=== PATIENT | female | born 1990 | race Caucasian/White ===

== ENCOUNTER 2022-10-30 19:17 | Outpatient (REF) | payer OTHER, SELFPAY ==
[2022-11-03 14:10] LABS: Age Gdln ACOG Testing Note (.); HPV Aptima Negative (Negative); IGP, Aptima HPV, rfx 16/18,45 Note (.)
== END 2022-10-30 19:18 | disposition home or self-care (01) ==
LOC: LAB 19:17
PROVIDERS: Visit Provider Physician Assistant
DX: Z01.419 Encounter for gynecological examination (general) (routine) without abnormal findings (principal)
CPT/HCPCS: 87624; G0145

== ENCOUNTER 2022-12-20 13:55 | Emergency (ER) | payer OTHER, SELFPAY ==
[2022-12-20 14:02] VITALS: BP 168/96; PULSE 82; RESP 18; TEMP 36.6; O2SAT 99; BMI 47.3
--- NOTE | 2022-12-20 14:21 | ED_ITS ---
external pelvic examination with nurse present indicated no apparent swelling or abscess. There is no Bartholin's abscess present. On the left side is a recessed area from her old surgery. There is no open areas or drainage or fluctuance. There is no indication for incision and drainage at this point. She'll be treated with antibiotics and pain medication and prompt follow-up with [employer]. Findings were discussed with the patient. HPI - General Adult General Chief complaint: Vaginal Bleeding Stated complaint: POSSIBLE CYST/VAGINAL PROBLEMS Time Seen by Provider: 12/20/22 14:07 Source: patient Mode of arrival: walk-in Limitations: no limitations History of Present Illness HPI narrative: patient is a 32-year-old female who presents to the emergency department for the evaluation of drainage from her left labia for the last three days. She was seen by her LDR RN today in the office but did not mention this complaint because she and her had intercourse prior to going to the office and she was not prepared to have an exam. She reports pain to the area and her has been squeezing drainage from it. She has had no fevers or vomiting. There are actively trying to get so she is not sure if she may be at this time. [facility] when she was she had a cyst to the area that was removed surgically by her LDR RN which left an indent/pocket in the labia an d she is now having drainage. Related Data Previous Rx's Medication Instructions Recorded clindamycin HCl 150 mg capsule 300 mg PO Q6H 10 days #80 caps 12/20/22 ketorolac 10 mg tablet 10 mg PO TID PRN pain #10 tabs 12/20/22 oxycodone-acetaminophen 5 mg-325 1 tab PO Q6H PRN pain #15 tabs 12/20/22 mg tablet (Percocet) Allergies Allergy/AdvReac Type Severity Reaction Status Date / Time No Known Drug Allergies Allergy Verified 12/20/22 14:01 Review of Systems ROS Constitutional Denies: fever or chills Ears, nose, mouth, and throat Denies: throat pain Cardiovascular Denies: chest pain Respiratory Denies: shortness of breath Gastrointestinal Denies: nausea or vomiting Musculoskeletal Denies: back pain or neck pain Integumentary/Breast Denies: rash Neurological Denies: headache Exam Narrative Exam Narrative: Gen.: Awake, alert, in no distress Head: Normocephalic, atraumatic ENT: Moist mucous membranes Respiratory: No respiratory distress Gastrointestinal: Abdomen is soft, nondistended and nontender to palpation : labia minora with no swelling or drainage. Left labia majora with medial tissue deformity consistent with a previous surgical procedure, no active drainage noted with a small swollen area that is mildly fluctuant. No large abscess noted. Extremities: Moves extremities equally Psych: Normal mood and affect Neuro: No focal neuro deficit Skin: Warm, dry, intact Constitutional Vital Signs, click to edit/add: Last Vital Signs Temp 97.8 F 12/20/22 14:02 Pulse 82 12/20/22 14:02 Resp 18 12/20/22 14:02 BP 168/96 H 12/20/22 14:02 Pulse Ox 99 12/20/22 14:02 O2 Del Method Room Air 12/20/22 14:02 Course Vital Signs Vital signs: Vital Signs Temperature 97.8 F 12/20/22 14:02 Pulse Rate 82 12/20/22 14:02 Respiratory Rate 18 12/20/22 14:02 Blood Pressure 168/96 H 12/20/22 14:02 Pulse Oximetry 99 12/20/22 14:02 Oxygen Delivery Method Room Air 12/20/22 14:02 Temperature 97.8 F 12/20/22 14:02 Pulse Rate 82 12/20/22 14:02 Respiratory Rate 18 12/20/22 14:02 Blood Pressure 168/96 H 12/20/22 14:02 Pulse Oximetry 99 12/20/22 14:02 Oxygen Delivery Method Room Air 12/20/22 14:02 Medical Decision Making [facility] Narrative Medical decision making narrative: test is negative, patient treated with pain medication in the Emergency Room. The area of abscess to the left labia has had drainage, at this time we will defer additional procedures to LDR RN, there is no large drainable abscess at this time. Clindamycin, Percocet, Toradol given for home. I discussed the case with Dr. Castano's PAAnnalise ([id number]) follow the patient up with her or Dr. Castano early next week. Warm compresses encouraged. Return to the Emergency Room if symptoms change or worsen Medical Records Medical records reviewed: Yes I reviewed the patient's medical records Lab Data Lab results reviewed: Yes I reviewed the patient's lab results Labs: Lab Results 12/20/22 Range/Units 14:40 Urine HCG, Qual Negative (NEGATIVE) Discharge Plan Discharge Chief Complaint: Vaginal Bleeding Clinical Impression: Abscess of labia Patient Disposition: Home, Self-Care Time of Disposition Decision: 15:02 Condition: Good Prescriptions / Home Meds: New clindamycin HCl 150 mg capsule 300 mg PO Q6H 10 Days Qty: 80 0RF ketorolac 10 mg tablet 10 mg PO TID PRN (Reason: pain) Qty: 10 0RF oxycodone-acetaminophen [Percocet] 5-325 mg tablet 1 tab PO Q6H PRN (Reason: pain) Qty: 15 0RF Rx Instructions: DX: R10.9 Instructions: Abscess (ED), Warm Compress or Soak (ED) Additional Instructions: Call Dr. Castano's office for a follow up appointment Saturday or Saturday; apply warm compresses to area Stand Alone Forms: Portal Instructions Referrals: Physician,Non-Staff, MD [Primary Care Provider] - 1 week
[2022-12-20 14:58] LABS: HCG Qualitative Urine* NEGATIVE (NEGATIVE)
[2022-12-20] MEDS: KETOROLAC TROMETHAMINE 60 MG/2 ML VIAL IM (15:28)
== END 2022-12-20 15:32 | disposition home or self-care (01) ==
PROVIDERS: Emergency Provider Emergency Medicine
DX: N76.4 Abscess of vulva (principal)
CPT/HCPCS: 84703; 96372; 99284

== ENCOUNTER 2022-12-31 15:11 | Outpatient (OUT) | payer OTHER, SELFPAY ==
--- NOTE | 2022-12-31 15:23 | XR_ITS ---
The [place] [id number] Patient Name: SYEDA DOLAN MRN: [id number] date: 1990 Sex: F Assigned Patient Location: LAB Current Patient Location: LAB Accession/Order Number: [id number] Exam Date: 12/31/2022 15:32 Report Date: 12/31/2022 17:02 At the request of: CRAIG HARRIS Procedure: XR abdomen 1V XR abdomen 1V, 12/31/2022 3:32 PM EDT, [place]001 INDICATION: Unspecified abdominal pain R10.9 evaluate nephrolithiasis. COMPARISON: None TECHNIQUE: 2 frontal views of the abdomen obtained. FINDINGS: The bowel gas pattern appears within normal limits. No suspicious calcifications are projected over the kidneys, ureters or bladder. No free peritoneal air is seen. The osseous and surrounding soft tissue structures appear within normal limits. XR/XR abdomen 1V IMPRESSION: Unremarkable bowel gas pattern. No definite radiographic evidence of genitourinary calculi. Electronically authenticated by: ZOEY MARQUIS Date: 12/31/2022 17:02
[2022-12-31 15:32] LABS: Bilirubin Urine NEGATIVE (NEGATIVE); Blood Urine TRACE-I (NEGATIVE); Clarity Urine CLEAR (CLEAR); Color Urine LT. YELLOW (YELLOW); Glucose Urine UA NEGATIVE (NEGATIVE); Ketones Urine NEGATIVE (NEGATIVE); Leukocyte Esterase Urine MODERATE (NEGATIVE); Nitrite Urine NEGATIVE (NEGATIVE); Protein Urine NEGATIVE (NEG/TRACE); Specific Gravity Urine >=1.030 (1.005-1.025); Urobilinogen Urine 0.2 EU/dL (0.2-1.0)
== END 2022-12-31 15:12 | disposition home or self-care (01) ==
LOC: LAB 15:13
PROVIDERS: PCP Family Medicine; Visit Provider Family Medicine
DX: R39.9 Unspecified symptoms and signs involving the genitourinary system (principal); R10.9 Unspecified abdominal pain
CPT/HCPCS: 74018; 81003; 87086; 87150; 87186

== ENCOUNTER 2023-01-17 20:50 | Outpatient (REF) | payer OTHER, SELFPAY | END 2023-01-17 20:51 | disposition home or self-care (01) | LOC: LAB 20:50 | PROVIDERS: PCP Family Medicine; Visit Provider Obstetrics & Gynecology | DX: N75.0 Cyst of Bartholin's gland (principal); N76.4 Abscess of vulva | CPT/HCPCS: 87070; 87150; 87186 ==

== ENCOUNTER 2023-01-25 10:03 | Outpatient (OUT) | payer OTHER, SELFPAY | END 2023-01-25 10:04 | disposition home or self-care (01) | LOC: LAB 10:05 | PROVIDERS: PCP Family Medicine; Visit Provider Obstetrics & Gynecology | DX: N97.9 Female infertility, unspecified (principal) | CPT/HCPCS: 36415; 84144 ==

== ENCOUNTER 2023-05-20 18:01 | Emergency (ER) | payer MEDICAID, SELFPAY ==
[2023-05-20 18:19] VITALS: BP 160/92; PULSE 85; RESP 20; TEMP 37.1; O2SAT 97; BMI 44.6
--- NOTE | 2023-05-20 18:35 | ED.BACK1 ---
HPI - Back Pain/Injury General Chief Complaint: Back Pain/Injury Stated Complaint: POSS KIDNEY STONE Time Seen by Provider: 05/20/23 18:25 Source: patient Mode of arrival: Wheelchair Limitations: no limitations History of Present Illness HPI Narrative: Is a 33-year-old female who presents to the emergency department with concern that she may have a kidney stone. She states she developed pain in the right low back with radiation to the right hip and groin earlier today. She reports an episode of emesis and states she is very nauseous. No medications taken prior to arrival. She denies any injuries or traumas, pain is significantly worse with movement and walking. She states she has a history of kidney stone. She is unsure if she may be . No objective fevers. Related Data Previous Rx's Medication Instructions Recorded clindamycin HCl 150 mg capsule 300 mg (2 x 150 mg) PO Q6H 10 days 12/20/22 #80 caps ketorolac 10 mg tablet 10 mg PO TID PRN pain #10 tabs 12/20/22 oxycodone-acetaminophen 5 mg-325 1 tab PO Q6H PRN pain #15 tabs 12/20/22 mg tablet (Percocet) methocarbamol 750 mg tablet 750 mg PO TID PRN pain #20 tabs 05/20/23 naproxen sodium 550 mg tablet 550 mg PO BID PRN pain #10 tabs 05/20/23 Allergies Allergy/AdvReac Type Severity Reaction Status Date / Time No Known Drug Allergies Allergy Verified 12/20/22 14:01 Review of Systems ROS Constitutional Denies: fever or chills Ears, nose, mouth, and throat Denies: throat pain or nasal congestion Respiratory Denies: shortness of breath Gastrointestinal Reports: nausea and vomiting; Denies: abdominal pain or diarrhea Musculoskeletal Reports: back pain; Denies: neck pain, extremity pain or extremity swelling Integumentary/Breast Denies: rash Neurological Denies: headache Endocrine Denies: excessive urination or excessive thirst Hematologic/Lymphatic Denies: easy bruising Exam Narrative Exam Narrative: Gen.: Awake, alert, in no distress Head: Normocephalic, atraumatic ENT: Moist mucous membranes Respiratory: No respiratory distress, lungs clear bilaterally Cardio: Regular rate and rhythm Gastrointestinal: Abdomen is soft, nondistended and nontender to palpation Back: Diffuse tenderness of the paraspinal muscles of the right low back with no CVA tenderness, no bony point tenderness or obvious deformity. Extremities: Moves extremities equally, no injuries noted; Patient is ambulatory Psych: Normal mood and affect Neuro: No focal neuro deficit Skin: Warm, dry, intact Constitutional Vital Signs, click to edit/add: Last Vital Signs Temp 98.7 F 05/20/23 18:19 Pulse 85 05/20/23 18:19 Resp 20 05/20/23 18:19 BP 160/92 H 05/20/23 18:19 Pulse Ox 97 05/20/23 18:19 O2 Del Method Room Air 05/20/23 18:19 Course Vital Signs Vital signs: Vital Signs Temperature 98.7 F 05/20/23 18:19 Pulse Rate 85 05/20/23 18:19 Respiratory Rate 20 05/20/23 18:19 Blood Pressure 160/92 H 05/20/23 18:19 Pulse Oximetry 97 05/20/23 18:19 Oxygen Delivery Method Room Air 05/20/23 18:19 Temperature 98.7 F 05/20/23 18:19 Pulse Rate 85 05/20/23 18:19 Respiratory Rate 20 05/20/23 18:19 Blood Pressure 160/92 H 05/20/23 18:19 Pulse Oximetry 97 05/20/23 18:19 Oxygen Delivery Method Room Air 05/20/23 18:19 MDM - Back Pain/Injury MDM Narrative Medical decision making narrative: Patient treated with IV fluids, morphine, Toradol, Zofran. She is resting comfortably on reevaluation. Vital signs are stable, lab studies are within normal limits. Patient's urine specimen is contaminated and she does not have any dysuria so we will wait for urine culture to determine if she needs to be treated for UTI. CT with no evidence of acute process. Patient treated for musculoskeletal pain, Norflex added in the ER and she is discharged home to follow-up with PCP. Return to the ER if symptoms change or worsen Medical Records Attestation: I reviewed the patient's medical records. Lab Data Attestation: I reviewed the patient's lab results. Labs: Lab Results 05/20/23 Range/Units 18:42 WBC 8.9 (4.0-11.0) 10^3/uL RBC 4.06 L (4.20-5.40) 10^6/uL Hgb 12.7 (12.0-16.0) g/dL Hct 38.9 (36.0-48.0) % MCV 95.8 (81.0-99.0) fL MCH 31.3 (26.7-34.0) pg MCHC 32.6 (29.9-35.2) g/dL RDW 11.9 (11.0-15.0) % Plt Count 303 (150-450) 10^3/uL MPV 10.6 (9.5-13.5) fL Neut % (Auto) 60.6 (43.0-75.0) % Lymph % (Auto) 31.1 (20.5-60.0) % [place] % (Auto) 6.0 (1.7-12.0) % Eos % (Auto) 1.6 (0.9-7.0) % Baso % (Auto) 0.6 (0.2-2.0) % Neut # (Auto) 5.4 (1.4-6.5) 10^3/uL Lymph # (Auto) 2.8 (1.2-3.8) 10^3/uL [place] # (Auto) 0.5 (0.3-0.8) 10^3/uL Eos # (Auto) 0.1 (0.0-0.7) 10^3/uL Baso # (Auto) 0.1 (0.0-0.1) 10^3/uL Abs Immat Gran (auto) 0.00 (0.00-0.03) 10^3/uL Imm/Tot Granulo (auto) 0.1 (0.0-0.5) % Sodium 138 (136-145) mmol/L Potassium 3.7 (3.5-5.1) mmol/L Chloride 106 (98-107) mmol/L Carbon Dioxide 25.4 (21.0-32.0) mmol/L Anion Gap 10.3 BUN 12.0 (7.0-18.0) mg/dL Creatinine 0.89 (0.55-1.02) mg/dL Est GFR ( Amer) >60 (>=60) Est GFR (Non-Af Amer) >60 (>=60) BUN/Creatinine Ratio 13.5 Glucose 95 (74-106) mg/dL Calcium 8.7 (8.5-10.1) mg/dL Total Bilirubin 0.3 (0.2-1.0) mg/dL AST 12 L (15-37) U/L ALT 23 (14-59) U/L Alkaline Phosphatase 95 (46-116) U/L Total Protein 7.0 (6.4-8.2) g/dL Albumin 3.2 L (3.4-5.0) g/dL Globulin 3.8 g/dL Albumin/Globulin Ratio 0.8 Lipase 30.0 (16.0-77.0) U/L Serum HCG, Qual Negative (NEGATIVE) Urine Color Lt. yellow (YELLOW) Urine Clarity Clear (CLEAR) Urine pH 6.5 (5.0-9.0) Ur Specific [place] 1.025 (1.005-1.025) Urine Protein Negative (NEG/TRACE) mg/dL Urine Glucose (UA) Negative (NEGATIVE) mg/dL Urine Ketones Negative (NEGATIVE) mg/dL Urine Occult Blood Negative (NEGATIVE) Urine Nitrite Negative (NEGATIVE) Urine Bilirubin Negative (NEGATIVE) Urine Urobilinogen 0.2 (0.2-1.0) EU/dL Ur Leukocyte Esterase Trace A (NEGATIVE) Urine RBC 5-10 A (0-2) #/HPF Urine WBC 5-10 A (NONE SEEN) #/HPF Ur Squamous Epith Cells Moderate A (NONE/RARE) #/LPF Urine Crystals None seen (None Seen) #/HPF Urine Bacteria Large A (NONE SEEN) #/HPF Urine Casts None seen (NONE SEEN) #/LPF Urine Mucus Small A (NONE SEEN) Ur Culture Indicated? Yes Imaging Data CT scan - abdomen: Attestation: I have reviewed the pertinent imaging results. Radiologist's impression: Procedure: CT abdomen pelvis wo con EXAM: CT scan of the abdomen and pelvis without contrast. Dose reduction technique used: Automated exposure control and/or adjustment of the mA and/or kV according to patient size and/or use of iterative reconstruction technique. REASON FOR EXAM: kidney stone COMPARISON: None FINDINGS: No renal, ureteral or bladder calculi. No hydronephrosis. Normal appendix. No free fluid in the abdomen or pelvis. No free intraperitoneal air. No dilated or thickened loops of small bowel or colon. Liver, pancreas, spleen, bilateral kidneys, and bilateral adrenal glands are otherwise unremarkable within the limitations of noncontrast CT. No lymphadenopathy in the abdomen or pelvis. Remainder unremarkable. Discharge Plan Discharge Chief Complaint: Back Pain/Injury Clinical Impression: Low back pain Patient Disposition: Home, Self-Care Time of Disposition Decision: 20:26 Condition: Good Prescriptions / Home Meds: New methocarbamol 750 mg tablet 750 mg PO TID PRN (Reason: pain) Qty: 20 0RF naproxen sodium 550 mg tablet 550 mg PO BID PRN (Reason: pain) Qty: 10 0RF No Action clindamycin HCl 150 mg capsule 300 mg PO Q6H 10 Days Qty: 80 0RF ketorolac 10 mg tablet 10 mg PO TID PRN (Reason: pain) Qty: 10 0RF oxycodone-acetaminophen [Percocet] 5-325 mg tablet 1 tab PO Q6H PRN (Reason: pain) Qty: 15 0RF Rx Instructions: DX: R10.9 Instructions: Acute Low Back Pain (ED) Stand Alone Forms: Portal Instructions Referrals: Asiya Gonzales MD [Primary Care Provider] - 1 week
[2023-05-20] MEDS: 0.9 % SODIUM CHLORIDE 1,000 ML 999 ML IV (18:55)
[2023-05-20] MEDS: ONDANSETRON PF 4 MG/2 ML VIAL IV (18:55)
[2023-05-20 19:15] LABS: Hematocrit 38.9 % (36.0-48.0); Hemoglobin 12.7 g/dL (12.0-16.0); Mean Corpuscular HGB Conc 32.6 g/dL (29.9-35.2); Mean Corpuscular Hemoglobin 31.3 pg (26.7-34.0); Mean Corpuscular Volume 95.8 fL (81.0-99.0); Platelet Count 303 10^3/uL (150-450); Red Blood Count 4.06 10^6/uL (4.20-5.40); Red Cell Distribution Width 11.9 % (11.0-15.0); White Blood Count 8.9 10^3/uL (4.0-11.0)
[2023-05-20 19:16] LABS: Basophils Absolute Auto 0.1 10^3/uL (0.0-0.1); Basophils Percent Auto 0.6 % (0.2-2.0); Eosinophils Absolute Auto 0.1 10^3/uL (0.0-0.7); Eosinophils Percent Auto 1.6 % (0.9-7.0); Immature Granulocytes Pct Auto 0.1 % (0.0-0.5); Lymphocytes Absolute Auto 2.8 10^3/uL (1.2-3.8); Lymphocytes Percent Auto 31.1 % (20.5-60.0); Mean Platelet Volume 10.6 fL (9.5-13.5); Monocytes Absolute Auto 0.5 10^3/uL (0.3-0.8); Neutrophils Absolute Auto 5.4 10^3/uL (1.4-6.5); Neutrophils Percent Auto 60.6 % (43.0-75.0)
[2023-05-20 19:26] LABS: Bilirubin Urine NEGATIVE (NEGATIVE); Blood Urine NEGATIVE (NEGATIVE); Clarity Urine CLEAR (CLEAR); Color Urine LT. YELLOW (YELLOW); Glucose Urine UA NEGATIVE (NEGATIVE); Ketones Urine NEGATIVE (NEGATIVE); Leukocyte Esterase Urine TRACE (NEGATIVE); Nitrite Urine NEGATIVE (NEGATIVE); Protein Urine NEGATIVE (NEG/TRACE); Specific Gravity Urine 1.025 (1.005-1.025); Urobilinogen Urine 0.2 EU/dL (0.2-1.0); pH Urine 6.5 (5.0-9.0)
[2023-05-20 19:30] LABS: Alanine Aminotransferase 23 U/L (14-59); Albumin Globulin Ratio 0.8; Albumin Level 3.2 g/dL (3.4-5.0); Alkaline Phosphatase 95 U/L (46-116); Anion Gap 10.3; Aspartate Amino Transferase 12 U/L (15-37); BUN Creatinine Ratio 13.5; Bilirubin Total 0.3 mg/dL (0.2-1.0); Calcium 8.7 mg/dL (8.5-10.1); Carbon Dioxide 25.4 mmol/L (21.0-32.0); Chloride 106 mmol/L (98-107); Estimated GFR (African America >60 (>=60); Estimated GFR (Non-African Ame >60 (>=60); Globulin 3.8 g/dL; Glucose 95 mg/dL (74-106); Potassium 3.7 mmol/L (3.5-5.1); Sodium 138 mmol/L (136-145)
[2023-05-20 19:33] LABS: HCG Qualitative NEGATIVE (NEGATIVE)
[2023-05-20 19:34] LABS: Urine Microscopic Indicated YES
--- NOTE | 2023-05-20 19:35 | CT_ITS ---
The [address] [address] Patient Name: SYEDA DOLAN MRN: [id number] date: 1990 Sex: F Assigned Patient Location: ER Current Patient Location: Accession/Order Number: [id number] Exam Date: 05/20/2023 19:48 Report Date: 05/20/2023 20:12 At the request of: KAMILA MENA Procedure: CT abdomen pelvis wo con EXAM: CT scan of the abdomen and pelvis without contrast. Dose reduction technique used: Automated exposure control and/or adjustment of the mA and/or kV according to patient size and/or use of iterative reconstruction technique. REASON FOR EXAM: kidney stone COMPARISON: None FINDINGS: No renal, ureteral or bladder calculi. No hydronephrosis. Normal appendix. No free fluid in the abdomen or pelvis. No free intraperitoneal air. No dilated or thickened loops of small bowel or colon. Liver, pancreas, spleen, bilateral kidneys, and bilateral adrenal glands are otherwise unremarkable within the limitations of noncontrast CT. No lymphadenopathy in the abdomen or pelvis. Remainder unremarkable. CT/CT abdomen pelvis wo con IMPRESSION: No acute abnormalities in the abdomen or pelvis. Electronically authenticated by: AMANDA MACIEL Date: 05/20/2023 20:12
[2023-05-20 19:38] LABS: Bacteria Urine LARGE #/HPF (NONE SEEN); Cast Seen? NONE SEEN #/LPF (NONE SEEN); Crystals Seen? None Seen #/HPF (None Seen); Mucus Urine SMALL (NONE SEEN); Squamous Epithelial Cell Urine MODERATE #/LPF (NONE/RARE); Urine Culture Indicated YES
[2023-05-20] MEDS: KETOROLAC TROMETHAMINE 30 MG/ML VIAL 15 MG IVP (19:44)
[2023-05-20] MEDS: MORPHINE SULFATE 4 MG/ML VIAL IV (19:44)
[2023-05-20 20:15] VITALS: BP 128/71; PULSE 52; RESP 16; O2SAT 100
[2023-05-20] MEDS: ORPHENADRINE 60 MG/ 2 ML VIAL IV (20:24)
== END 2023-05-20 20:41 | disposition home or self-care (01) ==
PROVIDERS: Physician Assistant; Emergency Provider Emergency Medicine Emergency Medical Services; PCP Family Medicine
DX: M54.50 Low back pain, unspecified (principal); Z87.442 Personal history of urinary calculi
CPT/HCPCS: 36415; 74176; 80053; 81001; 83690; 84703; 85025; 87086; 96361; 96374; 96375; 99285; J1885; J2270; J2360; J2405

== ENCOUNTER 2024-02-13 07:28 | Emergency (ER) | payer OTHER, SELFPAY ==
[2024-02-13 07:33] VITALS: BP 171/99; PULSE 78; TEMP 36.7; O2SAT 96; BMI 44.9
--- OUTSIDE RECORDS SUMMARY | 2024-02-13 07:35 | XMS_ITS | CCD ---
Author Organization [facility] CliniSynh Care Team Providers Care Rigger Up Name Role Phone Ravi Summersruth Joseph Primary Care Provider [phone] WARREN APODACA Admitting Unavailable WARREN APODACA Attending Unavailable ALISON NICOLE Joseph Primary Care Unavailable Nicole Summers Primary Care Provider Anabel Melgar Attending Unavailable Asiya Harris Unavailable Jimmy Roque Unavailable SEVEN ., DR BROWN Attending Unavailable SEVEN ., DR BROWN Admitting Unavailable SEVEN ., DR BROWN Consulting Unavailable SEVEN ., DR BROWN Admitting Unavailable SEVEN ., DR BROWN Consulting Unavailable SEVEN ., DR BROWN Attending Unavailable OLGA WALKER Consulting Unavailable WARREN APODACA Referring Unavailable ASIYA HARRIS Primary Care Unavailable ASIYA HARRIS Primary Care Unavailable WARREN HERNANDEZ Referring Unavailable Allergies Allergy Classification Reported Allergen(s) Allergy Type Date of Onset Reaction(s) Facility (1 source) No Known Medication Allergies; Translations: [No Known Medication Allergies] Propensity to adverse reactions (disorder) [facility] Repository Medications Current Medications Medication Drug Class(es) Dates Sig (Normalized) Sig (Original) 200 actuat albuterol 0.09 mg/actuat metered dose inhaler (1 source) beta2-Adrenergic Agonist Start: 04-14-2020 take 2 puff(s) by inhalation four times daily as needed for wheezing albuterol sulfate HFA (VENTOLIN HFA) 108 (90 Base) MCG/ACT inhaler Inhale 2 puffs into the lungs 4 times daily as needed for Wheezing 1 Inhaler 0 04/14/2020 Active Start: 04-14-2020 take 2 puff(s) by in halation four times daily as needed for wheezing albuterol sulfate HFA (VENTOLIN HFA) 108 (90 Base) MCG/ACT inhaler Inhale 2 puffs into the lungs 4 times daily as needed for Wheezing 1 Inhaler 0 04/14/2020 Active albuterol sulfate HFA 108 (90 Base) MCG/ACT inhaler 2 puff (1 source) Start: 04-14-2020 albuterol sulfate HFA 108 (90 Base) MCG/ACT inhaler 2 puff ascorbic acid 60 mg / beta carotene 5000 unt / copper sulfate 40 mg / dl-alpha tocopheryl acetate 30 unt / sodium selenite 0.04 mg / zinc oxide 40 mg oral tablet (1 source) Vitamin C take 1 tablet by mouth once daily Multiple Vitamins-Minerals (THERAPEUTIC MULTIVITAMIN-AIRLINE STEWARDESS ALS) tablet Take 1 tablet by mouth daily 0 Active azithromycin 250 mg oral tablet (2 sources) Macrolide Antimicrobial Start: 04-14-2020 End: 04-18-2020 take 1 tablet by mouth once daily azithromycin (ZITHROMAX) 250 MG tablet Indications: Pneumonia due to COVID-19 virus Take 1 tablet by mouth daily for 4 days 4 tablet 0 04/14/2020 04/18/2020 Active Start: 04-14-2020 End: 04-14-2020 azithromycin (ZITHROMAX) tab let 500 mg benzonatate 200 mg oral capsule (2 sources) Non-narcotic Antitussive Start: 04-14-2020 End: 04-21-2020 take 1 capsule by mouth three times daily as needed for cough benzonatate (TESSALON) 200 MG capsule Take 1 capsule by mouth 3 times daily as needed for Cough 20 capsule 0 04/14/2020 04/21/2020 Active Start: 04-14-2020 End: 04-14-2020 benzonatate (TESSALON) capsu le 200 mg [id number] 0.3 ml EPINEPHrine 1 mg/ml auto-injector (3 sources) alpha-Adrenergic Agonist, beta-Adrenergic Agonist, Catecholamine Start: 02-06-2019 EPINEPHrine (EPIP EN 2-LUPE) 0.3 MG/0.3ML SOAJ injection Inject 0.3 mLs into the skin once as needed (ALLERGIC reaction) 1 each 1 02/06/2019 Active 2 ml fentaNYL 0.05 mg/ml injection (2 sources) Opioid Agonist Start: 10-23-2019 fentaNYL (SUBLIMAZE) injection 50 mcg Start: 10-23-2019 fentaNYL (SUBL IMAZE) injection 25 mcg FLUoxetine 40 mg oral capsule (9 sources) Serotonin Reuptake Inhibitor Start: 10-14-2023 take 1 mg by mouth once daily Fluoxetine Active MG PO Daily October 14, 2023 12:00am Start: 08-05-2023 End: 08-06-2023 take 1 capsule by mouth once daily Fluoxetine (Prozac) 40 mg capsule Discontinued 40 MG PO Daily August 05, 2023 12:00am August 06, 2023 10:53am take [address] [facility] every twenty-four hours PROzac 40 MG 1 capsule Orally Once a day Active 1 ml hydrALAZINE hydrochloride 20 mg/ml injection (1 source) Arteriolar Vasodilator Start: 10-23-2019 hydrALAZINE (APRESOLINE) injection 5 mg lamoTRIgine 200 mg oral tablet (9 sources) Mood Stabilizer, Anti-epileptic Agent Start: 10-14-2023 take 200 mg by mouth once daily Lamotrigine Active 200 MG PO Daily October 14, 2023 12:00am Start: 08-06-2023 End: 10-14-2023 take 1 tablet by mouth twice daily Lamotrigine (Lamictal) 25 mg tablet Discontinued 25 MG PO Twice daily August 06, 2023 12:00am October 14, 2023 10:51am Start: 04-17-2019 take 1 tablet by [facility] once daily lamoTRIgine (LAMICTAL) 100 MG tablet Take 100 mg by mouth daily 0 04/17/2019 Active 2 ml metoclopramide 5 mg/ml prefilled syringe (1 source) Dopamine-2 Receptor Antagonist Start: 10-23-2019 End: 10-23-2019 metoclopramide (REGLAN) injection 10 mg Multiple Vitamins-Minerals (THERAPEUTIC MULTIVITAMIN-MINERAL S) tablet (4 sources) take 1 tablet by mouth once daily Multiple Vitamins-Minerals (THERAPEUTIC MULTIVITAMIN-MINERA LS) tablet Take 1 tablet by mouth daily 0 Active 2 ml ondansetron 2 mg/ml injection (1 source) Serotonin-3 Receptor Antagonist Start: 10-23-2019 End: 10-23-2019 ondansetron (ZOFRAN) injection 4 mg phentermine hydrochloride 37.5 mg oral tablet (3 sources) Sympathomimetic Amine Anorectic Start: 08-07-2022 take 1 tablet by mouth every twenty-four hours Adipex-P 37.5 MG 1 tablet Orally Once a day for 30 days Jul, Active Start: 07-10-2022 take 1 tablet by lc th every twenty-four hours Adipex-P 37.5 MG 1 tablet Orally Once a day for 30 days Jun, Active QUEtiapine 100 mg oral tablet (2 sources) Atypical Antipsychotic take 1 tablet by mouth every twenty-four hours QUEtiapine Fumarate 100 MG 1 tablet at bedtime Orally Once a day Active risperiDONE 2 mg oral tablet (1 source) Atypical Antipsychotic take 1 tablet by mouth twice daily risperiDONE (RISPERDAL) 2 MG tablet Take 2 mg by mouth 2 times daily 0 Active venlafaxine 100 mg oral tablet (5 sources) Serotonin and Norepinephrine Reuptake Inhibitor venlafaxine (EFFEXOR) 100 MG tablet Take 75 mg by mouth daily 0 Active take 2 tablets by mouth once aurora ly venlafaxine (EFFEXOR) 100 MG tablet Take 200 mg by mouth daily 0 Active Completed/Discontinued Medications Medication Drug Class(es) Dates Sig (Normalized) Sig (Original) amoxicillin 500 mg oral capsule (1 source) Penicillin-class Antibacterial Start: 08-22-2023 End: 10-14-2023 take 500 mg by mouth three times daily Amoxicillin Discontinued 500 MG PO Three times daily 30 11August 22, 2023 12:00am October 14, 2023 10:51am busPIRone hydrochloride 15 mg oral tablet (7 sources) Start: 08-05-2023 End: 08-06-2023 take 15 mg by mouth twice daily Buspirone Discontinued 15 MG PO Twice daily August 05, 2023 12:00am August 06, 2023 10:53am take 1 tablet by lc th every twelve hours busPIRone HCl 15 MG 1 tablet Orally Twic e a day for 30 days Active cariprazine 1.5 mg oral capsule (3 sources) Atypical Antipsychotic Start: 08-06-2023 End: 10-14-2023 take 1 capsule by mouth once daily Cariprazine (Vraylar) 1.5 mg capsule Discontinued 1.5 MG PO Daily August 06, 2023 12:00am October 14, 2023 10:51am cephalexin 500 mg oral capsule (5 sources) Cephalosporin Antibacterial Start: 08-05-2023 End: 08-06-2023 take 500 mg by mouth three times daily Cephalexin Discontinued 500 MG PO Three times daily August 05, 2023 12:00am August 06, 2023 10:53am take 1 capsule by [facility] every eight hours Cephalexin 500 MG 1 tablet three times a day Active 1 ml dexamethasone phosphate 10 mg/ml injection (1 source) Corticosteroid Start: 04-14-2020 End: 04-14-2020 dexamethasone (PF) (DECADRON) injection 6 mg lurasidone hydrochloride 20 mg oral tablet (2 sources) Atypical Antipsychotic End: 10-23-2019 take 1 tablet by mouth once daily lurasidone (LATUDA) 20 MG TABS tablet Take 20 mg by mouth daily 0 10/23/2019 Discontinued (DISCONTINUED BY ANOTHER CLINICIAN) methylPREDNISolone 4 mg oral tablet (1 source) Corticosteroid Start: 08-22-2023 End: 10-14-2023 take 1 tablet by mouth once Methylprednisolone (Medrol (Lupe)) 4 mg tablets,dose pack Discontinued 0 PO per package directions August 22, 2023 12:00am October 14, 2023 11:15am PO PER PKG DIR for 6 days Problems Problem Classification Problem Date Documented Date Episodic/Chronic Abdominal pain (1 source) Unspecified abdominal pain Episodic Administrative/social admission (4 sources) Patient encounter status; Translations: [Exercise counseling] 10-14-2023 Episodic Anxiety disorders (3 sources) Mixed anxiety and depressive disorder; Translations: [Other specified anxiety disorders] 08-05-2023 Chronic Essential hypertension (4 sources) Essential hypertension; Translations: [Essential hypertension] Onset: 07-24-2019 07-24-2019 Chronic Genitourinary symptoms and ill-defined conditions (1 source) Unspecified symptoms and signs involving the genitourinary system Episodic Mood disorders (8 sources) Depressive disorder; Translations: [Bipolar II disorder] Onset: 07-24-2019 07-24-2019 Chronic Other disorders of stomach and duodenum (1 source) Indigestion; Translations: [Indigestion] 11-01-2019 Episodic Other endocrine disorders (5 sources) Polycystic ovarian syndrome; Translations: [Polycystic ovaries] Onset: 09-20-2022 Chronic Other endocrine disorders (3 sources) Polycystic ovary syndrome; Translations: [Polycystic ovarian syndrome] 08-05-2023 Chronic Other lower respiratory disease (1 source) Snoring; Translations: [Snoring] Episodic Other lower respiratory disease (3 sources) Other forms of dyspnea; Translations: [Other forms of dyspnea] Onset: 07-29-2023 Episodic Other nutritional; endocrine; and metabolic disorders (8 sources) Morbid obesity; Translations: [Morbid (severe) obesity due to excess calories] 08-05-2023 Chronic Other nutritional; endocrine; and metabolic disorders (8 sources) Body mass index 40+ - severely obese; Translations: [Body mass index (BMI) 50.0-59.9, adult] Onset: 07-24-2019 07-24-2019 Chronic Other nutritional; endocrine; and metabolic disorders (3 sources) Morbid (severe) obesity due to excess calories; Translations: [Morbid obesity] Chronic Other nutritional; endocrine; and metabolic disorders (3 sources) Body mass index (BMI) 50.0-59.9, adult; Translations: [Body Mass Index 50.0-59.9, adult] 08-06-2023 Chronic Other upper respiratory infections (5 sources) Sore throat symptom; Translations: [Acute pharyngitis, unspecified] 08-22-2023 Episodic Pneumonia (except that caused by tuberculosis or sexually transmitted disease) (1 source) Pneumonia due to other virus not elsewhere classified; Translations: [Pneumonia due to COVID-19 virus] Episodic Unclassified (1 source) No additional problems on file Unclassified (1 source) Patient encounter status; Translations: [Encounter for screening for other viral diseases] Results Test Name Value Interpretation Reference Range Facility No Panel InformationOrdered By: Denisa To on 08-22-2023 Quick Strep (POC) [facility] DHEA SERUMon 09-24-2022 Dehydroepiandrosterone (DHEA) 229 ng/dL Normal 31-701 [facility] Comment on above: Performed By: #### Marian CHAN. #### [facility] [address] [address] [address] Estella Elaine DHEA-SULFATEon 09-20-2022 DHEA-Sulfate 229.0 ug/dL Normal 84.8-378.0 [facility] Comment on above: Performed By: #### Marian BANEGAS #### [facility] [address] [address] [address] Estella Elaine FSHon 09-20-2022 FSH 5.9 mIU/mL Normal [facility] Comment on above: Result Comment: Adul t Female: Follicular phase 3.5 - 12.5 Ovulation phase 4.7 - 21.5 Luteal phase 1.7 - 7.7 Postmenopausal 25.8 - 134.8 Performed By: #### [facility] #### [facility] [address] [place], [place] [address] Dr. Estella Elaine LUTEINIZING HORMONE (LH)on 0 09-20-2022 LH 9.1 mIU/mL Normal [facility] Comment on above: Result Comment: Adul t Female: Follicular phase 2.4 - 12.6 Ovulation phase 14.0 - 95.6 Luteal phase 1.0 - 11.4 Postmenopausal 7.7 - 58.5 Performed By: #### L [facility] #### [facility] [address] [place], [place] [address] Dr. Estella Elaine US PELVIS AND TRANSVAGon US PELVIS AND TRANSVAG EXAM: US PELVIS A ND TRANSVAG HISTORY: Polycystic ovary syndrome COMPARISON: None. TECHNIQUE: Transvaginal and transabdominal imaging was performed utilizing grayscale, color Doppler, and spectral imaging. LMP: 09/14/2022. : 1 Para: 1 FINDINGS: Anteverted uterus. Uterine volume: 7.5 x 3.5 x 4.3 cm = 57.9 mL. Uterus description: Homogeneous echotexture without evidence of fibroid. Endometrial thickness: 4 mm. (Normal premenopausal thickness is less than 15 mm. Normal postmenopausal thickness is less than 5 mm) Endometrial description: No abnormality demonstrated. Right ovary: Measurements: 2.8 x 2.7 x 2.3 cm = 9 mL, containing multiple follicles measuring up to 1 cm. Description: Unremarkable appearance of the ovary without suspicious lesion. Vasculature: Normal color waveform. Left ovary: Measurements: 2.1 x 1.4 x 1.4 cm = 3.6 mL. Description: Unremarkable appearance of the ovary without suspicious lesion. Vasculature: Normal color waveform. Adnexa: Unremarkable. Cul-de-sac: No free fluid. Additional findings: None. IMPRESSION: Unremarkable pelvic ultrasound. No significant abnormality demonstrated. . Electronically authenticated by: OLGA WALKER Date: 2022-09-20 16:56 Normal [facility] CBC AUTO DIFFon 05-10-2023 BASO # 0.0 103/ul Normal 0.0-0.1 [facility] Comment on above: Performed By: #### C BC #### [facility] [address] [place] [address] Dr. Estella Elaine Basophils/100 WBC (Bld) 0.3 % Normal 0.2-2.0 [facility] Comment on above: Performed By: #### C BC #### [facility] [address] [place] [address] Dr. Estella lEaine EO # 0.1 103/ul Normal 0.0-0.7 [facility] Comment on above: Performed By: #### C BC #### [facility] [address] [place] [address] Dr. Estella Elaine Eosinophils/100 WBC (Bld) 0.9 % Normal 0.9-7.0 [facility] Comment on above: Performed By: #### C BC #### [facility] [address] [place] [address] Dr. Estella Elaine Erythrocyte distribution width (RBC) [Ratio] 11.9 % Normal 11.0-15.0 [facility] Comment on above: Performed By: #### C BC #### [facility] [address] [place] [address] Dr. Estella Elaine Hematocrit (Bld) [Volume fraction] 42.6 % Normal 36.0-48.0 [facility] Comment on above: Performed By: #### C BC #### [facility] [address] [place] [address] Dr. Estella Elaine Hemoglobin (Bld) [Mass/Vol] 14.2 g/dL Normal 12.0-16.0 [facility] Comment on above: Performed By: #### C BC #### [facility] [address] [place] [address] Dr. Estella Elaine IG # 0.03 10e3/ul Normal 0.00-0.03 [facility] Comment on above: Performed By: #### C BC #### [facility] [address] [place] [address] Dr. Estella Elaine IG % 0.3 % Normal 0.0-0.5 [facility] Comment on above: Performed By: #### C BC #### [facility] [address] [place] [address] Dr. Estella Elaine LYMPH # 1.7 103/ul Normal 1.2-3.8 [facility] Comment on above: Performed By: #### C BC #### [facility] [address] [place] [address] Dr. Estella Elaine Lymphocytes/100 WBC (Bld) 19.0 % Critically low 20.5-6 0.0 [facility] Comment on above: Performed By: #### C BC #### [facility] [address] [place] [address] Dr. Estella Elaine MANUAL DIFF REQ NO Normal [facility] Comment on above: Performed By: #### C BC #### [facility] [address] [place] [address] Dr. Estella Elaine MCH (RBC) [Entitic mass] 31.3 pg Normal 26.7-34.0 [facility] Comment on above: Performed By: #### C BC #### [facility] [address] [place] [address] Dr. Estella Elaine MCHC (RBC) [Mass/Vol] 33.3 g/dL Normal 29.9-35.2 [facility] Comment on above: Performed By: #### C BC #### [facility] [address] [place] [address] Dr. Estella Elaine MCV (RBC) [Entitic vol] 94.0 fL Normal 81.0-99.0 [facility] Comment on above: Performed By: #### C BC #### [facility] [address] [place] [address] Dr. sEtella Elaine MONO # 0.4 103/ul Normal 0.3-0.8 [facility] Comment on above: Performed By: #### C BC #### [facility] [address] [place] [address] Dr. Estella Elaine Monocytes/100 WBC (Bld) 4.0 % Normal 1.7-12.0 [facility] Comment on above: Performed By: #### C BC #### [facility] [address] [place] [address] Dr. Estella Elaine NEUT # 6.7 103/ul Critically high 1.4-6.5 [facility] Comment on above: Performed By: #### C BC #### [facility] [address] [place] [address] Dr. Estella Elaine Neutrophils/100 WBC (Bld) 75.5 % Critically high 43.0- 75.0 [facility] Comment on above: Performed By: #### C BC #### [facility] [address] [place] [address] Dr. Estella Elaine Platelet mean volume (Bld) [Entitic vol] 9.5 fL Normal 9.5-13.5 [facility] Comment on above: Performed By: #### C BC #### [facility] [address] [place] [address] Dr. Estella Elaine PLT 384 103/ul Normal 150-450 [facility] Comment on above: Performed By: #### C BC #### [facility] [address] [place] [address] Dr. Estella Elaine RBC 4.53 106/ul Normal 4.20-5.40 [facility] Comment on above: Performed By: #### C BC #### [facility] [address] [place] [address] Dr. Estella Elaine WBC 8.9 103/ul Normal 4.0-11.0 [facility] Comment on above: Performed By: #### C BC #### [facility] [address] [place] [address] Dr. Estella Elaine FREE T4on 09-19-2022 Free T4 [Mass/Vol] 0.90 ng/dL Normal 0.76-1.46 [facility] Comment on above: Performed By: #### F T4 #### [facility] [address] [place] [address] Dr. Estella Elaine GLYCOHEMOGLOBIN A1Con 2022 ADA RECOMMENDATION SEE BELOW Normal [facility] Comment on above: Result Comment: ADA RECOMMENDED LIMIT 4.0 - 6.0 ADA THERAPEUTIC TARGET < 7.0 ACTION SUGGESTED > 7.0 Performed By: #### A 1C #### [facility] [address] [place] [address] Dr. Estella Elaine Glucose [Mass/Vol] 97 mg/dL Normal [facility] Comment on above: Performed By: #### A 1C #### [facility] [address] [address] [address] Estella Elaine HbA1c (Bld) [Mass fraction] 5.0 % Normal 4.5-6.2 [facility] Comment on above: Performed By: #### A 1C #### [facility] [address] [place] [address] Dr. Estella Elaine TSHon 09-19-2022 TSH 2.601 uIU/mL Normal 0.358-3.740 [facility] Comment on above: Performed By: #### T SH #### [facility] [address] [place] [address] Dr. Estella Elaine Ambulatory Visit Summaryon 0 06-11-2022 Ambulatory Visit Summary BRITT DOLAN :1990 Visit Date:06/11/2022 Ambulatory Visit Instructions Your Diagnosis Viral illness Acute effusion of both middle ears Nausea BMI 45.0-49.9, adult Current every day vaping Your Care Team Attending Physician - Anabel Gonzalez Primary Care Physician - NICOLE SUMMERS CNP This Is Your Medications List methylPREDNISolone (Medrol 4 mg Tab) ondansetron (ondansetron 4 mg Dis Tab) Contact prescribing physician if questions or concerns fluoxetine (FLUoxetine 40 mg Cap) lamotrigine (Lamictal 25 mg Tab) Procedures Performed Removal of labial cyst (12/07/2015), section (12/2014), Kidney stone..... Discharge Vitals Temperature (Oral) 36.8 ?C Heart Rate (Peripheral) 83 Blood Pressure 130/82 Height 165 cm Height 65 in Weight 124 kg Weight 272.8 lb BMI 45.55 What to do next You Need to Schedule the Following Appointments Follow Up with NICOLE SUMMERS CNP When: Where: [address] [place] [address]- Medications What How Much When Why Instructions New methylPREDNISolone (Medrol 4 mg Tab) 1 Packets By Mouth As Directed Acute effusion of both middle ears Duration: 6 Days as directed on package labeling Pickup at [facility]/pharmacy #[id number] New ondansetron (ondansetron 4 mg Dis Tab) 1 Tablets By Mouth Every 6 hours as needed for Nausea/Vomiting Nausea Duration: 3 [id number] Unchanged fluoxetine (FLUoxetine 40 mg Cap) Contact prescribing physician if questions or concerns Unchanged lamotrigine (Lamictal 25 mg Tab) See instructions Bipolar disorder, current episode mixed, moderate 1 tab PO qd x1 wk, then 2 tabs PO qd x1 wk, then 3 tabs PO qd x1 wk, then 4 tabs PO qd x1 wk, then start new dose per psychiatry Contact prescribing physician if questions or concerns [id number] [address], [place] [id number] [phone] Allergies No Known Medication Allergies Problems Ongoing - Any problem that you are currently receiving treatment for. Adult BMI 50.0-59.9 kg/sq m Anxiety Bipolar disorder, current episode mixed, moderate Dietary counseling Morbid obesity due to excess calories Historical - Any problem that you are no longer receiving treatment for. Bipolar disorder, current episode mixed, mild Kidney stones Obesity Smoker Education Materials Viral Respiratory Infection A viral respiratory infection is an illness that affects parts of the body that are used for breathing. These include the lungs, nose, and throat. It is caused by a germ called a virus. Some examples of this kind of infection are: ? A cold. ? The flu (influenza). ? A respiratory syncytial virus (RSV) infection. A person who gets this illness may have the following symptoms: ? A stuffy or runny nose. ? Yellow or green fluid in the nose. ? A cough. ? Sneezing. ? Tiredness (fatigue). ? Achy muscles. ? A sore throat. ? Sweating or chills. ? A fever. ? A headache. Follow these instructions at home: Managing pain and congestion ? Take [id number] and prescription medicines only as told by your doctor. ? If you have a sore throat, gargle with salt water. Do this 3?4 times per day or as needed. To make a salt-water mixture, dissolve ??1 tsp of salt in 1 cup of warm water. Make sure that all the salt dissolves. ? Use nose drops made from salt water. This helps with stuffiness (congestion). It also helps soften the skin around your nose. ? Drink enough fluid to keep your pee (urine) pale yellow. General instructions ? Rest as much as possible. ? Do not drink alcohol. ? Do not use any products that have nicotine or tobacco, such as cigarettes and e-cigarettes. If you need help quitting, ask your doctor. ? Keep all follow-up visits as told by your doctor. This is important. How is this prevented? ? Get a flu shot every year. Ask your doctor when you should get your flu shot. ? Do not let other people get your germs. If you are sick: ? Stay home from work or school. ? Wash your hands with soap and water often. Wash your hands after you cough or sneeze. If soap and water are not available, use hand skating rink manager. ? Avoid contact with people who are sick during cold and flu season. This is in fall and winter. Get help if: ? Your symptoms last for 10 days or longer. ? Your symptoms get worse over time. ? You have a fever. ? You have very bad pain in your face or forehead. ? Parts of your jaw or neck become very swollen. Get help right away if: ? You feel pain or pressure in your chest. ? You have shortness of breath. ? You faint or feel like you will faint. ? You keep throwing up (vomiting). ? You feel confused. Summary ? A viral respiratory infection is an illness that affects parts of the body that are used (more content not included)... Normal [facility] Family Medicine Office/Clini c Noteon 06-11-2022 Family Medicine Office/Clinic Note Chief Complaint EST congestion fever HPI Staff 32 year old female presents with being sick for over a week symptoms have been present for? a little over a week fever?yes subjective fever? chills?yes Rigors? body aches?yes runny nose?yes sore throat?yes new olfactory and taste disorder? headache?yes fatigue?yes cough?yes wheezing?yes SOB?yes chest pain/tightness?no nausea or vomiting?yes abdominal pain?no diarrhea?no ear pain/pressure?no sick contacts? states that kids have the croup context (getting better, worse?) hx of allergies? treatments attempted? tylenol cough meds smoking status?vape History of Present Illness Pt presents today in office with complaints of fever, chills, body aches, sore throat, headache, fatigue, cough, wheezing, shortness of breath, nausea x 1 week. Pt reports many of her symptoms have resolved, but she still has cough, drainage, and nausea. Pt denies known COVID exposure, recent travel. Pt has taken at home COVID tests with a negative result. She has been using OTC Tylenol cold medication with little relief. Denies shortness of breath, signs of dehydration. Review of Systems PHQ Score Initial Depression Screen Score: 0 Physical Exam Vitals & Measurements T: 36.8 ?C(Oral) HR: 83(Peripheral) BP: 130/82 SpO2: 99% HT: 65 in HT: 165 cm WT: 124 kg WT: 272.8 lb BMI: 45.55 General: alert and oriented, well nourished, no acute distress Eyes: normal sclera and conjunctivae Face: normal, symmetrical movements HEENT: Head: normocephalic, atraumatic, Ears: TMs intact and non-erythematous, effusion noted Nose: congestion, turbinates swollen and erythematous, no sinus tenderness, Throat: pharynx pink, no exudate on tonsils, tonsils normal (1+), uvula midline Heart: regular rate and rhythm Chest: normal shape and expansion Lungs: clear to auscultation, no wheezing/rhonchi/rale s, good air movement Respiratory: respirations even and unlabored, able to speak in full sentences and take deep breaths without difficulty, no gasping or shortness of breath noted, no use of accessory muscles noted Abdomen: soft, nontender, no guarding or grimacing Neuro: speech clear and coherent Skin: visible skin warm, dry, good skin turgor Extremities: no cyanosis, cap refill brisk Assessment/Plan 1. Viral illness (B34.9: Viral infection, unspecified) Discussed diagnosis with patient. Advised patient that she has viral illness, symptoms will last 7-10 days. No acute lung process on exam. Encouraged supportive care, Tylenol as needed, increase fluids, rest, throat lozenges, cool mist humidification. Patient may return to work/activities once fever free for 24 hours. If symptoms do not improve, follow up with PCP. Patient verbalizes understanding and is agreeable with treatment plan. 2. Acute effusion of both middle ears (H65.193: Other acute nonsuppurative otitis media, bilateral) Discussed diagnosis with patient, explained to patient that there is middle ear fluid without signs of bacterial infection, antibiotics are not indicated. Commonly due to ET dysfunction, viral illness, allergies, barotrauma, or recent AOM. Advised patient that fluid in middle ear may take several weeks to resolve. Take rx medication of Medrol dose pack as directed. Supportive treatment as directed, push fluids/test, Tylenol for discomfort. Follow up with PCP in 2 weeks or sooner for new or worsening symptoms. Patient verbalizes understanding and is agreeable to treatment plan. Ordered: methylPREDNISolone, = 1 packet(s), Oral, As Directed, as directed on package labeling, X 6 day(s), # 21 tab(s), Refills(s) 0, Pharmacy: [id number], 165, cm, 06/11/22 9:34:00 EST, Height/Length Dosing, 124, kg, 06/11/22 9:34:00 EST, Weight Dosing 3. Nausea (R11.0: Nausea) Will send in rx of Zofran to use as directed as needed. Follow above treatment plan recommendations. Ordered: ondansetron, 4 mg = 1 tab(s), Oral, q6hr, PRN Nausea/Vomiting, X 3 day(s), # 12 tab(s), Refills(s) 0, Pharmacy: [id number], 165, cm, 06/11/22 9:34:00 EST, Height/Length Dosing, 124, kg, 06/11/22 9:34:00 EST, Weight Dosing 4. BMI 45.0-49.9, adult (Z68.42: Body mass index [BMI] 45.0-49.9, adult) The standard range for ages 18 and older is >=18.5 and < 25 kg/m2. Your BMI today was above this range, this falls in the overweight to obese category and there are medical benefits to weight loss. We can offer counselling, referral, and/or medical support in addressing this problem. Your BMI and weight management will be followed at subsequent visits. Ordered: Body Mass Index (BMI) documented 3008F Follow-up With When Contact Information ALISON BELL, NICOLE [address] [place] [address]- Additional Instructions: Patient Education Viral Respiratory Infection, Hwjm-Qx-Xlfp BMI for Adults Nausea and Vomiting, Adult, Tira-yi-Pjvc Problem List/Past Medical History Ongoing Adult BMI 50.0-59.9 kg/sq m Anxiety Bipolar disorder, c (more content not included)... Normal [facility] Comment on above: Result Comment: Elec tronically Signed By: Anabel Gonzalez\.br\Date and Time Signed: 06/11/22 09:58 EST Patient Educationon 06-11-19 Patient Education Gastroenterology Nausea and Vomiting, Adult Nausea is feeling sick to your stomach or feeling that you are about to throw up (vomit). Vomiting is when food in your stomach is thrown up and out of the mouth. Throwing up can make you feel weak. It can also make you lose too much water in your body (get dehydrated). If you lose too much water in your body, you may: ? Feel tired. ? Feel thirsty. ? Have a dry mouth. ? Have cracked lips. ? Go pee (urinate) less often. Older adults and people with other diseases or a weak body defense system (immune system) are at higher risk for losing too much water in the body. If you feel sick to your stomach and you throw up, it is important to follow instructions from your doctor about how to take care of yourself. Follow these instructions at home: Watch your symptoms for any changes. Tell your doctor about them. Follow these instructions to care for yourself at home. Eating and drinking ? Take an ORS (oral rehydration solution). This is a drink that is sold at pharmacies and stores. ? Drink clear fluids in small amounts as you are able, such as: ? Water. ? Ice chips. ? Fruit juice that has water added (diluted fruit juice). ? Low-calorie sports drinks. ? Eat bland, gjcu-kj-bysfxd foods in small amounts as you are able, such as: ? Bananas. ? Applesauce. ? Rice. ? Low-fat (lean) meats. ? [place]. ? Crackers. ? Avoid drinking fluids that have a lot of sugar or caffeine in them. This includes energy drinks, sports drinks, and soda. ? Avoid alcohol. ? Avoid spicy or fatty foods. General instructions ? Take qsqy-udi-gzqfvby and prescription medicines only as told by your doctor. ? Drink enough fluid to keep your pee (urine) pale yellow. ? Wash your hands often with soap and water. If you cannot use soap and water, use hand skating rink manager. ? Make sure that all people in your home wash their hands well and often. ? Rest at home while you get better. ? Watch your condition for any changes. ? Take slow and deep breaths when you feel sick to your stomach. ? Keep all follow-up visits as told by your doctor. This is important. Contact a doctor if: ? Your symptoms get worse. ? You have new symptoms. ? You have a fever. ? You cannot drink fluids without throwing up. ? You feel sick to your stomach for more than 2 days. ? You feel light-headed or dizzy. ? You have a headache. ? You have muscle cramps. ? You have a rash. ? You have pain while peeing. Get help right away if: ? You have pain in your chest, neck, arm, or jaw. ? You feel very weak or you pass out (faint). ? You throw up again and again. ? You have throw up that is bright red or looks like black coffee grounds. ? You have bloody or black poop (stools) or poop that looks like tar. ? You have a very bad headache, a stiff neck, or both. ? You have very bad pain, cramping, or bloating in your belly (abdomen). ? You have trouble breathing. ? You are breathing very quickly. ? Your heart is beating very quickly. ? Your skin feels cold and clammy. ? You feel confused. ? You have signs of losing too much water in your body, such as: ? Dark pee, very little pee, or no pee. ? Cracked lips. ? Dry mouth. ? Sunken eyes. ? Sleepiness. ? Weakness. These symptoms may be an emergency. Do not wait to see if the symptoms will go away. Get medical help right away. Call your local emergency services (911 in the [place] Do not drive yourself to the hospital. Summary ? Nausea is feeling sick to your stomach or feeling that you are about to throw up (vomit). Vomiting is when food in your stomach is thrown up and out of the mouth. ? Follow instructions from your doctor about eating and drinking to keep from losing too much water in your body. ? Take sifj-qbr-qxefsld and prescription medicines only as told by your doctor. ? Contact your doctor if your symptoms get worse or you have new symptoms. ? Keep all follow-up visits as told by your doctor. This is important. This information is not intended to replace advice given to you by your health care provider. Make sure you discuss any questions you have with your health care provider. Document Released: 10/15/2008 Document Revised: 08/21/2019 Document Reviewed: 10/07/2018 [employer] Patient Education ? 2019 [employer]. Infectious Disease Viral Respiratory Infection A viral respiratory infection is an illness that affects parts of the body that are used for breathing. These include the lungs, nose, and throat. It is caused by a germ called a virus. Some examples of this kind of infection are: ? A cold. ? The flu (influenza). ? A respiratory syncytial virus (RSV) infection. A person who gets this illness may have the following symptoms: ? A stuffy or runny nose. ? Yellow or green fluid in the nose. ? A cough. ? Sneezing. ? Tiredness (fatigue). ? Achy muscles. ? A (more content not included)... Normal [facility] Provider Letteron 06-11-2022 Provider Letter June 11, 2022 BRITT [address]S [address] [place] [address] BRITT WALTERS 1990 To Whom It May Concern, Please excuse above patient from work. Date of Illness: From: 06/11/22 May Return to Work On: Next scheduled day. Sincerely, [facility] [address] [place] [address] [place] [address] Normal [facility] Basic Metabolic Panel w/ Ref tony to MGon 04-14-2020 Anion gap [Moles/Vol] 12 mmol/L 9 - 17 mmol/L [place] Bun/Cre Ratio 13 [place] Calcium [Mass/Vol] 9.6 mg/dL 8.6 - 10. 4 mg/dL [place] Chloride [Moles/Vol] 107 mmol/L 98 - 10 7 mmol/L [place] CO2 [Moles/Vol] 20 mmol/L 20 - 31 mmol/L [place] Creatinine [Mass/Vol] 0.7 mg/dL 0.5 - 0.9 mg/dL [place] GFR >60 >60 mL/min [place] GFR Non- >60 >60 mL/min [place] GFR/1.73 sq M predicted among non-blacks MDRD (S/P/Bld) [Vol rate/Area] [place] Comment on above: Average GFR for 30-3 9 years old: 107 mL/min/1.73sq m Chronic Kidney Disease: <60 mL/min/1.73sq m Kidney failure: <15 mL/min/1.73sq m eGFR calculated using average adult body mass. Additional eGFR calculator available at: http://www.Medlert/multiple_crcl_2012.htm GFR/1.73 sq M predicted among non-blacks MDRD (S/P/Bld) [Vol rate/Area] NOT REPORTED [place] Glucose [Mass/Vol] 114 mg/dL High 70 - 99 mg/dL [place] Interpretation and review of laboratory results Abnormal [place] Potassium [Moles/Vol] 3.8 mmol/L 3.7 - 5.3 mmol/L [place] Sodium [Moles/Vol] 139 mmol/L 135 - 144 mmol/L [place] Urea nitrogen [Mass/Vol] 9 mg/dL 6 - 20 mg/d L [place] CBC Auto Differentialon 12-0 3-2020 Basophils (Bld) [#/Vol] 0.00 10*3/uL [place] Basophils/100 WBC (Bld) 0 % 0 - 2 % [place] Differential Type YES [place] Eosinophils (Bld) [#/Vol] 0.00 10*3/uL [place] Eosinophils/100 WBC (Bld) 0 % 0 - 5 % [place] Erythrocyte distribution width (RBC) [Ratio] 14.0 % 12.1 - 15.2 % [place] Hematocrit (Bld) [Volume fraction] 40.5 % 36 - 46 % [place] Hemoglobin (Bld) [Mass/Vol] 13.9 g/dL 12 - 16 g/dL [place] Lymphocytes (Bld) [#/Vol] 1.50 10*3/uL [place] Lymphocytes/100 WBC (Bld) 27 % 15 - 40 % [place] MCH (RBC) [Entitic mass] 29.8 pg 26 - 34 pg [place] MCHC (RBC) [Mass/Vol] 34.2 g/dL 31 - 37 g/dL [place] MCV (RBC) [Entitic vol] 87.1 fL 80 - 100 fL [place] Monocytes (Bld) [#/Vol] 0.30 10*3/uL [place] Monocytes/100 WBC (Bld) 6 % 4 - 8 % [place] Platelet mean volume (Bld) [Entitic vol] NOT REPORTED 6 - 12 fL [place] Platelets (Bld) [#/Vol] NOT REPORTED [place] Platelets (Bld) [#/Vol] 230 10*3/uL [place] RBC (Bld) [#/Vol] 4.66 10*6/uL 4 - 5.2 m/uL [place] RBC morphology finding Nom (Bld) NOT REPORTED [place] Segmented neutrophils/100 WBC (Bld) 67 % 47 - 75 % [place] Segs Absolute 3.70 [place] WBC (Bld) [#/Vol] 5.4 10*3/uL [place] WBC (Bld) [#/Vol] NOT REPORTED per 100 WBC [place] WBC Morphology NOT REPORTED [place] HCG Qualitative, Serumon hCG Qual Negative NEGATIVE [place] Comment on above: Specimens with hCG l evels near the threshold of the test (25 mIU/mL) may give a negative or indeterminate result. In such cases, another test should be performed with a new specimen in 48-72 hours. If early is suspected clinically in this setting, correlation with quantitative serum b-hCG level is suggested. [facility] confirmed the use of plasma for this test. This has not been cleared or approved by the U.S. Food and Drug Administration. The FDA has determined that such clearance is not necessary. Otheron 04-14-2020 Immature granulocytes (Bld) [#/Vol] NOT REPORTED [place] XR CHEST PORTABLEon 04-14-20 EXAM: XR CHEST PORTABLE HISTORY: Reason for exam:->Covid positive, shortness of breath 30-year-old female COMPARISON: Chest x-ray 02/06/2019 TECHNIQUE: AP portable chest 0950 hours. FINDINGS: Shallow breath, but patchy opacity is present over the anterior right first rib suspicious for a early area of bronchopneumonia. Left lung clear. No effusion. Heart size normal. [place] Miguel, [facility] Incoming Radiant Results From [employer] - 04/14/2020 10:22 AM EST EXAM: XR CHEST PORTABLE HISTORY: Reason for exam:->Covid positive, shortness of breath 30-year-old female COMPARISON: Chest x-ray 02/06/2019 TECHNIQUE: AP portable chest 0950 hours. FINDINGS: Shallow breath, but patchy opacity is present over the anterior right first rib suspicious for a early area of bronchopneumonia. Left lung clear. No effusion. Heart size normal. IMPRESSION: Patchy area of airspace opacity likely present overlying the anterior right first rib 4 cm diameter. Likely early pneumonia. [place] Patchy area of airspace opacity likely present overlying the anterior right first rib 4 cm diameter. Likely early pneumonia. [place] CORONAVIRUS 2019 BY PCRon CORONAVIRUS 2019,PCR NOT DETECTED Normal Not Detected [facility] Comment on above: Result Comment: . This assay is designed to detect SARS-CoV-2 based on replication of specific regions of the RNA from the SARS-CoV-2 virus. A Not Detected result does not preclude 2019-nCoV infection since the adequacy of sample collection and/or low viral burden may result in presence of viral nucleic acids below the clinical sensitivity of this test method. Fact sheet for providers: https://www.fda.gov/media/436552/download Fact sheet for patients: https://www.fda.gov/media/258056/download This test has received FDA Emergency Use Authorization [EUA] and has been verified by [facility] ([facility]). This test is only authorized for the duration of time that circumstances exist to justify the authorization of the emergency use of in vitro diagnostic tests for the detection of SARS-CoV-2 virus and/or diagnosis of COVID-19 infection under section 564(b)(1) of the Act, 21 U.S.C. 360bbb-3(b)(1), unless the authorization is terminated or revoked sooner. [facility] is certified under CLIA-88 as qualified to perform high complexity testing. Testing is performed in the [facility] laboratories located at [address] [place] [address]. Performed By: #### C OV19 #### [place] [address] CORONAVIRUS 2019 BY PCRon DATE OF SYMPTOM ONSET [YYYYMMDD]? [id number] [facility] Comment on above: Performed By: #### C OV19 #### [place] [address] EMPLOYED IN HEALTHCARE? No [facility] Comment on above: Performed By: #### C OV19 #### [place] [address] FIRST COVID NASAL SWAB TEST? No [facility] Comment on above: Performed By: #### C OV19 #### [place] [address] HOSPITALIZED (OR PLANNED TO BE ADMITTED)? Yes Normal [facility] Comment on above: Performed By: #### C OV19 #### [facility] [address] [place] [address] ICU? No [facility] Comment on above: Performed By: #### C OV19 #### [facility] [address] [place] [id number] Lab Specimen Source Nasal, Nasopharyngeal [facility] Comment on above: Performed By: #### C OV19 #### [facility] [address] [place] [address] ? Unknown [facility] Comment on above: Performed By: #### C OV19 #### [facility] [address] [place] [address] RESIDENT IN CONGREGATE CARE SETTING? No [facility] Comment on above: Performed By: #### C OV19 #### [facility] [address] [place] [id number] SYMPTOMATIC DEFINED BY CDC? Yes [facility] Comment on above: Performed By: #### C OV19 #### [facility] [address] [place] [id number] Provider Note - ED v2on 11-0 Provider Note - ED v2 Provider Note - ED v2: Chart Review HISTORY OF PRESENTING ILLNESS BRITT is a 30 year old Female and was seen by me at 21-Mar-2020 15:58 for a chief complaint of cold symptoms. The historian is the patient. Additional Details: Patient presents with 3 week history of sinus congestion, drainage, sore throat, cough. She endorses intermittent nausea and vomiting, though she states she hasn't had any for approximately a week. She also endorses diarrhea today. Patient endorses recent exposure to covid positive people. She denies chest pain, shortness of breath, fever, chills, body aches, fatigue, loss of sense of taste or smell. She is uncertain about , states it's too early for test. Triage Information: Most recent Vital Sign Value Date PAST MEDICAL HISTORY ATTESTATION: I have reviewed and confirmed nurse's/medic's notes for patient's medications, allergies, medical history, and surgical history ALLERGIES/INTOLERANCE S: No Known Allergies HEALTH HISTORY: No documented data. OUTPATIENT MEDICATIONS: Home Medications Review Status for Reconciliation: Complete Med Status: Patient Currently Takes Medications Drug Name: amoxicillin 500 mg oral tablet Instructions: 2 tab(s) orally every 8 hours SIGNIFICANT EVENTS: No documented data. NET UI DEVELOPER: Is : no Is : no REVIEW OF SYSTEMS CONSTITUTIONAL: Negative for: chills, diaphoresis, fever and malaise ENMT Nose: POSITIVE for: congestion and discharge Negative for: sneezing Throat/Neck: POSITIVE for: throat pain CARDIOVASCULAR: Negative for: chest pain RESPIRATORY: POSITIVE for: cough Negative for: dyspnea and wheezing GASTROINTESTINAL: POSITIVE for: diarrhea, nausea and vomiting (last episode 1 week ago); MUSCULOSKELETAL: Negative for: pain NEUROLOGICAL: POSITIVE for: headache; All other systems reviewed and are negative RESULTS/VITAL SIGNS VITAL SIGNS: T PRBP SpO2O2(LPM) %FiO2 Method 21-Mar-2020 15:12:[id number]/ 110 94 PHYSICAL EXAM CONSTITUTIONAL: Appearance: well appearing Development: well developed Distress: no apparent Manner: appropriate for situation Mentation: awake and alert Mood: appropriate Nourishment: OBESE HENMT: Head Examination: atraumatic Face: no signs of abnormality EYES: Bilteral Eyes: clear and PERRL Left Conjunctiva: clear Right Conjunctiva: clear CARDIOVASCULAR: Cardiac Rate: normal RESPIRATORY: Respiratory Distress: no respiratory distress NEUROLOGICAL: Level of Consciousness: alert and follows commands Memory: memory/cognition intact Speech: clear Gait and Weight Bearing: normal SKIN: Skin normal color for race, warm, dry and intact. No evidence of trauma. PSYCHIATRIC: Alert and oriented to person, place, time/situation. normal mood and affect. No apparent risk to self or others. MEDICAL DECISION MAKING/ED COURSE MDM/ED COURSE: Differential Diagnosis: (URI, sinusitis, COVID, post-viral cough) Discussed Findings with: patient Data Reviewed: vital signs Awaiting: lab results Treatment Plan: Discussed supportive measures, and symptom management. Discussed etiology of more routine viral infection versus COVID infection. Discussed medications considered safe for , provided rx for amoxicillin. Advised pt to take tylenol for s/s and avoid NSAIDS. Swabbed for COVID, advised pt turnaround time is about 24 hours, advised her to self-isolate until she gets a negative result or symptoms improve. Discussed the possibility of false negative testing, advised pt to continue monitoring symptoms. Discussed s/s of blood clots, s/s of respiratory distress, and advised f/u if she develops these s/s or if her current s/s increase/worsen. Patient verbalized understanding. The pt's clinical presentation is otherwise unremarkable at this time. Based on exam and clinical findings the pt is stable for discharge with instructions to follow up with primary care or seek emergency medical attention for worsening symptoms or any new concerns. CLINICAL IMPRESSION Diagnosis/Annotation: ED Dx Name:Sinusitis, acute frontal Code:J01.10 Name:Exposure to COVID-19 virus Code:Z20.828 Dispostion: discharged Type: home ATTESTATION CRITICAL CARE TIME Is this a critically ill patient: no Electronic Signatures for Addendum Section: Kandy Leach (PROPERTY MAINTENANCE TECHNICIAN-[facility]) (Signed Addendum 22-Mar-2020 13:50) Pt called and advised of negative results. Electronic Signatures: Kandy Leach (PROPERTY MAINTENANCE TECHNICIAN-[facility]) (Signed 22-Mar-2020 13:50) Authored: HPI, PMH, ROS, PE, Results/Vital Signs, MDM/ED Course, Clinical Impression, Attestation, Chart Review, Scores Last Updated: 22-Mar-2020 13:50 by Kandy Leach (PROPERTY MAINTENANCE TECHNICIAN-[facility]) [facility] 01-14-2020 [facility] Telephone ([id number]) BRITT WALTERS ([id number]) 1990 F Date Time Provider Department 01/14/20 MARILY MELTON During your visit today, we recorded the following information about you: Reymanuel Alanis 01/14/2020 3:20 PM Signed Insurance Verification Insurance Company: [facility] Provider Phone #: [phone] Agent:Ray Reference #: [id number] [facility] Center of Excellence:yes [phone] Months of Wt Loss: 0 COVERAGE: RNY/BAND/SLEEVE Single 80 % 1400 Deductible 3000 Out of Pocket NOTES: [facility]anner pathway, due to bipolar. Assigned to Amee. Patient needs to send 6 month of records from the provider treating her bipolar. Left message for patient. Rey Zimmer Zeke Rey Zimmer Zeke 01/15/2020 3:54 PM Signed Records scanned Allergies As of Date: 01/14/2020 (Not on File) Date Reviewed: Never Reviewed Reason for Visit: Benefits Investigation [4098] Problem List As Of Date: 01/14/2020 (None) Encounter Status:Closed by REY CORTES on 01/14/20 [facility] CNPRica 01-12-2020 CNPN Telephone (AGGENS4) BRITT WALTERS ([id number]) 1990 F Date Time Provider Department 01/12/20 PEPE ARMENTA (PROPERTY MAINTENANCE TECHNICIAN, PLANT PROTECTION SUPERINTENDENT) AGGENS4 During your visit today, we recorded the following information about you: Rey Zimmer Zeke 01/12/2020 1:26 PM Signed Incomplete IPW sent. Allergies As of Date: 01/12/2020 (Not on File) Date Reviewed: Never Reviewed Reason for Visit: Patient Update [1234] Problem List As Of Date: 01/12/2020 (None) Encounter Status:Closed by REY CORTES on 01/12/20 [facility] POCT urine pregnancyon 10-22 Beta HCG ( test) Ql (U) Negative NEGATIVE [facility]- [place], [place] Comment on above: Specimens with hCG l evels near the threshold of the test (25 mIU/mL) may give a negative or indeterminate result. In such cases, another test should be performed with a new specimen in 48-72 hours. If early is suspected clinically in this setting, correlation with quantitative serum b-hCG level is suggested. TESTING PERFORMED AT [address] [place] [address] Surgical Pathologyon 020 Surgical Pathology (NOTE) -- Diagnosis -- STOMACH, BIOPSIES: - MILD CHRONIC GASTRITIS. - NEGATIVE FOR HELICOBACTER PYLORI INFECTION. Farhan Oconnor, Electronically Signed Out 10/26/2019 Clinical Information Pre-op Diagnosis: OBESITY Operative Findings: STOMACH/ENDO/TM Operation Performed: EGD BIOPSY Source of Specimen 1: STOMACH/ENDO/TM (A) Gross Description BRITT WALTERS STOMACH/ENDO/TM Two pizarro-white tissue fragments from 0.2 to 0.5 cm and are 0.5 x 0.4 x 0.2 cm in aggregate. Entirely 1cs. mpb tm Microscopic Description Microscopic examination performed. SURGICAL PATHOLOGY CONSULTATION Patient Name: BRITT WALTERS [facility] Rec: [id number] Path Number: [id number] [facility] ANATOMIC PATHOLOGY [address] [place] [id number] [facility] Comment on above: Performed By: #### P PPVS #### [address] [address] Deli Associate: Yariel Dunn MD CBC Auto Differentialon 07-11 Basophils (Bld) [#/Vol] 0.00 10*3/uL [place] Basophils/100 WBC (Bld) 0 % 0 - 2 % [place] Differential Type YES [place] Eosinophils (Bld) [#/Vol] 0.00 10*3/uL [place] Eosinophils/100 WBC (Bld) 0 % 0 - 5 % [place] Erythrocyte distribution width (RBC) [Ratio] 13.9 % 12.1 - 15.2 % [place] Hematocrit (Bld) [Volume fraction] 36.2 % 36 - 46 % [place] Hemoglobin (Bld) [Mass/Vol] 12.4 g/dL 12 - 16 g/dL [place] Lymphocytes (Bld) [#/Vol] 1.80 10*3/uL [place] Lymphocytes/100 WBC (Bld) 23 % 15 - 40 % [place] MCH (RBC) [Entitic mass] 30.2 pg 26 - 34 pg [place] MCHC (RBC) [Mass/Vol] 34.3 g/dL 31 - 37 g/dL [place] MCV (RBC) [Entitic vol] 88.1 fL 80 - 100 fL [place] Monocytes (Bld) [#/Vol] 0.40 10*3/uL [place] Monocytes/100 WBC (Bld) 6 % 4 - 8 % [place] Platelet mean volume (Bld) [Entitic vol] NOT REPORTED 6 - 12 fL [place] Platelets (Bld) [#/Vol] 384 10*3/uL [place] Platelets (Bld) [#/Vol] NOT REPORTED [place] RBC (Bld) [#/Vol] 4.11 10*6/uL 4 - 5.2 m/uL [place] RBC morphology finding Nom (Bld) NOT REPORTED [place] Segmented neutrophils/100 WBC (Bld) 71 % 47 - 75 % [place] Segs Absolute 5.50 [place] WBC (Bld) [#/Vol] 7.7 10*3/uL [place] WBC (Bld) [#/Vol] NOT REPORTED per 100 WBC [place] WBC Morphology NOT REPORTED [place] Comprehensive Metabolic Pane grecia 07-22-2019 Albumin [Mass/Vol] 4.3 g/dL 3.5 - 5.2 g/dL [place] Albumin/Globulin [Mass ratio] NOT REPORTED [place] ALP [Catalytic activity/Vol] 114 U/L High 35 - 104 U/L [place] ALT [Catalytic activity/Vol] 12 U/L 5 - 33 U/L [place] Anion gap [Moles/Vol] 11 mmol/L 9 - 17 mmol/L [place] AST [Catalytic activity/Vol] 16 U/L <32 [place] Bilirubin Ql (U) 0.42 mg/dL 0.3 - 1.2 mg/dL [place] Bun/Cre Ratio 15 [place] Calcium [Mass/Vol] 9.8 mg/dL 8.6 - 10. 4 mg/dL [place] Chloride [Moles/Vol] 103 mmol/L 98 - 10 7 mmol/L [place] CO2 [Moles/Vol] 24 mmol/L 20 - 31 mmol/L [place] Creatinine [Mass/Vol] 0.71 mg/dL 0.5 - 0.9 mg/dL [place] GFR >60 >60 mL/min [place] GFR Non- >60 >60 mL/min [place] GFR/1.73 sq M predicted among non-blacks MDRD (S/P/Bld) [Vol rate/Area] [place] Comment on above: Average GFR for 20-2 9 years old: 116 mL/min/1.73sq m Chronic Kidney Disease: <60 mL/min/1.73sq m Kidney failure: <15 mL/min/1.73sq m eGFR calculated using average adult body mass. Additional eGFR calculator available at: http://www.Medlert/multiple_crcl_2012.htm GFR/1.73 sq M predicted among non-blacks MDRD (S/P/Bld) [Vol rate/Area] NOT REPORTED [place] Glucose [Mass/Vol] 102 mg/dL High 70 - 99 mg/dL [place] Potassium [Moles/Vol] 4.3 mmol/L 3.7 - 5.3 mmol/L [place] Protein [Mass/Vol] 7.5 g/dL 6.4 - 8.3 g/dL [place] Sodium [Moles/Vol] 138 mmol/L 135 - 144 mmol/L [place] Urea nitrogen [Mass/Vol] 11 mg/dL 6 - 20 mg/d L [place] Ferritinon 07-22-2019 Ferritin [Mass/Vol] 75 ug/L 13 - 150 ug/L [place] Hemoglobin A1Con 07-22-2019 Glucose [Mass/Vol] 97 mg/dL [place] Comment on above: The ADA and AACC rec ommend providing the estimated average glucose result to permit better patient understanding of their HBA1c result. HbA1c (Bld) [Mass fraction] 5.0 % 4.8 - 5.9 % [place] Iron and TIBCon 07-22-2019 Interpretation and review of laboratory results Abnormal [place] Iron [Mass/Vol] 59 ug/dL 37 - 145 ug/dL [place] Iron Saturation 27 % 20 - 55 % [place] TIBC 222 ug/dL Low 250 - 450 ug/dL [place] UIBC 163 ug/dL 112 - 347 ug/dL [place] Lipid Panelon 07-22-2019 Cholesterol [Mass/Vol] 205 mg/dL High <200 [place], [place] Comment on above: Cholesterol Guidelines: <200 Desirable 200-240 Borderline >240 Undesirable Cholesterol in HDL [Mass/Vol] 52 mg/dL >40 [place] Comment on above: HDL Guidelines: <40 Undesirable 40-59 Borderline >59 Desirable Cholesterol in LDL [Mass/Vol] 133 mg/dL High 0 - 130 mg/dL [place] Comment on above: LDL Guidelines: <100 Desirable 100-129 Near to/above Desirable 130-159 Borderline >159 Undesirable Direct (measured) LDL and calculated LDL are not interchangeable tests. Cholesterol in VLDL [Mass/Vol] NOT REPORTED 1 - 30 mg/dL [place] Cholesterol.total/Cholest osiris in HDL [Mass ratio] 3.9 {ratio} <5 [place] Triglyceride [Mass/Vol] 99 mg/dL <150 [place] Comment on above: Triglyceride Guidelines: <150 Desirable 150-199 Borderline 200-499 High >499 Very high Based on AHA Guidelines for fasting triglyceride, February 2012. Magnesiumon 07-22-2019 Magnesium [Mass/Vol] 2.3 mg/dL 1.6 - 2 .6 mg/dL [place] Otheron 07-22-2019 Interpretation and review of laboratory results Abnormal [place] Immature granulocytes (Bld) [#/Vol] NOT REPORTED 0 % [place] PTH, Intacton 07-22-2019 Pth Intact 59.81 pg/mL 15 - 65 pg/mL [place] Comment on above: SAMPLES FROM PATIENT S ROUTINELY RECEIVING HIGH DOSE BIOTIN THERAPY MAY SHOW FALSELY DEPRESSED RESULTS. ADDITIONAL INFORMATION MAY BE REQUIRED FOR DIAGNOSIS. Patient Fasting?on 0 Patient Fasting? yes [place] T4, Freeon 07-22-2019 Thyroxine, Free 1.17 ng/dL 0.93 - 1.7 ng/dL [place] TSH without Reflexon 020 TSH Qn 4.66 m[IU]/L [place] Vitamin B12 & Folateon 07-21 Cobalamin (Vitamin B12) [Mass/Vol] 857 pg/mL 232 - 1245 pg/mL [place] Folate >20.0 >4.8 ng/mL [place] Vitamin D 25 Hydroxyon 07-21 Vit D, 25-Hydroxy 32.5 ng/mL 30 - 100 ng/mL [place] Comment on above: Reference Range: Vitamin D status Range Deficiency <20 ng/mL Mild Deficiency 20-30 ng/mL Sufficiency 30-100 ng/mL Toxicity >100 ng/mL Vital Signs Date Time Vital Sign Value Performing Clinician Facility 10-14-2023 11:00-0400 Body height 165.74 cm [facility] 10-14-2023 11:00-0400 Body mass index (BMI) [Ratio] 49.1 kg/m2 [facility] 10-14-2023 11:00-0400 Body weight 134.97 kg [facility] 10-14-2023 11:00-0400 Diastolic blood pressure 82 mm[Hg] [facility] 10-14-2023 11:00-0400 Heart rate 71 /min [facility] 10-14-2023 11:00-0400 Respiratory rate 16 /min [facility] 10-14-2023 11:00-0400 SaO2% (BldA) [Mass fraction] 99 % [facility] 10-14-2023 11:00-0400 Systolic blood pressure 128 mm[Hg] [facility] 08-22-2023 10:21-0400 Body height 165.1 cm [facility] 08-22-2023 10:21-0400 Body mass index (BMI) [Ratio] 48.6 kg/m2 [facility] 08-22-2023 10:21-0400 Body temperature 97.3 [degF] [facility] 08-22-2023 10:21-0400 Body weight 132.61 kg [facility] 08-22-2023 10:21-0400 Diastolic blood pressure 89 mm[Hg] [facility] 08-22-2023 10:21-0400 Heart rate 92 /min [facility] 08-22-2023 10:21-0400 Respiratory rate 18 /min [facility] 08-22-2023 10:21-0400 SaO2% (BldA) [Mass fraction] 95 % [facility] 08-22-2023 10:21-0400 Systolic blood pressure 124 mm[Hg] [facility] 08-06-2023 10:47-0400 Body height 162.56 cm [facility] 08-06-2023 10:47-0400 Body mass index (BMI) [Ratio] 50.3 kg/m2 [facility] 08-06-2023 10:47-0400 Body weight 133.01 kg [facility] 08-06-2023 10:47-0400 Diastolic blood pressure 64 mm[Hg] [facility] 08-06-2023 10:47-0400 Heart rate 93 /min [facility] 08-06-2023 10:47-0400 Systolic blood pressure 125 mm[Hg] [facility] 12-31-2022 14:30-0400 Body height 162.56 cm Asiya Harris Other [facility] Other 12-31-2022 14:30-0400 Body mass index (BMI) [Ratio] 46.86 kg/m2 Asiya Harris Other [facility] Other 12-31-2022 14:30-0400 Body weight 123.83 kg Asiya Harris Other [facility] Other 12-31-2022 14:30-0400 Diastolic blood pressure 77 mm[Hg] Asiya Harris Other [facility] Other 12-31-2022 14:30-0400 Systolic blood pressure 123 mm[Hg] Asiyaalcides Harris Other [facility] Other 08-07-2022 11:30-0400 Body height 162.56 cm Jimmy Ball Other [facility] Other 08-07-2022 11:30-0400 Body mass index (BMI) [Ratio] 45.24 kg/m2 Jimmy Ball Other [facility] Other 08-07-2022 11:30-0400 Body weight 119.57 kg Jimmy Ball Other [facility] Other 08-07-2022 11:30-0400 Diastolic blood pressure 84 mm[Hg] Jimmy Ball Other [facility] Other 08-07-2022 11:30-0400 Respiratory rate 12 /min Jimmy Ball Other [facility] Other 08-07-2022 11:30-0400 Systolic blood pressure 132 mm[Hg] Jimmy Ball Other [facility] Other 07-10-2022 09:00-0500 Body height 162.56 cm Asiya Harris Other [facility] Other 07-10-2022 09:00-0500 Body mass index (BMI) [Ratio] 47.2 kg/m2 Asiya Harris Other [facility] Other 07-10-2022 09:00-0500 Body weight 124.74 kg Asiya Harris Other [facility] Other 07-10-2022 09:00-0500 Diastolic blood pressure 68 mm[Hg] Asiya Harris Other [facility] Other 07-10-2022 09:00-0500 SaO2% (BldA) [Mass fraction] 97 % Asiya Harris Other [facility] Other 07-10-2022 09:00-0500 Systolic blood pressure 118 mm[Hg] Asiya Harris Other [facility] Other 04-14-2020 10:03-0500 BP Diastolic 88 mm[Hg] [facility] [place] , [place] 04-14-2020 10:03-0500 BP Systolic 146 mm[Hg] [facility] [place] , [place] 04-14-2020 10:03-0500 Pulse (Heart Rate) 79 /min [facility] [place] 04-14-2020 10:03-0500 Pulse Oximetry 100 % [facility] [place] 04-14-2020 10:03-0500 Respiratory Rate 20 /min [facility] 04-14-2020 08:50-0500 BMI (Body Mass Index) 52.25 kg/m2 [facility] [place] 04-14-2020 08:50-0500 Body Temperature 99.1 [degF] [facility] [place] 04-14-2020 08:50-0500 Body weight 142.43 kg [facility] [place] , [place] 10-23-2019 10:42-0400 Pulse (Heart Rate) 61 /min Warren Gomezton [facility] - [place], [place] 10-23-2019 10:42-0400 Pulse Oximetry 100 % Warren Victor [facility] 10-23-2019 10:30-0400 BP Diastolic 84 mm[Hg] Warren Victor [facility] 10-23-2019 10:30-0400 BP Systolic 130 mm[Hg] [facility] 10-23-2019 10:30-0400 Respiratory Rate 20 /min Warren [facility]od[facility], [place] 10-23-2019 10:24-0400 Body Temperature 97 [degF] Warren [facility], [place] 10-23-2019 09:32-0400 BMI (Body Mass Index) 52.68 kg/m2 Warren [facility]od[facility], [place] 10-23-2019 09:32-0400 Body weight 143.61 kg Warren [facility]od[facility] [place] 10-23-2019 09:32-0400 Height 165.1 cm [facility], [place] Encounters Encounter Date Encounter Type Care Provider Facility Start: 10-14-2023 End: 10-14-2023 ambulatory [facility] Work Phone: Start: 10-14-2023 End: 10-14-2023 Patient encounter procedure [facility] Work Phone: Start: 08-22-2023 End: 08-22-2023 ambulatory [facility] Work Phone: Start: 08-22-2023 End: 08-22-2023 Patient encounter procedure [facility] Work Phone: Start: 08-06-2023 End: 08-06-2023 ambulatory [facility] Work Phone: Start: 08-06-2023 End: 08-06-2023 Patient encounter procedure [facility] Work Phone: Start: 07-29-2023 End: 08-01-2023 ambulatory ASIYA HARRIS [facility] Start: 01-01-2023 End: 01-01-2023 ambulatory Asiya Harris Other [facility] Other Start: 01-01-2023 Telephone encounter Asiya Harris [facility] Start: 12-31-2022 End: 12-31-2022 ambulatory Asiya Harris Other [facility] Other Start: 12-31-2022 Office outpatient visit 15 minutes Asiya Christian [facility] Start: 09-20-2022 End: 09-21-[address] STEPHANIE AMEZCUA . Facility:[facility] Start: 09-19-2022 End: 09-20-[address] STEPHANIE AMEZCUA . Facility: Start: 08-07-2022 End: 08-07-2022 ambulatory Jimmy Roque Other [facility] Other Start: 08-07-2022 Office outpatient visit 15 minutes Jimmy Roque [facility] Start: 08-07-2022 Telephone encounter Asiya Harris [facility] Start: 07-10-2022 End: 07-10-2022 ambulatory Asiya Harris Other [facility] Other Start: 07-10-2022 Office outpatient ne w 20 minutes Asiya Harris [facility] Start: 06-11-2022 End: 06-12-2022 ambulatory Anabel Melgar Facility:[facility] Start: 04-14-2020 End: 04-14-2020 Emergency department patient visit Jayden Wilson Work Phone: [facility] ED Comment on above: Pneumonia due to COV ID-19 virus (Primary Dx) Start: 10-26-2019 End: 10-26-2019 Subsequent hospital visit by physician [facility] Schedule [facility] Comment on above: Arrived Start: 10-23-2019 End: 10-23-2019 Patient encounter procedure WARREN APODACA [facility] Start: 10-23-2019 End: 10-23-2019 Subsequent hospital visit by physician Warren Apodaca Work Phone: [facility] [place] Start: 10-20-2019 End: 10-20-2019 Subsequent hospital visit by physician Venkatesh Covid19 Pat Screening Schedule [facility] PRE ADMIT Comment on above: Encounter for screen ing for other viral diseases Start: 07-22-2019 End: 07-22-2019 Subsequent hospital visit by physician Nicole Summers [facility] Comment on above: Snoring; Morbid obesity (HCC) Procedures Date Procedure Procedure Detail Performing Clinician Start: 08-22-2023 Quick Strep (POC) Start: 04-14-2020 Radiologic exam ches t single view Jayden Wilson Work Phone: Start: 04-14-2020 BASIC METABOLIC PANE L W/ REFLEX TO MG FOR LOW K Jayden Wilson Work Phone: Start: 04-14-2020 Blood count complete auto&auto difrntl wbc Jayden Wilson Work Phone: Start: 04-14-2020 Gonadotropin chorion ic qualitative Jayden Wilson Work Phone: Start: 10-23-2019 DISCHARGE PATIENT ZAYRA APODACA Start: 10-23-2019 Level iv surg pathol ogy gross&microscopic exam WARREN APODACA Start: 10-23-2019 BEDREST WARREN MULLIGAN Start: 10-23-2019 Continuous pulse oximetry WARREN APODACA Start: 10-23-2019 ENCOURAGE DEEP BREAT MARILYN AND COUGHING WARREN APODACA Start: 10-23-2019 INITIATE OXYGEN THER APY PROTOCOL WARREN APODACA Start: 10-23-2019 NOTIFY PHYSICIAN (SPECIFY) WARREN APODACA Start: 10-23-2019 NURSING COMMUNICATION G WESTLEY APODACA Start: 10-23-2019 VITAL SIGNS WARREN MULLIGAN Start: 10-23-2019 Urine test visual color cmprsn meths WARREN APODACA Start: 10-23-2019 Urine test visual color cmprsn meths Warren Apodaca Work Phone: Start: 07-22-2019 25 hydroxy includes fractions if performed Warren Apodaca Work Phone: Start: 07-22-2019 Assay of ferritin Zayra Apodaca Work Phone: Start: 07-22-2019 Assay of free thyroxine Warren Apodaca Work Phone: Start: 07-22-2019 Assay of magnesium Werner Apodaca Work Phone: Start: 07-22-2019 Assay of parathormone G westley Apodaca Work Phone: Start: 07-22-2019 Assay of thyroid stimulating hormone tsh Warren Apodaca Work Phone: Start: 07-22-2019 Blood count complete auto&auto difrntl wbc Warren Apodaca Work Phone: Start: 07-22-2019 Comprehensive metabo lic panel Warren Aopdaca Work Phone: Start: 07-22-2019 Hemoglobin glycosylated a1c Warren Apodaca Work Phone: Start: 07-22-2019 Iron binding capacity Felton Apodaca Work Phone: Start: 07-22-2019 Lipid panel Warren Apodaca Work Phone: Start: 07-22-2019 PATIENT FASTING? Kevin Apodaca Work Phone: Start: 07-22-2019 VITAMIN B12 & FOLATE Gr michelle Apodaca Work Phone: Plan of Treatment Date Care Activity Detail Author Start: 02-29-2040 Shingles Vaccine (1 of 2) Shingles Vaccine (1 of 2) [place] Start: 08-06-2023 Patient referral [facility] Work Phone: Start: 07-21-2020 Creatinine measurement Creatinine mo [place]itoring [place] Start: 07-21-2020 Potassium monitoring Potassium monit oring [place] Start: 01-12-2020 Influenza vaccination [place] Start: 11-23-2019 End: 11-23-2019 Office Visit 11/23/2019 Office Visit Bariatrics Rocio Vale, PROPERTY MAINTENANCE TECHNICIAN - PLANT PROTECTION SUPERINTENDENT [address] [place] [address] [facility] Start: 10-26-2019 Hospital Encounter 10/26/2019 Hospital Encounter [facility] Start: 10-26-2019 End: 10-26-2019 Office Visit 10/26/2019 Office Visit BariatricRocio Liriano, PROPERTY MAINTENANCE TECHNICIAN - PLANT PROTECTION SUPERINTENDENT [address] [place] [phone] [facility] Start: 08-19-2019 End: 08-19-2019 Office Visit 08/19/2019 Office Visit Bariatrics Warren Apodaca DO [address] [place] [phone] [facility] Start: 07-24-2019 End: 07-24-2019 Office Visit 07/24/2019 Office Visit BariatricRocio Liriano, PROPERTY MAINTENANCE TECHNICIAN - PLANT PROTECTION SUPERINTENDENT [address] [place] [phone] [facility] [place] Start: 01-11-2019 Influenza vaccination Flu vaccine (# 1) [place] Start: 2011 Cervical cancer screen Cervical canc er screen [place] Start: 2011 Screening for malign ant neoplasm of cervix Cervical cancer [place] Start: 2009 DTaP/Tdap/Td vaccine (1 - Tdap) DTaP/Tdap/Td vaccine (1 - Tdap) [place] Start: 2005 HIV screen HIV screen [place], [place] Start: 2005 HIV screening HIV screen [facility] [place] Start: 1991 Varicella vaccine (1 of 2 - 2-dose childhood series) Varicella vaccine (1 of 2 - 2-dose childhood series) [place] End: 07-22-2019 Baseline Diagnostic Sleep Study Baseline Diagnostic Sleep Study Sleep Center Routine Snoring Morbid obesity (HCC) 1 Occurrences starting 07/22/2019 until 07/22/2019 [place] Comment on above: 1 Occurrences starti ng 07/22/2019 until 07/22/2019 End: 10-26-2019 Baseline Diagnostic Sleep Study Baseline Diagnostic Sleep Study Sleep Center Routine One Time for 1 Occurrences starting 10/26/2019 until 10/26/[facility] Comment on above: One Time for 1 Occur rences starting 10/26/2019 until 10/26/2019 End: 10-20-2019 COVID-19 Ambulatory COVID-19 Ambulatory Lab Routine Encounter for screening for other viral diseases 1 Occurrences starting 10/20/2019 until 10/20/2019 [facility] Comment on above: 1 Occurrences starti ng 10/20/2019 until 10/20/2019 COVID-19 Ambulatory COVID-19 Amb ulatory Lab Routine Encounter for screening for other viral diseases 10/20/2019 9:00 AM EDT [facility] Initiate Oxygen Ther apy Protocol Initiate Oxygen Therapy Protocol Respiratory Care Routine Daily until discontinued starting 10/23/2019 [facility] Comment on above: Daily until disconti nued starting 10/23/2019 End: 04-14-2020 MDI Treatment MDI Treatment Respiratory Care Routine Once for 1 Occurrences starting 04/14/2020 until 04/14/2020 [facility] Comment on above: Once for 1 Occurrenc es starting 04/14/2020 until 04/14/2020 Patient referral [facility] Work Phone: Phase I & II - meter ed glucose Phase I & II - metered glucose Point of Care Testing Routine As Needed until discontinued starting 10/23/2019 [facility] Comment on above: As Needed until disc ontinued starting 10/23/2019 Surgical Pathology Surgical Path ology Lab Routine Release Upon Ordering for 1 Occurrences starting 10/23/2019 [facility] Comment on above: Release Upon Orderin g for 1 Occurrences starting 10/23/2019 End: 07-22-2019 Vitamin A Vitamin A Lab Routine Snoring Morbid obesity (HCC) 1 Occurrences starting 07/22/2019 until 07/22/2019 [facility] [place] Comment on above: 1 Occurrences starti ng 07/22/2019 until 07/22/2019 Vitamin A Vitamin A Lab Ro utine Snoring Morbid obesity (HCC) 07/22/2019 10:46 AM EDT [place] End: 07-22-2019 Vitamin B1 Vitamin B1 Lab Routine Snoring Morbid obesity (HCC) 1 Occurrences starting 07/22/2019 until 07/22/2019 [place] Comment on above: 1 Occurrences starti ng 07/22/2019 until 07/22/2019 Vitamin B1 Vitamin B1 Lab R outine Snoring Morbid obesity (HCC) 07/22/2019 10:46 AM EDT [facility] [place] End: 07-22-2019 Zinc Zinc Lab Routine Snoring Morbid obesity (HCC) 1 Occurrences starting 07/22/2019 until 07/22/2019 [place] Comment on above: 1 Occurrences starti ng 07/22/2019 until 07/22/2019 Zinc Zinc Lab Routine Snoring Morbid obesity (HCC) 07/22/2019 10:46 AM T [place] Payers Date Payer Category Payer Unknown [id number] 2020 Unknown [id number] 2019 Private Health Insurance [facility] 2019-Present [phone] [address] [place] [address] xxxxxxxxx [id number] 2019 Private Health Insurance [id number] 1990 Unknown [id number] 1990 Unknown [id number] 1990 Unknown [id number] 1990 Unknown [id number] 1990 Unknown [id number] 1990 Unknown [id number] 1959 Unknown [id number] Social History Date Type Detail Facility Start: 06-24-2019 End: 10-14-2023 Tobacco smoking status NHIS Former smoker [facility] End: 05-13-2019 History of tobacco use Current smoker [facility] Start: 06-24-2019 End: 04-14-2020 Alcohol intake Current drinker of alcohol (finding) [facility] Start: 02-06-2019 Alcohol Comment occasionally [facility] Assigned At Not on file [facility] Start: 1990 Sex Assigned At Female [facility] Exposure to SARS-CoV-2 (event) Unable to assess [email or web address] Start: 04-14-2020 Tobacco use and exposure Never used [facility] Exposure to SARS-CoV-2 (event) Yes [email or web address] Sex Assigned At Sex Assigned At [facility] Other Clinical Notes 07-10-2022 to 12-31-2022 Note Date & Type Note Facility 12-31-2022 Evaluation note Encounter Date Diagnosis Assessment Notes Dec, Left flank pain (ICD-10 - R10.9) assess for kidney stone. Pt will go directly over for testing. Push fluids. Dec, UTI symptoms (ICD-10 - R39.9) Pt already on keflex. Continue med. Check culture to r/o UTI. [facility] Other 03-28-2023 Evaluation note* Encounter Date Diagnosis Assessment Notes Treatment Notes Treatment Clinical Notes Jul, Morbid obesity (ICD-10 - E66.01) This patient has been instructed on a low-fat, high-fiber diet. They are instructed to reduce calories, portion sizes and snacks. It is recommended that they exercise for 30 minutes, 3-5 times weekly. Refill Adipex Rx, schedule f/u appt in one month. d/c Adipex if develop CP or palpitations [facility] Other 2023 Evaluation note* Encounter Date Diagnosis Assessment Notes Treatment Notes Treatment Clinical Notes Jun, Class 3 obesity (ICD-10 - E66.01) Patient has clearly made a good uriah effort for several months on her own to lose weight with little success. Pt to start Adipex daily. Medication is a stimulant. May cause you to be jittery or constipated. Take in the morning, may also take stool softener daily as needed. Continue to eat a healthy well balanced diet and continue work-out regimine. Pt aware that this is not a cure for obesity but a tool used to help them during their weight loss plateau. Pt aware that they need to continue to work hard at weight loss or the weight will be regained. Side effects discussed and understood. Pt education printed and discussed. Pt notified of prescribing schedule with 30 day dispensing, no refills, for up to 12 weeks, with a 6 month break in-between treatments. Id SOB, CP, mood changes, tachycardia, HTN, headaches, blurred vision occur, go to ER and Follow-up with me immediately. [facility] [email or web address] Other Chief complaint+Reason for visit Narrative* Chief Complaint Check Up Swollen gland, sore throat Referral Dr. Harris-No Current Bldwrk Reason for Visit BMI 50.0-59.9, adult Sore throat Strep pharyngitis Dietary surveillance and counseling Exercise counseling PCOS (polycystic ovarian syndrome) Severe obesity (BMI >= 40) [facility] [email or web address] Other Evaluation note* Diagnosis Onset Date Resolution Status BMI 50.0-59.9, adult acute [facility] Work Phone: Evaluation note* Diagnosis Onset Date Resolution Status BMI 50.0-59.9, adult acute Sore throat acute [facility] Work Phone: Evaluation note* Diagnosis Onset Date Resolution Status BMI 50.0-59.9, adult acute Sore throat acute Strep pharyngitis noneactive Dietary surveillance and counseling acute Exercise counseling acute PCOS (polycystic ovarian syndrome) acute Severe obesity (BMI >= 40) a cute [facility] Work Phone: History general Narrative - Reported* Type Description Date Medical History Depression/anxiety Surgical History C-sect 2014 [facility] Other History general Narrative - Reported* Type Description Date Medical History Depression/anxiety Surgical History C-sect 2015 Hospitalization History SEE SURGICAL HX [facility] Other History general Narrative - Reported* Type Description Date Medical History Depression/anxiety Medical History PCOS Surgical History C-sect 2014 Hospitalization History SEE SURGICAL HX [facility] Other Hospital Discharge instructionsAmbulatory Orders* Referral to Weight Management Time Frame: 08/06/23, Location: None [facility] Work Phone: Reason for Referral Status Reason Specialty Diagnoses / Procedures Referred By Contact Referred To Contact [facility] Diagnoses Snoring Morbid obesity (HCC) Procedures Baseline Diagnostic Sleep Study Warren Apodaca DO [address] [facility] [address] [place] [address] Assessments Diagnosis Snoring Other dyspnea and respiratory abnormality Morbid obesity (HCC) Morbid obesity Diagnosis Encounter for screening for other viral diseases Diagnosis Pneumonia due to COVID-19 virus Advance Directives Documents on File Type Date Recorded 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 ACTIVITY No driving, operating machinery, or making important decisions for 24 hours. Resume normal activity after 24 hours. You may return to work after 24 hours. 2. DIET EGD: Resume your usual diet unless specified below. Diet Modification: Regularr 3. MEDICATIONS (Do not consume alcohol, tranquilizers, or sleeping medications for 24 hours unless advised by your physician) Resume your usual medications 4. PHYSICIAN FOLLOW-UP Please continue with your previously scheduled appointments See your primary care physician as planned. 6. NORMAL CHANGES YOU MAY EXPERIENCE AFTER ENDOSCOPY: EGD: Sore throat, some abdominal pain and cramping. 7. CALL YOUR PHYSICIAN IF YOU EXPERIENCE ANY OF THE FOLLOWING A. Passing blood rectally or vomiting blood (color may be red or black) B. Severe abdominal pain or tenderness (that is not relieved by passing air) C. Fever, chills, or excessive sweating D. Persistent nausea or vomiting E. Redness or swelling at the IV site If you have additional questions, PLEASE call your doctor or the [facility] center at documented in this encounter* Attachments The following attachments cannot be sent through Care Everywhere. * Coronavirus Disease (COVID-19): Isolation ([place]ankan) documented in this encounter Summary Purpose Family History Relationship Condition Age at Onset Recorded Date/T kamala father Malignant neoplasm Unknown Hypertension Unknown Not Specified Malignant neoplasm Unknown Relationship Condition Age at Onset Recorded Date/T kamala father Hypertension Unknown Overweight Unknown Not Specified Epilepsy Unknown Renal failure Unknown Chief Complaint and Reason for Visit Chief Complaint Check Up Reason for Visit BMI 50.0-59.9, adult Chief Complaint Check Up Swollen gland, sore throat Reason for Visit BMI 50.0-59.9, adult Sore throat Additional Source Comments Reason for Visit (unrecogniz ed section and content) Status Reason Specialty Diagnoses / Procedures Re ferred By Contact Referred To Contact Diagnoses Morbid obesity (HCC) Snoring OBESITY Procedures ID ESOPHAGOGASTRODUODENOSCOPY TRANSORAL DIAGNOSTIC EGD ESOPHAGOGASTRODUODENOSCOPY Warren Apodaca R, [address] [address] [facility] Reason Comments Shortness of Breath last Saturday tested p ositive for COVID- woke up feeling more SOB this AM INFORMATION SOURCE (unrecogn ized section and content) DATE CREATED AUTHOR 12/24/2019 [facility] DATE CREATED AUTHOR AUTHOR'S ORGANIZ ATION 03/22/2020 [facility] DATE CREATED AUTHOR AUTHOR'S ORGANIZ ATION 03/26/2020 [facility] DATE CREATED AUTHOR AUTHOR'S ORGANIZ ATION 06/28/2022 [facility] DATE CREATED AUTHOR AUTHOR'S ORGANIZ ATION 09/25/2022 [facility] DATE CREATED AUTHOR AUTHOR'S ORGANIZ ATION 08/02/2023 Kayleigh Kumari [facility] Teams (unrecognized sec tion and content) Team Status: Active Member Role Status Dates Asiya Harris MD Primary Care Provider Active Team Status: Inactive Member Role Status Dates Asiya Harris MD Primary Care Provide r, Attending Provider Active Start: August 06, 2023 End: August 06, 2023 Team Status: Inactive Member Role Status Dates Asiya Harris MD Primary Care Provider Active Start: August 22, 2023 End: August 22, 2023 FOZIA Bonilla Attending Provider Active S tart: August 22, 2023 End: August 22, 2023 Team Status: Inactive Member Role Status Dates Asiya Harris MD Primary Care Provider Active Start: October 14, 2023 End: October 14, 2023 Myron Streeter DO Attending Provider Active St art: October 14, 2023 End: October 14, 2023 Goals (unrecognized section and content) Goals may be documented in a n alternate section FOR RECORDS PERTAINING TO PATIENTS WHO ARE OR HAVE BEEN ENROLLED IN A CHEMICAL DEPENDENCY/SUBSTANCEABUSE PROGRAM, SOME INFORMATION MAY BE OMITTED. This clinical summary was aggregated from multiple sources. Caution should be exercised in using it in the provision of clinical care. This summary normalizes information from multiple sources, and as a consequence, information in this document may materially change the coding, format and clinical context of patient data. In addition, data may be omitted in some cases. CLINICAL DECISIONS SHOULD BE BASED ON THE PRIMARY CLINICAL RECORDS. [employer] [facility]. provides no warranty or guarantee of the accuracy or completeness of information in this document.
--- NOTE | 2024-02-13 07:45 | ECG_ITS ---
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
--- NOTE | 2024-02-13 07:45 | CT_ITS ---
The [address] [address] Patient Name: SYEDA DOLAN MRN: [id number] date: 1990 Sex: F Assigned Patient Location: ER Current Patient Location: ER Accession/Order Number: [id number] Exam Date: 02/13/2024 08:10 Report Date: 02/13/2024 09:15 At the request of: DIETER GARLAND Procedure: CT head/brain wo con CT HEAD WITHOUT CONTRAST, 02/13/2024. HISTORY: Confusion. Altered mental status. COMPARISON: None. TECHNIQUE: Noncontrast axial CT images obtained through the head. Reconstructions obtained in the sagittal and coronal planes. Dose reduction techniques were achieved by using automated exposure control and/or adjustment of mA and/or kV according to patient size and/or use of iterative reconstruction technique. FINDINGS: Paranasal sinuses clear. Mastoid air cells are clear. Skull base intact. No skull lesion. Orbital contents normal. Extracranial soft tissue structures unremarkable. The ventricles are normal in size. No hydrocephalus. No mass effect. No shift of midline. No extra-axial fluid collection. No hemorrhage. No edema. Morales matter and white matter differentiation is intact. CT/CT head/brain wo con IMPRESSION: Normal CT of the head. Electronically authenticated by: BRIGETTE ALLISON Date: 02/13/2024 09:15
--- NOTE | 2024-02-13 07:46 | ED_ITS ---
HPI HPI - General Adult General Chief complaint: Altered Mental Status Stated complaint: POST SURGERY COGNITIVE ISSUES Time Seen by Provider: 02/13/24 07:31 Source: patient and family Mode of arrival: walk-in History of Present Illness HPI narrative: 33-year-old female presents to the emergency department for confusion. Yesterday she had outpatient surgery for Bartholin cyst. She went home last night and was fine and woke up today about 630. At that point she was fine and did not have any confusion. At around 7:00 this morning she was talking nonsense to her talking about clones being everywhere and dog whistles. She does not have a headache. She did not take her Prozac yesterday morning as directed and the last Percocet she had was last night. No fever or vomiting. This has not happened to her previously. Related Data Home Medications ?Medication ?Instructions ?Recorded ?Confirmed acetaminophen 300 mg-codeine 30 mg 1 tab PO Q6H 02/13/24 02/13/24 tablet fluoxetine 20 mg capsule 20 mg PO DAILY 02/13/24 02/13/24 lamotrigine 100 mg tablet 100 mg PO DAILY 02/13/24 02/13/24 metformin 500 mg tablet,extended 500 mg PO .QHS 02/13/24 02/13/24 release 24 hr mirtazapine 15 mg tablet 15 mg PO .QHS 02/13/24 02/13/24 ondansetron HCl 4 mg tablet 4 mg PO Q6H PRN nausea and vomiting 02/13/24 02/13/24 sulfamethoxazole 800 1 tab PO Q12H 02/13/24 02/13/24 mg-trimethoprim 160 mg tablet Previous Rx's ?Medication ?Instructions ?Recorded oxycodone-acetaminophen 5 mg-325 1 tab PO Q6H PRN pain #15 tabs 12/20/22 mg tablet (Percocet) Allergies Allergy/AdvReac Type Severity Reaction Status Date / Time No Known Drug Allergies Allergy Verified 12/20/22 14:01 Opioid HPI Opioid Management Most Recent Opioid Data: Last Pain Scale 8 02/13/24 09:28 Last MAR Pain Assessment 02/13/24 09:28 Ur Phencyclidine Scrn Negative (NEGATIVE) 02/13/24 09:10 Review of Systems ROS Narrative A ten point review of systems is negative except as noted above. PFSH PFSH Social History Little interest or pleasure in doing things: not at all Feeling down, depressed, or hopeless: not at all Exam Narrative Exam Narrative: Nurses note and vital signs reviewed and patient is not hypoxic. General: The patient appears well and in no apparent distress. Patient is resting comfortably on cart. Skin: Warm, dry, no pallor noted. There is no rash noted. Head: Normocephalic, atraumatic Eye: Normal conjunctiva, no drainage, EOMI. PERRL Ears, Nose, Mouth, and Throat: oral mucosa is moist. Nares patent. Cardiovascular: Regular Rate and Rhythm Respiratory: Patient is in no distress, no accessory muscle use, lungs are clear to auscultation, no wheezing, rales or rhonchi Back: non-tender GI: Soft and nontender Musculoskeletal: The patient has no evidence of calf tenderness, no pitting edema, symmetrical pulses noted bilaterally Neurological: A&O x4, normal speech. Upper and lower extremity strength intact. Neck supple. Psychiatric: Cooperative Constitutional Vital Signs, click to edit/add: Last Vital Signs Temp 98.0 F 02/13/24 07:33 Pulse 65 02/13/24 10:45 Resp 16 02/13/24 10:45 BP 150/81 H 02/13/24 09:23 Pulse Ox 98 02/13/24 10:45 O2 Del Method Room Air 02/13/24 07:33 Course Vital Signs Vital signs: Vital Signs Temperature 98.0 F 02/13/24 07:33 Pulse Rate 78 02/13/24 07:33 Respiratory Rate 16 02/13/24 07:33 Blood Pressure 171/99 H 02/13/24 07:33 Pulse Oximetry 96 02/13/24 07:33 Oxygen Delivery Method Room Air 02/13/24 07:33 Temperature 98.0 F 02/13/24 07:33 Pulse Rate 65 02/13/24 10:45 Respiratory Rate 16 02/13/24 10:45 Blood Pressure 150/81 H 02/13/24 09:23 Pulse Oximetry 98 02/13/24 10:45 Oxygen Delivery Method Room Air 02/13/24 07:33 Medical Decision Making MDM Narrative Medical decision making narrative: Extensive workup here is negative including CT brain and CTA head and neck. Her symptoms seem to have resolved. She is no longer confused. Etiology of her symptoms is unclear. I have no suspicion of meningitis. Blood work is essentially normal. She had only missed 1 day of Prozac and had taken her last Percocet last night and I do not feel at this point that it is medication induced. She is able to be discharged home and follow-up with neurology and her family doctor as an outpatient. At the time of discharge she has a normal neurologic exam. My intention was to talk to neurology and call was put out but they were unable to call back. Treatment diagnosis and follow-up were discussed with the patient and her . Differential Diagnosis Differential Diagnosis: Stroke, altered mental status, medication side effect Lab Data Lab results reviewed: Yes I reviewed the patient's lab results Labs: Lab Results 02/13/24 02/13/24 Range/Units 07:55 09:10 WBC 18.0 H (4.0-11.0) 10^3/uL RBC 3.91 L (4.20-5.40) 10^6/uL Hgb 12.3 (12.0-16.0) g/dL Hct 37.0 (36.0-48.0) % MCV 94.6 (81.0-99.0) fL MCH 31.5 (26.7-34.0) pg MCHC 33.2 (29.9-35.2) g/dL RDW 12.5 (11.0-15.0) % Plt Count 347 (150-450) 10^3/uL MPV 10.1 (9.5-13.5) fL Neut % (Auto) 87.7 H (43.0-75.0) % Lymph % (Auto) 6.6 L (20.5-60.0) % Faulkner % (Auto) 4.6 (1.7-12.0) % Eos % (Auto) 0.1 L (0.9-7.0) % Baso % (Auto) 0.1 L (0.2-2.0) % Neut # (Auto) 15.8 H (1.4-6.5) 10^3/uL Lymph # (Auto) 1.2 (1.2-3.8) 10^3/uL Fa[place]ner # (Auto) 0.8 (0.3-0.8) 10^3/uL Eos # (Auto) 0.0 (0.0-0.7) 10^3/uL Baso # (Auto) 0.0 (0.0-0.1) 10^3/uL Abs Immat Gran (auto) 0.16 H (0.00-0.03) 10^3/uL Imm/Tot Granulo (auto) 0.9 H (0.0-0.5) % Sodium 136 (136-145) mmol/L Potassium 4.8 (3.5-5.1) mmol/L Chloride 103 (98-107) mmol/L Carbon Dioxide 25.5 (21.0-32.0) mmol/L Anion Gap 12.3 BUN 13.0 (7.0-18.0) mg/dL Creatinine 0.93 (0.55-1.02) mg/dL Est GFR ( Amer) >60 (>=60 mL/min/1.73m^2) Est GFR (Non-Af Amer) >60 (>=60 mL/min/1.73m^2) BUN/Creatinine Ratio 14.0 Glucose 119 H (74-106) mg/dL Calcium 9.0 (8.5-10.1) mg/dL Urine Color Yellow (YELLOW) Urine Clarity Clear (CLEAR) Urine pH 7.0 (5.0-9.0) Ur Specific [place] 1.020 (1.005-1.025) Urine Protein Negative (NEG/TRACE) mg/dL Urine Glucose (UA) 250 A (NEGATIVE) mg/dL Urine Ketones Negative (NEGATIVE) mg/dL Urine Occult Blood Large A (NEGATIVE) Urine Nitrite Negative (NEGATIVE) Urine Bilirubin Negative (NEGATIVE) Urine Urobilinogen 0.2 (0.2-1.0) EU/dL Ur Leukocyte Esterase Negative (NEGATIVE) Urine RBC 20-50 A (0-2) #/HPF Urine WBC 0-2 A (NONE SEEN) #/HPF Ur Squamous Epith Cells Moderate A (NONE/RARE) #/LPF Urine Crystals None seen (None Seen) #/HPF Urine Bacteria Small A (NONE SEEN) #/HPF Urine Casts None seen (NONE SEEN) #/LPF Urine Mucus Trace A (NONE SEEN) Ur Culture Indicated? Yes Urine Opiates Screen Negative (NEGATIVE) Ur Buprenorphine Scrn Negative (NEGATIVE) Ur Oxycodone Screen Positive A (NEGATIVE) Urine Methadone Screen Negative (NEGATIVE) Ur Barbiturates Screen Negative (NEGATIVE) U Tricyclic Antidepress Negative (NEGATIVE) Ur Phencyclidine Scrn Negative (NEGATIVE) Ur Amphetamines Screen Negative (NEGATIVE) U Methamphetamines Scrn Negative (NEGATIVE) U Benzodiazepines Scrn Negative (NEGATIVE) Urine Cocaine Screen Negative (NEGATIVE) U Cannabinoids Screen Positive A (NEGATIVE) Ethanol Quant <3 mg/dL Imaging Data CT scan - head: Radiologist's impression: ITS Impressions Head CT 02/13/24 07:45 IMPRESSION: Normal CT of the head. Electronically authenticated by: BRIGETTE ALLISON Date: 02/13/2024 09:15 Head CTA 02/13/24 09:16 IMPRESSION: No CT evidence of embolus or severe stenosis or dissection in the major arteries in the current study. Degree of stenosis in the cervical segment of the internal carotid arteries by NASCET criteria : Mild = <50% stenosis. Moderate = 50-69% stenosis. Severe = >70% stenosis to 99%. Total occlusion= No detectable patent lumen. Electronically authenticated by: LINDY FRAIRE Date: 02/13/2024 10:14 Neck CTA 02/13/24 09:16 IMPRESSION: No CT evidence of embolus or severe stenosis or dissection in the major arteries in the current study. Degree of stenosis in the cervical segment of the internal carotid arteries by NASCET criteria : Mild = <50% stenosis. Moderate = 50-69% stenosis. Severe = >70% stenosis to 99%. Total occlusion= No detectable patent lumen. Electronically authenticated by: LINDY FRAIRE Date: 02/13/2024 10:14 Discharge Plan Discharge Chief Complaint: Altered Mental Status Clinical Impression: Mental status change resolved Patient Disposition: Home, Self-Care Time of Disposition Decision: 12:19 Condition: Good Mode of Transportation: Private Vehicle Prescriptions / Home Meds: No Action oxycodone-acetaminophen [Percocet] 5-325 mg tablet 1 tab PO Q6H PRN (Reason: pain) Qty: 15 0RF Rx Instructions: DX: R10.9 acetaminophen-codeine 300-30 mg tablet 1 tab PO Q6H fluoxetine 20 mg capsule 20 mg PO DAILY lamotrigine 100 mg tablet 100 mg PO DAILY metformin 500 mg tablet extended release 24 hr 500 mg PO .QHS mirtazapine 15 mg tablet 15 mg PO .QHS ondansetron HCl 4 mg tablet 4 mg PO Q6H PRN (Reason: nausea and vomiting) sulfamethoxazole-trimethoprim 800-160 mg tablet 1 tab PO Q12H Print Language: Danish Instructions: Altered Mental Status (ED) Additional Instructions: Follow-up with your PCP and neurology. Return to emergency department if new symptoms develop. Referrals: Asiya Gonzales MD [Primary Care Provider] - 1 week Lesly Cota DO [Physician] - 1 week
[2024-02-13 08:03] LABS: Basophils Percent Auto 0.1 % (0.2-2.0); Eosinophils Percent Auto 0.1 % (0.9-7.0); Hemoglobin 12.3 g/dL (12.0-16.0); Immature Granulocytes Abs Auto 0.16 10^3/uL (0.00-0.03); Immature Granulocytes Pct Auto 0.9 % (0.0-0.5); Lymphocytes Absolute Auto 1.2 10^3/uL (1.2-3.8); Lymphocytes Percent Auto 6.6 % (20.5-60.0); Mean Corpuscular HGB Conc 33.2 g/dL (29.9-35.2); Mean Corpuscular Hemoglobin 31.5 pg (26.7-34.0); Mean Corpuscular Volume 94.6 fL (81.0-99.0); Mean Platelet Volume 10.1 fL (9.5-13.5); Monocytes Absolute Auto 0.8 10^3/uL (0.3-0.8); Monocytes Percent Auto 4.6 % (1.7-12.0); Neutrophils Absolute Auto 15.8 10^3/uL (1.4-6.5); Neutrophils Percent Auto 87.7 % (43.0-75.0); Platelet Count 347 10^3/uL (150-450); Red Blood Count 3.91 10^6/uL (4.20-5.40); Red Cell Distribution Width 12.5 % (11.0-15.0)
[2024-02-13 08:15] LABS: Chloride 103 mmol/L (98-107); Estimated GFR (African America >60 (>=60 mL/min/1.73m^2); Estimated GFR (Non-African Ame >60 (>=60 mL/min/1.73m^2); Glucose 119 mg/dL (74-106); Potassium 4.8 mmol/L (3.5-5.1); Sodium 136 mmol/L (136-145)
[2024-02-13 08:16] LABS: Ethanol <3 mg/dL
[2024-02-13 08:30] LABS: Anion Gap 12.3; Carbon Dioxide 25.5 mmol/L (21.0-32.0)
--- NOTE | 2024-02-13 08:33 | PC.NURSE ---
Pts reports pt was altered this morning talking gibberish , pt reports waking up and not remembering the first 30 min of her morning. Pts reports she got up and made a coffee and does not remember any of it. Pt had surgery yesterday on Bartholin cyst in [place] at surgical center. Pt has had surgeries before with anesthesia and hadd no similar episodes to this morning. Pt is currently A&Ox3 and remembers bringing her here this morning.
--- NOTE | 2024-02-13 09:16 | CT_ITS ---
The [address] [address] Patient Name: SYEDA DOLAN MRN: [id number] date: 1990 Sex: F Assigned Patient Location: ER Current Patient Location: Accession/Order Number: [id number] Exam Date: 02/13/2024 09:38 Report Date: 02/13/2024 10:14 At the request of: DIETER GARLAND Procedure: CT angio neck CT angio head, CT angio neck, 02/13/2024 9:38 AM EDT INDICATION: Altered mental status COMPARISON: Prior CT of the head of the same date TECHNIQUE: Pre and postcontrast enhanced CT angiography of the head and neck were acquired with contrast .3 D MIP images were reconstructed in sagittal and coronal format at the scanner and were evaluated at the time of dictation. Dose reduction techniques were achieved by using automated exposure control and/or adjustment of mA and/or kV according to patient size and/or use of iterative reconstruction technique. FINDINGS: The great vessels enhance normally. No filling defects are identified within the carotid arteries. There is no stenosis at the origin of the internal carotid arteries. No abnormality of cher-ae heights of [place] is noted. The TIFFANIE MCA and AUDIO/VIDEO TECHNICIAN are unremarkable. The anterior and posterior communicating arteries are patent. There is no aneurysm or significant stenosis. No abnormality of the vertebral and basilar arteries is noted. No mass, mass effect or midline shift or hemorrhage in the brain parenchyma is noted. No significant soft tissue abnormality within the neck is noted. The visualized portion of the lungs is unremarkable. No suspicious bone lesion is noted. There is loss of cervical lordosis. CT/CT angio neck IMPRESSION: No CT evidence of embolus or severe stenosis or dissection in the major arteries in the current study. Degree of stenosis in the cervical segment of the internal carotid arteries by NASCET criteria : Mild = <50% stenosis. Moderate = 50-69% stenosis. Severe = >70% stenosis to 99%. Total occlusion= No detectable patent lumen. Electronically authenticated by: LINDY FRAIRE Date: 02/13/2024 10:14
--- NOTE | 2024-02-13 09:16 | CT_ITS ---
The [address] [address] Patient Name: SYEDA DOLAN MRN: [id number] date: 1990 Sex: F Assigned Patient Location: ER Current Patient Location: Accession/Order Number: [id number] Exam Date: 02/13/2024 09:38 Report Date: 02/13/2024 10:14 At the request of: DIETER GARLAND Procedure: CT angio head CT angio head, CT angio neck, 02/13/2024 9:38 AM EDT INDICATION: Altered mental status COMPARISON: Prior CT of the head of the same date TECHNIQUE: Pre and postcontrast enhanced CT angiography of the head and neck were acquired with contrast .3 D MIP images were reconstructed in sagittal and coronal format at the scanner and were evaluated at the time of dictation. Dose reduction techniques were achieved by using automated exposure control and/or adjustment of mA and/or kV according to patient size and/or use of iterative reconstruction technique. FINDINGS: The great vessels enhance normally. No filling defects are identified within the carotid arteries. There is no stenosis at the origin of the internal carotid arteries. No abnormality of stebbins of [place] is noted. The TIFFANIE MCA and DIRECTOR OF CODING are unremarkable. The anterior and posterior communicating arteries are patent. There is no aneurysm or significant stenosis. No abnormality of the vertebral and basilar arteries is noted. No mass, mass effect or midline shift or hemorrhage in the brain parenchyma is noted. No significant soft tissue abnormality within the neck is noted. The visualized portion of the lungs is unremarkable. No suspicious bone lesion is noted. There is loss of cervical lordosis. CT/CT angio head IMPRESSION: No CT evidence of embolus or severe stenosis or dissection in the major arteries in the current study. Degree of stenosis in the cervical segment of the internal carotid arteries by NASCET criteria : Mild = <50% stenosis. Moderate = 50-69% stenosis. Severe = >70% stenosis to 99%. Total occlusion= No detectable patent lumen. Electronically authenticated by: LINDY FRAIRE Date: 02/13/2024 10:14
[2024-02-13 09:23] VITALS: BP 150/81; PULSE 54; O2SAT 100
[2024-02-13] MEDS: OXYCODONE HCL/ACETAMINOPHEN 5MG/325MG 1 TAB PO (09:28)
[2024-02-13 09:30] LABS: Bilirubin Urine NEGATIVE (NEGATIVE); Blood Urine LARGE (NEGATIVE); Clarity Urine CLEAR (CLEAR); Color Urine YELLOW (YELLOW); Glucose Urine UA 250 mg/dL (NEGATIVE); Ketones Urine NEGATIVE (NEGATIVE); Leukocyte Esterase Urine NEGATIVE (NEGATIVE); Nitrite Urine NEGATIVE (NEGATIVE); Protein Urine NEGATIVE (NEG/TRACE); Urobilinogen Urine 0.2 EU/dL (0.2-1.0)
[2024-02-13 10:03] LABS: Amphetamine Screen Urine NEGATIVE (NEGATIVE); Barbiturates Screen Urine NEGATIVE (NEGATIVE); Benzodiazepines Screen Urine NEGATIVE (NEGATIVE); Buprenorphine Screen Urine NEGATIVE (NEGATIVE); Cannabinoid Screen Urine POSITIVE (NEGATIVE); Cocaine Screen Urine NEGATIVE (NEGATIVE); Methadone Screen Urine NEGATIVE (NEGATIVE); Methamphetamines Screen Urine NEGATIVE (NEGATIVE); Opiate Screen Urine NEGATIVE (NEGATIVE); Oxycodone Screen Urine POSITIVE (NEGATIVE); Phencyclidine Screen Urine NEGATIVE (NEGATIVE); Tricyclic Antidepressant Urine NEGATIVE (NEGATIVE)
[2024-02-13 10:05] LABS: Bacteria Urine SMALL #/HPF (NONE SEEN); Mucus Urine TRACE (NONE SEEN); RBC Urine 20-50 #/HPF (0-2); WBC Urine 0-2 #/HPF (NONE SEEN)
[2024-02-13 10:06] LABS: Cast Seen? NONE SEEN #/LPF (NONE SEEN); Crystals Seen? None Seen #/HPF (None Seen); Squamous Epithelial Cell Urine MODERATE #/LPF (NONE/RARE); Urine Culture Indicated YES
[2024-02-13 10:45] VITALS: PULSE 65; O2SAT 98
[2024-02-13 12:35] VITALS: BP 145/86; PULSE 66; O2SAT 98
== END 2024-02-13 12:35 | disposition home or self-care (01) ==
PROVIDERS: Emergency Provider Emergency Medicine; PCP Family Medicine
DX: R41.82 Altered mental status, unspecified (principal)
CPT/HCPCS: 36415; 70450; 70496; 70498; 80048; 80307; 80320; 81001; 85025; 87086; 93005; 99285; Q9967

== ENCOUNTER 2024-04-28 15:29 | Outpatient (OUT) | payer OTHER, SELFPAY ==
--- OUTSIDE RECORDS SUMMARY | 2024-04-28 15:42 | XMS_ITS | CCD ---
Author Organization [facility] Care Team Providers Care Rolling Attendant Name Role Phone Priyanka Summers Primary Care Provider [phone] Anabel Melgar Attending Unavailable Craig Harris Unavailable Jimmy Roque Unavailable SEVEN ., DR BROWN Attending Unavailable SEVEN ., DR BROWN Admitting Unavailable SEVEN ., DR BROWN Consulting Unavailable SEVEN ., DR BROWN Admitting Unavailable SEVEN ., DR BROWN Consulting Unavailable SEVEN ., DR BROWN Attending Unavailable OLGA WALKER Consulting Unavailable ROC APODACA Referring Unavailable CRAIG HARRIS Primary Care Unavailable CRAIG HARRIS Primary Care Unavailable ROC HERNANDEZ Referring Unavailable Craig Harris MD Primary Care Provider GAGANDEEP MORRELL Admitting Unavailable GAGANDEEP MORRELL Attending Unavailable CRAIG HARRIS Primary Care Unavailable Allergies Allergy Classification Reported Allergen(s) Allergy Type Date of Onset Reaction(s) Facility (1 source) No Known Medication Allergies; Translations: [No Known Medication Allergies] Propensity to adverse reactions (disorder) [facility] Repository Medications Current Medications Medication Drug Class(es) Dates Sig (Normalized) Sig (Original) acetaminophen 325 mg / oxyCODONE hydrochloride 5 mg oral tablet (3 sources) Opioid Agonist Start: 02-12-2024 End: 02-13-2024 take 1 tablet by mouth every twenty-four hours as needed 2 tablet, Oral, ONCE PRN, 1 dose, Starting on 02/12/24 at 1603, Until Nimisha 02/13/24 at 1603, Pain Severe (7-10), Maximum dose of acetaminophen is 4000 mg from all sources in 24 hours., PACU only Start: 02-12-2024 End: 02-15-2024 oxyCODONE-acetaminophen (PER COCET) 5-325 MG per tablet Indications: Post-operative state Take 1 tablet by mouth every 6 hours as needed for Pain for up to 3 days. Intended supply: 3 days. Take lowest dose possible to manage pain Max Daily Amount: 4 tablets 12 tablet 02/12/2024 02/15/2024 Active 200 actuat albuterol 0.09 mg/actuat metered dose [...] Wheezing 1 Inhaler 0 04/14/2020 Active albuterol 0.833 mg/ml / ipratropium bromide 0.167 mg/ml inhalation solution (1 source) Anticholinergic, beta2-Adrenergic Agonist Start: 02-12-2024 End: 02-13-2024 take 1 dose by inhalation once as needed 1 Dose, Inhalation, ONCE PRN, 1 dose, Starting on Sat02/12/24 at 1603, Until Nimisha 02/13/24 at 1603, Shortness of Breath, Initiate RT Bronchodilator Protocol: No, PACU only albuterol sulfate HFA 108 (90 Base) MCG/ACT [...] by mouth once daily Multiple Vitamins-Minerals (THERAPEUTIC MULTIVITAMIN-RN PSYCH ALS) tablet Take 1 tablet by mouth [...] 04-14-2020 benzonatate (TESSALON) capsu le 200 mg calcium chloride 0.0014 meq/ml / potassium chloride 0.004 meq/ml / sodium chloride 0.103 meq/ml / sodium lactate 0.028 meq/ml injectable solution (1 source) Start: 02-12-2024 IntraVENous, a t 125 mL/hr, CONTINUOUS, Starting on Sat02/12/24 at 1300, Pre-op (day of surgery) 1 ml diphenhydrAMINE hydrochloride 50 mg/ml cartridge (1 source) Histamine-1 Receptor Antagonist Start: 02-12-2024 End: 02-13-2024 12.5 mg, IntraVENous, ONCE PRN, 1 dose, Starting on Sat02/12/24 at 1603, Until Nimisha 02/13/24 at 1603, Itching, PACU only [id number] 0.3 ml EPINEPHrine 1 mg/ml auto-injector (3 sources) alpha-Adrenergic Agonist, beta-Adrenergic Agonist, Catecholamine Start: 02-06-2019 EPINEPHrine (EPIPEN 2-LUPE) 0.3 MG/0.3ML SOAJ injection Inject 0.3 mLs into the skin once as needed (ALLERGIC reaction) 1 each 1 02/06/2019 Active 2 ml fentaNYL 0.05 mg/ml injection (2 sources) Opioid Agonist Start: 10-23-2019 fentaNYL (SUBL IMAZE) injection 50 mcg Start: 10-23-2019 fentaNYL (SUBL IMAZE) injection 25 mcg FLUoxetine 40 mg oral capsule (10 sources) Serotonin Reuptake Inhibitor Start: 12-09-2023 take 1 capsule by mouth once daily FLUoxetine (PROZAC) 40 MG capsule Take 1 capsule by mouth daily 12/09/2023 Active Start: 10-14-2023 take 1 mg by mouth once daily Fluoxetine Active MG PO Daily October 14, 2023 12:00am Start: 08-05-2023 End: 08-06-2023 take 1 capsule by mouth once daily Fluoxetine (Prozac) 40 mg capsule Discontinued 40 MG PO Daily August 05, 2023 12:00am August 06, 2023 10:53am take 1 capsule by [facility] every twenty-four hours PROzac 40 MG 1 capsule Orally Once a day Active 1 ml hydrALAZINE hydrochloride 20 mg/ml injection (1 source) Arteriolar Vasodilator Start: 10-23-2019 hydrALAZINE (APRESOLINE) injection 5 mg ibuprofen 600 mg oral tablet (1 source) Nonsteroidal Anti-inflammatory Drug Start: 02-12-2024 take 1 tablet by mouth every six hours as needed for pain ibuprofen (ADVIL;MOTRIN) 600 MG tablet Take 1 tablet by mouth every 6 hours as needed for Pain 30 tablet 1 02/12/2024 Active labetalol (NORMODYNE;TRANDATE) injection 10 mg (1 source) Start: 02-12-2024 labetalol (NORMODYNE;TRANDAT E) injection 10 mg lamoTRIgine 200 mg oral tablet (10 sources) Mood Stabilizer, Anti-epileptic Agent Start: 10-14-2023 take 200 mg by mouth once daily Lamotrigine Active 200 MG PO Daily October 14, 2023 12:00am Start: 08-06-2023 End: 10-14-2023 take 1 tablet by mouth twice daily Lamotrigine (Lamictal) 25 mg tablet Discontinued 25 MG PO Twice daily August 06, 2023 12:00am October 14, 2023 10:51am Start: 07-11-2023 take 1 tablet by lc once daily, then take 2 tablets by mouth once daily lamoTRIgine (LAMICTAL) 25 MG tablet 1 tablet daily for 2 weeks then take 2 tablets daily Orally for 30 days 1 tablet daily for 2 weeks then increase to 2 tablets daily 07/11/2023 Active Start: 04-17-2019 take 1 tablet by lc once daily lamoTRIgine (LAMICTAL) 100 MG tablet Take 100 mg by mouth daily 0 04/17/2019 Active metFORMIN hydrochloride 500 mg oral tablet (1 source) Biguanide take 1 tablet by mouth twice daily at mealtime metFORMIN (GLUCOPHAGE) 500 MG tablet Take 1 tablet by mouth 2 times daily (with meals) Active 2 ml metoclopramide 5 mg/ml prefilled syringe (2 sources) Dopamine-2 Receptor Antagonist Start: 02-12-20 End: 02-13-20 10 mg, IntraVENous, ONCE PRN, 1 dose, Starting on Sat02/12/24 at 1603, Until Sat02/13/24 at 1603, Nausea, Secondary antiemetic therapy., PACU only Start: 10-23-2019 End: 10-23-2019 metoclopramide (REGLAN) inje ction 10 mg 2 ml midazolam 1 mg/ml injection (1 source) Benzodiazepine Start: 02-12-2024 End: 02-13-2024 2 mg, IntraVENous, ONCE PRN, 1 dose, Starting on Sat02/12/24 at 1603, Until Nimisha 02/13/24 at 1603, Anxiety, PACU only Multiple Vitamins-Minerals (THERAPEUTIC MULTIVITAMIN-RN PSYCH ALS) tablet (5 sources) take 1 tablet by mouth once daily Multiple Vitamins-Minerals (THERAPEUTIC MULTIVITAMIN-MINERAL S) tablet Take 1 tablet by mouth daily Active take 1 tablet by mouth once patel y Multiple Vitamins-Minerals (THERAPEUTIC MULTIVITAMIN-MINERALS) tablet Take 1 tablet by mouth daily 0 Active naloxone 0.4 mg in 10 mL sodium chloride syringe (1 source) Start: 02-12-2024 IntraVENous, P RN, Opioid Reversal, Starting on Sat02/12/24 at 1603, PRN if respiratory rate is less than 6/min and patient is difficult to arouse then notify physician STAT. Mix 9 mL of sodium chloride 0.9% with 0.4 mg (1 mL) of naloxone (NARCAN) in 10 mL syringe. (Note: dilution is 0.04 mg/mL) Give 0.08 mg (2 mL of special dilution), slow IV push, repeat up to 0.4 mg (10 mL) or until patient is responsive to physical stimulation and respiratory rate is equal to or greater than 6 breaths/min. Continue to observe, if no response within 3 minutes of administration of 0.4 mg (10 mL) total, repeat dose (0.4 mg as administered previously). Concentration 0.04 mg/mL, PACU only 2 ml ondansetron 2 mg/ml injection (3 sources) Serotonin-3 Receptor Antagonist Start: 02-12-2024 End: 02-13-2024 4 mg, IntraVENous, ONCE PRN, 1 dose, Starting on Sat02/12/24 at 1603, Until Nimisha 02/13/24 at 1603, Nausea, PACU only Start: 02-12-2024 take 1 tablet by lc th three times daily as needed for nausea ondansetron (ZOFRAN) 4 MG tablet Take 1 tablet by mouth 3 times daily as needed for Nausea or Vomiting 15 tablet 02/12/2024 Active Start: 10-23-2019 End: 10-23-2019 ondansetron (ZOFRAN) injecti on 4 mg phentermine hydrochloride 37.5 mg oral [...] by mouth 2 times daily 0 Active 5 ml sodium chloride 9 mg/ml injection (7 sources) Start: 02-12-20 24 5-40 mL, IntraVENous, EVERY 12 HOURS SCHEDULED (2 times per day), First dose on Sat02/12/24 at 2100, Until Discontinued, For Line Patency: Peripheral IV = 5 mL; Midline or Central Line = 10 mL/lumen. If following IV push medication, administer flush at same rate as the IV push. Flush volume is determined by type of infusion therapy being given. For non-viscous solutions use: Peripheral IV = 5 mL Midline or Central Line = 10 mL/lumen For viscous solutions (i.e. blood components, parenteral nutrition, contrast media, or after obtaining blood sample) use: Peripheral IV = 10 mL Midline or Central Line = 20 mL/lumen, PACU only Start: 02-12-2024 5-40 mL, Intra VENous, EVERY 12 HOURS SCHEDULED (2 times per day), First dose on Sat02/12/24 at 2100, Until Discontinued, For Line Patency: Peripheral IV = 5 mL; Midline or Central Line = 10 mL/lumen. If following IV push medication, administer flush at same rate as the IV push. Flush volume is determined by type of infusion therapy being given. For non-viscous solutions use: Peripheral IV = 5 mL Midline or Central Line = 10 mL/lumen For viscous solutions (i.e. blood components, parenteral nutrition, contrast media, or after obtaining blood sample) use: Peripheral IV = 10 mL Midline or Central Line = 20 mL/lumen, Pre-op (day of surgery) Start: 02-12-2024 take 1 mL intravenou sly every hour as needed IntraVENous, at 100 mL/hr, PRN, If patient receiving piggyback infusions without ordered maintenance IV fluids or with frequent/long duration piggyback infusions, Starting on Sat02/12/24 at 1603, Administer at the same rate as the piggyback being infused., PACU only Start: 02-12-2024 take 20 mL intraveno usly every hour IntraVENous, at 5-250 mL/hr, PRN, if patient receiving piggyback infusions and maintenance fluids are not ordered OR KVO fluids to protect IV site / prevent frequent line interruptions/ long duration, Starting on Sat02/12/24 at 1244, For piggyback infusion, administer at same rate as piggyback for a total of 25 mL. Enter 25 mL into dose field and piggyback rate into rate field of order. If piggyback is infusing at a rate less than 100 mL/hr, enter 25 mL into dose field and 100 mL/hr into rate field of order. For KVO fluids, enter rate of 20 mL/hr or less into rate field of order., Pre-op (day of surgery) Start: 02-12-2024 5-40 mL, Intra VENous, PRN, Starting on Sat02/12/24 at 1603, Until Discontinued, Line Care, After every IV line use, For Line Patency: Peripheral IV = 5 mL; Midline or Central Line = 10 mL/lumen. If following IV push medication, administer flush at same rate as the IV push. Flush volume is determined by type of infusion therapy being given. For non-viscous solutions use: Peripheral IV = 5 mL Midline or Central Line = 10 mL/lumen For viscous solutions (i.e. blood components, parenteral nutrition, contrast media, or after obtaining blood sample) use: Peripheral IV = 10 mL Midline or Central Line = 20 mL/lumen, PACU only sulfamethoxazole 800 mg / trimethoprim 160 mg oral tablet (1 source) Dihydrofolate Reductase Inhibitor Antibacterial, Sulfonamide Antimicrobial Start: 02-12-2024 End: 02-19-2024 take 1 tablet by mouth twice daily sulfamethoxazole-trimethoprim (BACTRIM DS;SEPTRA DS) 800-160 MG per tablet Take 1 tablet by mouth 2 times daily for 7 days 14 tablet 02/12/2024 02/19/2024 Active venlafaxine 100 mg oral tablet (5 sources) Serotonin and Norepinephrine Reuptake Inhibitor venlafaxine (EFFEXOR ) 100 MG tablet Take 75 mg by [...] 2023 10:53am take 1 capsule by [facility] every eight hours Cephalexin 500 MG 1 tablet three times a day Active 1 ml dexamethasone phosphate 10 mg/ml injection (1 source) Corticosteroid Start: 04-14-2020 End: 04-14-2020 dexamethasone (PF) (DECADRON) injection 6 mg 1 ml HYDROmorphone hydrochloride 1 mg/ml cartridge (1 source) Opioid Agonist Start: 02-12-2024 0.5 mg, IntraVENous, EVERY 5 MIN PRN, 4 doses, Starting on Sat02/12/24 at 1603, Until Discontinued, Pain Severe (7-10), Phase I - Initial therapy for severe pain., PACU only lurasidone hydrochloride 20 mg oral tablet (2 sources) Atypical Antipsychotic End: 10-23-2019 take 1 tablet by mouth once daily lurasidone (LATUDA) 20 MG TABS tablet Take 20 mg by mouth daily 0 10/23/2019 Discontinued (DISCONTINUED BY ANOTHER CLINICIAN) meperidine hydrochloride 50 mg/ml injectable solution (1 source) Opioid Agonist Start: 02-12-2024 12.5 mg, IntraVENous, EVERY 5 MIN PRN, 2 doses, Starting on Sat02/12/24 at 1603, Until Discontinued, Shivering, , May give every 5 minutes to max of 25mg., PACU only methylPREDNISolone 4 mg oral tablet (1 source) Corticosteroid Start: 08-22-2023 End: 10-14-2023 take 1 tablet by mouth once Methylprednisolone (Medrol (Lupe)) 4 mg tablets,dose pack Discontinued 0 PO per package directions August 22, 2023 12:00am October 14, 2023 11:15am PO PER PKG DIR for 6 days 1 ml morphine sulfate 2 mg/ml cartridge (1 source) Opioid Agonist Start: 02-12-2024 2 mg, IntraVENous, EVERY 5 MIN PRN, 10 doses, Starting on Sat02/12/24 at 1603, Until Discontinued, Pain Moderate (4-6), Phase I - Initial therapy for moderate pain., PACU only Problems Problem Classification Problem Date Documented Date Episodic/Chronic Abdominal pain (1 source) Unspecified abdominal pain Episodic Administrative/social admission (4 sources) Patient encounter status; Translations: [Exercise counseling] 10-14-2023 Episodic Anxiety disorders (3 sources) Mixed anxiety and depressive disorder; Translations: [Other specified anxiety disorders] 08-05-2023 Chronic Essential hypertension (5 sources) Essential hypertension; Translations: [Essential (primary) hypertension] Onset: 07-24-2019 07-24-2019 Chronic Genitourinary symptoms and ill-defined conditions (1 source) Unspecified symptoms and signs involving the genitourinary system Episodic Inflammatory diseases of female pelvic organs (2 sources) Abscess of Bartholin's gland; Translations: [Abscess of Bartholin's gland] Onset: 02-12-2024 02-12-2024 Episodic Mood disorders (10 sources) Depressive disorder; Translations: [Bipolar II disorder] Onset: 07-24-2019 07-24-2019 Chronic Other disorders of stomach and duodenum (2 sources) Indigestion; Translations: [Functional dyspepsia] 11-01-2019 Episodic Other endocrine disorders (5 sources) [...] Chronic Other nutritional; endocrine; and metabolic disorders (9 sources) Body mass index 40+ - severely [...] Translations: [Pneumonia due to COVID-19 virus] Episodic Residual codes; unclassified (1 source) Postoperative state; Translations: [Other specified postprocedural states] 02-12-2024 Episodic Residual codes; unclassified (1 source) Other specified postprocedural states; Translations: [Other specified postprocedural states] Onset: 02-12-2024 Episodic Unclassified (1 source) No additional problems on file Unclassified (1 source) Patient encounter status; Translations: [Encounter for screening for other viral diseases] Results Test Name Value Interpretation Reference Range Facility HCG,,Ur(POC)on HCG,,Ur(POC) Negative Normal NEG [facility] Comment on above: Result Comment: Spec imens with hCG levels near the threshold of the test (25 mIU/mL) may give a negative or indeterminate result. In such cases, another test should be performed with a new specimen in 48-72 hours. If early is suspected clinically in this setting, correlation with quantitative serum b-hCG level is suggested. TESTING PERFORMED AT [place] [id number] POCT urine pregnancyon 02-11 Beta HCG ( test) Ql (U) Negative NEGATIVE [facility] Comment on above: Specimens with hCG l evels near the threshold of the test (25 mIU/mL) may give a negative or indeterminate result. In such cases, another test should be performed with a new specimen in 48-72 hours. If early is suspected clinically in this setting, correlation with quantitative serum b-hCG level is suggested. TESTING PERFORMED AT [address] [address] [facility] Surgical Pathology Reporton 02-12-2024 Surgical Pathology Report (NOTE) Path Number: [id number] -- Diagnosis -- Bartholin gland, left, excisional biopsy: Fragments of keratinizing squamous mucosa, adipose tissue, and fibrous tissue with chronic inflammation and focal granulation tissue reaction, clinically chronic Bartholin abscess. Yunior Manzo. Electronically Signed Out 02/17/2024 Clinical Information Pre-Op Diagnosis: ABSCESS OF BARTHOLIN'S GLAND Operative Findings: CHRONIC BARTHOLIN ABSCESS Operation Performed: LEFT BARTHOLIN CYST MARSUPIALIZATION kb Source of Specimen A: CHRONIC BARTHOLIN ABSCESS Gross Description BRITT DOLAN, CHRONIC BARTHOLIN ABSCESS Received in formalin is a 4.0 x 3.5 x 2.0 cm aggregate of yellow, lobulated fat and pizarro-pink, rubbery tissue. Emergency Planner sections 1c. tm Laura Bansal/hermilo2:02/13/2024 Microscopic Description 1 KRIS reviewed. Microscopic examination performed. Processing Lab: [place] [address] Interpretation Performed at [place] [address] SURGICAL PATHOLOGY CONSULTATION Patient Name: BRITT DOLAN [facility] Rec: [id number] [facility] ANATOM[facility]OLOGY [address] [place], [place] [id number] [facility] No Panel InformationOrdered By: Denisa To on 08-22-2023 Quick Strep (POC) [facility] DHEA SERUMon 09-24-2022 Dehydroepiandrosterone (DHEA) 229 ng/dL Normal 31-701 [facility] Comment on above: Performed By: #### Marian CHAN. #### [facility] [address] [place], [place] [address] Dr. Estella Elaine DHEA-SULFATEon 09-20-2022 DHEA-Sulfate 229.0 ug/dL Normal 84.8-378.0 [facility] Comment on above: Performed By: #### Marian CAROLINAUL #### [facility] [address] [place], [place] [address] Dr. Estella Elaine FSHon 05-11-2023 FSH 5.9 mIU/mL Normal [facility] Comment on above: Result Comment: Adul t Female: Follicular phase 3.5 - 12.5 Ovulation phase 4.7 - 21.5 Luteal phase 1.7 - 7.7 Postmenopausal 25.8 - 134.8 Performed By: #### L [facility] #### [facility] [address] [place], [place] [address] Dr. Estella Elaine LUTEINIZING HORMONE (LH)on 0 09-20-2022 LH 9.1 mIU/mL Normal [facility] Comment on above: Result Comment: Adul t Female: Follicular phase 2.4 - 12.6 Ovulation phase 14.0 - 95.6 Luteal phase 1.0 - 11.4 Postmenopausal 7.7 - 58.5 Performed By: #### L [facility] #### [facility] [address] [place] [id number] Estella Elaine US PELVIS AND TRANSVAGon [...] by: OLGA WALKER Date: 2022-09-20 16:56 Normal [facility] CBC AUTO DIFFon 05-10-2023 BASO # 0.0 103/ul Normal 0.0-0.1 [facility] Comment on above: Performed By: #### C BC #### [facility] [address] [place] [address] [address] Estella Elaine Basophils/100 WBC (Bld) 0.3 % Normal 0.2-2.0 [facility] Comment on above: Performed By: #### C BC #### [facility] [address] [place] [address] Dr. Estella Elaine EO # 0.1 103/ul Normal 0.0-0.7 [facility] Comment on above: Performed By: #### C BC #### [facility] [address] [place] [address] Dr. Estella Elaine Eosinophils/100 WBC (Bld) 0.9 % Normal 0.9-7.0 [facility] Comment on above: Performed By: #### C BC #### [facility] [address] [place] [address] Dr. Estella Elaine Erythrocyte distribution width (RBC) [Ratio] 11.9 % Normal 11.0-15.0 [facility] Comment on above: Performed By: #### C BC #### [facility] [address] [place] [address] Dr. Estella Elaine Hematocrit (Bld) [Volume fraction] 42.6 % Normal 36.0-48.0 [facility] Comment on above: Performed By: #### C BC #### [facility] [address] [place] [address] Dr. Estella Elaine Hemoglobin (Bld) [Mass/Vol] 14.2 g/dL Normal 12.0-16.0 [facility] Comment on above: Performed By: #### C BC #### [facility] [address] [place] [address] Dr. Estella Elaine IG # 0.03 10e3/ul Normal 0.00-0.03 [facility] Comment on above: Performed By: #### C BC #### [facility] [address] [place] [address] Dr. Estella Elaine IG % 0.3 % Normal 0.0-0.5 [facility] Comment on above: Performed By: #### C BC #### [facility] [address] [place] [address] Dr. Estella Elaine LYMPH # 1.7 103/ul Normal 1.2-3.8 [facility] Comment on above: Performed By: #### C BC #### [facility] [address] [place] [address] Dr. Estella Elaine Lymphocytes/100 WBC (Bld) 19.0 % Critically low 20.5-6 0.0 [facility] Comment on above: Performed By: #### C BC #### [facility] [address] [place] [address] Dr. Estella Elaine MANUAL DIFF REQ NO Normal [facility] Comment on above: Performed By: #### C BC #### [facility] [address] [place] [address] Dr. Estella Elaine MCH (RBC) [Entitic mass] 31.3 pg Normal 26.7-34.0 [facility] Comment on above: Performed By: #### C BC #### [facility] [address] [place] [address] Dr. Estella Elaine MCHC (RBC) [Mass/Vol] 33.3 g/dL Normal 29.9-35.2 [facility] Comment on above: Performed By: #### C BC #### [facility] [address] [place] [address] Dr. Estella Elaine MCV (RBC) [Entitic vol] 94.0 fL Normal 81.0-99.0 [facility] Comment on above: Performed By: #### C BC #### [facility] [address] [place] [address] Dr. Estella Elaine MONO # 0.4 103/ul Normal 0.3-0.8 [facility] Comment on above: Performed By: #### C BC #### [facility] [address] [place] [address] Dr. Estella Elaine Monocytes/100 WBC (Bld) 4.0 % Normal 1.7-12.0 [facility] Comment on above: Performed By: #### C BC #### [facility] [address] [place] [address] Dr. Estella Elaine NEUT # 6.7 103/ul Critically high 1.4-6.5 [facility] Comment on above: Performed By: #### C BC #### [facility] [address] [place] [address] Dr. Estella Elaine Neutrophils/100 WBC (Bld) 75.5 % Critically high 43.0- 75.0 [facility] Comment on above: Performed By: #### C BC #### [facility] [address] [place] [address] Dr. Estella Elaine Platelet mean volume (Bld) [Entitic vol] 9.5 fL Normal 9.5-13.5 [facility] Comment on above: Performed By: #### C BC #### [facility] [address] [place] [address] Dr. Estella Elaine PLT 384 103/ul Normal 150-450 [facility] Comment on above: Performed By: #### C BC #### [facility] [address] [place] [address] Dr. Estella Elaine RBC 4.53 106/ul Normal 4.20-5.40 [facility] Comment on above: Performed By: #### C BC #### [facility] [address] [place] [address] Dr. Estella Elaine WBC 8.9 103/ul Normal 4.0-11.0 [facility] Comment on above: Performed By: #### C BC #### [facility] [address] [place] [address] Dr. Estella Elaine FREE T4on 09-19-2022 Free T4 [Mass/Vol] 0.90 ng/dL Normal 0.76-1.46 [facility] Comment on above: Performed By: #### F T4 #### [facility] [address] [place] [address] Dr. Estella Elaine GLYCOHEMOGLOBIN A1Con 2022 ADA RECOMMENDATION SEE BELOW Normal [facility] Comment on above: Result Comment: ADA RECOMMENDED LIMIT 4.0 - 6.0 ADA THERAPEUTIC TARGET < 7.0 ACTION SUGGESTED > 7.0 Performed By: #### A 1C #### [facility] [address] [place] [address] Dr. Estella Elaine Glucose [Mass/Vol] 97 mg/dL Normal [facility] Comment on above: Performed By: #### A 1C #### [facility] [address] [address] [address] Estella Elaine HbA1c (Bld) [Mass fraction] 5.0 % Normal 4.5-6.2 [facility] Comment on above: Performed By: #### A 1C #### [facility] [address] [place] [address] Dr. Estella Elaine TSHon 09-19-2022 TSH 2.601 uIU/mL Normal 0.358-3.740 [facility] Comment on above: Performed By: #### T SH #### [facility] [address] [place] [address] Dr. Estella Elaine Ambulatory Visit Summaryon 0 06-11-2022 Ambulatory Visit Summary NORRIS DOLANHelen Woo :1990 Visit Date:06/11/2022 Ambulatory Visit Instructions Your Diagnosis Viral illness Acute effusion of both middle ears Nausea BMI 45.0-49.9, adult Current every day vaping Your Care Team Attending Physician - Anabel Gonzalez Primary Care Physician - PRIYANKA SUMMERS CNP This Is Your Medications List [...] Schedule the Following Appointments Follow Up with PRIYANKA SUMMERS CNP When: Where: [address] [place] [address]- Medications What How Much When Why Instructions New methylPREDNISolone (Medrol 4 mg Tab) 1 Packets By Mouth As Directed Acute effusion of both middle ears Duration: 6 Days as directed on package labeling Pickup at [facility]/pharmacy #[id number] New ondansetron (ondansetron 4 mg Dis Tab) 1 Tablets By Mouth Every 6 hours as needed for Nausea/Vomiting Nausea Duration: 3 Days Pickup at [facility]/pharmacy #[id number] Unchanged fluoxetine (FLUoxetine 40 mg Cap) [...] physician if questions or concerns [id number] [address], [place] [phone] Allergies No Known Medication Allergies Problems Ongoing [...] home: Managing pain and congestion ? Take vjdt-ibn-syfjzcc and prescription medicines only as told by [...] and water are not available, use hand vendor specialist. ? Avoid contact with people who are [...] are used (more content not included)... Normal [facility] Family Medicine Office/Clini c Noteon 06-11-2022 Family [...] day(s), # 21 tab(s), Refills(s) 0, Pharmacy: [facility]/pharmacy #[id number], 165, cm, 06/11/22 9:34:00 EST, Height/Length Dosing, 124, kg, 06/11/22 9:34:00 EST, Weight Dosing 3. Nausea (R11.0: Nausea) Will send in rx of Zofran to use as directed as needed. Follow above treatment plan recommendations. Ordered: ondansetron, 4 mg = 1 tab(s), Oral, q6hr, PRN Nausea/Vomiting, X 3 day(s), # 12 tab(s), Refills(s) 0, Pharmacy: [facility] #[id number], 165, cm, 06/11/22 9:34:00 EST, Height/Length [...] documented 3008F Follow-up With When Contact Information PRIYANKA SUMMERS CNP [address] [address]- Additional Instructions: Patient Education Viral Respiratory Infection, Wilm-Cb-Cxid BMI for Adults Nausea and Vomiting, Adult, Mnsx-jy-Zgie Problem List/Past Medical History Ongoing Adult BMI 50.0-59.9 kg/sq m Anxiety Bipolar disorder, c (more content not included)... Normal [facility] Comment on above: Result Comment: Elec tronically [...] ? Low-calorie sports drinks. ? Eat bland, heus-yr-hfwwua foods in small amounts as you are able, such as: ? Bananas. ? Applesauce. ? Rice. ? Low-fat (lean) meats. ? [place]bank. ? Crackers. ? Avoid drinking fluids that have a lot of sugar or caffeine in them. This includes energy drinks, sports drinks, and soda. ? Avoid alcohol. ? Avoid spicy or fatty foods. General instructions ? Take gwkm-akz-wnqmrpr and prescription medicines only as told by your doctor. ? Drink enough fluid to keep your pee (urine) pale yellow. ? Wash your hands often with soap and water. If you cannot use soap and water, use hand vendor specialist. ? Make sure that all people in [...] much water in your body. ? Take nujm-zpw-huxwpzb and prescription medicines only as told by [...] 10/15/2008 Document Revised: 08/21/2019 Document Reviewed: 10/07/2018 [employer] Patient Education ? 2019 [employer]ferra. Infectious Disease Viral Respiratory Infection A viral [...] ? A (more content not included)... Normal [facility] Provider Letteron 06-11-2022 Provider Letter June 11, 2022 BRITT WALTERS [address] [place] [id number] BRITT WALTERS 1990 To Whom It May Concern, Please excuse above patient from work. Date of Illness: From: 06/11/22 May Return to Work On: Next scheduled day. Sincerely, [facility] [address] [place] [address], [place] [address] Normal [facility] Basic Metabolic Panel w/ Ref tony to MGon 12-03-2020 Anion gap [Moles/Vol] 12 mmol/L 9 - 17 mmol/L [place] Bun/Cre Ratio 13 [place] Calcium [Mass/Vol] 9.6 mg/dL 8.6 - 10. 4 mg/dL [place] Chloride [Moles/Vol] 107 mmol/L 98 - 10 7 mmol/L [place] CO2 [Moles/Vol] 20 mmol/L 20 - 31 mmol/L [place] Creatinine [Mass/Vol] 0.7 mg/dL 0.5 - 0.9 mg/dL [place] GFR >60 >60 mL/min [place] GFR Non- >60 >60 mL/min [place] GFR/1.73 sq M predicted among non-blacks MDRD (S/P/Bld) [Vol rate/Area] [place] Comment on above: Average GFR for 30-3 9 years old: 107 mL/min/1.73sq m Chronic Kidney Disease: <60 mL/min/1.73sq m Kidney failure: <15 mL/min/1.73sq m eGFR calculated using average adult body mass. Additional eGFR calculator available at: http://www.[employer]/multiple_crcl_2012.htm GFR/1.73 sq M predicted among non-blacks MDRD (S/P/Bld) [Vol rate/Area] NOT REPORTED [place] Glucose [Mass/Vol] 114 mg/dL High 70 - 99 mg/dL [place] Interpretation and review of laboratory results Abnormal [place] Potassium [Moles/Vol] 3.8 mmol/L 3.7 - 5.3 mmol/L [place] Sodium [Moles/Vol] 139 mmol/L 135 - 144 mmol/L [place] Urea nitrogen [Mass/Vol] 9 mg/dL 6 - 20 mg/d L [place] CBC Auto Differentialon 12-0 Basophils (Bld) [#/Vol] 0.00 10*3/uL [place] Basophils/100 WBC (Bld) 0 % 0 - 2 % [place], [place] Differential Type YES [place] Eosinophils (Bld) [#/Vol] 0.00 10*3/uL [place] Eosinophils/100 WBC (Bld) 0 % 0 - 5 % [place] Erythrocyte distribution width (RBC) [Ratio] 14.0 % 12.1 - 15.2 % [place] Hematocrit (Bld) [Volume fraction] 40.5 % 36 - 46 % [place] Hemoglobin (Bld) [Mass/Vol] 13.9 g/dL 12 - 16 g/dL [place] Lymphocytes (Bld) [#/Vol] 1.50 10*3/uL [place] Lymphocytes/100 WBC (Bld) 27 % 15 - 40 % [place] MCH (RBC) [Entitic mass] 29.8 pg 26 - 34 pg [place] MCHC (RBC) [Mass/Vol] 34.2 g/dL 31 - 37 g/dL [place] MCV (RBC) [Entitic vol] 87.1 fL 80 - 100 fL [place] Monocytes (Bld) [#/Vol] 0.30 10*3/uL [place] Monocytes/100 WBC (Bld) 6 % 4 - 8 % [place] Platelet mean volume (Bld) [Entitic vol] NOT REPORTED 6 - 12 fL [place] Platelets (Bld) [#/Vol] NOT REPORTED [place] Platelets (Bld) [#/Vol] 230 10*3/uL [place] RBC (Bld) [#/Vol] 4.66 10*6/uL 4 - 5.2 m/uL [place] RBC morphology finding Nom (Bld) NOT REPORTED [place] Segmented neutrophils/100 WBC (Bld) 67 % 47 - 75 % [place] Segs Absolute 3.70 [place] WBC (Bld) [#/Vol] 5.4 10*3/uL [place] WBC (Bld) [#/Vol] NOT REPORTED per 100 WBC [place] WBC Morphology NOT REPORTED [place] HCG Qualitative, Serumon hCG Qual Negative NEGATIVE [place] Comment on above: Specimens with hCG l evels near the threshold of the test (25 mIU/mL) may give a negative or indeterminate result. In such cases, another test should be performed with a new specimen in 48-72 hours. If early is suspected clinically in this setting, correlation with quantitative serum b-hCG level is suggested. [employer] has confirmed the use of plasma for this test. This has not been cleared or approved by the U.S. Food and Drug Administration. The FDA has determined that such clearance is not necessary. Otheron 04-14-2020 Immature granulocytes (Bld) [#/Vol] NOT REPORTED [place] XR CHEST PORTABLEon 04-14-20 EXAM: XR CHEST PORTABLE HISTORY: Reason for exam:->Covid positive, shortness of breath 30-year-old female COMPARISON: Chest x-ray 02/06/2019 TECHNIQUE: AP portable chest 0950 hours. FINDINGS: Shallow breath, but patchy opacity is present over the anterior right first rib suspicious for a early area of bronchopneumonia. Left lung clear. No effusion. Heart size normal. [place] Miguel, Mhpn Incoming Radiant Results From [employer] - 04/14/2020 10:22 AM EST EXAM: XR [...] rib 4 cm diameter. Likely early pneumonia. [place] Patchy area of airspace opacity likely present overlying the anterior right first rib 4 cm diameter. Likely early pneumonia. [place] CORONAVIRUS 2019 BY PCRon CORONAVIRUS 2019,PCR NOT DETECTED Normal Not Detected [facility] Comment on above: Result Comment: . This [...] this test method. Fact sheet for providers: https://www.fda.gov/media/889123/download Fact sheet for patients: https://www.fda.gov/media/877104/download This test has received FDA Emergency Use Authorization [EUA] and has been verified by [facility] ([facility]). This test is only authorized for the duration of time that circumstances exist to justify the authorization of the emergency use of in vitro diagnostic tests for the detection of SARS-CoV-2 virus and/or diagnosis of COVID-19 infection under section 564(b)(1) of the Act, 21 U.S.C. 360bbb-3(b)(1), unless the authorization is terminated or revoked sooner. [facility] is certified under CLIA-88 as qualified to perform high complexity testing. Testing is performed in the [facility] laboratories located at [address] [place] [address]. Performed By: #### C OV19 #### [place] [address] CORONAVIRUS 2019 BY PCRon DATE OF SYMPTOM ONSET [YYYYMMDD]? 20200314 Normal [facility] Comment on above: Performed By: #### C OV19 #### [place] [address] EMPLOYED IN HEALTHCARE? No Normal [facility] Comment on above: Performed By: #### C OV19 #### [place] [address] FIRST COVID NASAL SWAB TEST? No [facility] Comment on above: Performed By: #### C OV19 #### [place] [address] HOSPITALIZED (OR PLANNED TO BE ADMITTED)? Yes Normal [facility] Comment on above: Performed By: #### C OV19 #### [facility] [address] [place] [address] ICU? No [facility] Comment on above: Performed By: #### C OV19 #### [facility] [address] [place] [id number] Lab Specimen Source Nasal, Nasopharyngeal [facility] Comment on above: Performed By: #### C OV19 #### [facility] [address] [place] [address] ? Unknown [facility] Comment on above: Performed By: #### C OV19 #### [facility] [address] [place] [address] RESIDENT IN CONGREGATE CARE SETTING? No [facility] Comment on above: Performed By: #### C OV19 #### [facility] [address] [place] [id number] SYMPTOMATIC DEFINED BY CDC? Yes [facility] Comment on above: Performed By: #### C OV19 #### [facility] [address] [place] [id number] Provider Note - ED v2on 11-0 Provider [...] 8 hours SIGNIFICANT EVENTS: No documented data. 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 Electronic Signatures: Kandy Leach ([employer]) (Signed 22-Mar-2020 13:50) Authored: HPI, PMH, ROS, PE, Results/Vital Signs, MDM/ED Course, Clinical Impression, Attestation, Chart Review, Scores Last Updated: 22-Mar-2020 13:50 by Kandy Leach ([employer]) [facility] 01-14-2020 [facility] Telephone (AGGENS4) BRITT WALTERS ([id number]) 1990 F Date Time Provider Department 01/14/20 MARILY MELTON During your visit today, we recorded the following information about you: Rey Goran Alanis 01/14/2020 3:20 PM Signed Insurance Verification Insurance Company: [facility] Provider Phone #: [phone] Agent:Ray Reference #: [id number] [facility] Center of Excellence:yes [phone] Months of Wt Loss: 0 COVERAGE: RNY/BAND/SLEEVE Single 80 % 1400 Deductible 3000 Out of Pocket NOTES: [place] pathway, due to bipolar. Assigned to Amee. Patient needs to send 6 month of records from the provider treating her bipolar. Left message for patient. Rey Alanis 01/15/2020 3:54 PM Signed Records scanned Allergies As of Date: 01/14/2020 (Not on File) Date Reviewed: Never Reviewed Reason for Visit: Benefits Investigation [4098] Problem List As Of Date: 01/14/2020 (None) Encounter Status:Closed by MAINE CORTESGHA on 01/14/20 [facility] Maryanne 01-12-2020 CNPN Telephone (AGGENS4) BRITT WALTERS ([id number]) 1990 F Date Time Provider Department 01/12/20 PEPE ARMENTA ([employer], [facility]) AGGENS4 During your visit today, we recorded the following information about you: Rey Zimmer Zeke 01/12/2020 1:26 PM Signed Incomplete IPW sent. Allergies As of Date: 01/12/2020 (Not on File) Date Reviewed: Never Reviewed Reason for Visit: Patient Update [9044] Problem List As Of Date: 01/12/2020 (None) Encounter Status:Closed by REY CORTES on 01/12/20 [facility] POCT urine pregnancyon 10-22 Beta HCG ( test) Ql (U) Negative NEGATIVE [facility] [place] Comment on above: Specimens with hCG l evels near the threshold of the test (25 mIU/mL) may give a negative or indeterminate result. In such cases, another test should be performed with a new specimen in 48-72 hours. If early is suspected clinically in this setting, correlation with quantitative serum b-hCG level is suggested. TESTING PERFORMED AT [facility] [address] [id number] CBC Auto Differentialon 07-11 Basophils (Bld) [#/Vol] 0.00 10*3/uL [place] Basophils/100 WBC (Bld) 0 % 0 - 2 % [place] Differential Type YES [place] Eosinophils (Bld) [#/Vol] 0.00 10*3/uL [place] Eosinophils/100 WBC (Bld) 0 % 0 - 5 % [place] Erythrocyte distribution width (RBC) [Ratio] 13.9 % 12.1 - 15.2 % [place] Hematocrit (Bld) [Volume fraction] 36.2 % 36 - 46 % [place] Hemoglobin (Bld) [Mass/Vol] 12.4 g/dL 12 - 16 g/dL [place] Lymphocytes (Bld) [#/Vol] 1.80 10*3/uL [place] Lymphocytes/100 WBC (Bld) 23 % 15 - 40 % [place] MCH (RBC) [Entitic mass] 30.2 pg 26 - 34 pg [place] MCHC (RBC) [Mass/Vol] 34.3 g/dL 31 - 37 g/dL [place] MCV (RBC) [Entitic vol] 88.1 fL 80 - 100 fL [place] Monocytes (Bld) [#/Vol] 0.40 10*3/uL [place] Monocytes/100 WBC (Bld) 6 % 4 - 8 % [place] Platelet mean volume (Bld) [Entitic vol] NOT REPORTED 6 - 12 fL [place] Platelets (Bld) [#/Vol] 384 10*3/uL [place] Platelets (Bld) [#/Vol] NOT REPORTED [place] RBC (Bld) [#/Vol] 4.11 10*6/uL 4 - 5.2 m/uL [place] RBC morphology finding Nom (Bld) NOT REPORTED [place] Segmented neutrophils/100 WBC (Bld) 71 % 47 - 75 % [place] Segs Absolute 5.50 [place] WBC (Bld) [#/Vol] 7.7 10*3/uL [place] WBC (Bld) [#/Vol] NOT REPORTED per 100 WBC [place] WBC Morphology NOT REPORTED [place] Comprehensive Metabolic Pane grecia 07-22-2019 Albumin [Mass/Vol] 4.3 g/dL 3.5 - 5.2 g/dL [place] Albumin/Globulin [Mass ratio] NOT REPORTED [place] ALP [Catalytic activity/Vol] 114 U/L High 35 - 104 U/L [place] ALT [Catalytic activity/Vol] 12 U/L 5 - 33 U/L [place] Anion gap [Moles/Vol] 11 mmol/L 9 - 17 mmol/L [place] AST [Catalytic activity/Vol] 16 U/L <32 [place] Bilirubin Ql (U) 0.42 mg/dL 0.3 - 1.2 mg/dL [place] Bun/Cre Ratio 15 [place] Calcium [Mass/Vol] 9.8 mg/dL 8.6 - 10. 4 mg/dL [place] Chloride [Moles/Vol] 103 mmol/L 98 - 10 7 mmol/L [place] CO2 [Moles/Vol] 24 mmol/L 20 - 31 mmol/L [place] Creatinine [Mass/Vol] 0.71 mg/dL 0.5 - 0.9 mg/dL [place] GFR >60 >60 mL/min [place] GFR Non- >60 >60 mL/min [place] GFR/1.73 sq M predicted among non-blacks MDRD (S/P/Bld) [Vol rate/Area] [place] Comment on above: Average GFR for 20-2 9 years old: 116 mL/min/1.73sq m Chronic Kidney Disease: <60 mL/min/1.73sq m Kidney failure: <15 mL/min/1.73sq m eGFR calculated using average adult body mass. Additional eGFR calculator available at: http://www.[employer]/multiple_crcl_2012.htm GFR/1.73 sq M predicted among non-blacks MDRD (S/P/Bld) [Vol rate/Area] NOT REPORTED [place] Glucose [Mass/Vol] 102 mg/dL High 70 - 99 mg/dL [place] Potassium [Moles/Vol] 4.3 mmol/L 3.7 - 5.3 mmol/L [place] Protein [Mass/Vol] 7.5 g/dL 6.4 - 8.3 g/dL [place] Sodium [Moles/Vol] 138 mmol/L 135 - 144 mmol/L [place] Urea nitrogen [Mass/Vol] 11 mg/dL 6 - 20 mg/d L [place] Ferritinon 07-22-2019 Ferritin [Mass/Vol] 75 ug/L 13 - 150 ug/L [place] Hemoglobin A1Con 07-22-2019 Glucose [Mass/Vol] 97 mg/dL [place] Comment on above: The ADA and AACC rec ommend providing the estimated average glucose result to permit better patient understanding of their HBA1c result. HbA1c (Bld) [Mass fraction] 5.0 % 4.8 - 5.9 % [place] Iron and TIBCon 07-22-2019 Interpretation and review of laboratory results Abnormal [place] Iron [Mass/Vol] 59 ug/dL 37 - 145 ug/dL [place] Iron Saturation 27 % 20 - 55 % [place] TIBC 222 ug/dL Low 250 - 450 ug/dL [place] UIBC 163 ug/dL 112 - 347 ug/dL [place] Lipid Panelon 07-22-2019 Cholesterol [Mass/Vol] 205 mg/dL High <200 Me [place], [place] Comment on above: Cholesterol Guidelines: <200 Desirable 200-240 Borderline >240 Undesirable Cholesterol in HDL [Mass/Vol] 52 mg/dL >40 [place] Comment on above: HDL Guidelines: <40 Undesirable 40-59 Borderline >59 Desirable Cholesterol in LDL [Mass/Vol] 133 mg/dL High 0 - 130 mg/dL [place] Comment on above: LDL Guidelines: <100 Desirable 100-129 Near to/above Desirable 130-159 Borderline >159 Undesirable Direct (measured) LDL and calculated LDL are not interchangeable tests. Cholesterol in VLDL [Mass/Vol] NOT REPORTED 1 - 30 mg/dL [place] Cholesterol.total/Cholest osiris in HDL [Mass ratio] 3.9 {ratio} <5 [place] Triglyceride [Mass/Vol] 99 mg/dL <150 M [place], [place] Comment on above: Triglyceride Guidelines: <150 Desirable 150-199 Borderline 200-499 High >499 Very high Based on AHA Guidelines for fasting triglyceride, February 2012. Magnesiumon 07-22-2019 Magnesium [Mass/Vol] 2.3 mg/dL 1.6 - 2 .6 mg/dL [place] Otheron 07-22-2019 Interpretation and review of laboratory results Abnormal [place] Immature granulocytes (Bld) [#/Vol] NOT REPORTED 0 % [place] PTH, Intacton 07-22-2019 Pth Intact 59.81 pg/mL 15 - 65 pg/mL [place] Comment on above: SAMPLES FROM PATIENT S ROUTINELY RECEIVING HIGH DOSE BIOTIN THERAPY MAY SHOW FALSELY DEPRESSED RESULTS. ADDITIONAL INFORMATION MAY BE REQUIRED FOR DIAGNOSIS. Patient Fasting?on 0 Patient Fasting? yes [place] T4, Freeon 07-22-2019 Thyroxine, Free 1.17 ng/dL 0.93 - 1.7 ng/dL [place] TSH without Reflexon 020 TSH Qn 4.66 m[IU]/L [place] Vitamin B12 & Folateon 07-21 Cobalamin (Vitamin B12) [Mass/Vol] 857 pg/mL 232 - 1245 pg/mL [place] Folate >20.0 >4.8 ng/mL [place] Vitamin D 25 Hydroxyon 07-21 Vit D, 25-Hydroxy 32.5 ng/mL 30 - 100 ng/mL [facility] [place] Comment on above: Reference Range: Vitamin D status Range Deficiency <20 ng/mL Mild Deficiency 20-30 ng/mL Sufficiency 30-100 ng/mL Toxicity >100 ng/mL Vital Signs Date Time Vital Sign Value Performing Clinician Facility 02-12-2024 17:15-0400 Diastolic blood pressure 88 mm[Hg] Gagandeep Morrell DO Work Phone: [facility] [employer] 02-12-2024 17:15-0400 Heart rate 59 /min Gagandeep Morrell DO Work Phone: [facility] [employer] 02-12-2024 17:15-0400 Respiratory rate 13 /min G[facility]andeep Morrell DO [facility] [employer] 02-12-2024 17:15-0400 SaO2% (BldA) [Mass fraction] 100 % Gagandeep Morrell DO Work Phone: [facility] [employer] 02-12-2024 17:15-0400 Systolic blood pressure 131 mm[Hg] Gagandeep Morrell DO Work Phone: [facility] [employer] 02-12-2024 16:09-0400 Body temperature 96.8 [degF] Gagandeep Mrorell DO Work Phone: [facility] [employer] 02-12-2024 13:02-0400 Body height 165.5 cm Gagandeep Morrell DO Work Phone: [facility] [employer] 02-12-2024 13:02-0400 Body mass index (BMI) [Ratio] 52 kg/m2 Gagandeep Morrell DO Work Phone: [facility] [employer] 02-12-2024 13:02-0400 Body weight 142.43 kg Gagandeep Morrell DO [facility] 10-14-2023 11:00-0400 Body height 165.74 cm [facility] 10-14-2023 11:00-0400 Body mass index (BMI) [Ratio] 49.1 kg/m2 [facility] 10-14-2023 11:00-0400 Body weight 134.97 kg [facility] 10-14-2023 11:00-0400 Diastolic blood pressure 82 mm[Hg] [facility] 10-14-2023 11:00-0400 Heart rate 71 /min [facility] 10-14-2023 11:00-0400 Respiratory rate 16 /min [facility] 10-14-2023 11:00-0400 SaO2% (BldA) [Mass fraction] 99 % [facility] 10-14-2023 11:00-0400 Systolic blood pressure 128 mm[Hg] [facility] 08-22-2023 10:21-0400 Body height 165.1 cm [facility] 08-22-2023 10:21-0400 Body mass index (BMI) [Ratio] 48.6 kg/m2 [facility] 08-22-2023 10:21-0400 Body temperature 97.3 [degF] [facility] 08-22-2023 10:21-0400 Body weight 132.61 kg [facility] 08-22-2023 10:21-0400 Diastolic blood pressure 89 mm[Hg] [facility] 08-22-2023 10:21-0400 Heart rate 92 /min [facility] 08-22-2023 10:21-0400 Respiratory rate 18 /min [facility] 08-22-2023 10:21-0400 SaO2% (BldA) [Mass fraction] 95 % [facility] 08-22-2023 10:21-0400 Systolic blood pressure 124 mm[Hg] [facility] 08-06-2023 10:47-0400 Body height 162.56 cm [facility] 08-06-2023 10:47-0400 Body mass index (BMI) [Ratio] 50.3 kg/m2 [facility] 08-06-2023 10:47-0400 Body weight 133.01 kg [facility] 08-06-2023 10:47-0400 Diastolic blood pressure 64 mm[Hg] [facility] 08-06-2023 10:47-0400 Heart rate 93 /min [facility] 08-06-2023 10:47-0400 Systolic blood pressure 125 mm[Hg] [facility] 12-31-2022 14:30-0400 Body height 162.56 cm Craig Harris Other [employer] Other 12-31-2022 14:30-0400 Body mass index (BMI) [Ratio] 46.86 kg/m2 Craig Harris Other [facility] Other 12-31-2022 14:30-0400 Body weight 123.83 kg Craig Harris Other [facility] Other 12-31-2022 14:30-0400 Diastolic blood pressure 77 mm[Hg] Craig Harris Other [facility] Other 12-31-2022 14:30-0400 Systolic blood pressure 123 mm[Hg] Craig Harris Other [facility] Other 08-07-2022 11:30-0400 Body height 162.56 cm Jimmy Ball Other [facility] Other 08-07-2022 11:30-0400 Body mass index (BMI) [Ratio] 45.24 kg/m2 Jimmy Ball Other [facility] Other 08-07-2022 11:30-0400 Body weight 119.57 kg Jimmy Ball Other [facility] Other 08-07-2022 11:30-0400 Diastolic blood pressure 84 mm[Hg] Jimmy Ball Other [facility] Other 08-07-2022 11:30-0400 Respiratory rate 12 /min Jimmy Ball Other [facility] Other 08-07-2022 11:30-0400 Systolic blood pressure 132 mm[Hg] Jimmy Ball Other [facility] Other 07-10-2022 09:00-0500 Body height 162.56 cm Craig Harris Other [facility] Other 07-10-2022 09:00-0500 Body mass index (BMI) [Ratio] 47.2 kg/m2 Craig Harris Other [facility] Other 07-10-2022 09:00-0500 Body weight 124.74 kg Craig Harris Other [facility] Other 07-10-2022 09:00-0500 Diastolic blood pressure 68 mm[Hg] Craig Harris Other [facility] Other 07-10-2022 09:00-0500 SaO2% (BldA) [Mass fraction] 97 % Craig Harris Other [facility] Other 07-10-2022 09:00-0500 Systolic blood pressure 118 mm[Hg] Craig Harris Other [facility] Other 04-14-2020 10:03-0500 BP Diastolic 88 mm[Hg] [facility] [place] , [place] 04-14-2020 10:03-0500 BP Systolic 146 mm[Hg] [facility] [place] , [place] 04-14-2020 10:03-0500 Pulse (Heart Rate) 79 /min [facility] [place], [place] 04-14-2020 10:03-0500 Pulse Oximetry 100 % [facility]den [facility] [place] 04-14-2020 10:03-0500 Respiratory Rate 20 /min [facility] [place] 04-14-2020 08:50-0500 BMI (Body Mass Index) 52.25 kg/m2 Jayden [facility] 04-14-2020 08:50-0500 Body Temperature 99.1 [degF] Jayden Victor [facility] 04-14-2020 08:50-0500 Body weight 142.43 kg Jayden Victor [place], [place] 10-23-2019 10:42-0400 Pulse (Heart Rate) 61 /min [facility] [place] 10-23-2019 10:42-0400 Pulse Oximetry 100 % [facility] [place] 10-23-2019 10:30-0400 BP Diastolic 84 mm[Hg] [facility] [place] 10-23-2019 10:30-0400 BP Systolic 130 mm[Hg] Roc [facility] [place] 10-23-2019 10:30-0400 Respiratory Rate 20 /min [facility] [place] 10-23-2019 10:24-0400 Body Temperature 97 [degF] [facility] [place] 10-23-2019 09:32-0400 BMI (Body Mass Index) 52.68 kg/m2 Roc [facility] [place] 10-23-2019 09:32-0400 Body weight 143.61 kg Roc [facility] [place] 10-23-2019 09:32-0400 Height 165.1 cm [facility] [place] Encounters Encounter Date Encounter Type Care Provider Facility Start: 02-12-2024 End: 02-12-2024 ambulatory GAGANDEEP MORRELL [facility] Start: 02-12-2024 End: 02-12-2024 Subsequent hospital visit by physician Gagandeep Morrell DO Work Phone: [facility] [place] Comment on above: Post-operative state (Primary Dx); Abscess of Bartholin's gland Start: 10-14-2023 End: 10-14-2023 ambulatory [facility] Work Phone: Start: 10-14-2023 End: 10-14-2023 Patient encounter procedure Critical Access Hospital Physician [facility] Work Phone: Start: 08-22-2023 End: 08-22-2023 ambulatory [facility] Work Phone: Start: 08-22-2023 End: 08-22-2023 Patient encounter procedure Critical Access Hospital Physician [facility] Work Phone: Start: 08-06-2023 End: 08-06-2023 ambulatory [facility] Work Phone: Start: 08-06-2023 End: 08-06-2023 Patient encounter procedure Critical Access Hospital Physician [facility] Work Phone: Start: 07-29-2023 End: 08-01-2023 ambulatory CRAIG HARRIS [facility] Start: 01-01-2023 End: 01-01-2023 ambulatory Craig Harris Other [facility] Other Start: 01-01-2023 Telephone encounter Craig Harris [facility] Start: 12-31-2022 End: 12-31-2022 ambulatory Craig Harris Other [facility] Other Start: 12-31-2022 Office outpatient visit 15 minutes Craig Harris [facility] Start: 09-20-2022 End: 09-21-[address] STEPHANIE AMEZCUA . Facility:[facility] Start: 09-19-2022 End: 09-20-[address] STEPHANIE AMEZCUA . Facility:[facility] Start: 08-07-2022 End: 08-07-2022 ambulatory Jimmy Roque Other [facility] Other Start: 08-07-2022 Office outpatient visit 15 minutes Jimmy Roque [facility] Start: 08-07-2022 Telephone encounter Craig Harris [facility] Start: 07-10-2022 End: 07-10-2022 ambulatory Craig Harris Other [facility] Other Start: 07-10-2022 Office outpatient ne w 20 minutes Craig Harris [facility] Start: 06-11-2022 End: 06-12-2022 ambulatory Anabel Melgar Facility:[facility] Start: 04-14-2020 End: 04-14-2020 Emergency department patient visit Jayden Zaidi Katie Work Phone: [facility] ED Comment on above: Pneumonia due to COV ID-19 virus (Primary Dx) Start: 10-26-2019 End: 10-26-2019 Subsequent hospital visit by physician [facility] Sleep Center Schedule [facility] Comment on above: Arrived Start: 10-23-2019 End: 10-23-2019 Subsequent hospital visit by physician Roc Apodaca Work Phone: [facility] Start: 10-20-2019 End: 10-20-2019 Subsequent hospital visit by physician [facility] Covid19 Pat Screening Schedule [facility] Comment on above: Encounter for screen ing for other viral diseases Start: 07-22-2019 End: 07-22-2019 Subsequent hospital visit by physician Priyanka Summers [facility] Laboratory Comment on above: Snoring; Morbid obesity (HCC) Procedures Date Procedure Procedure Detail Performing Clinician Start: 02-12-2024 Urine test visual color cmprsn meths Gagandeep Morrell DO Work Phone: Start: 08-22-2023 Quick Strep (POC) Start: 04-14-2020 Radiologic exam ches t single view Jayden Zaidi Katie Work Phone: Start: 04-14-2020 BASIC METABOLIC PANE L W/ REFLEX TO MG FOR LOW K Jayden Zaidi Katie Work Phone: Start: 04-14-2020 Blood count complete auto&auto difrntl wbc Jayden Zaidi Katie Work Phone: Start: 04-14-2020 Gonadotropin chorion ic qualitative Jayden M Katie Work Phone: Start: 10-23-2019 Urine test visual color cmprsn meths Roc Apodaca Work Phone: Start: 07-22-2019 25 hydroxy includes fractions if performed Roc Apodaca Work Phone: Start: 07-22-2019 Assay of ferritin Timoteo Apodaca Work Phone: Start: 07-22-2019 Assay of free thyroxine Roc Apodaca Work Phone: Start: 07-22-2019 Assay of magnesium Werner Apodaca Work Phone: Start: 07-22-2019 Assay of parathormone G jamel Apodaca Work Phone: Start: 07-22-2019 Assay of thyroid stimulating hormone tsh Roc Apodaca Work Phone: Start: 07-22-2019 Blood count complete auto&auto difrntl wbc Roc Apodaca Work Phone: Start: 07-22-2019 Comprehensive metabo lic panel Roc Apodaca Work Phone: Start: 07-22-2019 Hemoglobin glycosylated a1c Roc Apodaca Work Phone: Start: 07-22-2019 Iron binding capacity G jamel Apodaca Work Phone: Start: 07-22-2019 Lipid panel Roc Apodaca Work Phone: Start: 07-22-2019 PATIENT FASTING? Kevin roldan Chilo Apodaca Work Phone: Start: 07-22-2019 VITAMIN B12 & FOLATE Gr michelle Apodaca Work Phone: Plan of Treatment Date Care Activity Detail Author Start: 02-29-2040 Shingles Vaccine (1 of 2) Shingles Vaccine (1 of 2) [facility] [place], [place] Start: 07-11-2030 DTaP/Tdap/Td vaccine (7 - Td or Tdap) DTaP/Tdap/Td vaccine (7 - Td or Tdap) NOAH PORTILLO [facility] Start: 02-19-2024 End: 02-19-2024 Patient encounter procedure 02/19/2024 1:45 PM EDT Office Visit [facility] Urogynecology [facility] Pelvic [facility] [address] [place] [address] [address] [place] [address] Tammy Dodge APRN - RAY [address] [facility] [address] [place] [address] 1 WK PO [facility] Comment on above: 1 WK PO Start: 02-12-2024 End: 02-12-2024 Exc bartholins gland/cyst BARTHOLIN CYST MARSUPIALIZATION Abscess of Bartholin's gland 02/12/2024 2:58 PM EDT [facility] Start: 01-12-2024 COVID-19 Vaccine ( season) COVID-19 Vaccine ( season) [facility] Start: 12-12-2023 Influenza vaccination Flu vaccine (#1) [facility] Start: 08-06-2023 Patient referral [facility] Work Phone: Start: 07-21-2020 Creatinine measurement Creatinine monitoring [place], [place] Start: 07-21-2020 Potassium monitoring Potassium monitoring [place] Start: 02-29-2020 Screening for malignant neoplasm of cervix [facility] Start: 01-12-2020 Influenza vaccination [place] Start: 11-23-2019 End: 11-23-2019 Office Visit 11/23/2019 Office Visit Rocio Cristobal, CEMETERY VAULT INSTALLER - EGG WORKER [address] [place] [phone] [facility] Start: 10-26-2019 Hospital Encounter 10/26/2019 Hospital Encounter Sleep Center [facility] Start: 10-26-2019 End: 10-26-2019 Office Visit 10/26/2019 Office Visit Rocio Cristobal, CEMETERY VAULT INSTALLER - EGG WORKER [address] [facility] [place] [address] [facility] Start: 08-19-2019 End: 08-19-2019 Office Visit 08/19/2019 Office Visit Bariatrics Roc Apodaca, DO [address] [facility] [address] [place] [phone] [facility] Start: 07-24-2019 End: 07-24-2019 Office Visit 07/24/2019 Office Visit Bariatrics Rocio Vale, CEMETERY VAULT INSTALLER - EGG WORKER [address] [facility] [place] [phone] [facility] Start: 01-11-2019 Influenza vaccination Flu vaccine (#1) [place] Start: 2011 Cervical cancer screen Cervical cancer screen [place] Start: 2011 Screening for malignant neoplasm of cervix [facility] Start: 2009 DTaP/Tdap/Td vaccine (1 - Tdap) DTaP/Tdap/Td vaccine (1 - Tdap) [place] Start: 02-29-2008 Hepatitis C screening Hepatitis C screen [facility] Start: 2005 HIV screen HIV screen [place] Start: 2005 HIV screening HIV screen [facility] Start: 2003 Varicella vaccine (1 of 2 - 13+ 2-dose series) Varicella vaccine (1 of 2 - 13+ 2-dose series) [facility] Start: 11-24-2002 Hepatitis B vaccine (3 of 3 - 3-dose series) Hepatitis B vaccine (3 of 3 - 3-dose series) [facility] Start: 2002 Depression Monitoring Depression Monitoring [facility] Start: 1991 Varicella vaccine (1 of 2 - 2-dose childhood series) Varicella vaccine (1 of 2 - 2-dose childhood series) [place] End: 07-22-2019 Baseline Diagnostic Sleep Study Baseline Diagnostic Sleep Study Sleep Center Routine Snoring Morbid obesity (HCC) 1 Occurrences starting 07/22/2019 until 07/22/2019 [place] Comment on above: 1 Occurrences starting 07/22/2019 until 07/22/2019 End: 10-26-2019 Baseline Diagnostic Sleep Study Baseline Diagnostic Sleep Study Sleep Center Routine One Time for 1 Occurrences starting 10/26/2019 until 10/26/2019 [facility] Comment on above: One Time for 1 Occurrences starting 10/11 until 10/26/2019 End: 02-12-2024 Blood glucose - POCT Blood glucose - POCT Point of Care Testing Routine One Time for 1 Occurrences starting 02/12/2024 until 02/12/2024 [facility] [employer] Comment on above: One Time for 1 Occurrences starting 06/2023 until 02/12/2024 End: 10-20-2019 COVID-19 Ambulatory COVID-19 Ambulatory Lab Routine Encounter for screening for other viral diseases 1 Occurrences starting 10/20/2019 until 10/20/2019 [facility] [place] Comment on above: 1 Occurrences starting 10/20/2019 until 10/20/2019 COVID-19 Ambulatory COVID-19 Amb ulatory Lab Routine Encounter for screening for other viral diseases 10/20/2019 9:00 AM EDT [facility] Initiate Oxygen Therapy Protocol Initiate Oxygen Therapy Protocol Respiratory Care Routine Daily until discontinued starting 10/23/2019 [facility] [place] Comment on above: Daily until discontinued starting 2019 End: 02-12-2024 INITIATE PACU OXYGEN THERAPY PROTOCOL Initiate PACU Oxygen Therapy Protocol Respiratory Care Routine Continuous until discontinued starting 02/12/2024 [facility] [employer] Work Phone: Comment on above: Continuous until discontinued starting 1 End: 04-14-2020 MDI Treatment MDI Treatment Respiratory Care Routine Once for 1 Occurrences starting 04/14/2020 until 04/14/2020 [facility] Comment on above: Once for 1 Occurrences starting 04/14/20 20 until 04/14/2020 Oxygen therapy [Minimum Data Set] Initiate Oxygen Therapy Protocol Respiratory Care Routine As Needed until discontinued starting 02/12/2024 [facility] [employer] Work Phone: Comment on above: As Needed until discontinued starting Patient referral [facility] Work Phone: Phase I & II - metered glucose Phase I & II - metered glucose Point of Care Testing Routine As Needed until discontinued starting 10/23/2019 [facility] [place] Comment on above: As Needed until discontinued starting End: 02-12-2024 , urine POCT , urine POCT Point of Care Testing Routine One Time for 1 Occurrences starting 02/12/2024 until 02/12/2024 [facility] [employer] Comment on above: One Time for 1 Occurrences starting 06/2023 until 02/12/2024 Surgical Pathology Surgical Path ology Lab Routine Release Upon Ordering for 1 Occurrences starting 10/23/2019 [place] Comment on above: Release Upon Ordering for 1 Occurrences starting 10/23/2019 Surgical pathology study Surgical Pathology Lab Routine Abscess of Bartholin's gland Release Upon Ordering for 1 Occurrences starting 02/12/2024 [facility] [employer] Work Phone: Comment on above: Release Upon Ordering for 1 Occurrences starting 02/12/2024 End: 07-22-2019 Vitamin A Vitamin A Lab Routine Snoring Morbid obesity (HCC) 1 Occurrences starting 07/22/2019 until 07/22/2019 [place] Comment on above: 1 Occurrences starting 07/22/2019 until 07/22/2019 Vitamin A Vitamin A Lab Ro utine Snoring Morbid obesity (HCC) 07/22/2019 10:46 AM [facility] [place] End: 07-22-2019 Vitamin B1 Vitamin B1 Lab Routine Snoring Morbid obesity (HCC) 1 Occurrences starting 07/22/2019 until 07/22/2019 [place] Comment on above: 1 Occurrences starting 07/22/2019 until 07/22/2019 Vitamin B1 Vitamin B1 Lab R outine Snoring Morbid obesity (HCC) 07/22/2019 10:46 AM EDT [facility] [place] End: 07-22-2019 Zinc Zinc Lab Routine Snoring Morbid obesity (HCC) 1 Occurrences starting 07/22/2019 until 07/22/2019 [place] Comment on above: 1 Occurrences starting 07/22/2019 until 07/22/2019 Zinc Zinc Lab Routine Snoring Morbid obesity (HCC) 07/22/2019 10:46 AM [facility] [employer] [place] Payers Date Payer Category Payer Unknown [id number] 2020 Unknown [id number] 2019 Private Health Insurance [facility] xxxxxxxxx 2019-Present [phone] [address] [place] [address] xxxxxxxxx [id number] 2019 Private Health Insurance [facility] [id number] 2019-Present [phone] [address] [place] [address] [id number] 1990 Unknown [id number] 1990 Unknown [id number] 1990 Unknown [id number] 1990 Unknown [id number] 1990 Unknown [id number] 1990 Unknown [id number] 1959 Unknown [id number] Social History Date Type Detail Facility Start: 06-24-2019 End: 07-24-2023 Tobacco smoking status NHIS Former smoker [facility] End: 05-13-2019 History of tobacco use Current sm[place] Start: 06-24-2019 End: 02-12-2024 Alcohol intake Current drinker of alcohol (finding) [place] Start: 02-06-2019 Alcohol Comment occasionally Kayleigh Cervantes [place], [place] Sex Assigned At Not on file [place] Start: 1990 Sex Assigned At [facility] Exposure to SARS-CoV-2 (event) Unable to assess [facility] Start: 04-14-2020 End: 07-24-2023 Tobacco use and exposure Never used [facility] Exposure to SARS-CoV-2 (event) Yes [facility] Start: 02-07-2024 Sex Assigned At B ON [employer] End: 05-13-2019 History of tobacco use [facility]igarette Smoker [facility] Start: 02-07-2024 History of Social function [facility] Physical abuse Denies NOAH [employer] Michael Bieker Start: 08-18-2019 Gender identity Identifies as female gender (finding) [facility] Clinical Notes 07-10-2022 to 02-11-2024 MedicationsAttaMarleny Childs RN - 02/07/2024 1:40 PM EDT Note Date & Type Note Facility 02-11-2024 Hospital Discharge instructions Karen Rice MD - 02/11/2024 12:53 PM EDT Images from the original note were not included. [facility] POSTOPERATIVE PATIENT INSTRUCTIONS MAJOR & MINOR SURGICAL PROCEDURES WITH AT HOME VOIDING TRIAL PROTOCOL Congratulations! You have taken the brave step of undergoing surgery in order to try to improve your health. Now it is time to focus on healing outside of the hospital / surgery center setting. To make your dismissal as successful as possible, it is recommended that you thoroughly review these postoperative instructions. These instructions pertain to, but are not limited to the following procedures. Please confirm your procedure below and pay attention to special considerations for your surgery if MAJOR or MINOR. MAJOR Hysterectomy - Vaginal / Laparoscopic / Robotic With or Without tube-ovarian Removal (Salpingo-oophorectomy) Sacrocolpopexy / Sacroperineopexy / Sacrocervicopexy/ Hysteropexy (lifting apex to sacrum) Major Vaginal Prolapse Repairs Cystocele repair (Anterior Colporrhaphy) Rectocele repair (Posterior Colporrhaphy) Enterocele repair Vaginal vault repair Closing or removal of the vagina (Colpocleisis / Colpectomy) Major urinary incontinence surgery (Loera Urethropexy, MMK) Major fibroid removal (Myomectomy) Major tubal surgery (re-anastomosis, ectopic , pelvic inflammatory disease) Major surgery for adhesions or endometriosis involving bowel Major vaginal mesh removal Fistula repair of the bladder or colorectum to the vagina Creation of a new vagina (Neovaginoplasty) or repair of a Mullerian Anomaly Other MINOR Hysteroscopy with Dilatation / Curettage, Endometrial Ablation / Hysterosalpingogram (HSG) Laparoscopy With or Without minor tubal or ovarian surgery Minor Vaginal Prolapse repairs Cystocele repair (Anterior Colporrhaphy) Rectocele repair (Posterior Colporrhaphy) Urethrocele repair Minor urinary incontinence surgery (Slings, Transurethral Bulking) Minor vaginal surgery (Mesh removal, Laser ablation, Biopsies, Labial revisions, Injections) Minor surgery of the bladder (DMSO, Hydrodistention, Botox, etc.) Neuromodulation Other 1 2 POST OPERATIVE BASIC INSTRUCTIONS The office will call on the Saturday, or within 1 week, after your surgery to make sure you are doing well and to answer questions. Your 1st post-op visit will occur within 1-2 weeks after your surgery. Your final post-op visit will occur @ 4-6 weeks depending on the surgery & your desire to return to work. Your surgery and recovery may require more visits in between the 1st and final visits. DO'S, DONT'S, & WHEN TO CALL As reviewed with you on the morning of your discharge, for the 1st week out of surgery below is a QUICK list of DO's, DONT's, and WHEN TO CALL: 5 THINGS YOU MAY DO 5 THINGS YOU MAY NOT DO FOR 4-8 WEEKS -Shower with Ivory Soap and water -Tub bathe, hot tub, or swim -Gradually increase walking - Heavy lifting > 15lbs (2 gallons worth) -Go up and down stairs slowly - Insert anything into the vagina (sex, douching, tampons) -Light housecleaning (dusting, dishwashing) - Drive a car / motorcycle (*See Special Considerations) -Short local travel (restaurant, yazidism) - Long distance travel > 1.5 hours (*See Special Considerations) 5 SYMPTOMS TO CALL FOR: -Sustained fever >100.4 despite Tylenol or a cold shower, especially associated with redness of incision/s -Pain out of the ordinary (>7) despite pain meds / anti-inflammatories -Heavy vaginal bleeding > 1 pad / hour with large red clots -Inability to eliminate urine (especially if catheterized) or flatus / stool (with sustained distention & nausea) -Calf pain or extreme shortness of breath QUESTIONS, CONCERNS, EMERGENCIES Please call the office with any questions or concerns. [phone]. If during office hours, your issue may require an appointment. If after hours, the answering service will connect you with the physician [employer]. If you are concerned that your issue may be emergent, PLEASE CALL FIRST. Many issues may be resolved over the phone and avoid an unnecessary and expensive ER visit. If you truly have an emergency related to the surgery and call first: *You will be directed to the hospital ER in which you had your surgery. [facility] primarily or [facility] rarely. [facility] patients may be asked to report to [facility] if Dr. Morrell's on-call partner is assuming responsibility. ER visits are ALWAYS covered by insurance (i.e. [facility] can go to a [facility] ER.) Calling 1st expedites your care & avoids an unnecessary and costly ambulance transfer to the Hospital. Dial 911 or go to your closest ER if your emergency is related to a potential heart attack or stroke. 3 DISCHARGE MEDICINES You may be sent home with prescriptions for some or all of the medicines below based on the nature of your procedure. Alternatives may be offered for allergies or sensitivities. Yale 325/5mg tablets or alternative narcotic. Take 1-2 tablets by mouth every 4-6 hours as needed for pain. Per [place] Board of Pharmacy laws, only 1 week of narcotics may be prescribed at a time. Do not take extra Tylenol (Acetaminophen) orally as Yale already contains the medicine. May take 500mg orally every 4-6 hours if off of Yale. * Ibuprofen 400-800mg is safe to take. Take 1 tablet by mouth every 8 hours for inflammation. Senokot - S. Take two tablets by mouth every night to prevent constipation. Stop if loose stools occur. If an antibiotic is required: Keflex 250-500mg take 1 tablet by mouth 3x / day as prescribed OR Cipro 250-500mg take 1 tablet by mouth 2x / day as prescribed Other medicines may be prescribed based on your post-op course or situation. Zofran 4mg for nausea, Flomax 0.4mg for voiding. *You may resume taking any medications you were taking before your surgery, unless told otherwise. DUE TO BLEEDING RISK, DO NOT RESUME HOME ANTICOAGULANTS UNTIL DIRECTED SPECIAL CONSIDERATIONS After surgery, give yourself a chance to adjust and recover. Some patients feel fine within a month. Many need a little extra time. Do not be concerned if you feel fatigued for the first month, your body is recovering. It may take several weeks for you to get your energy back. Even if energy has returned, please do not be tempted to re-engage in strenuous activity. Although mild weight gain is not uncommon, most of it is IV fluid weight that your body will remove with time. You have the rest of your life to exercise, so some patience and rest is poole in the short term in order to heal successfully in the [facility]. Once you have fully recovered, you may focus on enjoying your life. Keep in mind, you will continue to heal for 6-12 months after surgery, so use common sense to protect your surgery (avoid repetitive heavy lifting, constipation, chronic pelvic strain.) In particular, if you had a hysterectomy, you may have both physical and emotional effects that may be brief or long term care pharmacist. After hysterectomy, periods will stop, and a woman can no longer achieve . Despite popular myth, post-hysterectomy weight gain is not due to the hysterectomy but is usually a result of other factors. A depressive emotional reaction to loss of the uterus is not uncommon or abnormal. Please discuss any concerns with your health care provider if persistent. Sexual response may change after hysterectomy. There are no definitive studies showing decreased orgasmic potential post-hysterectomy. Some women have a heightened response due to correcting painful pathology. Ovarian removal may decrease estrogenization, leading to vaginal dryness and menopausal hot flashes. Hormonal therapy may need to be discussed. SOME SURGERIES HAVE SPECIAL CONSIDERATIONS MAJOR For all major surgeries listed above, you may drive after your 1week post-op visit if cleared, have discontinued narcotic pain meds, and are able to depress the brake quickly without pain. Long distance travel may be resumed in 4 weeks if stable. With major robotic hysterectomy, you should refrain from intercourse for 8 weeks, other hysterectomies 6 weeks. MINOR Minor surgeries may drive the next day any distance if off narcotic pain meds and are able to brake safely. For minor vaginal surgeries for prolapse and / or urinary incontinence procedures, maintain pelvic rest for 4 weeks. Exercise and work may be resumed within 2-4 weeks depending on healing. For minor surgeries of the vagina, uterus, and bladder, hysteroscopy, D&C, and laparoscopy, maintain pelvic rest for 1-2 weeks depending on healing. Exercise and work may be resumed within the week. 4 CONSENT ITEMS REVISITED IN THE POST OPERATIVE PERIOD In regard to all gynecologic surgeries Physical and sexual activity will be restricted to varying degrees for an indeterminate period of time, but most often 2-8 weeks depending on the breadth of surgery. It is impossible to list every undesirable effect. The condition for which surgery is done is not always cured or significantly improved, and in rare cases may even worsen. There is no 100% guarantee that the planned surgery, despite everything being done correctly and to the medico-surgical standard, with resolve a condition 100% including but not limited to pain, prolapse, mesh erosion, urinary infections, bladder function, or defecatory dysfunction. Specifically, up to 20% of patients with abdominopelvic pain, 27% of those with UTI's, 16-26% with urinary incontinence or voiding dysfunction, and 40% with defecatory dysfunction may not see substantial long-lasting improvement from a surgical intervention. Dangerous blood clots in the legs or lungs may occur post-operatively. Patients on chronic blood thinners, particularly those without antidote, may be at significant risk of bleeding, hemorrhage, hematoma formation, need for transfusion, and over the regular population. Life-threatening bleeding complications may even occur up to 4 weeks out of surgery even if anticoagulation is managed appropriately. If the patient has been taken off anticoagulation because of bleeding, this could expose her to life-threatening blood clots in the legs or lungs, NV, or stroke. Elderly patients over the age of 70 may experience up to a 2-4% mortality rate in the postsurgical period related to comorbidities and declining health. A living will and code status is recommended to be reviewed. For major outpatient procedures requiring less than a 24 hour stay, you will be dismissed from the hospital or surgery setting when stable and meets criteria for discharge. Less than 5% of patients may rebound to an emergency setting for some of the risks mentioned above even though they have met criteria for dismissal earlier. Outpatient surgical recovery usually occurs between 2 and 4 weeks. For major inpatient procedures requiring an average 0-2-day hospital stay, the patient may not be fully recovered from major surgery for up to 6-8 weeks. Please understand with Medicare and insurance regulations, only 1 night will be approved for most reconstructive or robotic procedures. SPECIFICALLY, in regard to reconstructive pelvic and incontinence surgery: Approximately 85% of patients experience a reasonable improvement >5 years in pelvic support and urinary/fecal incontinence, as well as urinary infections, after the procedure. There is a long-term risk of recurrent prolapse in up to 30% of women who have undergone reconstructive surgery if healthy lifestyle behaviors are not maintained. This includes but is not limited to good nutrition, smoking cessation, weight loss in the obese, reduction in heavy lifting, exercise, fall prevention, and bowel regularity. Reconstructive pelvic and/or urinary/fecal incontinence surgeries may only improve your condition/s mildly and may not completely resolve problems including but not limited to urinary tract infections and/or defecatory dysfunction. 17% of patients may still get a urinary tract infection and 40-60% of patients may still experience constipation postoperatively. It may be hard to urinate for a few days or weeks. Sometimes, up to 40% of women cannot urinate efficiently after surgery due to swelling, anesthesia, or pain. Prolonged urinary retention may rarely occur after an incontinence or pelvic prolapse surgery and is more likely if retention predates surgery or includes factors that are not limited to neuropathy, diabetes mellitus, or prior pelvic surgery. The patient may need a catheter to drain the bladder for 1-2 weeks on average. Patients in Dr. Morrell's practice most often prefer a transurethral Jackson. Other choices are a suprapubic catheter or intermittent self-catheterization. The patient has been given instructions on how to manage the type of catheter chosen, which will be reiterated postoperatively. There is a 5% chance of recurrent retention after jackson removal requiring catheter replacement in the office or by ER. Despite evidence indicating no need for antibiotics with a catheter, real world experience shows a 20-40% rate of UTI with a Jackson catheter which depending on personal risk factors and extent of surgery, may require a prophylactic antibiotic afterwards. Antibiotics have risks of resistance, diarrhea, and C. difficile infection. Suprapubic catheters carry a risk of urinoma, bowel injury, and bleeding and have a UTI risk of 15-20%. Intermittent self-catheterization carries an 11% risk of a UTI. SPECIFICALLY, in regard to labial or perineal reconstructive surgery: You should expect some bruising and mild swelling with related discomfort following these surgeries that lasts 1-2 weeks. Ice packs and sitz baths may be utilized after surgery to help minimize swelling and discomfort. Mild analgesics are also used. Final optimal results can usually be appreciated in several months. Most patients may return to work or school within a week after surgery; however, strenuous activity or tight clothing is discouraged, and patients must refrain from sexual intercourse for 4-6 weeks after surgery. You may receive a topical antibiotic, which reduces risk of infection. Mild bleeding is not uncommon and can occur postoperatively if strenuous activity or intercourse is begun too early. Problems with healing, such as incision separation, suture popping, scarring, and/or pain following the surgery are rare but can happen. 5 SPECIAL INSTRUCTIONS IF MRSA POSITIVE * Continue Bactroban to the nares 2x / day for 1 week post-operatively. Since many people are colonized in the community, it is not something we will routinely culture for post-operatively. TO PREVENT BLOOD CLOTS IN THE LEGS OR LUNGS / PNEUMONIA IN THE LUNGS Regular walking or calf stretches and wearing a supportive hose may help prevent clots in the legs or lungs. Take home your incentive spirometer if given one and utilize it as instructed to prevent pneumonia Smoking cessation before and after surgery is strongly encouraged. VAGINAL BLEEDING & DISCHARGE You will likely experience light bleeding with the potential for small dime size clots, lasting 2-3 weeks after your surgery. This should NOT be construed as heavy bleeding. You may notice an increase in vaginal discharge 4-6 weeks after your surgery, which may be watery, yellowish, or pinkish. It may have more of an acidic odor. This is common as the vagina flushes out edematous body fluid and dissolves the absorbable sutures. As the healing process progresses, you may experience mild itching within the vagina, as well as outside the vaginal opening. If this itching becomes severe, and/or is accompanied by a foul smell and swelling, please call the office. DRAINS & WOUND CARE If a drain or specific wound care appliance is present at the time of dismissal, please follow additional instructions that may be provided regarding maintenance of the device/s. Basic daily maintenance of a drain is as follows: You may wash around the drain site with warm, soapy water and pat dry with a towel. If indicated, use a topical antibiotic around the drain site 2x / day. Strip or milk the drain from the drain site to the bulb suction 3x / day. This clears any blockage from the drain. Simply pinch the drain at its insertion site into your body between your thumb and forefinger. Then squeeze and pull the drainage tubing as you move towards the drain bulb, allowing the tube to slide between your fingers with mild resistance, you should see a suction effect within the drain tube that moves fluid toward the bulb. Please call the office immediately if the drain falls out or cannot maintain suction. Please call if redness of the drain site increases and is associated with fever, pain, or purulent discharge. CONSTIPATION * Patients are often constipated after a prolonged period of bed rest, or with the use of oral narcotic pain medications. If you have not had a bowel movement for 3 days after you are dismissed from the hospital, or are uncomfortable and unable to pass stool, please try one or all of the following measures in a stepwise manner 1-5 as needed for results: Eat fruits, vegetables, prunes & whole-grain foods. Drink 8 glasses of fluid daily. Add PlumSmart juice. Metamucil, FiberCon, or other bulking medication - use as directed Milk of magnesia - 30 mL's by mouth every 12 hours Dulcolax suppository - 1 suppository per rectum every 4-6 hours Fleets enema - use as directed unless told nothing per rectum (colorectal fistula repair) BLADDER DRAINAGE There is a >50% chance you will void on your own post-operatively. In particular, reconstructive and incontinence surgeries (whether you had incontinence before surgery or not), sometimes have surgical effects of normal swelling and new positioning of the bladder may be associated with some mild to moderate postoperative urinary leakage. Often this leakage is urge related. As discussed, pre-operatively, up to 26% of patients with prolapse and negative urodynamic testing may develop de gianna incontinence afterwards. Please do not be frustrated if temporary incontinence occurs for it will most likely improve as you continue to heal. Leakage rarely persists in the long-term, there are many options for treatment, and Dr. Morrell and his office staff are there to help you every step of the way. 6 BLADDER DRAINAGE FOR THOSE PATIENTS REQUIRING A CATHETER For some postoperative patients, it may be hard for you to urinate for a few days or weeks. Up to 30-40% of women cannot urinate efficiently after surgery due to swelling or anesthesia. This may last a few hours to a few weeks. You may be required to use a catheter in your bladder to help it drain and retrain it to work properly. The most commonly used type of catheter, called an Intraurethral Jackson Catheter (IUC), is placed into the bladder through the urethra. This is usually reserved for large pelvic reconstructive surgeries and timely recovery. Other tubes may help drain fluid from your incision/s. Unless instructed to maintain a catheter to drainage or to rest, you will begin plugging or clamping your catheter in the hospital, and you will leave it plugged/ clamped for set intervals of time. Plugs or clamps will be provided by the nursing staff. You will continue this routine upon dismissal. While your catheter is plugged or clamped, the urine will not drain out of it, and your bladder will fill like it always has naturally. You will be sent home with a smaller day bag that straps to your leg for mobility plus a larger night bag to allow you to rest all night without the need to drain the bag, and cleansing supplies. Depending on the surgery, you will be able to remove your catheter at home within 1-7 days. If you have an Intraurethral Jackson Catheter, plugging / clamping of the catheter helps to wake up the bladder and increases capacity. By the time you come in for your 1st postoperative visit, 95% of patients will be ready to pass a voiding trial and have the catheter removed successfully. During daytime, try plugging until you are comfortably full, then drain your bladder through the catheter into the smaller bag. Your goal should be 2-4 hours of plugging between bladder emptying. You may put your catheter to drain at night into the larger bag. 7 Troubleshooting the Catheter It is not uncommon for the transurethral or suprapubic catheter to leak around the urethra or skin incision respectively as the bladder gets too full. If you have problems with this type of leaking, drain your bladder through the catheter. If leakage continues, reconnect your catheter to the Jackson bag until the next morning, then restart the plugging routine. Please call the office regarding any continued leakage problems. Removing the Catheter The catheter is held in place inside your bladder by a water-filled balloon. Cutting the collar (next to the end of the part you've been plugging) will cause the water inside the balloon to empty out, and the balloon will deflate. You may then remove the catheter by pulling on it gently. Things to Remember You do not need to measure how much you urinate. You need only to measure how much is left in your bladder (which gets drained from the catheter) at the end of the 4-12 hr. plugging / clamping interval. This is known as Residual Urine. You may find it easier to use the larger Jackson bag at night to collect your urine. The larger bag prevents you from having to get up at night to drain your bladder. If you use the Jackson bag, simply restart your most recent plugging interval when you wake up (for example, if you were at the 6-hour interval before bed, start at this interval routine in the morning.) The site where a catheter is inserted into the urethra or abdomen may become pinkish, purplish, or develop a pus-like or crusty substance around it. These are your body's reactions to the catheter's presence and is very normal. You may wash around the catheter daily with soap and water. Rinse and dry these areas well. You may shower while wearing the catheter. Maintain good personal hygiene. If this site develops a redness that spreads, or is warm and painful to the touch, please call the office immediately. When changing from one bag to another, using a clean leg bag or Jackson bag and an alcohol prep. Wash your hands thoroughly with soap and water and swab the end of the drainage tubing that will be attached to the Jackson catheter. Disconnect the drainage bag from the Jackson catheter and put the bag aside. Attach a clean bag to the catheter. Wash your hands thoroughly afterwards. To clean the bags simply empty the urine from the bag and leave the spout open for cleaning. Mix a cup of vinegar and cup of cool water and flush the bag using a 50 mL syringe, or by submerging the bag under the mixture. Once the bag is filled, close the spout, and allow the liquid to stay in the bag for 30 minutes. Drain the cleaning solution and rinse the bag again with tap water. Hang dry with the cap off and the spout open. A commercially prepared urinary appliance switch cleaner may also be used as instructed. It is important that when it is time to remove the catheter, do so in the morning, because you will need to urinate every 30-60 minutes on the day that you remove it. This is to keep the bladder empty and compressed, and to allow itself to heal. This is especially important for the suprapubic incision for those with suprapubic catheters. After removing the suprapubic catheter in particular, cover the site with a Band-Aid for the 1st 24-48 hours. Drink at least 2 quarts of liquid a day. Avoid caffeinated drinks as they may irritate the bladder and cause bladder spasms. Please remember to call the office once a week until the catheter is removed with an update on your progress. 8 HOW TO CARE FOR YOUR JACKSON CATHETER - FEMALE About this Topic: Jackson catheter is a thin, flexible tube that drains urine from your bladder. The catheter connects to a special bag. The bag holds the urine until you are able to empty the bag. You may need to have a catheter for a short time. You may need a catheter after you are sick or have had surgery. Sometimes a catheter is used for a long time. What Will the Results Be: Your urine will drain and you will prevent infection. What Care is Needed at Home? Ask your doctor what you need to do when you go home. Make sure you ask questions if you do not understand what the doctor says. This way you will know what you need to do. Your doctor may order a home health nurse to come to your house to help you learn to care for your catheter. Prevent infections: Wash your hands before and after handling your catheter. If you switch between a leg bag and an overnight drainage bag, be sure you clean the connection between the catheter and the bag before you switch bags. Ask your doctor what to use to clean the connection. Place a cap on the drainage bag you are not using and store in a clean towel. Rinse the empty drainage bag not in use with 1 cup vinegar mixed with 1 cup water. Care for the tube: Wash the skin around the catheter with soap and water each day. Pat the skin dry. Do not put anything on the tube. Keep the tube secure. Do not let the tube pull or catch when you are moving around during the day. Do not let the tube kink or loop. Care for the Drainage Bag: Keep your urine bag below your bladder. Drain the bag often to help keep you from getting an infection. Wear cotton underwear. 9 What Follow-Up Care Is Needed? Your doctor may ask you to make visits to the office to check on your progress. Be sure to keep these visits. What Lifestyle Changes are Needed? Drink 6-8 glasses of water every day. Take showers rather than soaking in a bath. Will Physical Activity Be Limited? Talk to your doctor about what you can and cannot do when the catheter is in place. What Problems Could Happen? The catheter has a balloon to hold it inside the bladder. The balloon can break or leak and the catheter can fall out. Urine flow stops or is blocked by kinks or bends in the tube or if the drain bag is kept higher than your bladder. You may see blood in the collecting tube or bag. Bladder infection. When Do I Need To Call the Doctor? Signs of infection like a fever of 100.4F (38C) or higher, chills, pain around the catheter, redness or swelling of the skin around the catheter. Urine has blood and it is dark or coffee colored, or is pus-like. Tube comes out or urine stops flowing. Burning or painful feeling in your bladder. You are not feeling better in 2-3 days or you are feeling worse. Teach Back: Helping You Understand The Teach Back Method helps you understand the information we are giving you. The idea is simple. After talking with the staff, tell them in your own words what you were just told. This helps to make sure the staff has covered each thing clearly. It also helps to explain things that may have been a bit confusing. Before going home, make sure you are able to do these: I can tell you about my condition. I can tell you how to prevent infection and care for the tube and bag of my Jackson catheter. I can tell you what I will do if my urine stops flowing or there is a burning or painful feeling in my bladder. 10 At Home Voiding Trial & Intraurethral Jackson Catheter Discontinuation Instructions After your operation, you may experience swelling around the bladder and urethra. Swelling may limit the ability to pass urine naturally through your urethra for several days, thus requiring a temporary Intraurethral Catheter (IUC). If postoperative recovery proceeds in an uncomplicated manner, an at home Voiding Trial (VT) will allow you to easily remove your IUC at home before your 1st postoperative visit to the office. The IUC may be removed on different days depending on surgical intensity to give swelling enough time to resolve. There is the rare chance an IUC may be removed & have to be reinserted if a patient cannot void. If you wake up with an IUC or fail a postop Voiding Trial (VT), you will be sent home with an IUC WITH CLAMP, DAY & NIGHT BAG, & MEASURING HAT. 1. The postop VT allows you to void once postoperatively. If you void 150-200mls, you pass! Otherwise it is best to go home with an IUC. 2. During the day, clamp the IUC for 3-4 hrs. to comfort, then drain into day bag and repeat. 3. The IUC may be changed to the larger night bag for drainage & sleep. An at home VT may be done in / for: DAY 1 ____ Outpatient internal revenue agent surgeries, transurethral bulking injections, incontinence slings, vaginal mesh excisions, & routine hysterectomies DAY 3: ____ Site specific cystocele, rectocele, enterocele, vaginal vault repairs, & robotic colpopexies / hysteropexy DAY 7: ____ Larger combined reconstructive procedures (ex: hysterectomy with repairs), Loera urethropexy, LeFort colpocleisis DO NOT ____ Fistula repairs, urethral reconstructions, & complex bladder repairs involving opening up REMOVE the bladder REMOVAL 1. Only do VT on WEEKDAYS 2. Grab IUC at the side port 3. Cut the port in half with scissors 4. Allow port to drain completely 5. Pull IUC out of your urethra BLADDER DRAINAGE INSTRUCTIONS Instructions for removing the IUC: If the IUC doesn't come out with gentle pulling, stop & call your healthcare provider right away. Before 8AM on the weekday of the at home VT, disconnect & empty the bag of urine from the IUC. Enter your shower and stand over the drain. Wash your hands with soap and clean, running water. Dry them well. Gather your supplies. This includes scissors and waste-basket. Cut the balloon port on the catheter with the scissors as seen in the picture above. Wait as the water from the balloon empties out of the cut end of the port. Once the balloon is emptied, gently pull out the catheter. Put the used catheter in the waste-basket. Use the towel to wipe up any spilled water or urine if needed. Wash your hands again. You pass your at home VT if you void 150mls within 6 hrs. Call the office to update your voiding status at [phone]. If you cannot void within 6 hrs., call the office for an afternoon visit to learn intermittent self-catheterization (ISC). SPECIAL INSTRUCTIONS Call Dr. Morrell with the following problems: 1. Inability to remove the IUC. 2. You can't urinate within 8 hours after removing the catheter or the bladder is not emptying well. 3. Your belly (abdomen) is painful or bloated. 4. You see a lot of blood in the urine. Light bleeding for 24 hours is normal. 5. Symptoms of a urinary infection (pain, burning, urgency, frequency, or blood). 6. Fever greater than 100.4 F on 2 occasions 4 hours apart. 11 RECORD FOR VOIDED AND POSTVOID AMOUNTS Please record the time you void, the amount voided, and the amount left in your bladder after you empty it with your catheter. Date/Time Voided Amount Post Void Residual Amount Date/Time Voided Amount Post Void Residual Amount 12 HOME SUPPLY LIST Please contact your local pharmacy or medical supply store regarding supplies for the type of catheter you may have. Transurethral Jackson catheter 1 Night bag and 1 Day bag with leg strap Lubricating jelly Alcohol wipes Measuring hat for toilet seat 5 50 mL syringes Self-Intermittent Catheterization Supplies: 100 #11-Turkish female catheters (hydrophilic if possible) Lubricating jelly Alcohol wipes Measuring hat for toilet seat Hand-held mirror Suprapubic catheter kit 1 Roll Transpire tape 1 inch 10 yards. 1. Box of 25 drain dressings, precut, 6 pi 4 x 4 1 package catheter plugs 1. 2000 mL urinary drainage bag 1 day bag with leg strap 1 60 mL syringe catheter tip 1 Quart vinegar 1 box appropriately sized clinical exam gloves. You may obtain the above supplies at your local pharmacy or medical supply shop. Call the pharmacy or medical supply shop first to check availability and pricing. 13 The following attachments cannot be sent through Care Everywhere.Surgical Drain Care (Gabonese)Bartholin Cyst: Surgery: Post-op (Gabonese)documented in this encounter NOAH PORTILLO [facility] 02-07-2024 History of Present illness Narrative DAY OF SURGERY/PROCEDURE GUIDELINES As a patient at the [facility], you can expect quality medical and nursing care that is centered on your individual needs. It is our goal to make your surgical experience as comfortable and excellent as possible. ____ The following instructions are general guidelines, if any information on this sheet is different from what your doctor has instructed you to do, please follow your doctor's instructions. Please arrive on 02/12/2024 @ 1245 Enter through entrance C. Check in at registration Upon arrival you will be taken to the pre-operative area to get ready for surgery, your family will stay in the waiting room and visit with you once you are ready for surgery. Due to special limitations please limit visitation to 1-2 members of your family at a time. When it is time for surgery your family will return to the waiting room. Nothing to eat, drink, smoke, suck or chew after midnight (no water, gum, mints, cigarettes, cigars, pipes, snuff, chewing tobacco, etc.) or your surgery may be canceled. Take a shower or bath on the morning of your surgery/procedure (Hibiclens if directed) Do not apply any lotions. Gates your teeth, but do not swallow any water IN CASE OF ILLNESS - If you have a cold or flu symptoms (high fever, runny nose, sore throat, cough, etc.) rash, nausea, vomiting, loose stools, and/or recent contact with someone who has a contagious disease (chick pox, measles, etc.) please call your doctor before coming to the surgery center Take a small sip of water with heart, blood pressure, and/or seizure medication the morning of surgery. If applicable bring your: Inhaler (s) Hearing aid(s) Eyeglasses and Case (If you wear contacts they have to be removed before surgery, bring case and solution) CPAP DO NOT take anticoagulants (blood thinners, aspirin or aspirin-containing products) as instructed by your physician. DO NOT take any diabetic pills or insulin morning of your surgery. Leave all jewelry at home and wear loose, comfortable clothing that is easy to put on and take off. If you will be returning home the same day as your surgery, you will need to have a responsible adult (18 years of age or older) present to drive you home. You will need someone stay with you at home for the first 24 hours following your surgery. This is due to the anesthesia and the medication given to you during surgery and recovery. documented in this encounter [facility] 12-31-2022 Evaluation note Encounter Date Diagnosis Assessment Notes Dec, Left flank pain (ICD-10 - R10.9) assess for kidney stone. Pt will go directly over for testing. Push fluids. Dec, UTI symptoms (ICD-10 - R39.9) Pt already on keflex. Continue med. Check culture to r/o UTI. [facility] Other 03-28-2023 Evaluation note* Encounter Date Diagnosis [...] d/c Adipex if develop CP or palpitations [facility] Other 2023 Evaluation note* Encounter Date Diagnosis [...] to ER and Follow-up with me immediately. [place] Other Chief complaint+Reason for visit Narrative* Chief Complaint Check Up Swollen gland, sore throat Referral Dr. Harris-No Current Bldwrk Reason for Visit BMI 50.0-59.9, adult Sore throat Strep pharyngitis Dietary surveillance and counseling Exercise counseling PCOS (polycystic ovarian syndrome) Severe obesity (BMI >= 40) [facility] Work Phone: Evaluation noteNo [facility] Other Evaluation note* Diagnosis Onset Date Resolution Status BMI 50.0-59.9, adult acute [facility] Work Phone: Evaluation note* Diagnosis Onset Date Resolution Status BMI 50.0-59.9, adult acute Sore throat acute [facility] Work Phone: Evaluation note* Diagnosis Onset Date Resolution Status BMI 50.0-59.9, adult acute Sore throat acute Strep pharyngitis noneactive Dietary surveillance and counseling acute Exercise counseling acute PCOS (polycystic ovarian syndrome) acute Severe obesity (BMI >= 40) a cute [facility] Work Phone: Evaluation note* Diagnosis Post-operative state- Primary Other postprocedural status Abscess of Bartholin's gland documented in this encounter NO[facility] general Narrative - Reported* Type Description Date Medical History Depression/anxiety Surgical History C-sect 2015 [facility] Other History general Narrative - Reported* Type Description Date Medical History Depression/anxiety Surgical History C-sect 2015 Hospitalization History SEE SURGICAL HX [facility] Other [facility] general Narrative - Reported* Type Description Date Medical History Depression/anxiety Medical History PCOS Surgical History C-sect 2014 Hospitalization History SEE SURGICAL HX [facility] Other Hospital Discharge instructionsAmbulatory Orders* Referral to Weight Management Time Frame: 08/06/23, Location: None [facility] Work Phone: Reason for Referral Status Reason Specialty Diagnoses / Procedures Referred By Contact Referred To Contact [facility] Diagnoses Snoring Morbid obesity (HCC) Procedures Baseline Diagnostic Sleep Study Roc Apodaca DO [address] [facility] [address] [place] [address] Assessments Diagnosis Snoring Other dyspnea and respiratory abnormality Morbid obesity (HCC) Morbid obesity Diagnosis Encounter for screening for other viral diseases Diagnosis Pneumonia due to COVID-19 virus Advance Directives No Advanced Directives Records FoundDocuments on File Type Date Recorded Patient Emergency Planner Expl anation Advance Directives and Living Will Power of Bio Medical Technician Documents on File Type Date Recorded Patient Emergency Planner Expl anation Advance Directives and Living Will Power of Bio Medical Technician Documents on File Type Date Recorded Patient Emergency Planner Expl anation ACP-Advance Directive ACP-Power of Bio Medical Technician Advance Directive Response Recorded Date/ Time Advance Directives No August 04, 024 9:13am Discharge Instructions * Instructions* Renetta [...] questions, PLEASE call your doctor or the [facility] Weight Management center at documented in this encounter* Attachments The following attachments cannot be sent through Care Everywhere. * Coronavirus Disease (COVID-19): Isolation (Gabonese) documented in this encounter Summary Purpose Family History No Family History Records Found Relationship Condition Age at Onset Recorded Date/T [...] Diagnoses Morbid obesity (HCC) Snoring OBESITY Procedures [place] ESOPHAGOGASTRODUODENOSCOPY TRANSORAL DIAGNOSTIC EGD ESOPHAGOGASTRODUODENOSCOPY Roc Apodaca, DO [address] [facility] [address] [place] [address] [facility] Reason Comments Shortness of Breath last Saturday tested p ositive for COVID- woke up feeling more SOB this AM Specialty Diagnoses / Procedures Referred By Contac t Referred To Contact Diagnoses Abscess of Bartholin's gland Abscess of Bartholin's gland [N75.1] Procedures [place] EXC BARTHOLINS GLAND/CYST BARTHOLIN CYST MARSUPIALIZATION Gagandeep Morrell DO [address] [facility] [address] [place] [address] [facility] [address] [place] [address] Referral ID Status Reason Start Date Expiration Date Visits Re quested Visits Authorized [id number] 1 1 INFORMATION SOURCE (unrecogn ized section and content) DATE CREATED AUTHOR 03/22/2020 [facility] DATE CREATED AUTHOR AUTHOR'S ORGANIZ ATION 03/26/2020 [facility] DATE CREATED AUTHOR AUTHOR'S ORGANIZ ATION 06/28/2022 Mehta Lamont [facility] DATE CREATED AUTHOR AUTHOR'S ORGANIZ ATION 09/25/2022 [facility] DATE CREATED AUTHOR AUTHOR'S ORGANIZ ATION 08/02/2023 [facility] DATE CREATED AUTHOR AUTHOR'S ORGANIZ ATION 02/21/2024 [facility] Care Teams (unrecognized sec tion and content) Team Status: Active Member Role Status Dates Craig Harris MD Primary Care Provider Active Team Status: Inactive Member Role Status Dates Craig Harris MD Primary Care Provide r, Attending Provider Active Start: August 06, 2023 End: August 06, 2023 Team Status: Inactive Member Role Status Dates Craig Harris MD Primary Care Provider Active Start: August 22, 2023 End: August 22, 2023 Denisa To NP-C Attending Provider Active S tart: August 22, 2023 End: August 22, 2023 Team Status: Inactive Member Role Status Dates Craig Harris MD Primary Care Provider Active Start: October 14, 2023 End: October 14, 2023 Myron Streeter DO Attending Provider Active St art: October 14, 2023 End: October 14, 2023 Rolling Attendant Relationship Specialty Start Date End Date Craig Harris MD [address] [place] [address] PCP - General Family Medicine 07/24/23 Goals (unrecognized section and content) Goals may be documented in a n alternate section Ordered Prescriptions (unrec ognized section and content) Prescription Sig Dispensed Refills Start Date End Da te ondansetron (ZOFRAN) 4 MG tablet Take 1 tablet by mouth 3 times daily as needed for Nausea or Vomiting 15 tablet 02/12/2024 sulfamethoxazole-trimeth oprim (BACTRIM DS;SEPTRA DS) 800-160 MG per tablet Take 1 tablet by mouth 2 times daily for 7 days 14 tablet 02/12/2024 02/19/2024 ibuprofen (ADVIL;MOTRIN) 600 MG tablet Take 1 tablet by mouth every 6 hours as needed for Pain 30 tablet 1 02/12/2024 oxyCODONE-acetaminophen (PERCOCET) 5-325 MG per tabletIndications:Post-o perative state Take 1 tablet by mouth every 6 hours as needed for Pain for up to 3 days. Intended supply: 3 days. Take lowest dose possible to manage pain Max Daily Amount: 4 tablets 12 tablet 02/12/2024 02/15/2024 Scheduled Active and Recently Administ ered Medications (unrecognized section and content) Medication Order 02/10/2024 02/11/2024 02/12/2024 ceFAZolin (ANCEF) 3000 mg in sodium chloride 0.9% 100 mL IVPB (COMPLETED) 3,000 mg, IntraVENous, ONCE, 1 dose, On Sat02/12/24 at 1300, Antimicrobial Indications: Surgical Prophylaxis 1512 (Given - Provid er: Mayuri Holt, CEMETERY VAULT INSTALLER - FIELD SUPPORT REP) Glycopyrrolate injection 0.4 mg 0.4 mg, IntraVENous, ONCE, 1 dose, On Sat02/12/24 at 1630, Give one time IVP for heart rate below 50, PACU only 1630 (Due) sodium chloride flush 0.9 % injection 5-40 mL 5-40 mL, IntraVENous, EVERY 12 HOURS SCHEDULED (2 times per day), First dose on Sat02/12/24 at 2100, Until Discontinued, For Line Patency: Peripheral IV = 5 mL; Midline or Central Line = 10 mL/lumen. If following IV push medication, administer flush at same rate as the IV push. Flush volume is determined by type of infusion therapy being given. For non-viscous solutions use: Peripheral IV = 5 mL Midline or Central Line = 10 mL/lumen For viscous solutions (i.e. blood components, parenteral nutrition, contrast media, or after obtaining blood sample) use: Peripheral IV = 10 mL Midline or Central Line = 20 mL/lumen, Pre-op (day of surgery) 2100 (Due) sodium chloride flush 0.9 % injection 5-40 mL 5-40 mL, IntraVENous, EVERY 12 HOURS SCHEDULED (2 times per day), First dose on Sat02/12/24 at 2100, Until Discontinued, For Line Patency: Peripheral IV = 5 mL; Midline or Central Line = 10 mL/lumen. If following IV push medication, administer flush at same rate as the IV push. Flush volume is determined by type of infusion therapy being given. For non-viscous solutions use: Peripheral IV = 5 mL Midline or Central Line = 10 mL/lumen For viscous solutions (i.e. blood components, parenteral nutrition, contrast media, or after obtaining blood sample) use: Peripheral IV = 10 mL Midline or Central Line = 20 mL/lumen, PACU only 2100 (Due) Continuous Medication Order 02/10/2024 02/11/2024 02/12/2024 0.9 % sodium chloride infusion IntraVENous, at 125 mL/hr, CONTINUOUS, Starting on Sat02/12/24 at 1300, Pre-op (day of surgery) 1300 (Due) lactated ringers IV soln infusion IntraVENous, at 125 mL/hr, CONTINUOUS, Starting on Sat02/12/24 at 1300, Pre-op (day of surgery) 1458 (New Bag - Prov ider: SUSHMA Francisco CRNA)1612 (New Bag - Provider: SUSHMA Francisco CRNA) PRN Medication Order 02/10/2024 02/11/2024 02/12/2024 0.9 % sodium chloride infusion IntraVENous, at 5-250 mL/hr, PRN, if patient receiving piggyback infusions and maintenance fluids are not ordered OR KVO fluids to protect IV site / prevent frequent line interruptions/ long duration, Starting on Sat02/12/24 at 1244, For piggyback infusion, administer at same rate as piggyback for a total of 25 mL. Enter 25 mL into dose field and piggyback rate into rate field of order. If piggyback is infusing at a rate less than 100 mL/hr, enter 25 mL into dose field and 100 mL/hr into rate field of order. For KVO fluids, enter rate of 20 mL/hr or less into rate field of order., Pre-op (day of surgery) 0.9 % sodium chloride infusion IntraVENous, at 100 mL/hr, PRN, If patient receiving piggyback infusions without ordered maintenance IV fluids or with frequent/long duration piggyback infusions, Starting on Sat02/12/24 at 1603, Administer at the same rate as the piggyback being infused., PACU only diphenhydrAMINE (BENADRYL) injection 12.5 mg 12.5 mg, IntraVENous, ONCE PRN, 1 dose, Starting on Sat02/12/24 at 1603, Until Nimisha 02/13/24 at 1603, Itching, PACU only hydrALAZINE (APRESOLINE) injection 10 mg(Linked Group 1) 10 mg, IntraVENous, EVERY 15 MIN PRN, 2 doses, Starting on Sat02/12/24 at 1603, Until Discontinued, High Blood Pressure, for SBP greater than 180 mmHg for 2 consecutive measurements taken from different sites, If heart rate is greater than 60 bpm, hold hydralazine and use labetalol if ordered, otherwise contact provider. Inform provider if SBP is still greater than 180 mmHg 10 minutes after second antihypertensive dose is administered., PACU only HYDROmorphone (DILAUDID) injection 0.5 mg 0.5 mg, IntraVENous, EVERY 5 MIN PRN, 4 doses, Starting on Sat02/12/24 at 1603, Until Discontinued, Pain Severe (7-10), Phase I - Initial therapy for severe pain., PACU only ipratropium 0.5 mg-albuterol 2.5 mg (DUONEB) nebulizer solution 1 Dose 1 Dose, Inhalation, ONCE PRN, 1 dose, Starting on Sat02/12/24 at 1603, Until Nimisha 02/13/24 at 1603, Shortness of Breath, Initiate RT Bronchodilator Protocol: No, PACU only labetalol (NORMODYNE;TRANDATE) injection 10 mg(Linked Group 1) 10 mg, IntraVENous, EVERY 15 MIN PRN, 2 doses, Starting on Sat02/12/24 at 1603, Until Discontinued, High Blood Pressure, for SBP greater than 180 mmHg for 2 consecutive measurements taken from different sites., If heart rate is 60 bpm or less hold labetalol and use hydralazine if ordered, otherwise contact provider. Inform provider if SBP is still greater than 180 mmHg, 10 minutes after second antihypertensive dose is administered., PACU only lidocaine-EPINEPHrine 1 %-1:464513 injection (CANCELED) PRN, Starting on Sat02/12/24 at 1518, Until Sat02/12/24 at 1608, Intra-op 1518 (Given - Provid er: Gagandeep Morrell, DO - Comment: GIVEN TO BACK TABLE AND INJECTED INTO OP SITE PER SURGEON) meperidine (DEMEROL) injection 12.5 mg 12.5 mg, IntraVENous, EVERY 5 MIN PRN, 2 doses, Starting on Sat02/12/24 at 1603, Until Discontinued, Shivering, , May give every 5 minutes to max of 25mg., PACU only metoclopramide (REGLAN) injection 10 mg 10 mg, IntraVENous, ONCE PRN, 1 dose, Starting on Sat02/12/24 at 1603, Until Nimisha 02/13/24 at 1603, Nausea, Secondary antiemetic therapy., PACU only midazolam PF (VERSED) injection 2 mg 2 mg, IntraVENous, ONCE PRN, 1 dose, Starting on Sat02/12/24 at 1603, Until Nimisha 02/13/24 at 1603, Anxiety, PACU only morphine (PF) injection 2 mg 2 mg, IntraVENous, EVERY 5 MIN PRN, 10 doses, Starting on Sat02/12/24 at 1603, Until Discontinued, Pain Moderate (4-6), Phase I - Initial therapy for moderate pain., PACU only naloxone 0.4 mg in 10 mL sodium chloride syringe IntraVENous, PRN, Opioid Reversal, Starting on Sat02/12/24 at 1603, PRN if respiratory rate is less than 6/min and patient is difficult to arouse then notify physician STAT. Mix 9 mL of sodium chloride 0.9% with 0.4 mg (1 mL) of naloxone (NARCAN) in 10 mL syringe. (Note: dilution is 0.04 mg/mL) Give 0.08 mg (2 mL of special dilution), slow IV push, repeat up to 0.4 mg (10 mL) or until patient is responsive to physical stimulation and respiratory rate is equal to or greater than 6 breaths/min. Continue to observe, if no response within 3 minutes of administration of 0.4 mg (10 mL) total, repeat dose (0.4 mg as administered previously). Concentration 0.04 mg/mL, PACU only ondansetron (ZOFRAN) injection 4 mg 4 mg, IntraVENous, ONCE PRN, 1 dose, Starting on Sat02/12/24 at 1603, Until Nimisha 02/13/24 at 1603, Nausea, PACU only oxyCODONE-acetaminophen (PERCOCET) 5-325 MG per tablet 1 tablet (COMPLETED) 1 tablet, Oral, ONCE PRN, 1 dose, Starting on Sat02/12/24 at 1603, Until Sat02/12/24 at 1707, Pain Moderate (4-6), Maximum dose of acetaminophen is 4000 mg from all sources in 24 hours., PACU only 1707 (Given - Provid er: Josie Tipton RN) oxyCODONE-acetaminophen (PERCOCET) 5-325 MG per tablet 2 tablet 2 tablet, Oral, ONCE PRN, 1 dose, Starting on Sat02/12/24 at 1603, Until Nimisha 02/13/24 at 1603, Pain Severe (7-10), Maximum dose of acetaminophen is 4000 mg from all sources in 24 hours., PACU only sodium chloride flush 0.9 % injection 5-40 mL 5-40 mL, IntraVENous, PRN, Starting on Sat02/12/24 at 1244, Until Discontinued, Line Care, After every IV line use, For Line Patency: Peripheral IV = 5 mL; Midline or Central Line = 10 mL/lumen. If following IV push medication, administer flush at same rate as the IV push. Flush volume is determined by type of infusion therapy being given. For non-viscous solutions use: Peripheral IV = 5 mL Midline or Central Line = 10 mL/lumen For viscous solutions (i.e. blood components, parenteral nutrition, contrast media, or after obtaining blood sample) use: Peripheral IV = 10 mL Midline or Central Line = 20 mL/lumen, Pre-op (day of surgery) sodium chloride flush 0.9 % injection 5-40 mL 5-40 mL, IntraVENous, PRN, Starting on Sat02/12/24 at 1603, Until Discontinued, Line Care, After every IV line use, For Line Patency: Peripheral IV = 5 mL; Midline or Central Line = 10 mL/lumen. If following IV push medication, administer flush at same rate as the IV push. Flush volume is determined by type of infusion therapy being given. For non-viscous solutions use: Peripheral IV = 5 mL Midline or Central Line = 10 mL/lumen For viscous solutions (i.e. blood components, parenteral nutrition, contrast media, or after obtaining blood sample) use: Peripheral IV = 10 mL Midline or Central Line = 20 mL/lumen, PACU only No Frequency Medication Order 02/10/2024 02/11/2024 02/12/2024 lidocaine-EPINEPHrine 1 %-1:531119 injection 1 dose, Starting on Sat02/12/24 at 1447, Until Nimisha 02/13/24 at 0259, Jun Romeo: cabinet override, Jun Romeo: cabinet override 1500 (Due) Linked Groups Order Group 1: labetalol (NORMODYNE;TRANDATE) injection 10 mgJump to med 10 mg, IntraVENous, EVERY 15 MIN PRN, 2 doses, Starting on Sat02/12/24 at 1603, Until Discontinued, High Blood Pressure, for SBP greater than 180 mmHg for 2 consecutive measurements taken from different sites., If heart rate is 60 bpm or less hold labetalol and use hydralazine if ordered, otherwise contact provider. Inform provider if SBP is still greater than 180 mmHg, 10 minutes after second antihypertensive dose is administered., PACU only Or hydrALAZINE (APRESOLINE) injection 10 mgJump to med 10 mg, IntraVENous, EVERY 15 MIN PRN, 2 doses, Starting on Sat02/12/24 at 1603, Until Discontinued, High Blood Pressure, for SBP greater than 180 mmHg for 2 consecutive measurements taken from different sites, If heart rate is greater than 60 bpm, hold hydralazine and use labetalol if ordered, otherwise contact provider. Inform provider if SBP is still greater than 180 mmHg 10 minutes after second antihypertensive dose is administered., PACU only FOR RECORDS PERTAINING TO PATIENTS WHO ARE [...] BE BASED ON THE PRIMARY CLINICAL RECORDS. [employer] provides no warranty or guarantee of the accuracy or completeness of information in this document.
[2024-04-28 16:13] LABS: HCG Quantitative <1 mIU/mL
== END 2024-04-28 15:30 | disposition home or self-care (01) ==
PROVIDERS: PCP Family Medicine; Visit Provider Obstetrics & Gynecology
DX: N92.6 Irregular menstruation, unspecified (principal)
CPT/HCPCS: 36415; 84702

== ENCOUNTER 2024-11-03 10:48 | Emergency (ER) | payer OTHER, SELFPAY ==
--- OUTSIDE RECORDS SUMMARY | 2024-09-22 05:45 | XMS_ITS ---
Author Organization [facility] Address [address] [facility] [place] [address] Care Team Providers Care Webbing Tacker Name Role Phone Danika Helton Primary Care Provider [phone] REASON FOR VISIT 3 month f/u Encounters Encounter Location Date Provider Diagnosis [facility] [address] [place] [address] 09/22/2024 Danika Helton Plan Of Treatment No Information Progress Notes * SYEDA WILEY RDOB: [birth year] (34 yo F)Acc No.[id number]:09/22/2024 Behavioral Health Patient: Hermilo SYEDA MCCLURE Appointment Provider: Jayleen Helton :1990 A ge:34 Y S ex:Female Date:09/22/2024 Address:[address] [place], [place] [id number] Subjective: * Chief Complaints: * 1 . 3 month f/u. * Medical History: Objective: * Vitals: Assessment: Plan: * Treatment: * Images: * Electronic signature of RUSSELL Hernandez on 11/03/2024 at 10:53 AM EDT Sign off status: Pending * Appointment Provider: Jayleen Helton Date: 09/22/2024 Generated for Lamont ng/Faxing/eTransmitting on: 11/03/2024 10:53 AM EDT
[2024-11-03] VITALS (13 sets, daily range): BP systolic 118–138; BP diastolic 78–90; PULSE 42–56; TEMP 36.6; O2SAT 100; BMI 45.8
--- OUTSIDE RECORDS SUMMARY | 2024-11-03 10:54 | XMS_ITS | Clinical Summary ---
Author Organization [facility] Address [address] [place] [address] Phone Care Team Providers Care Activities Aide Name Role Phone Unavailable Primary Care Provider Unavailabl e Social History Tobacco Use Types Packs/Day Years Used Date Smoking Tobacco: Never Assessed Comments Unknown Sex and Gender Information Value Date Recorded Sex Assigned at Not on file Legal Sex Female 2:13 PM EST Gender Identity Not on file Sexual Orientation Not on file Plan of Treatment Health Maintenance Due Date Last Done Comments HIV Screening 1990 Lipid Panel 1990 Yearly Adult Physical 1990 MMR Vaccines (1 of 1 - Stand neda series) 1991 Varicella Vaccines (1 of 2 - 13+ 2-dose series) 2003 Hepatitis C Screening 02/29/2008 Hepatitis B Vaccines (1 of 3 - 19+ 3-dose series) 2009 Cervical Cancer Screening 2011 HPV/Cotest 2011 Pap Smear 2011 DTaP/Tdap/Td Vaccines (1 - Tdap) 02/29/2012 COVID-19 Vaccine ( - 2023-2 5 season) 2024 Influenza Vaccine (Season Ended) 2025 Zoster Vaccines (1 of 2) 02/29/2040 HIB Vaccines Aged Out No longer eligi ble based on patient's age to complete this topic HPV Vaccines Aged Out No longer eligi ble based on patient's age to complete this topic Hepatitis A Vaccines Aged Out No long er eligible based on patient's age to complete this topic IPV Vaccines Aged Out No longer eligi ble based on patient's age to complete this topic Meningococcal Vaccine Aged Out No grecia naheed eligible based on patient's age to complete this topic Pneumococcal Vaccine: Pediat rics and At-Risk Adult Patients Aged Out No longer chantelle gible based on patient's age to complete this topic Rotavirus Vaccines Aged Out No longer eligible based on patient's age to complete this topic Insurance
--- OUTSIDE RECORDS SUMMARY | 2024-11-03 10:54 | XMS_ITS | Clinical Summary ---
Author Organization [facility] Healthcare Address [address] [place] [address] Care Team Providers Care Glass Technician/Installer Name Role Phone Asiya Gonzales MD Primary Care Provider [phone] Allergies No known active allergies Medications busPIRone (Buspar) 15 MG tablet every 12 (twelve) hours. Active FLUoxetine (PROzac) 20 MG capsule 04/23/2022 Active fluconazole (Diflucan) 100 MG tabletIndication s:Bartholin's gland cyst Take 1 tablet (100 mg) by mouth in the morning. Take daily for 1 week.. 7 tablet 01/17/2023 Active metFORMIN XR (Glucophage-XR) 500 MG 24 hr tabletIndication s:Female infertility,Insu reggie resistance TAKE 1 TABLET (500 MG) BY MOUTH IN THE EVENING. TAKE WITH MEALS. DO NOT CRUSH, CHEW, OR SPLIT. 30 tablet 3 01/17/2024 Active metFORMIN XR (Glucophage-XR) 500 MG 24 hr tabletIndication s:Insulin resistance Take 1 tablet (500 mg) by mouth in the evening. Take with meals 30 tablet 11 05/21/2024 Active Active Problems Problem Noted Date Diagnosed Date PCOS (polycystic ovarian syndrome) 12/26/2022 Family History Medical History Relation Name Comments Cancer Mother Kidney disease Mother epilepsy Mother No Known Problems Son Relation Name Status Comments Brother Alive Father Alive Mother Alive Son Alive Social History Tobacco Use Types Packs/Day Years Used Date Smoking Tobacco: Never Smokeless Tobacco: Never Tobacco Cessation:Counseling Given: Not Answered Alcohol Use Standard Drinks/Week Comments Never 0 (1 standard drink = 0.6 oz pur e alcohol) Comments Unknown Sex and Gender Information Value Date Recorded Sex Assigned at Female 10/10/2022 12:19 PM EDT Legal Sex Female 12:17 PM EDT Gender Identity Female 10/10/2022 12:19 PM EDT Sexual Orientation Straight 10/10/2022 12 :19 PM EDT Last Filed Vital Signs Vital Sign Reading Time Taken Comments Blood Pressure 120/70 03/04/2023 10:59 AM EDT Pulse - - Temperature - - Respiratory Rate - - Oxygen Saturation - - Inhaled Oxygen Concentration - - Weight 124 kg (274 lb 1.9 oz) 03/04/2023 10:59 A M EDT Height 162.6 cm (5' 4 ) 10/30/2022 9:47 AM EDT Body Mass Index 47.05 10/30/2022 9:47 AM EDT Plan of Treatment Not on file Insurance [employer] Care Teams Glass Technician/Installer Relationship Specialty Start Date End Date Asiya Gonzales MD PCP - General Family Medicine 10/30/22
--- OUTSIDE RECORDS SUMMARY | 2024-11-03 10:54 | XMS_ITS | Clinical Summary ---
Author Organization [facility] Address [id number] [place] [address] Care Team Providers Care Results Engineer Name Role Phone Unavailable Primary Care Provider Unavailabl e Social History Tobacco Use Types Packs/Day Years Used Date Smoking Tobacco: Never Assessed Comments Unknown Sex and Gender Information Value Date Recorded Sex Assigned at Not on file Legal Sex Female 10:58 AM EDT Gender Identity Not on file Sexual Orientation Not on file Plan of Treatment Health Maintenance Due Date Last Done Comments Depression Screening 2002 Tobacco Screening 2002 Adult BMI Screening 02/29/2008 DTaP,Tdap and Td Vaccines (1 - Tdap) 2009 Pap Smear 2011 Influenza Vaccine 01/11/2025 Medical Devices Not on file
--- OUTSIDE RECORDS SUMMARY | 2024-11-03 10:54 | XMS_ITS | Encounter Summary ---
Author Organization [facility] Address [address] [id number] Phone Care Team Providers Care Lead Cytogenetic Technologist Name Role Phone Unavailable Primary Care Provider Unavailabl e Reason for Referral * Consultation (Routine) - Pending Review Specialty Diagnoses / Procedures Referred By Chavez chang Referred To Contact Bariatrics / General Surgery Diagnoses Morbid obesity (Multi) [place] [address] [facility] [place] [address] Phone: tel: fax: Referral ID Status Reason Start Date Expiration Date Visits Requested Visits Authorized [id number] Pending Review Specialty Services Required 07/16/2024 07/16/2025 1 1 Encounter Details Date Type Department Care Team (Latest Contact Info) Description 07/16/2024 Transcribe Orders [facility] [address] [facility] 1[address] [place] [address] [place] [address] [facility] [place], [place] [id number] Morbid obesity (Multi) Social History Tobacco Use Types Packs/Day Years Used Date Smoking Tobacco: Never Assessed Comments Unknown Sex and Gender Information Value Date Recorded Sex Assigned at Not on file Legal Sex Female 2:13 PM EST Gender Identity Not on file Sexual Orientation Not on file documented as of this encounter Plan of Treatment Scheduled Referrals Name Type Priority Associated Diagnoses Order Schedule Referral to Bariatric Surgery Outpatient Referral Non-Urgent Morbid obesity (Multi) Expected: 07/16/2024 (Approximate), Expires: 07/16/2025 documented as of this encounter Visit Diagnoses Diagnosis Morbid obesity (Multi) Morbid obesity documented in this encounter
--- OUTSIDE RECORDS SUMMARY | 2024-11-03 10:54 | XMS_ITS | Encounter Summary ---
Author Organization [facility] Address [address] [place] [address] Care Team Providers Care Environmental Studies Professor Name Role Phone Asiya Gonzales MD Primary Care Provider [phone] Encounter Details Date Type Department Care Team (Late st Contact Info) Description 12/26/2022 Abstract [facility] [address] [place] [id number] Annalise Amanda PA [address] [facility] [address] [place], [facility] Social History Tobacco Use Types Packs/Day Years Used Date Smoking Tobacco: Never Smokeless Tobacco: Never Alcohol Use Standard Drinks/Week Comments Never 0 (1 standard drink = 0.6 oz pur e alcohol) Comments Unknown Sex and Gender Information Value Date Recorded Sex Assigned at Female 10/10/2022 12:19 PM EDT Legal Sex Female 12:17 PM EDT Gender Identity Female 10/10/2022 12:19 PM EDT Sexual Orientation Straight 10/10/2022 12 :19 PM EDT COVID-19 Exposure Response Date Recorded In the last 10 days, have yo u been in contact with someone who was confirmed or suspected to have Coronavirus/COVID-19? No / Unsure 12/27/2022 1:07 PM EDT documented as of this encounter Plan of Treatment Not on file documented as of this encounter Visit Diagnoses Not on filedocumented in this encounter Care Teams Environmental Studies Professor Relationship Specialty Start Date End Date Asiya Gonzales MD PCP - General Family Medicine 10/30/22 documented as of this encounter
--- OUTSIDE RECORDS SUMMARY | 2024-11-03 10:54 | XMS_ITS | Patient Health Record ---
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 Name Role Phone Danie Danika Primary Care Provider Allergies No Known Allergies Reason For Referral No Information Medications Medication SIG (Take, Route, Frequency, Duration) Notes Start Date End Date Status busPIRone HCl 15 MG TAKE 1 TABLET BY BALAJI TH TWICE A DAY for 90 Not-Taking Propranolol HCl 10 MG TAKE 1 TABLET BY M OUTH TWICE A DAY for 90 Not-Taking lamoTRIgine 100 MG TAKE 2 TABLETS BY MO UTH DAILY for 90 Not-Taking Ziprasidone HCl 60 MG TAKE 1 CAPSULE BY MOUTH TWICE A DAY WITH FOOD for 30 Not-Taking lamoTRIgine 200 MG 1 tablet Orally Once a day 09/11 Active Lybalvi 5-10 MG 1 tablet Orally at b edtime for 30 days 08/11/2024 Active Social History Tobacco Use: Social History Observation Description Date Details (start date - stop date) Never Smoker NA - NA Tobacco Screen: Question Answer Notes Are you a: never smoker Alcohol Screening: Question Answer Notes Did you have a drink contain ing alcohol in the past year? Yes How often did you have a dri nk containing alcohol in the past year? Monthly or less (1 point) Points 1 Interpretation Negative Depression Screening (PHQ-9): Question Answer Notes Little interest or pleasure in doing things Nearly every day Feeling down, depressed, or hopeless Nearly ever y day Trouble falling or staying a sleep, or sleeping too much More than half the days Feeling tired or having little energy Nearly rachel ry day Poor appetite or overeating More than half the d ays Feeling bad about yourself-o r that you are a failure or have let yourself or your family down Nearly every day Trouble concentrating on thi ngs, such as reading the newspaper or watching television Nearly every day Moving or speaking so slowly that other people could have noticed. Or the opposite being so fidgety or restless that you have been moving around a lot more than usual More than half the days Thoughts that you would be b lashanda off , or of hurting yourself in some way Several days(Consider Suicide Assessment Risk) Total Score 22 Intepretation Severe Depression Problems Problem Type SNOMED Code ICD Code Onset Dates Problem Status W/U Status Risk Notes Problem Anxiety (86546043) Anxiety (F41.9) Active confirmed Problem Body mass index 40+ - severely obese (218135553) BMI 45.0-49.9, adult (Z68.42) Active confirmed Problem Akathisia (770052804) Akathisia (G25.71) Active confirmed Problem Mixed bipolar affective disorder, moderate (190638453) Bipolar mixed affective disorder, moderate (F31.62) Active confirmed Vital Signs Heart Rate 81 /min 08/11/2024 Oximetry 98 % 08/11/2024 Blood pressure diastolic 86 mm Hg 08/11/2024 Height 65 in 08/11/2024 Blood pressure systolic 134 mm Hg 08/11/2024 Weight 299.0 lbs 08/11/2024 BMI 49.75 kg/m2 08/11/2024 Encounters Encounter Location Date Provider Diagnosis [facility] [address] [place] [address] 03/27/2024 Danika Helton Anxiety F41.9 and Bipolar mixed affective disorder, moderate F31.62 [facility] [address] [place] [address] 08/11/2024 Danika Helton Bipolar mixed affective disorder, moderate F31.62 and Anxiety F41.9 [facility] [address] [place] [address] 01/01/2024 Danika Helton Bipolar mixed affective disorder, moderate F31.62 and Anxiety F41.9 [facility] [address] [place] [address] 04/24/2024 Danika Helton Bipolar mixed affective disorder, moderate F31.62 and Anxiety F41.9 [facility] [address] [place] [address] 06/25/2024 Danika Helton Bipolar mixed affective disorder, moderate F31.62 and Anxiety F41.9 [facility] [address] 07/16/2024 Danika Helton [place] [address] [place] [address] 08/20/2024 Danika [place] [address] [place] [address] 09/21/2024 [facility] Bipolar mixed affective disorder, moderate F31.62 [place] [address] [place] [address] 09/23/2024 Danika [place] [address] [place] [address] 06/09/2024 Danika Helton Bipolar mixed affective disorder, moderate F31.62 and Anxiety F41.9 [facility] [address] [place] [address] 07/09/2024 Danika [facility] Assessments Encounter Date Diagnosis (ICD Code) Assessment Notes Treatment Notes Treatment Clinical Notes Section Notes 01/01/2024 Bipolar mixed affective disorder, moderate (ICD-10 - F31.62) Recommended treatment for Bipolar disorder includes FDA approved and OFF label medications: second generation antipsychotics and mood stabilizers. Discussed life threatening side effect of Lamotrigine. Pt is to monitor for new skin rashes or sensation of a sunburn or itchiness or redness, mouth sores or sores in mucus membranes, and call provider immediately and or go to ER, and stop the medication. Second generation antipsychotic medications can cause headache, drowsiness, agitation, dizziness, nausea, or extrapyramidal symptoms such as tremors, muscle spasms, slowness of movement or jerking of muscles. The patient verbalizes understanding with all questions answered thoroughly and is in agreement with treatment plan. Change current treatment due to wanting to conceive. . Call for problems . GOALS: . Maintain medication regimen _Improve mood stability _Improve anxiety control _Improve social and interpersonal functioning Patient/Guardian will call sooner if symptoms worsen. Patient understands to go to ER if needed if symptoms become severe. Crisis Intervention plan was discussed and agreed upon. Patient/Guardian will call 911 in case of emergency. Emergency contact information was provided to the patient/guardian. follow up 3 months Pharmacological management: . Alternative medication plans were discussed with the patient/guardian. All relevant side effects and potential adverse effects were discussed with the patient/guardian. Standard cautions and potential benefits were discussed. Patient/Guardian consented to the start/continuation of the treatment. 04/24/2024 Bipolar mixed affective disorder, moderate (ICD-10 - F31.62) Recommended treatment for Bipolar disorder includes FDA approved and OFF label medications: second generation antipsychotics and mood stabilizers. Discussed life threatening side effect of Lamotrigine. Pt is to monitor for new skin rashes or sensation of a sunburn or itchiness or redness, mouth sores or sores in mucus membranes, and call provider immediately and or go to ER, and stop the medication. Second generation antipsychotic medications can cause headache, drowsiness, agitation, dizziness, nausea, or extrapyramidal symptoms such as tremors, muscle spasms, slowness of movement or jerking of muscles. The patient verbalizes understanding with all questions answered thoroughly and is in agreement with treatment plan. Continue current treatment. . Call for problems . GOALS: . Maintain medication regimen _Improve mood stability _Improve anxiety control _Improve social and interpersonal functioning Patient/Guardian will call sooner if symptoms worsen. Patient understands to go to ER if needed if symptoms become severe. Crisis Intervention plan was discussed and agreed upon. Patient/Guardian will call 911 in case of emergency. Emergency contact information was provided to the patient/guardian. follow up 2 months Pharmacological management: . Alternative medication plans were discussed with the patient/guardian. All relevant side effects and potential adverse effects were discussed with the patient/guardian. Standard cautions and potential benefits were discussed. Patient/Guardian consented to the start/continuation of the treatment. 06/25/2024 Bipolar mixed affective disorder, moderate (ICD-10 - F31.62) Recommended treatment for Bipolar disorder includes FDA approved and OFF label medications: second generation antipsychotics and mood stabilizers. Discussed life threatening side effect of Lamotrigine. Pt is to monitor for new skin rashes or sensation of a sunburn or itchiness or redness, mouth sores or sores in mucus membranes, and call provider immediately and or go to ER, and stop the medication. Second generation antipsychotic medications can cause headache, drowsiness, agitation, dizziness, nausea, or extrapyramidal symptoms such as tremors, muscle spasms, slowness of movement or jerking of muscles. The patient verbalizes understanding with all questions answered thoroughly and is in agreement with treatment plan. Continue current treatment.. DC sertraline due to facial ticks. Call for problems . GOALS: . Maintain medication regimen _Improve mood stability _Improve anxiety control _Improve social and interpersonal functioning Patient/Guardian will call sooner if symptoms worsen. Patient understands to go to ER if needed if symptoms become severe. Crisis Intervention plan was discussed and agreed upon. Patient/Guardian will call 911 in case of emergency. Emergency contact information was provided to the patient/guardian. follow up 3 months Pharmacological management: . Alternative medication plans were discussed with the patient/guardian. All relevant side effects and potential adverse effects were discussed with the patient/guardian. Standard cautions and potential benefits were discussed. Patient/Guardian consented to the start/continuation of the treatment. 08/11/2024 Bipolar mixed affective disorder, moderate (ICD-10 - F31.62) Recommended treatment for Bipolar disorder includes FDA approved and OFF label medications: second generation antipsychotics and mood stabilizers. Discussed life threatening side effect of Lamotrigine. Pt is to monitor for new skin rashes or sensation of a sunburn or itchiness or redness, mouth sores or sores in mucus membranes, and call provider immediately and or go to ER, and stop the medication. Second generation antipsychotic medications can cause headache, drowsiness, agitation, dizziness, nausea, or extrapyramidal symptoms such as tremors, muscle spasms, slowness of movement or jerking of muscles. The patient verbalizes understanding with all questions answered thoroughly and is in agreement with treatment plan. Change current treatment. Add lybalvi. . Call for problems . GOALS: . Maintain medication regimen _Improve mood stability _Improve anxiety control _Improve social and interpersonal functioning Patient/Guardian will call sooner if symptoms worsen. Patient understands to go to ER if needed if symptoms become severe. Crisis Intervention plan was discussed and agreed upon. Patient/Guardian will call 911 in case of emergency. Emergency contact information was provided to the patient/guardian. follow up 6 weeks. Pharmacological management: . Alternative medication plans were discussed with the patient/guardian. All relevant side effects and potential adverse effects were discussed with the patient/guardian. Standard cautions and potential benefits were discussed. Patient/Guardian consented to the start/continuation of the treatment. 09/21/2024 Bipolar mixed affective disorder, moderate (ICD-10 - F31.62) 08/11/2024 Anxiety (ICD-10 - F41.9) 06/09/2024 Bipolar mixed affective disorder, moderate (ICD-10 - F31.62) 06/25/2024 Anxiety (ICD-10 - F41.9) 03/27/2024 Anxiety (ICD-10 - F41.9) Recommended treatment is: _ FDA approved medication for this age group include Selective Serotonin Reuptake Inhibitors (SSRI) and Selective Norepinephrine Reuptake Inhibitors (SNRI). . Selective serotonin reuptake inhibitors can cause nausea, headache, upset stomach, diarrhea, constipation, anxiety, irritability, and sexual dysfunction. . Please monitor for worsening of symptoms, especially suicidal ideations or morbid thoughts, and call office and or go to the emergency department immediately. Pt does not endorse exhibiting symptoms aligning with linda. . The patient verbalizes understanding with all questions answered thoroughly and is in agreement with treatment plan. . Change treatment plan to sertraline, stop fluoxetine, stop mirtazepine Patient/Guardian will call sooner if symptoms worsen. Patient understands to go to ER if needed if symptoms become severe. Crisis Intervention plan was discussed and agreed upon. Patient/Guardian will call 911 in case of emergency. Emergency contact information was provided to the patient/guardian. 03/27/2024 Bipolar mixed affective disorder, moderate (ICD-10 - F31.62) 04/24/2024 Anxiety (ICD-10 - F41.9) 01/01/2024 Anxiety (ICD-10 - F41.9) Recommended treatment is: _ FDA approved medication for this age group include Selective Serotonin Reuptake Inhibitors (SSRI) and Selective Norepinephrine Reuptake Inhibitors (SNRI). . Selective serotonin reuptake inhibitors can cause nausea, headache, upset stomach, diarrhea, constipation, anxiety, irritability, and sexual dysfunction. . Please monitor for worsening of symptoms, especially suicidal ideations or morbid thoughts, and call office and or go to the emergency department immediately. Pt does not endorse exhibiting symptoms aligning with linda. . The patient verbalizes understanding with all questions answered thoroughly and is in agreement with treatment plan. . Change current treatment plan Patient/Guardian will call sooner if symptoms worsen. Patient understands to go to ER if needed if symptoms become severe. Crisis Intervention plan was discussed and agreed upon. Patient/Guardian will call 911 in case of emergency. Emergency contact information was provided to the patient/guardian. 06/09/2024 Anxiety (ICD-10 - F41.9) Plan Of Treatment No Information Insurance Providers Payer Name Payer Address Payer Phone Subscriber Number Group Number Insured Name Patient Relationship to Insured Coverage Start Date Coverage End Date [employer] [address] [address] [facility] [place], [place] [phone] [id number] SYEDA WILEY Self - patient is the insured 5 Medical (General) History Medical History History ICD Code bipolar Surgical History Surgery Date(Month/Year) section Hospitalization History Reason Date(Month/Year) see surgical
--- NOTE | 2024-11-03 11:28 | ECG_ITS ---
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 Measurements Intervals [place] Rate: 43 P: 52 WV: 156 QRS: 19 QRSD: 94 T: 27 QT: 464 QTc: 409 Interpretive Statements 1130 Sinus bradycardia 8102 Low QRS voltage in chest leads abnormal ECG Compared to ECG 02/13/2024 08:00:04 No significant changes Electronically Signed On 11-03-2024 21:54:31 EDT by MARC MCKEE M.D.
--- NOTE | 2024-11-03 11:28 | US_ITS ---
The [place] [id number] Patient Name: SYEDA DOLAN MRN: [id number] date: 1990 Sex: F Assigned Patient Location: ER Current Patient Location: ER Accession/Order Number: [id number] Exam Date: 11/03/2024 12:32 Report Date: 11/03/2024 12:35 At the request of: DIETER GARLAND MD Procedure: US right upper quadrant LIMITED RIGHT UPPER QUADRANT ABDOMINAL ULTRASOUND CLINICAL HISTORY: Right upper quadrant pain with nausea and vomiting COMPARISON: CT 05/20/2023 The gallbladder is physiologically distended without shadowing calculi or pericholecystic fluid. The gallbladder wall is borderline in thickness. No intra- or extrahepatic biliary dilatation is evident. The common duct measures 2 - 3 mm. The liver shows slight increased echogenicity that might be fatty infiltration. No focal intrahepatic masses are seen. There is appropriate hepatopetal flow within the main portal vein. The pancreas shows no significant sonographic abnormality. Cursory evaluation of the right kidney reveals no hydronephrosis or fluid within Mckeon's pouch. US/US right upper quadrant IMPRESSION: SUSPECTED FATTY LIVER. BORDERLINE GALLBLADDER WALL THICKENING, WITHOUT CHOLELITHIASIS. Impression dictated by: Kirsten Dillard M.D. 11/03/2024 12:35 PM Dictation Location: [place] [address] Electronically authenticated by: [id number] Y Date: 11/03/2024 12:35
--- NOTE | 2024-11-03 11:30 | ED.GENADUL1 ---
HPI HPI - General Adult General Chief complaint: Nausea/Vomiting/Diarrhea Stated complaint: VOMITING GALLBLADER PAIN Time Seen by Provider: 11/03/24 11:13 Source: patient Mode of arrival: walk-in Limitations: no limitations History of Present Illness HPI narrative: 34-year-old female presents to the emergency department for epigastric abdominal pain. It came on about 3:00 in the morning. It is been severe and she is nauseous. She had some gallbladder issues about 10 years ago and thinks it might be her gallbladder again. No trauma or fever. Related Data Home Medications ?Medication ?Instructions ?Recorded ?Confirmed acetaminophen 300 mg-codeine 30 mg 1 tab PO Q6H 02/13/24 02/13/24 tablet fluoxetine 20 mg capsule 20 mg PO DAILY 02/13/24 02/13/24 lamotrigine 100 mg tablet 100 mg PO DAILY 02/13/24 02/13/24 metformin 500 mg tablet,extended 500 mg PO .QHS 02/13/24 02/13/24 release 24 hr mirtazapine 15 mg tablet 15 mg PO .QHS 02/13/24 02/13/24 ondansetron HCl 4 mg tablet 4 mg PO Q6H PRN nausea and vomiting 02/13/24 02/13/24 sulfamethoxazole 800 1 tab PO Q12H 02/13/24 02/13/24 mg-trimethoprim 160 mg tablet Previous Rx's ?Medication ?Instructions ?Recorded oxycodone-acetaminophen 5 mg-325 1 tab PO Q6H PRN pain #15 tabs 12/20/22 mg tablet (Percocet) hydrocodone 5 mg-acetaminophen 325 1 tab PO Q6H PRN pain 5 days #20 11/03/24 mg tablet tabs ondansetron 4 mg disintegrating 4 mg PO Q6H PRN nausea and 11/03/24 tablet vomiting #20 tabs Allergies Allergy/AdvReac Type Severity Reaction Status Date / Time No Known Drug Allergies Allergy Verified 11/03/24 11:19 Opioid HPI Opioid Management Most Recent Opioid Data: Last Pain Scale 8 Today, 13:10 Last MAR Pain Assessment Today, 11:42 Ur Phencyclidine Scrn, (NEGATIVE) Negative 02/13/24, 09:10 Review of Systems ROS Narrative A ten point review of systems is negative except as noted above. PFSH PFSH Social History Little interest or pleasure in doing things: not at all Feeling down, depressed, or hopeless: not at all Exam Narrative Exam Narrative: Nurses note and vital signs reviewed and patient is not hypoxic. General: The patient appears uncomfortable. Skin: Warm, dry, no pallor noted. There is no rash noted. Head: Normocephalic, atraumatic Eye: Normal conjunctiva, no drainage Ears, Nose, Mouth, and Throat: oral mucosa is moist. Nares patent. Cardiovascular: Regular Rate and Rhythm Respiratory: Patient is in no distress, no accessory muscle use Back: non-tender GI: Tenderness present in the epigastric area Musculoskeletal: The patient has no evidence of calf tenderness, no pitting edema, symmetrical pulses noted bilaterally Neurological: A&O, normal speech Psychiatric: Cooperative Constitutional Vital Signs, click to edit/add: Last Vital Signs Temp 98 F 11/03/24 11:12 Pulse 45 L 11/03/24 13:16 Resp 14 11/03/24 13:16 BP 138/90 11/03/24 13:16 Pulse Ox 100 11/03/24 13:16 O2 Del Method Room Air 11/03/24 11:12 Course Vital Signs Vital signs: Vital Signs Temperature 98 F 11/03/24 11:12 Pulse Rate 54 L 11/03/24 11:12 Respiratory Rate 22 H 11/03/24 11:12 Blood Pressure 118/78 11/03/24 11:12 Pulse Oximetry 100 11/03/24 11:12 Oxygen Delivery Method Room Air 11/03/24 11:12 Temperature 98 F 11/03/24 11:12 Pulse Rate 45 L 11/03/24 13:16 Respiratory Rate 14 11/03/24 13:16 Blood Pressure 138/90 11/03/24 13:16 Pulse Oximetry 100 11/03/24 13:16 Oxygen Delivery Method Room Air 11/03/24 11:12 Medical Decision Making Lab Data Labs: Lab Results 11/03/24 Range/Units 11:30 WBC 12.4 H (4.0-11.0) 10^3/uL RBC 4.13 L (4.20-5.40) 10^6/uL Hgb 11.9 L (12.0-16.0) g/dL Hct 34.8 L (36.0-48.0) % MCV 84.3 (81.0-99.0) fL MCH 28.8 (26.7-34.0) pg MCHC 34.2 (29.9-35.2) g/dL RDW 13.4 (11.0-15.0) % Plt Count 387 (150-450) 10^3/uL MPV 10.7 (9.5-13.5) fL Neut % (Auto) 91.1 H (43.0-75.0) % Lymph % (Auto) 6.2 L (20.5-60.0) % [place] % (Auto) 2.2 (1.7-12.0) % Eos % (Auto) 0.1 L (0.9-7.0) % Baso % (Auto) 0.2 (0.2-2.0) % Neut # (Auto) 11.3 H (1.4-6.5) 10^3/uL Lymph # (Auto) 0.8 L (1.2-3.8) 10^3/uL [place] # (Auto) 0.3 (0.3-0.8) 10^3/uL Eos # (Auto) 0.0 (0.0-0.7) 10^3/uL Baso # (Auto) 0.0 (0.0-0.1) 10^3/uL Abs Immat Gran (auto) 0.03 (0.00-0.03) 10^3/uL Imm/Tot Granulo (auto) 0.2 (0.0-0.5) % Sodium 141 (136-145) mmol/L Potassium 3.7 (3.5-5.1) mmol/L Chloride 104 (98-107) mmol/L Carbon Dioxide 25.1 (21.0-32.0) mmol/L Anion Gap 15.6 BUN 11.0 (7.0-18.0) mg/dL Creatinine 0.78 (0.55-1.02) mg/dL Est GFR ( Amer) >60 (>=60 mL/min/1.73m^2) Est GFR (Non-Af Amer) >60 (>=60 mL/min/1.73m^2) BUN/Creatinine Ratio 14.1 Glucose 135 H (74-106) mg/dL Calcium 9.1 (8.5-10.1) mg/dL Total Bilirubin 0.4 (0.2-1.0) mg/dL Direct Bilirubin <0.1 (0.0-0.2) mg/dL AST 18 (15-37) U/L ALT 15 (14-59) U/L Alkaline Phosphatase 121 H (46-116) U/L Total Protein 7.4 (6.4-8.2) g/dL Albumin 3.5 (3.4-5.0) g/dL Globulin 3.9 g/dL Albumin/Globulin Ratio 0.9 Amylase 51 (25-115) U/L Lipase 23.0 (16.0-77.0) U/L HCG, Quant <1 mIU/mL Imaging Data Gallbladder ultrasound, CT Abd: Radiologist's impression: ITS Impressions Upper Quadrant Ultrasound 11/03/24 11:28 IMPRESSION: SUSPECTED FATTY LIVER. BORDERLINE GALLBLADDER WALL THICKENING, WITHOUT CHOLELITHIASIS. Impression dictated by: Kirsten Dillard M.D. 11/03/2024 12:35 PM Dictation Location: [place] [address] Electronically authenticated by: [id number] Y Date: 11/03/2024 12:35 Abdomen/Pelvis CT 11/03/24 12:40 IMPRESSION: No acute intra-abdominal process. Impression dictated by: Benedicto Cormier Jr., D.O. 11/03/2024 2:11 PM Dictation Location: [place] [address] Electronically authenticated by: [id number] Y Date: 11/03/2024 14:11 Discharge Plan Discharge Chief Complaint: Nausea/Vomiting/Diarrhea Clinical Impression: Abdominal pain Patient Disposition: Home, Self-Care Time of Disposition Decision: 14:43 Condition: Good Mode of Transportation: Private Vehicle Prescriptions / Home Meds: New hydrocodone-acetaminophen 5-325 mg tablet 1 tab PO Q6H PRN (Reason: pain) 5 Days Qty: 20 0RF ondansetron 4 mg tablet,disintegrating 4 mg PO Q6H PRN (Reason: nausea and vomiting) Qty: 20 0RF No Action oxycodone-acetaminophen [Percocet] 5-325 mg tablet 1 tab PO Q6H PRN (Reason: pain) Qty: 15 0RF Rx Instructions: DX: R10.9 acetaminophen-codeine 300-30 mg tablet 1 tab PO Q6H fluoxetine 20 mg capsule 20 mg PO DAILY lamotrigine 100 mg tablet 100 mg PO DAILY metformin 500 mg tablet extended release 24 hr 500 mg PO .QHS mirtazapine 15 mg tablet 15 mg PO .QHS ondansetron HCl 4 mg tablet 4 mg PO Q6H PRN (Reason: nausea and vomiting) sulfamethoxazole-trimethoprim 800-160 mg tablet 1 tab PO Q12H Print Language: Cymro Instructions: Abdominal Pain (ED) Referrals: Asiya Gonzales MD [Primary Care Provider, Family Practice] - 1 week Alfonso Chowdary MD [Physician, General Surgery] Alfonso Cantrell MD [Physician, General Surgery]
[2024-11-03] MEDS: MORPHINE SULFATE 4 MG/ML VIAL IV (11:42)
[2024-11-03] MEDS: ONDANSETRON PF 4 MG/2 ML VIAL IV (11:42)
[2024-11-03 11:50] LABS: Basophils Percent Auto 0.2 % (0.2-2.0); Eosinophils Percent Auto 0.1 % (0.9-7.0); Hematocrit 34.8 % (36.0-48.0); Hemoglobin 11.9 g/dL (12.0-16.0); Immature Granulocytes Abs Auto 0.03 10^3/uL (0.00-0.03); Immature Granulocytes Pct Auto 0.2 % (0.0-0.5); Lymphocytes Absolute Auto 0.8 10^3/uL (1.2-3.8); Lymphocytes Percent Auto 6.2 % (20.5-60.0); Mean Corpuscular HGB Conc 34.2 g/dL (29.9-35.2); Mean Corpuscular Hemoglobin 28.8 pg (26.7-34.0); Mean Corpuscular Volume 84.3 fL (81.0-99.0); Mean Platelet Volume 10.7 fL (9.5-13.5); Monocytes Absolute Auto 0.3 10^3/uL (0.3-0.8); Monocytes Percent Auto 2.2 % (1.7-12.0); Neutrophils Absolute Auto 11.3 10^3/uL (1.4-6.5); Neutrophils Percent Auto 91.1 % (43.0-75.0); Platelet Count 387 10^3/uL (150-450); Red Blood Count 4.13 10^6/uL (4.20-5.40); Red Cell Distribution Width 13.4 % (11.0-15.0); White Blood Count 12.4 10^3/uL (4.0-11.0)
[2024-11-03 12:01] LABS: Alanine Aminotransferase 15 U/L (14-59); Albumin Globulin Ratio 0.9; Albumin Level 3.5 g/dL (3.4-5.0); Alkaline Phosphatase 121 U/L (46-116); Amylase 51 U/L (25-115); Anion Gap 15.6; Aspartate Amino Transferase 18 U/L (15-37); BUN Creatinine Ratio 14.1; Bilirubin Direct <0.1 mg/dL (0.0-0.2); Bilirubin Total 0.4 mg/dL (0.2-1.0); Calcium 9.1 mg/dL (8.5-10.1); Carbon Dioxide 25.1 mmol/L (21.0-32.0); Chloride 104 mmol/L (98-107); Estimated GFR (African America >60 (>=60 mL/min/1.73m^2); Estimated GFR (Non-African Ame >60 (>=60 mL/min/1.73m^2); Globulin 3.9 g/dL; Glucose 135 mg/dL (74-106); Potassium 3.7 mmol/L (3.5-5.1); Sodium 141 mmol/L (136-145); Total Protein 7.4 g/dL (6.4-8.2)
--- NOTE | 2024-11-03 12:40 | CT_ITS ---
The [address] [address] Patient Name: SYEDA DOLAN MRN: [id number] date: 1990 Sex: F Assigned Patient Location: ER Current Patient Location: ER Accession/Order Number: [id number] Exam Date: 11/03/2024 14:08 Report Date: 11/03/2024 14:11 At the request of: DIETER GARLAND MD Procedure: CT abdomen pelvis w con CT ABDOMEN AND PELVIS WITH INTRAVENOUS CONTRAST: CLINICAL HISTORY: Mid upper abdominal pain and vomiting since 3:00 AM today with diarrhea COMPARISON: CT abdomen and pelvis 05/20/2023 TECHNIQUE: Spiral images were obtained through the abdomen and pelvis following the administration of intravenous contrast. This CT exam was performed using one or more following dose reduction techniques: Automated exposure control, adjustment of the mA and/or kV according to patient size, or use of iterative reconstruction technique. FINDINGS: Lung Bases: [No acute findings.] Organs:Liver gallbladder portal vein pancreas spleen adrenal glands kidneys and aorta all appear unremarkable.[ GI: Small hiatal hernia. Distal stomach is grossly unremarkable. Small bowel appears nondilated. Appendix is normal. Colon is nondistended. No obstruction.[ Pelvis:[Uterus and urinary bladder appear unremarkable. No adnexal mass.] Peritoneum/Retroperitoneum:No free air or free fluid or lymphadenopathy.[ Abd wall/Bones:Abdominal wall demonstrate no acute findings. Osseous structures demonstrate degenerative change.[ CT/CT abdomen pelvis w con IMPRESSION: No acute intra-abdominal process. Impression dictated by: Benedicto Cormier Jr. DParagOParag 11/03/2024 2:11 PM Dictation Location: [employer] Electronically authenticated by: [id number] Y Date: 11/03/2024 14:11
[2024-11-03 12:44] LABS: HCG Quantitative <1 mIU/mL
[2024-11-03] MEDS: KETOROLAC TROMETHAMINE 30 MG/ML VIAL IVP (12:47)
[2024-11-03] MEDS: HYDROMORPHONE HCL 1 MG/ML CARTRIDGE IV (13:10)
[2024-11-03] MEDS: PROMETHAZINE HCL 12.5 MG in 0.9 % SODIUM CHLORIDE 50 ML 202 MG IV (14:15)
== END 2024-11-03 15:15 | disposition home or self-care (01) ==
PROVIDERS: Emergency Provider Emergency Medicine; PCP Family Medicine
DX: R10.13 Epigastric pain (principal); R11.2 Nausea with vomiting, unspecified
CPT/HCPCS: 36415; 74177; 76705; 80048; 80076; 82150; 83690; 84702; 84703; 85025; 93005; 96365; 96375; 99285; J1171; J1885; J2270; J2405; J2550; Q9967

== ENCOUNTER 2024-12-31 12:05 | Emergency (ER) | payer OTHER, SELFPAY ==
--- OUTSIDE RECORDS SUMMARY | 2024-09-22 05:45 | XMS_ITS ---
Author Organization [facility] Address [address] [place] [address] Care Team Providers Care Cancer Registry Manager Name Role Phone Sheree Wilson Primary Care Provider Danika Helton [phone] REASON FOR VISIT 3 month f/u Encounters Encounter Location Date Provider Diagnosis [facility] [address] [place] [address] 09/22/2024 Danika Helton Plan Of Treatment Next Appt Details Provider Name:Sheree day, 01/19/2025 10:15:00 AM, [address] [place], [address], Progress Notes * SYEDA DOLAN RDOB: [birth year] (34 yo F)Acc No.[id number]:09/22/2024 Behavioral Health Patient: Hermilo SYEDA RODRIGUEZ Appointment Provider: Jayleen Helton :1990 A ge:34 Y S ex:Female Date:09/22/2024 Address:[address] [place], [place] [id number] Pcp:Sheree Wilson Subjective: * Chief Complaints: * 1 . 3 month f/u. * Medical History: Objective: * Vitals: Assessment: Plan: * Treatment: * Images: * Electronic signature of RUSSELL Hernandez on 12/31/2024 at 12:12 PM EDT Sign off status: Pending * Appointment Provider: Jayleen Helton Date: 0 09/22/2024 Generated for Lamont linares/Mimi/Stepan on: 0 12/31/2024 12:12 PM EDT
[2024-12-31 12:09] VITALS: BP 146/75; PULSE 61; TEMP 36.6; O2SAT 100; BMI 42.8
--- OUTSIDE RECORDS SUMMARY | 2024-12-31 12:12 | XMS_ITS | Clinical Summary ---
Author Organization [facility] Address [id number] [place] [address] Care Team Providers Care Town Manager Name Role Phone Unavailable Primary Care Provider [...]
--- OUTSIDE RECORDS SUMMARY | 2024-12-31 12:12 | XMS_ITS | Clinical Summary ---
Author Organization [facility] Healthcare Address [address] [place] [address] Care Team Providers Care Market Intelligence Consultant Name Role Phone Asiya Gonzales MD Primary Care Provider [phone] Allergies No known active allergies Medications busPIRone [...] Take with meals 30 tablet 11 05/21/2024 6 Active Active Problems Problem Noted Date Diagnosed [...] on file Insurance [employer] Care Teams Market Intelligence Consultant Relationship Specialty Start Date End Date Asiya Gonzales MD PCP - General Family Medicine 10/30/22
--- OUTSIDE RECORDS SUMMARY | 2024-12-31 12:12 | XMS_ITS | Clinical Summary ---
Author Organization [facility] Address [address] [place] [address] Phone Care Team Providers Care Rn Lab Name Role Phone Unavailable Primary Care Provider [...] of 1 - Stand neda series) 1991 Hepatitis C Screening 02/29/2008 Hepatitis B Vaccines (1 of 3 - 19+ 3-dose series) 2009 Cervical Cancer Screening 2011 HPV/Cotest 2011 Pap Smear 2011 DTaP/Tdap/Td Vaccines (1 - Tdap) 02/29/2012 HPV Vaccines (1 - 3-dose sta ndard series) 2017 COVID-19 Vaccine ( - 2023-2 5 season) 2024 Influenza Vaccine (#1) 2025 Zoster Vaccines (1 of 2) 02/29/2040 [...]
--- OUTSIDE RECORDS SUMMARY | 2024-12-31 12:12 | XMS_ITS | Encounter Summary ---
Author Organization [facility] Address [address] [place] [address] Care Team Providers Care Summer Law Clerk Name Role Phone Asiya Gonzales MD Primary Care Provider [phone] Encounter Details Date Type Department Care Team (Late st Contact Info) Description 12/26/2022 [facility] [address] [address] Annalise Amanda PA [address] [place], [facility] Social History Tobacco Use Types Packs/Day Years [...] on filedocumented in this encounter Care Teams Summer Law Clerk Relationship Specialty Start Date End Date Asiya Gonzales MD PCP - General Family Medicine 10/30/22 documented as of this encounter
--- OUTSIDE RECORDS SUMMARY | 2024-12-31 12:12 | XMS_ITS | Patient Health Record ---
Author Organization [facility] Address [address] [place] [address] Care Team Providers Care Theatre Professor Name Role Phone Katie Sheree Primary Care Provider [phone] Danika Helton Unavailable [phone] Allergies No Known Allergies Reason For Referral No Information Medications Medication SIG (Take, Route, Frequency, Duration) Notes Start Date End Date Status Ziprasidone HCl 60 MG TAKE 1 CAPSULE BY MOUTH TWICE A DAY WITH FOOD; Duration: 30 Not-Taking lamoTRIgine 100 MG TAKE 2 TABLETS BY MOUTH DAILY; Duration: 90 Not-Taking Propranolol HCl 10 MG TAKE 1 TABLET BY MOUTH TWICE A DAY; Duration: 90 Not-Taking busPIRone HCl 15 MG TAKE 1 TABLET BY MOUTH TWICE A DAY; Duration: 90 Not-Taking lamoTRIgine 200 MG 1 tablet Orally Once a day; Duration: 30 days 10/01/2023 Active buPROPion HCl ER (XL) 150 MG 1 tablet in the morning Orally Once a day; Duration: 30 days new medication 12/22/2024 Active Social History Tobacco Use: Social History [...] tired or having little energy Nearly rachel Poor appetite or overeating More than half [...] Status W/U Status Risk Notes Problem Anxiety (04325143) Anxiety (F41.9) Active confirmed Problem Body mass index 40+ - severely obese (337338829) BMI 45.0-49.9, adult (Z68.42) Active confirmed Problem Akathisia (603916218) Akathisia (G25.71) Active confirmed Problem Mixed bipolar affective disorder, moderate (490936148) Bipolar mixed affective disorder, moderate (F31.62) Active confirmed Vital Signs Heart Rate 96 /min 12/22/2024 Oximetry 100 % 12/22/2024 Blood pressure diastolic 82 mm Hg 12/22/2024 Height 65 in 12/22/2024 Blood pressure systolic 161 mm Hg 12/22/2024 Weight 285.5 lbs 12/22/2024 BMI 47.5 kg/m2 12/22/2024 Encounters Encounter Location Date Provider Diagnosis [facility] [address] [place] [address] 06/09/2024 [facility] Bipolar mixed affective disorder, moderate F31.62 and Anxiety F41.9 [facility] [address] [place] [address] 07/09/2024 [facility] [address] [place] [address] 07/16/2024 [facility] [address] [place] [address] 08/20/2024 [place] [address] [place] [address] 09/21/2024 Danika Helton Bipolar mixed affective disorder, moderate F31.62 [facility] [address] [place] [address] 09/23/2024 Danika Helton [facility] [place] [address] 11/16/2024 Sheree Wilson Bipolar mixed affective disorder, moderate F31.62 [facility] [address] [place] [address] 12/22/2024 Sheree Wilson Bipolar mixed affective disorder, moderate F31.62 and Anxiety F41.9 [facility] [address] [place] [address] 03/27/2024 Danika Helton Anxiety F41.9 and Bipolar mixed affective disorder, moderate F31.62 [facility] [address] [place] [address] 08/11/2024 Danika Helton Bipolar mixed affective disorder, moderate F31.62 and Anxiety F41.9 [facility] [address] [place] [address] 04/24/2024 Danika Helton Bipolar mixed affective disorder, moderate F31.62 and Anxiety F41.9 [facility] [address] [place] [address] 06/25/2024 Danika Helton Bipolar mixed affective disorder, moderate F31.62 and Anxiety F41.9 [facility] [address] [place] [address] 01/01/2024 Danika Helton Bipolar mixed affective disorder, moderate F31.62 and Anxiety F41.9 Assessments Encounter Date Diagnosis (ICD Code) Assessment [...] to the start/continuation of the treatment. 08/11/2024 Anxiety (ICD-10 - F41.9) 12/22/2024 Bipolar mixed affective disorder, moderate (ICD-10 - F31.62) Patient will continue current treatment plan. Patient verbally acknowledges understanding instructions including medication education and has no further questions comments or concerns at this time. . Follow in 1 Month . Recommended treatment for Bipolar disorder includes FDA [...] slowness of movement or jerking of muscles. . Stable . The patient verbalizes understanding with all questions answered thoroughly and is in agreement with treatment plan. . Continue current treatment. Call for problems . GOALS: . Maintain medication regimen . _Improve mood stability . _Improve anxiety control . _Improve social and interpersonal functioning . Patient/Guardian will call sooner if symptoms worsen. Patient understands to go to ER if needed if symptoms become severe. . Crisis Intervention plan was discussed and agreed upon. Patient/Guardian will call 911 in case of emergency. Emergency contact information was provided to the patient/guardian. . Pharmacological management: . Alternative medication plans were discussed with the patient/guardian. All relevant side effects and potential adverse effects were discussed with the patient/guardian. Standard cautions and potential benefits were discussed. Patient/Guardian consented to the start/continuation of the treatment. 09/21/2024 Bipolar mixed affective disorder, moderate (ICD-10 - F31.62) 11/16/2024 Bipolar mixed affective disorder, moderate (ICD-10 - F31.62) 06/09/2024 Bipolar mixed affective disorder, moderate (ICD-10 [...] the patient/guardian. 06/09/2024 Anxiety (ICD-10 - F41.9) 12/22/2024 Anxiety (ICD-10 - F41.9) Plan Of Treatment Next Appt Details Provider Name:Sheree day, 01/19/2025 10:15:00 AM, [facility] [place], [address], Insurance Providers Payer Name Payer Address Payer Phone Subscriber Number Group Number Insured Name Patient Relationship to Insured Coverage Start Date Coverage End Date [employer] [address] [address] [place] [phone] [id number] SYEDA DOLAN Self - patient is the insured Medical (General) History Medical History History ICD Code bipolar Surgical History Surgery Date(Month/Year) section Hospitalization History Reason Date(Month/Year) see surgical
--- OUTSIDE RECORDS SUMMARY | 2024-12-31 12:12 | XMS_ITS | Encounter Summary ---
Author Organization [facility] Address [address] [place] [id number] Phone Care Team Providers Care Varitype Operator Name Role Phone Unavailable Primary Care Provider Unavailabl e Reason for Referral * Consultation (Routine) - Pending Review Specialty Diagnoses / Procedures Referred By Chavez chang Referred To Contact Bariatrics / General Surgery Diagnoses Morbid obesity (Multi) [place] [address] [facility] [place] [address] Phone: tel: fax: Referral ID Status Reason Start Date Expiration Date Visits Requested Visits Authorized [id number] Pending Review Specialty Services Required 07/16/2024 07/16/2025 1 1 Encounter Details Date Type Department Care Team (Latest Contact Info) Description 07/16/2024 Transcribe Orders [facility] [address] [facility] [address] [place] [address] [place] [address] [facility] [place], [place] [id number] Morbid obesity (Multi) Social History Tobacco Use [...]
--- OUTSIDE RECORDS SUMMARY | 2024-12-31 12:15 | XMS_ITS | CCD ---
Author Organization [facility] Care Team Providers Care Library Technician Name Role Phone Priyanka Rosas Primary Care Provider Anabel Melgar Attending Unavailable Craig Harris Unavailable Jimmy Roque Unavailable EYAD ., DR BROWN Attending Unavailable EYAD ., DR BROWN Admitting Unavailable EYAD ., DR BROWN Consulting Unavailable EYAD ., DR BROWN Admitting Unavailable EYAD ., DR BROWN Consulting Unavailable EYAD ., DR BROWN Attending Unavailable OLGA WALKER Consulting Unavailable Steven DAMON, Craig Primary Care Provider [phone] Craig Harris MD Primary Care Provider GAGANDEEP MORRELL Referring Unavailable STEVEN, CRAIG Primary Care Unavailable GAGANDEEP MORRELL Referring Unavailable STEVEN, CRAIG Primary Care Unavailable ROC NAVARRETE Referring Unavailable HARRIS, CRAIG Primary Care Unavailable ROC HERNANDEZ Referring Unavailable STEVEN, CRAIG Primary Care Unavailable GAGANDEEP MORRELL Referring Unavailable STEVEN, CRAIG Primary Care Unavailable GAGANDEEP MORRELL Referring Unavailable STEVEN, CRAIG Primary Care Unavailable GAGANDEEP MORRELL Admitting Unavailable STEVEN, CRAIG Primary Care Unavailable GAGANDEEP MORRELL Attending Unavailable CRAIG HARRIS Primary Care Unavailable GAGANDEEP MORRELL Attending Unavailable GAGANDEEP MORRELL Admitting Unavailable Allergies Allergy Classification Reported Allergen(s) Allergy Type Date of Onset Reaction(s) Facility (1 source) No Known Medication Allergies; Translations: [No Known Medication Allergies] Propensity to adverse reactions (disorder) [facility] Medications Current Medications Medication Drug Class(es) Dates Sig (Normalized) Sig (Original) acetaminophen 500 mg oral tablet (2 sources) Start: 07-23-2024 End: 08-22-2024 take 2 tablets by mouth every six hours as needed for pain acetaminophen (TYLENOL) 500 MG tablet Take 2 tablets by mouth every 6 hours as needed for Pain 60 tablet 07/23/2024 08/22/2024 Active Start: 07-23-2024 1,000 mg, Oral , EVERY 6 HOURS, First dose on Nimisha 07/23/24 at 1230, Until Discontinued, Maximum dose of acetaminophen is 4000mg from all sources in 24 hours. Alternate ibuprofen and acetaminophen every 3 hours., Post-op 200 actuat albuterol 0.09 mg/actuat metered dose [...] by mouth once daily Multiple Vitamins-Minerals (THERAPEUTIC MULTIVITAMIN-TOOL RADIAL DRILL PRESS SET UP OPERATOR ALS) tablet Take 1 tablet by mouth [...] 04-14-2020 benzonatate (TESSALON) capsu le 200 mg 1 ml diphenhydrAMINE hydrochloride 50 mg/ml cartridge (1 source) Histamine-1 Receptor Antagonist Start: 02-12-2024 End: 02-13-2024 12.5 mg, IntraVENous, ONCE PRN, 1 dose, Starting on Sat02/12/24 at 1603, Until Nimisha 02/13/24 at 1603, Itching, PACU only docusate sodium 50 mg / sennosides, [facility] 8.6 mg oral tablet (2 sources) Start: 07-23-2024 take 8.6-50 mg by mouth once as needed senna-docusate (SENOKOT S) 8.6-50 MG per tablet Take 2 tablets by mouth nightly as needed for Constipation 90 tablet 07/23/2024 Active Start: 07-23-2024 [id number] 0.3 ml EPINEPHrine 1 mg/ml auto-injector (3 [...] 25 mcg FLUoxetine 40 mg oral capsule (14 sources) Serotonin Reuptake Inhibitor Start: 10-14-2023 End: 06-18-2024 take 1 capsule by mouth once daily FLUoxetine (PROZAC) 40 MG capsule Take 1 capsule by mouth daily 12/09/2023 Active Start: 10-14-2023 take 1 mg by mouth once daily Fluoxetine Active MG PO Daily October 14, 2023 12:00am Start: 08-05-2023 End: 08-06-2023 take 1 capsule by mouth once daily Fluoxetine (Prozac) 40 mg capsule Discontinued 40 MG PO Daily August 04, 2023 11:00pm August 06, 2023 9:53am Start: 04-23-2022 FLUoxetine (RI Ozac) 20 MG capsule 04/23/2022 Active take 1 capsule by mo [facility] every twenty-four hours PROzac 40 MG 1 capsule Orally Once a day Active 1 ml hydrALAZINE hydrochloride 20 mg/ml injection (1 source) Arteriolar Vasodilator Start: 10-23-2019 hydrALAZINE (APRESOLINE) injection 5 mg HYDROmorphone (DILAUDID) injection 0.5 mg (1 source) Start: 07-23-2024 HYDROmorphone (DILAUDID) injection 0.5 mg labetalol (NORMODYNE;TRANDATE) injection 10 mg (1 source) Start: 02-12-2024 labetalol (NORMODYNE;TRANDATE) injection 10 mg magnesium hydroxide 80 mg/ml oral suspension (1 source) Start: 07-23-2024 metFORMIN hydrochloride 500 mg oral tablet (9 sources) Biguanide Start: 07-23-2024 Start: 06-18-2024 take 1 tablet by lc every twenty-four hours Metformin 500 mg tablet extended release 24 hr Active MG PO June 18, 2024 12:00am Start: 01-17-2024 End: 05-16-2024 take 1 tablet by mouth every twenty-four hours at mealtime metFORMIN XR (Glucophage-XR) 500 MG 24 hr tablet Indications: Female infertility , Insulin resistance TAKE 1 TABLET (500 MG) BY MOUTH IN THE EVENING. TAKE WITH MEALS. DO NOT CRUSH, CHEW, OR SPLIT. 30 tablet 3 01/17/2024 05/16/2024 Active Start: 09-18-2022 metFORMIN XR ( Glucophage-XR) 500 MG 24 hr tablet 1 (one) time each day at the same time. 09/18/2022 Active take 1 tablet by lc th twice daily at mealtime metFORMIN (GLUCOPHAGE) 500 MG tablet Take 1 tablet by mouth 2 times daily (with meals) Active 2 ml metoclopramide 5 mg/ml prefilled syringe (2 sources) Dopamine-2 Receptor Antagonist Start: 02-12-2024 End: 02-13-2024 10 mg, IntraVENous, ONCE PRN, 1 dose, [...] 1603, Anxiety, PACU only Multiple Vitamins-Minerals (THERAPEUTIC MULTIVITAMIN-TOOL RADIAL DRILL PRESS SET UP OPERATOR ALS) tablet (9 sources) take 1 tablet by mouth once daily Multiple Vitamins-Minerals (THERAPEUTIC MULTIVITAMIN-MINERAL S) tablet Take 1 tablet by mouth daily Suspended take 1 tablet by mouth once patel [...] IntraVENous, ONCE PRN, 1 dose, Starting on 02/12/24 [...] 10-23-2019 ondansetron (ZOFRAN) injecti on 4 mg ondansetron (ZOFRAN-ODT) disintegrating tablet 4 mg (1 source) Start: 07-23-2024 ondansetron (ZOFRAN-ODT) disintegrating tablet 4 mg oxyCODONE hydrochloride 5 mg oral tablet (3 sources) Opioid Agonist Start: 07-23-2024 End: 07-29-2024 take 1 tablet by mouth every six hours as needed for pain oxyCODONE (ROXICODONE) 5 MG immediate release tablet Indications: Post-operative state Take 1 tablet by mouth every 6 hours as needed for Pain for up to 5 days. Intended supply: 5 days. Take lowest dose possible to manage pain Max Daily Amount: 20 mg 15 tablet 07/24/2024 07/29/2024 Active Start: 07-23-2024 oxyCODONE (CHRISSY ICODONE) immediate release tablet 5 mg phentermine hydrochloride 37.5 mg oral tablet (3 sources) Sympathomimetic Amine Anorectic Start: 08-07-2022 take 1 tablet by mouth every twenty-four hours Adipex-P 37.5 MG 1 tablet Orally Once a day for 30 days Jul, Active Start: 07-10-2022 take 1 tablet by lc th every twenty-four hours Adipex-P 37.5 MG 1 tablet Orally Once a day for 30 days Jun, Active prochlorperazine 5 mg/ml injectable solution (1 source) Phenothiazine Start: 07-23-2024 QUEtiapine 100 mg oral tablet (2 sources) Atypical Antipsychotic take 1 tablet by mouth every twenty-four hours QUEtiapine Fumarate 100 MG 1 tablet at bedtime Orally Once a day Active risperiDONE 2 mg oral tablet (1 source) Atypical Antipsychotic take 1 tablet by mouth twice daily risperiDONE (RISPERDAL) 2 MG tablet Take 2 mg by mouth 2 times daily 0 Active sertraline 50 mg oral tablet (1 source) Serotonin Reuptake Inhibitor Start: 06-18-2024 take 1 tablet by mouth once daily Sertraline 50 mg tablet Active 50 MG PO Daily June 18, 2024 12:00am sulfamethoxazole 800 mg / trimethoprim 160 mg oral tablet (1 source) Dihydrofolate Reductase Inhibitor Antibacterial, Sulfonamide Antimicrobial Start: 02-12-2024 End: 02-19-2024 take 1 tablet by mouth twice daily sulfamethoxazole -trimethoprim (BACTRIM DS;SEPTRA DS) 800-160 MG per tablet Take 1 tablet by mouth 2 times daily for 7 days 14 tablet 02/12/2024 02/19/2024 Active Tirzepatide (Weight Loss) (1 source) Start: 06-18-2024 Tirzepatide (Weight Loss) (Zepbound) 2.5 mg/0.5 mL pen injector Active 2.5 MG SUBCUT every week 2 June 18, 2024 12:00am for 4 weeks then increase to 5 mg once weekly if tolerating well. venlafaxine 100 mg oral tablet (5 sources) [...] / oxyCODONE hydrochloride 5 mg oral tablet (5 sources) Opioid Agonist Start: 07-23-2024 End: 07-23-2024 take 1 tablet by mouth every twenty-four hours as needed 2 tablet, Oral, ONCE PRN, 1 dose, Starting on Nimisha 07/23/24 at 0849, Until Nimisha 07/23/24 at 1034, Pain Severe (7-10), Maximum dose of acetaminophen is 4000 mg from all sources in 24 hours., PACU only Start: 02-12-2024 End: 02-13-2024 take 1 tablet [...] 4 tablets 12 tablet 02/12/2024 02/15/2024 Active amoxicillin 500 mg oral capsule (2 sources) Penicillin-class Antibacterial Start: 08-22-2023 End: 10-14-2023 take 1 capsule by mouth three times daily Amoxicillin 500 mg capsule Discontinued 500 MG PO Three times daily 30 11August 21, 2023 11:00pm October 14, 2023 9:51am 24 hr buPROPion hydrochloride 150 mg extended release oral tablet (2 sources) Aminoketone Start: 10-14-2023 End: 06-18-2024 take 1 tablet by mouth once daily in the morning Bupropion Hcl (Wellbutrin Xl) 150 mg tablet extended release 24 hr Discontinued 150 MG PO Every morning October 13, 2023 11:00pm June 18, 2024 8:31am Start: 10-14-2023 End: 06-18-2024 take 1 tablet by mouth once daily in the morning Bupropion Hcl (Wellbutrin Xl) 300 mg tablet extended release 24 hr Discontinued 300 MG PO Every morning October 13, 2023 11:00pm June 18, 2024 8:31am busPIRone hydrochloride 15 mg oral tablet (9 sources) Start: 08-05-2023 End: 08-06-2023 take 1 tablet by mouth twice daily Buspirone 15 mg tablet Discontinued 15 MG PO Twice daily August 04, 2023 11:00pm August 06, 2023 9:53am busPIRone (Buspa r) 15 MG tablet every 12 (twelve) hours. Active take 1 tablet by [facility] every twelve hours busPIRone HCl 15 MG 1 tablet Orally Twic e a day for 30 days Active calcium chloride 0.0014 meq/ ml / potassium chloride 0.004 meq/ml / sodium chloride 0.103 meq/ml / sodium lactate 0.028 meq/ml injectable solution (2 sources) Start: 07-23-2024 End: 07-24-2024 IntraVENous, at 50 mL/hr, CONTINUOUS, Starting on Sat07/23/24 at 1230, Post-op Start: 02-12-2024 IntraVENous, a t 125 mL/hr, CONTINUOUS, Starting on Sat02/12/24 at 1300, Pre-op (day of surgery) cariprazine 1.5 mg oral capsule (4 sources) Atypical Antipsychotic Start: 08-06-2023 End: 10-14-2023 take 1 capsule by mouth once daily Cariprazine (Vraylar) 1.5 mg capsule Discontinued 1.5 MG PO Daily August 05, 2023 11:00pm October 14, 2023 9:51am cephalexin 500 mg oral capsule (6 sources) Cephalosporin Antibacterial Start: 08-05-2023 End: 08-06-2023 take 1 capsule by mouth three times daily Cephalexin 500 mg capsule Discontinued 500 MG PO Three times daily August 04, 2023 11:00pm August 06, 2023 9:53am take 1 capsule by [facility] every eight hours Cephalexin 500 MG 1 tablet three times a day Active 1 ml dexamethasone phosphate 10 mg/ml injection (1 source) Corticosteroid Start: 04-14-2020 End: 04-14-2020 dexamethasone (PF) (DECADRON) injection 6 mg doxycycline hyclate 100 mg oral tablet (2 sources) Tetracycline-class Drug Start: 07-23-2024 End: 07-30-2024 take 100 mg by mouth twice daily 100 mg, Oral, 2 times daily, First dose on Sat07/24/24 at 0900, Until Discontinued, Antimicrobial Indications: Surgical Prophylaxis, This medication can interact with tube feedings (TF)- obtain MD order to manage. Recommend holding TF for 1 h before and 2 h after dose. Take 1 h before or 2 h after dairy, calcium, iron, magnesium, aluminum or zinc. fluconazole 150 mg oral tablet (3 sources) Azole Antifungal Start: 07-23-2024 End: 07-24-2024 take 1 tablet by mouth once fluconazole (DIFLUCAN) 150 MG tablet Take 1 tablet by mouth once for 1 dose 1 tablet 07/24/2024 07/24/2024 Start: 01-17-2023 take 1 tablet by [facility] once daily in the morning fluconazole (Diflucan) 100 MG tablet Indications: Bartholin's gland cyst Take 1 tablet (100 mg) by mouth in the morning. Take daily for 1 week.. 7 tablet 01/17/2023 Active gabapentin 100 mg oral capsule (4 sources) Anti-epileptic Agent Start: 07-23-2024 take 200 mg by mouth three times daily 200 mg, Oral, 3 TIMES DAILY, First dose (after last modification) on Sat07/23/24 at 2100, Until Discontinued Start: 07-23-2024 End: 08-22-2024 gabapentin (NEURONTIN) 100 M G capsule Take 1 capsule by mouth 3 times daily for 30 days. Intended supply: 90 days 90 capsule 07/23/2024 08/22/2024 Active 1 ml HYDROmorphone hydrochloride 1 mg/ml cartridge (2 sources) Opioid Agonist Start: 07-23-2024 End: 07-23-2024 0.5 mg, IntraVENous, EVERY 5 MIN PRN, 4 doses, Starting on Sat07/23/24 at 0849, Until Sat07/23/24 at 1201, Pain Severe (7-10), Phase I - Initial therapy for severe pain., PACU only Start: 02-12-2024 0.5 mg, IntraV ENous, EVERY 5 MIN PRN, 4 doses, Starting on Sat02/12/24 at 1603, Until Discontinued, Pain Severe (7-10), Phase I - Initial therapy for severe pain., PACU only ibuprofen 600 mg oral tablet (3 sources) Nonsteroidal Anti-inflammatory Drug Start: 07-23-2024 600 mg, Oral, DARRYN RY 6 HOURS, First dose on Sat07/24/24 at 1530, Until Discontinued, Notify pharmacy to coordinate scheduled Tylenol and ibuprofen alternating every 3 hours, Post-op Start: 02-12-2024 take 1 tablet by lc th every six hours as needed for pain ibuprofen (ADVIL;MOTRIN) 600 MG tablet Take 1 tablet by mouth every 6 hours as needed for Pain 30 tablet 1 02/12/2024 Active iopamidol (ISOVUE-370) 76 % injection 75 mL (1 source) Start: 07-21-2024 End: 07-21-2024 take 1 dose intravenously once 75 mL, IntraVENous, IMG ONCE PRN, 1 dose, Starting on Sat07/21/24 at 1537, Until Sat07/21/24 at 1600, Other lamoTRIgine 25 mg oral tablet (17 sources) Mood Stabilizer, Anti-epilept ic Agent Start: 10-14-2023 take 1 tablet by mouth once daily Lamotrigine 200 mg tablet Active 200 MG PO Daily October 13, 2023 11:00pm Start: 08-06-2023 End: 10-14-2023 take 1 tablet by mouth twice daily Lamotrigine (Lamictal) 25 mg tablet Discontinued 25 MG PO Twice daily August 05, 2023 11:00pm October 14, 2023 9:51am Start: 07-11-2023 take 25 mg by mouth once daily 25 mg, Oral, DAILY, First dose on Sat07/24/24 at 0900, Until Discontinued Start: 04-17-2019 take 1 tablet by lc th once daily lamoTRIgine (LAMICTAL) 100 MG tablet Take 100 mg by mouth daily 0 04/17/2019 Active lurasidone hydrochloride 20 mg oral tablet (2 sources) Atypical Antipsychotic End: 10-23-2019 take 1 tablet by mouth once daily lurasidone (LATUDA) 20 MG TABS tablet Take 20 mg by mouth daily 0 10/23/2019 Discontinued (DISCONTINUED BY ANOTHER CLINICIAN) melatonin 3 mg oral tablet (1 source) Start: 07-24-2024 take 3 mg by mouth once daily as needed 3 mg, Oral, NIGHTLY PRN, Starting on Sat07/24/24 at 2116, Until Discontinued, Sleep meperidine hydrochloride 50 mg/ml injectable solution (1 source) Opioid Agonist Start: 02-12-2024 12.5 mg, IntraVENous, EVERY 5 MIN PRN, 2 doses, Starting on Sat02/12/24 at 1603, Until Discontinued, Shivering, , May give every 5 minutes to max of 25mg., PACU only methylPREDNISolone 4 mg oral tablet (2 sources) Corticosteroid Start: 08-22-2023 End: 10-14-2023 take 1 tablet by mouth once Methylprednisolone (Medrol (Lupe)) 4 mg tablets,dose pack Discontinued 0 PO per package directions August 21, 2023 11:00pm October 14, 2023 10:15am PO PER PKG DIR for 6 days 1 ml morphine sulfate 2 mg/ml cartridge (1 source) Opioid Agonist Start: 02-12-2024 2 mg, IntraVENous, EVERY 5 MIN PRN, 10 doses, Starting on Sat02/12/24 at 1603, Until Discontinued, Pain Moderate (4-6), Phase I - Initial therapy for moderate pain., PACU only naltrexone hydrochloride 50 mg oral tablet (1 source) Opioid Antagonist Start: 10-14-2023 End: 06-18-2024 take 1 tablet by mouth twice daily Naltrexone 50 mg tablet Discontinued 25 MG PO Twice daily October 13, 2023 11:00pm June 18, 2024 8:32am phenazopyridine hydrochloride 100 mg oral tablet (1 source) Start: 07-24-2024 take 200 mg by mouth three times daily at mealtime 200 mg, Oral, 3 TIMES DAILY WITH MEALS, First dose on Sat07/24/24 at 2145, Until Discontinued, Take with food. May cause discoloration of urine. simethicone 80 mg chewable tablet (1 source) Start: 07-24-2024 take 80 mg by mouth every six hours as needed 80 mg, Oral, EVERY 6 HOURS PRN, Starting on Sat07/24/24 at 2116, Until Discontinued, Cramping 1000 ml sodium chloride 9 mg/ml injection (11 sources) Start: 07-23-2024 5-40 mL, IntraVENous, EVERY 12 HOURS SCHEDULED (2 times per day), First dose on Sat07/23/24 at 2100, Until Discontinued, For Line Patency: [...] Midline or Central Line = 20 mL/lumen, Post-op Start: 07-23-2024 Start: 07-23-2024 End: 07-24-2024 500 mL (3.64 mL/kg), IntraVENous, at 491.8 mL/hr, Administer over 61 Minutes, ONCE, On Sat07/24/24 at 2200, For 1 dose Start: 02-12-2024 5-40 mL, Intra VENous, EVERY [...] PACU only Start: 02-12-2024 take 20 mL intravenously every hour IntraVENous, at 5-250 mL/hr, PRN, [...] Central Line = 20 mL/lumen, PACU only tamsulosin hydrochloride 0.4 mg oral capsule (1 source) alpha-Adrenergic Alvarado Start: 07-24-2024 take 0.4 mg by mouth once daily at mealtime 0.4 mg, Oral, DAILY, First dose on Sat07/24/24 at 1000, Until Discontinued, Do not crush or break. Give 30 minutes after a full meal to limit risk of orthostatic hypotension/falls. Problems Active Problems Problem Classification Problem Date Documented Date Episodic/Chronic Abdominal pain (1 source) Unspecified abdominal pain Episodic Administrative/social admission (8 sources) Patient encounter status; Translations: [Exercise counseling] 10-14-2023 Episodic Anxiety disorders (5 sources) Mixed anxiety and depressive disorder; Translations: [Other specified anxiety disorders] 08-05-2023 Chronic Calculus of urinary tract (2 sources) Kidney stone; Translations: [Calculus of kidney] 06-16-2024 Episodic Deficiency and other anemia (2 sources) Anemia due to blood loss; Translations: [Iron deficiency anemia secondary to blood loss (chronic)] Onset: 07-25-2024 07-25-2024 Chronic Essential hypertension (9 sources) Essential hypertension; Translations: [Essential (primary) hypertension] Onset: 07-24-2019 07-24-2019 Chronic Genitourinary symptoms and ill-defined conditions (1 source) Unspecified symptoms and signs involving the genitourinary system Episodic Inflammatory diseases of female pelvic organs (16 sources) Abscess of Bartholin's gland; Translations: [Abscess of Bartholin's gland] Onset: 02-06-2024 02-12-2024 Episodic Mood disorders (20 sources) Depressive disorder; Translations: [Bipolar II disorder] Onset: 07-24-2019 07-24-2019 Chronic Other disorders of stomach and duodenum (6 sources) Indigestion; Translations: [Functional dyspepsia] 11-01-2019 Episodic Other endocrine disorders (6 sources) Polycystic ovarian syndrome; Translations: [Polycystic ovaries] Onset: 09-20-2022 Chronic Other endocrine disorders (5 sources) Polycystic ovary syndrome; Translations: [Polycystic ovarian syndrome] Onset: 12-26-2022 08-05-2023 Chronic Other lower respiratory disease (1 source) Snoring; Translations: [Snoring] Episodic Other nutritional; endocrine; and metabolic disorders (9 sources) Morbid obesity; Translations: [Morbid (severe) obesity due to excess calories] 08-05-2023 Chronic Other nutritional; endocrine; and metabolic disorders (15 sources) Body mass index 40+ - severely obese; Translations: [Body mass index (BMI) 50.0-59.9, adult] Onset: 07-24-2019 07-24-2019 Chronic Other nutritional; endocrine; and metabolic disorders (3 sources) Morbid (severe) obesity due to excess calories; Translations: [Morbid obesity] Chronic Other nutritional; endocrine; and metabolic disorders (4 sources) Body mass index (BMI) 50.0-59.9, adult; Translations: [Body Mass Index 50.0-59.9, adult] 08-06-2023 Chronic Other nutritional; endocrine; and metabolic disorders (2 sources) Severe obesity; Translations: [Class 3 severe obesity with body mass index (BMI) of 50.0 to 59.9 in adult] 06-18-2024 Chronic Other nutritional; endocrine; and metabolic disorders (1 source) Abnormal weight gain; Translations: [Abnormal weight gain] 06-16-2024 Episodic Other nutritional; endocrine; and metabolic disorders (1 source) Abnormal weight gain; Translations: [Abnormal weight gain] 06-18-2024 Episodic Other upper respiratory infections (6 sources) Sore throat symptom; Translations: [Acute pharyngitis, unspecified] 08-22-2023 Episodic Pneumonia (except that caused by tuberculosis or sexually transmitted disease) (1 source) Pneumonia due to other virus not elsewhere classified; Translations: [Pneumonia due to COVID-19 virus] Episodic Residual codes; unclassified (2 sources) Postoperative state; Translations: [Other specified postprocedural states] 02-12-2024 Episodic Residual codes; unclassified (1 source) Other specified postprocedural states; Translations: [Other specified postprocedural states] Onset: 07-23-2024 Episodic Unclassified (1 source) No additional problems on file Unclassified (1 source) Patient encounter status; Translations: [Encounter for screening for other viral diseases] Past or Other Problems Problem Classification Problem Date Documented Da te Episodic/Chronic Other lower respiratory disease (3 sources) Other forms of dyspnea; Translations: [Other forms of dyspnea] Onset: 07-29-2023 Episodic Results Test Name Value Interpretation Reference Range Facility Basic Metabolic Panel 07-11 Anion gap [Moles/Vol] 8 mmol/L Low 9 - 17 mmol/L [facility] Calcium [Mass/Vol] 8.3 mg/dL Low 8.6 - 10. 4 mg/dL [facility] Chloride [Moles/Vol] 108 mmol/L High 98 - 10 7 mmol/L [facility] CO2 [Moles/Vol] 24 mmol/L 20 - 31 mmol/L [facility] Creatinine [Mass/Vol] 0.7 mg/dL 0.5 - 0.9 mg/dL [facility] Est, Glom Filt Rate - [facility] Comment on above: These results are not intended for use in patients <18 years of age. eGFR results are calculated without a race factor using the 2020 CKD-EPI equation. Careful clinical correlation is recommended, particularly when comparing to results calculated using previous equations. The CKD-EPI equation is less accurate in patients with extremes of muscle mass, extra-renal metabolism of creatine, excessive creatine ingestion, or following therapy that affects renal tubular secretion. Glucose [Mass/Vol] 102 mg/dL High 70 - 99 mg/dL [facility] Interpretation and review of laboratory results Abnormal [facility] Potassium [Moles/Vol] 3.9 mmol/L 3.7 - 5.3 mmol/L [facility] Sodium [Moles/Vol] 140 mmol/L 135 - 144 mmol/L [facility] Urea nitrogen [Mass/Vol] 8 mg/dL 6 - 20 mg/dL [facility] Basic Metabolic Profon 07-25 Anion gap [Moles/Vol] 8 mmol/L Low 9-17 [facility] Comment on above: Performed By: #### B CEDRICK, CBC #### [place] [address] Manufacturing Area Manager: Farhan Oconnor MD Calcium [Mass/Vol] 8.3 mg/dL Low 8.6-10.4 [facility] Comment on above: Performed By: #### B MP, CBC #### [place] [id number] Manufacturing Area Manager: Farhan Oconnor MD Chloride [Moles/Vol] 108 mmol/L High 98-107 [facility] Comment on above: Performed By: #### B MP, CBC #### [place] [address] Manufacturing Area Manager: Farhan Oconnor MD CO2 [Moles/Vol] 24 mmol/L Normal 20-31 [facility] Comment on above: Performed By: #### B MP, CBC #### [place] [address] Manufacturing Area Manager: Farhan Oconnor MD Creatinine [Mass/Vol] 0.7 mg/dL Normal 0.5-0.9 [facility] Comment on above: Performed By: #### B MP, CBC #### [facility] [id number] [place] [address] Manufacturing Area Manager: Farhan Oconnor MD GFR/1.73 sq M.predicted among non-blacks MDRD (S/P/Bld) [Vol rate/Area] mL/min/{1.73_m2} Normal >60 [facility] Comment on above: Result Comment: These results are not intended for use in patients <18 years of age. eGFR results are calculated without a race factor using the 2020 CKD-EPI equation. Careful clinical correlation is recommended, particularly when comparing to results calculated using previous equations. The CKD-EPI equation is less accurate in patients with extremes of muscle mass, extra-renal metabolism of creatine, excessive creatine ingestion, or following therapy that affects renal tubular secretion. Performed By: #### B CEDRICK, CBC #### [place] [address] Manufacturing Area Manager: Farhan Oconnor MD Glucose [Mass/Vol] 102 mg/dL High 70-99 [facility] Comment on above: Performed By: #### B MP, CBC #### [place] [id number] [place] [address] Manufacturing Area Manager: Farhan Oconnor MD Potassium [Moles/Vol] 3.9 mmol/L Normal 3.7-5.3 [facility] Comment on above: Performed By: #### B MP, CBC #### [facility] [address] [place] [address] Manufacturing Area Manager: Farhan Oconnor MD Sodium [Moles/Vol] 140 mmol/L Normal 135-144 [facility] Comment on above: Performed By: #### B MP, CBC #### [id number] [place], [place] [id number] Manufacturing Area Manager: Farhan Oconnor MD Urea nitrogen [Mass/Vol] 8 mg/dL Normal 6-20 [facility] Comment on above: Performed By: #### B MP, CBC #### [place] [id number] [place] [address] Manufacturing Area Manager: Farhan Oconnor MD CBCon 07-25-2024 Erythrocyte distribution width (RBC) [Ratio] 13.2 % 12.5 - 15.4 % [facility] Hematocrit (Bld) [Volume fraction] 24.7 % Low 36 - 46 % [facility] Hemoglobin (Bld) [Mass/Vol] 8.3 g/dL Low 12.0 - 16.0 g/dL [facility] Interpretation and review of laboratory results Abnormal [facility] MCH (RBC) [Entitic mass] 31.4 pg 26 - 34 pg [facility] MCHC (RBC) [Mass/Vol] 33.7 g/dL 31 - 3 7 g/dL [facility] MCV (RBC) [Entitic vol] 93.2 fL 80 - 100 fL [facility] Platelet mean volume (Bld) [Entitic vol] 8.5 fL 6.0 - 12.0 fL [facility] Platelets (Bld) [#/Vol] 292 10*3/uL [facility] RBC (Bld) [#/Vol] 2.65 10*6/uL Low 4.0 - 5.2 m/uL [facility] WBC other (Bld) [#/Vol] 7.2 B on [facility] Erythrocyte distribution width (RBC) [Ratio] 13.2 % Normal 12.5-15.4 [facility] Comment on above: Performed By: #### B MP, CBC #### [facility] [address] [place] [address] Manufacturing Area Manager: Farhan Oconnor MD Hematocrit (Bld) [Volume fraction] 24.7 % Low 36-46 [facility] Comment on above: Performed By: #### B MP, CBC #### [place] [id number] Manufacturing Area Manager: Farhan Oconnor MD Hemoglobin (Bld) [Mass/Vol] 8.3 g/dL Low 12.0-16.0 [facility] Comment on above: Performed By: #### B MP, CBC #### [place] [address] Manufacturing Area Manager: Farhan Oconnor MD MCH (RBC) [Entitic mass] 31.4 pg Normal 26-34 [facility] Comment on above: Performed By: #### B MP, CBC #### [place] [address] Manufacturing Area Manager: Farhan Oconnor MD MCHC (RBC) [Mass/Vol] 33.7 g/dL Normal 31-37 [facility] Comment on above: Performed By: #### B MP, CBC #### [place] [id number] Manufacturing Area Manager: Farhan Oconnor MD MCV (RBC) [Entitic vol] 93.2 fL Normal 80-100 [facility] Comment on above: Performed By: #### B MP, CBC #### [place] [id number] Manufacturing Area Manager: Farhan Oconnor MD Platelet mean volume (Bld) [Entitic vol] 8.5 fL Normal 6.0-12.0 [facility] Comment on above: Performed By: #### B MP, CBC #### [facility] [id number] Manufacturing Area Manager: Farhan Oconnor MD Platelets (Bld) [#/Vol] 292 10*3/uL Normal 140-450 [facility] Comment on above: Performed By: #### B MP, CBC #### [address] [id number] Manufacturing Area Manager: Farhan Oconnor MD RBC (Bld) [#/Vol] 2.65 10*6/uL Low 4.0-5.2 [facility] Comment on above: Performed By: #### B MP, CBC #### [place] [id number] Manufacturing Area Manager: Farhan Oconnor MD WBC (Bld) [#/Vol] 7.2 10*3/uL Normal 3.5-11.0 [facility] Comment on above: Performed By: #### B MP, CBC #### [place] [id number] Manufacturing Area Manager: Farhan Oconnor MD [facility] 07-24-2024 Erythrocyte distribution width (RBC) [Ratio] 13.1 % 12.5 - 15.4 % [facility] Hematocrit (Bld) [Volume fraction] 27.6 % Low 36 - 46 % [facility] Hemoglobin (Bld) [Mass/Vol] 9.2 g/dL Low 12.0 - 16.0 g/dL [facility] Interpretation and review of laboratory results Abnormal [facility] MCH (RBC) [Entitic mass] 30.9 pg 26 - 34 pg [facility] MCHC (RBC) [Mass/Vol] 33.4 g/dL 31 - 3 7 g/dL [facility] MCV (RBC) [Entitic vol] 92.3 fL 80 - 100 fL [facility] Platelet mean volume (Bld) [Entitic vol] 8.4 fL 6.0 - 12.0 fL [facility] Platelets (Bld) [#/Vol] 372 10*3/uL [facility] RBC (Bld) [#/Vol] 2.99 10*6/uL Low 4.0 - 5.2 m/uL [facility] WBC other (Bld) [#/Vol] 10 B on [facility] Erythrocyte distribution width (RBC) [Ratio] 13.1 % Normal 12.5-15.4 [facility] Comment on above: Performed By: #### C BC #### [place] [address] Manufacturing Area Manager: Farhan Oconnor MD Hematocrit (Bld) [Volume fraction] 27.6 % Low 36-46 [facility] Comment on above: Performed By: #### C BC #### [place] [address] Manufacturing Area Manager: Farhan Oconnor MD Hemoglobin (Bld) [Mass/Vol] 9.2 g/dL Low 12.0-16.0 [facility] Comment on above: Performed By: #### C BC #### [place] [address] Manufacturing Area Manager: Farhan Oconnor MD MCH (RBC) [Entitic mass] 30.9 pg Normal 26-34 [facility] Comment on above: Performed By: #### C BC #### [place] [id number] Manufacturing Area Manager: Farhan Oconnor MD MCHC (RBC) [Mass/Vol] 33.4 g/dL Normal 31-37 [facility] Comment on above: Performed By: #### C BC #### [place] [id number] Manufacturing Area Manager: Farhan Oconnor MD MCV (RBC) [Entitic vol] 92.3 fL Normal 80-100 [facility] Comment on above: Performed By: #### C BC #### [place] [id number] Manufacturing Area Manager: Farhan Oconnor MD Platelet mean volume (Bld) [Entitic vol] 8.4 fL Normal 6.0-12.0 [facility] Comment on above: Performed By: #### C BC #### [place] [address] Manufacturing Area Manager: Farhan Oconnor MD Platelets (Bld) [#/Vol] 372 10*3/uL Normal 140-450 [facility] Comment on above: Performed By: #### C BC #### [place] [address] Manufacturing Area Manager: Farhan Oconnor MD RBC (Bld) [#/Vol] 2.99 10*6/uL Low 4.0-5.2 [facility] Comment on above: Performed By: #### C BC #### [place] [address] Manufacturing Area Manager: Farhan Oconnor MD WBC (Bld) [#/Vol] 10.0 10*3/uL Normal 3.5-11.0 [facility] Comment on above: Performed By: #### C BC #### [place] [address] Manufacturing Area Manager: Farhan Oconnor MD SURGICAL PATHOLOGY REPORTon 07-24-2024 Surgical Pathology Report Path Number: [id number] -- Diagnosis -- A. LEFT BARTHOLIN GLAND, EXCISION: - BENIGN SKIN WITH CHRONIC ACTIVE ABSCESS/INFLAMMATORY SINUS AND FIBROSIS/SCAR. B. BULBOCAVERNOSUS, EXCISION: - BENIGN BARTHOLIN GLANDS AND FIBROADIPOSE TISSUE DEMONSTRATING CHRONIC ACTIVE ABSCESS/SINUS AND REACTIVE FIBROSIS/SCAR. Farhan Oconnor M.D. Electronically Signed Out 07/24/2024 Clinical Information Pre-Op Diagnosis: CYST OF BARTHOLIN'S GLAND Operative Findings: LEFT BARTHOLIN ABSCESS AND SINUS; BULBOCAVERNOSUS ABSCESS Operation Performed: LEFT BARTHOLIN CYST/GLAND AND SINUS EXCISION WITH EXTENSION INTO THE LEFT BULBOCAVERNOSUS CAVITY se Source of Specimen A: LEFT BARTHOLIN ABCESS AND SINUS B: BULBOCAVERNOSUS ABCESS Gross Description A. BRITT MAURER, LEFT BARTHOLIN ABSCESS AND SINUS Received in formalin is a 3.0 x 2.5 x 1.5 cm aggregate of pizarro-red, rubbery and ragged fibrotic tissue. Data Coordinator sections 1c (approximately 50% of the specimen is submitted for microscopic evaluation). B. BRITT MAURER, BULBOCAVERNOUS ABSCESS Received in formalin are three pizarro-pink, rubbery and cauterized tissue fragments ranging from 2.0 to 2.7 cm. Sectioning reveals pizarro-red, rubbery and fibrotic cut surfaces. No obvious masses are identified. Data Coordinator sections 1c. Laura Bansal/se:07/23/2024 Microscopic Description A, B. Microscopic examination performed. Processing Lab: [place] [id number] Interpretation Performed at [place] [id number] SURGICAL PATHOLOGY CONSULTATION Patient Name: BRITT MAURER [facility] Rec: [id number] [facility] [employer] [facility] ANATOMIC PATHOLOGY [address] [place] [address]. [place], [place] [address] [facility] HCG,,Ur(POC)on 07-11 HCG,,Ur(POC) Negative Normal NEG [facility] Comment on above: Result Comment: Spec imens with hCG levels near the threshold of the test (25 mIU/mL) may give a negative or indeterminate result. In such cases, another test should be performed with a new specimen in 48-72 hours. If early is suspected clinically in this setting, correlation with quantitative serum b-hCG level is suggested. [place] [address] Hemoglobin and Hematocriton 07-23-2024 Hematocrit (Bld) [Volume fraction] 30.4 % Low 36 - 46 % [facility] Hemoglobin (Bld) [Mass/Vol] 10.6 g/dL Low 12.0 - 16.0 g/dL [facility] Interpretation and review of laboratory results Abnormal [facility] Hgb/Hcton 07-23-2024 Hematocrit (Bld) [Volume fraction] 30.4 % Low 36-46 [facility] Comment on above: Performed By: #### H H #### [address] [address] Manufacturing Area Manager: Farhan Oconnor MD Hemoglobin (Bld) [Mass/Vol] 10.6 g/dL Low 12.0-16.0 [facility] Comment on above: Performed By: #### H H #### [address] [address] Manufacturing Area Manager: Farhan Oconnor MD POCT urine pregnancyon 07-23 Beta HCG ( test) Ql (U) Negative NEGATIVE [facility] Comment on above: Specimens with hCG l evels near the threshold of the test (25 mIU/mL) may give a negative or indeterminate result. In such cases, another test should be performed with a new specimen in 48-72 hours. If early is suspected clinically in this setting, correlation with quantitative serum b-hCG level is suggested. TESTING PERFORMED AT [address] Surgical Pathology Reporton 07-23-2024 Surgical Pathology Report (NOTE) Path Number: [id number] -- Diagnosis -- A. LEFT BARTHOLIN GLAND, EXCISION: - BENIGN SKIN WITH CHRONIC ACTIVE ABSCESS/INFLAMMATORY SINUS AND FIBROSIS/SCAR. B. BULBOCAVERNOSUS, EXCISION: - BENIGN BARTHOLIN GLANDS AND FIBROADIPOSE TISSUE DEMONSTRATING CHRONIC ACTIVE ABSCESS/SINUS AND REACTIVE FIBROSIS/SCAR. Farhan Oconnor M.D. Electronically Signed Out 07/24/2024 Clinical Information Pre-Op Diagnosis: CYST OF BARTHOLIN'S GLAND Operative Findings: LEFT BARTHOLIN ABSCESS AND SINUS; BULBOCAVERNOSUS ABSCESS Operation Performed: LEFT BARTHOLIN CYST/GLAND AND SINUS EXCISION WITH EXTENSION INTO THE LEFT BULBOCAVERNOSUS CAVITY se Source of Specimen A: LEFT BARTHOLIN ABCESS AND SINUS B: BULBOCAVERNOSUS ABCESS Gross Description A. BRITT MAURER, LEFT BARTHOLIN ABSCESS AND SINUS Received in formalin is a 3.0 x 2.5 x 1.5 cm aggregate of pizarro-red, rubbery and ragged fibrotic tissue. Data Coordinator sections 1c (approximately 50% of the specimen is submitted for microscopic evaluation). B. BRITT MAURER, BULBOCAVERNOUS ABSCESS Received in formalin are three pizarro-pink, rubbery and cauterized tissue fragments ranging from 2.0 to 2.7 cm. Sectioning reveals pizarro-red, rubbery and fibrotic cut surfaces. No obvious masses are identified. Data Coordinator sections 1c. tm Laura Bansal/se:07/23/2024 Microscopic Description A, B. Microscopic examination performed. Processing Lab: [place] [id number] Interpretation Performed at [address] [phone] SURGICAL PATHOLOGY CONSULTATION Patient Name: BRITT MAURER [facility] Rec: [id number] [facility] [employer] [facility] ANATOMIC PATHOLOGY [address] [place] [address]. [place], [place] [id number] Normal [facility] Basic Metabolic Panelon 07-11 Anion gap [Moles/Vol] 10 mmol/L 9 - 17 mmol/L [facility] Calcium [Mass/Vol] 9.3 mg/dL 8.6 - 10. 4 mg/dL [facility] Chloride [Moles/Vol] 104 mmol/L 98 - 10 7 mmol/L [facility] CO2 [Moles/Vol] 24 mmol/L 20 - 31 mmol/L [facility] Creatinine [Mass/Vol] 0.8 mg/dL 0.5 - 0.9 mg/dL [facility] EstSeth Rate - [facility] Comment on above: These results are not intended for use in patients <18 years of age. eGFR results are calculated without a race factor using the 2020 CKD-EPI equation. Careful clinical correlation is recommended, particularly when comparing to results calculated using previous equations. The CKD-EPI equation is less accurate in patients with extremes of muscle mass, extra-renal metabolism of creatine, excessive creatine ingestion, or following therapy that affects renal tubular secretion. Glucose [Mass/Vol] 91 mg/dL 70 - 99 mg/dL [facility] Potassium [Moles/Vol] 4.2 mmol/L 3.7 - 5.3 mmol/L [facility] Sodium [Moles/Vol] 138 mmol/L 135 - 144 mmol/L [facility] Urea nitrogen [Mass/Vol] 11 mg/dL 6 - 20 mg/dL [facility] Basic Metabolic Profon 07-21 Anion gap [Moles/Vol] 10 mmol/L Normal 9-17 [facility] Comment on above: Performed By: #### B MP #### [facility] [address] [place] [address] Manufacturing Area Manager: Cristian Wilosn MD Calcium [Mass/Vol] 9.3 mg/dL Normal 8.6-10.[address] [facility] Comment on above: Performed By: #### B MP #### [facility] [address] [place] [address] Manufacturing Area Manager: Cristian Wilson MD Chloride [Moles/Vol] 104 mmol/L Normal 98-107 [facility] Comment on above: Performed By: #### B MP #### [facility] [address] [place] [address] Manufacturing Area Manager: Cristian Wilson MD CO2 [Moles/Vol] 24 mmol/L Normal 20-31 [facility] Comment on above: Performed By: #### B MP #### [facility] [address] [place] [address] Manufacturing Area Manager: Cristian Wilson MD Creatinine [Mass/Vol] 0.8 mg/dL Normal 0.5-0.9 [facility] Comment on above: Performed By: #### B MP #### [facility] [address] [place] [address] Manufacturing Area Manager: Cristian Wilson MD GFR/1.73 sq M.predicted among non-blacks MDRD (S/P/Bld) [Vol rate/Area] mL/min/{1.73_m2} Normal >[address] [facility] Comment on above: Result Comment: These results are not intended for use in patients <18 years of age. eGFR results are calculated without a race factor using the 2020 CKD-EPI equation. Careful clinical correlation is recommended, particularly when comparing to results calculated using previous equations. The CKD-EPI equation is less accurate in patients with extremes of muscle mass, extra-renal metabolism of creatine, excessive creatine ingestion, or following therapy that affects renal tubular secretion. Performed By: #### B MP #### [facility] [address] [place] [address] Manufacturing Area Manager: Cristian Wilson MD Glucose [Mass/Vol] 91 mg/dL Normal 70-[address] [facility] Comment on above: Performed By: #### B MP #### [facility] [address] [place] [address] Manufacturing Area Manager: Cristian Wilson MD Potassium [Moles/Vol] 4.2 mmol/L Normal 3.7-5.3 [facility] Comment on above: Performed By: #### B MP #### [facility] [address] [place] [address] Manufacturing Area Manager: Cristian Wilson MD Sodium [Moles/Vol] 138 mmol/L Normal 135-[address] [facility] Comment on above: Performed By: #### B MP #### [facility] [address] [place] [address] Manufacturing Area Manager: Cristian Wilson MD Urea nitrogen [Mass/Vol] 11 mg/dL Normal 6-[address] [facility] Comment on above: Performed By: #### B MP #### [facility] [address] [place] [address] Manufacturing Area Manager: Cristian Wilson MD CT PELVIS W CONTRASTon 07-21 CT PELVIS W CONTRAST EXAMINATION: CT PELVIS W CONTRAST HISTORY: Bartholin's gland abscess COMPARISON: CT abdomen pelvis wo con Date 05/20/2023 TECHNIQUE: CT of the pelvis is performed following IV contrast administration. Dose reduction techniques were achieved by using automated exposure control and/or adjustment of mA and/or kV according to patient size and/or use of iterative reconstruction technique. FINDINGS: This is a limited examination due to streak artifact related to patient body habitus. However, approximately 17 x 12 mm mildly rim-enhancing low attenuation is suspected in the right perineal region, which may represent the suspected Bartholin's gland abscess. The urinary bladder appears unremarkable. The visualized bowel demonstrates a nonobstructive pattern. No significant wall thickening of bowel is seen. No significant free fluid or abnormal fluid collection is seen in the pelvis. The abdominal wall and visualized soft tissues appear unremarkable. IMPRESSION: This is a limited examination due to streak artifact related to patient body habitus. However, approximately 17 x 12 mm mildly rim-enhancing low attenuation is suspected in the right perineal region, which may represent the suspected Bartholin's gland abscess. Interpreted by: Genevieve Ortiz MD Signed by: Genevieve Ortiz MD 07/21/24 Final result Normal [facility] CT Pelvis W contrast Merry This is a limited examination due to streak artifact related to patient body habitus. However, approximately 17 x 12 mm mildly rim-enhancing low attenuation is suspected in the right perineal region, which may represent the suspected Bartholin's gland abscess. [facility] RIS CONSOLIDATED EXAMINATION: CT PELVIS W CONTRAST HISTORY: Bartholin's gland abscess COMPARISON: CT abdomen pelvis wo con Date 05/20/2023 TECHNIQUE: CT of the pelvis is performed following IV contrast administration. Dose reduction techniques were achieved by using automated exposure control and/or adjustment of mA and/or kV according to patient size and/or use of iterative reconstruction technique. FINDINGS: This is a limited examination due to streak artifact related to patient body habitus. However, approximately 17 x 12 mm mildly rim-enhancing low attenuation is suspected in the right perineal region, which may represent the suspected Bartholin's gland abscess. The urinary bladder appears unremarkable. The visualized bowel demonstrates a nonobstructive pattern. No significant wall thickening of bowel is seen. No significant free fluid or abnormal fluid collection is seen in the pelvis. The abdominal wall and visualized soft tissues appear unremarkable. [facility] Genevieve Johnson MD - 07/21/2024 EXAMINATION: CT PELVIS W CONTRAST HISTORY: Bartholin's gland abscess COMPARISON: CT abdomen pelvis wo con Date 05/20/2023 TECHNIQUE: CT of the pelvis is performed following IV contrast administration. Dose reduction techniques were achieved by using automated exposure control and/or adjustment of mA and/or kV according to patient size and/or use of iterative reconstruction technique. FINDINGS: This is a limited examination due to streak artifact related to patient body habitus. However, approximately 17 x 12 mm mildly rim-enhancing low attenuation is suspected in the right perineal region, which may represent the suspected Bartholin's gland abscess. The urinary bladder appears unremarkable. The visualized bowel demonstrates a nonobstructive pattern. No significant wall thickening of bowel is seen. No significant free fluid or abnormal fluid collection is seen in the pelvis. The abdominal wall and visualized soft tissues appear unremarkable. IMPRESSION: This is a limited examination due to streak artifact related to patient body habitus. However, approximately 17 x 12 mm mildly rim-enhancing low attenuation is suspected in the right perineal region, which may represent the suspected Bartholin's gland abscess. [facility] Radiology Study observation (narrative) [facility] CT Pelvis W contrast IVOrder ed By: Genevieve Ortiz on 07-21-2024 [facility] revoPT [facility] Work Phone: No Panel Informationon 04-28 Human Chorionic Gonadotropin, Quant <1 mIU/mL [facility] Comment on above: 5-50 0.2-1 [id number] 0 1-2 PNRJZ362-5,000 2-3 [id number],000 3-4 WEEKS1,000-50,000 4-5 WEEKS10,000-100,000 5-6 WEEKS15,000-200,000 6-8 WEEKS10,000-100,000 2-3 MONTHS [facility] PREG QUANT HCGon 17-2 024 HCG QUANTITATIVE <1 mIU/mL [facility] Comment on above: 5-50 0.2-1 WEEK 50-500 1-2 WEEKS 100-5,000 2-3 WEEKS 500-10,000 3-4 WEEKS 1,000-50,000 4-5 WEEKS 10,000-100,000 5-6 WEEKS 15,000-200,000 6-8 WEEKS 10,000-100,000 2-3 MONTHS [facility] HCG,,Ur(POC)on HCG,,Ur(POC) Negative Normal NEG [facility] Comment on above: Result Comment: Spec imens with hCG levels near the threshold of the test (25 mIU/mL) may give a negative or indeterminate result. In such cases, another test should be performed with a new specimen in 48-72 hours. If early is suspected clinically in this setting, correlation with quantitative serum b-hCG level is suggested. [place] [address] POCT urine pregnancyon 02-11 Beta HCG ( test) Ql (U) Negative NEGATIVE [facility] Comment on above: Specimens with hCG l evels near the threshold of the test (25 mIU/mL) may give a negative or indeterminate result. In such cases, another test should be performed with a new specimen in 48-72 hours. If early is suspected clinically in this setting, correlation with quantitative serum b-hCG level is suggested. TESTING PERFORMED AT [place] [id number] [facility] Surgical Pathology Reporton 02-12-2024 Surgical Pathology Report (NOTE) Path Number: [id number] -- Diagnosis -- Bartholin gland, left, excisional biopsy: Fragments of keratinizing squamous mucosa, adipose tissue, and fibrous tissue with chronic inflammation and focal granulation tissue reaction, clinically chronic Bartholin abscess. Yunior Manzo. Electronically Signed Out /02/17/2024 Clinical Information Pre-Op Diagnosis: ABSCESS OF BARTHOLIN'S GLAND Operative Findings: CHRONIC BARTHOLIN ABSCESS Operation Performed: LEFT BARTHOLIN CYST MARSUPIALIZATION kb Source of Specimen A: CHRONIC BARTHOLIN ABSCESS Gross Description BRITT MAURER, CHRONIC BARTHOLIN ABSCESS Received in formalin is a 4.0 x 3.5 x 2.0 cm aggregate of yellow, lobulated fat and pizarro-pink, rubbery tissue. Data Coordinator sections 1c. tm Laura Rolf/hermilo2:02/13/2024 Microscopic Description 1 KRIS reviewed. Microscopic examination performed. Processing Lab: [address] [id number] Interpretation Performed at [address] [phone] SURGICAL PATHOLOGY CONSULTATION [facility]: [facility] [id number] [facility] [employer] [facility] ANATOMIC PATHOLOGY [address] [place] [address] Normal [facility] CBCon 02-06-2024 Erythrocyte distribution width (RBC) [Ratio] 12.2 % 12.1 - 15.2 % [facility] Hematocrit (Bld) [Volume fraction] 36.6 % 36.0 - 46.0 % [facility] Hemoglobin (Bld) [Mass/Vol] 12.5 g/dL 12.0 - 16.0 g/dL [facility] MCH (RBC) [Entitic mass] 31.2 pg 26. 0 - 34.0 pg [facility] MCHC (RBC) [Mass/Vol] 34.2 g/dL 31.0 - 37.0 g/dL [facility] MCV (RBC) [Entitic vol] 91.3 fL 80.0 - 100.0 fL [facility] Platelet mean volume (Bld) [Entitic vol] 9.8 fL 6.0 - 12.0 fL [facility] Platelets (Bld) [#/Vol] 329 10*3/uL [facility] RBC (Bld) [#/Vol] 4.01 10*6/uL 4.00 - 5.2 0 m/uL [facility] WBC other (Bld) [#/Vol] 7.9 B ON [facility] BON [facility] Erythrocyte distribution width (RBC) [Ratio] 12.2 % Normal 12.1-15.2 [facility] Comment on above: Performed By: #### C BC #### [facility] [address], [place] [address] Manufacturing Area Manager: Cristian Wilson MD Hematocrit (Bld) [Volume fraction] 36.6 % Normal 36.0-46.[address] [facility] Comment on above: Performed By: #### C BC #### [facility] [address] [place] [address] Manufacturing Area Manager: Cristian Wilson MD Hemoglobin (Bld) [Mass/Vol] 12.5 g/dL Normal 12.0-16.[address] [facility] Comment on above: Performed By: #### C BC #### [facility] [address] [place] [address] Manufacturing Area Manager: Cristian Wilson MD MCH (RBC) [Entitic mass] 31.2 pg Normal 26.0-34.[address] [facility] Comment on above: Performed By: #### C BC #### [facility] [address] [place] [address] Manufacturing Area Manager: Cristian Wilson MD MCHC (RBC) [Mass/Vol] 34.2 g/dL Normal 31.0-37.0 [facility] Comment on above: Performed By: #### C BC #### [facility] [address] [place] [address] Manufacturing Area Manager: Cristian Wilson MD MCV (RBC) [Entitic vol] 91.3 fL Normal 80.0-100.0 [facility] Comment on above: Performed By: #### C BC #### [facility] [address] [place], [place] [id number] (959) Manufacturing Area Manager: Cristian Wilson MD Platelet mean volume (Bld) [Entitic vol] 9.8 fL Normal 6.0-12.0 [facility] Comment on above: Performed By: #### C BC #### [facility] [address], [place] [id number] ([phone]) Manufacturing Area Manager: Cristian Wilson MD Platelets (Bld) [#/Vol] 329 10*3/uL Normal 140-[address] [facility] Comment on above: Performed By: #### C BC #### [facility] [address], [place] [id number] (342) Manufacturing Area Manager: Cristian Wilson MD RBC (Bld) [#/Vol] 4.01 10*6/uL Normal 4.00-5.[address] [facility] Comment on above: Performed By: #### C BC #### [facility] [address], [place] [phone] (453) Manufacturing Area Manager: Cristian Wilson MD WBC (Bld) [#/Vol] 7.9 10*3/uL Normal 3.5-11.[address] [facility] Comment on above: Performed By: #### C BC #### [facility] [address], [place] [id number] Manufacturing Area Manager: Cristian Wilson MD No Panel InformationOrdered By: Denisa To on 08-22-2023 Quick Strep (POC) [facility] DHEA SERUMon 09-24-2022 Dehydroepiandrosterone (DHEA) 229 ng/dL Normal 31-701 [facility] Comment on above: Performed By: #### D ROCIO. #### [facility] [address] [place], [place] [address] Dr. Estella Elaine DHEA-SULFATEon 09-20-2022 DHEA-Sulfate 229.0 ug/dL Normal 84.8-378.0 [facility] Comment on above: Performed By: #### D HEASUL #### [facility] [address] [place], [place] [address] Dr. Estella Elaine FSHon 09-20-2022 FSH 5.9 mIU/mL Normal [facility] Comment on above: Result Comment: Adul t Female: Follicular phase 3.5 - 12.5 Ovulation phase 4.7 - 21.5 Luteal phase 1.7 - 7.7 Postmenopausal 25.8 - 134.8 Performed By: #### L BCFS #### [facility] [address] [place], [place] [address] Dr. Estella Elaine LUTEINIZING HORMONE (LH)on 0 09-20-2022 LH 9.1 mIU/mL Normal [facility] Comment on above: Result Comment: Adul t Female: Follicular phase 2.4 - 12.6 Ovulation phase 14.0 - 95.6 Luteal phase 1.0 - 11.4 Postmenopausal 7.7 - 58.5 Performed By: #### L BCL #### [facility] [address] [place], [place] [address] Dr. Estella Elaine US PELVIS AND TRANSVAGon [...] OLGA WALKER Date: 2022-09-20 16:56 Normal [facility] CBC AUTO DIFFon 09-19-2022 BASO # 0.0 103/ul Normal 0.0-0.1 [facility] Comment on above: Performed By: #### C BC #### [facility] [address] [place] [address] [address] Estella Elaine Basophils/100 WBC (Bld) 0.3 % Normal 0.2-2.0 [facility] Comment on above: Performed By: #### C BC #### [facility] [address] [place] [address] Dr. Estella Elaine EO # 0.1 103/ul Normal 0.0-0.7 [facility] Comment on above: Performed By: #### C BC #### [facility] [address] [place] [address] Dr. Estella Elaine Eosinophils/100 WBC (Bld) 0.9 % Normal 0.9-7.0 [facility] Comment on above: Performed By: #### C BC #### [facility] [address] [place] [address] Dr. Estella Elaine Erythrocyte distribution width (RBC) [Ratio] 11.9 % Normal 11.0-15.0 [facility] Comment on above: Performed By: #### C BC #### [facility] [address] [place] [address] Dr. Estella Elaine Hematocrit (Bld) [Volume fraction] 42.6 % Normal 36.0-48.0 [facility] Comment on above: Performed By: #### C BC #### [facility] [address] [place] [address] Dr. Estella Elaine Hemoglobin (Bld) [Mass/Vol] 14.2 g/dL Normal 12.0-16.0 [facility] Comment on above: Performed By: #### C BC #### [facility] [address] [place] [address] Dr. Estella Elaine IG # 0.03 10e3/ul Normal 0.00-0.03 [facility] Comment on above: Performed By: #### C BC #### [facility] [address] [place] [address] Dr. Estella Elaine IG % 0.3 % Normal 0.0-0.5 [facility] Comment on above: Performed By: #### C BC #### [facility] [address] [place] [address] Dr. Estella Elaine LYMPH # 1.7 103/ul Normal 1.2-3.8 [facility] Comment on above: Performed By: #### C BC #### [facility] [address] [place] [address] Dr. Estella Elaine Lymphocytes/100 WBC (Bld) 19.0 % Critically low 20.5-60.0 [facility] Comment on above: Performed By: #### C BC #### [facility] [address] [place] [address] Dr. Estella Elaine MANUAL DIFF REQ NO Normal [facility] Comment on above: Performed By: #### C BC #### [facility] [address] [place] [address] Dr. Estella Elaine MCH (RBC) [Entitic mass] 31.3 pg Normal 26.7-34.0 [facility] Comment on above: Performed By: #### C BC #### [facility] [address] [place] [address] Dr. Estella Elaine MCHC (RBC) [Mass/Vol] 33.3 g/dL Normal 29.9-35.2 [facility] Comment on above: Performed By: #### C BC #### [facility] [address] [place] [address] Dr. Estella Elaine MCV (RBC) [Entitic vol] 94.0 fL Normal 81.0-99.0 [facility] Comment on above: Performed By: #### C BC #### [facility] [address] [place] [address] Dr. Estella Elaine MONO # 0.4 103/ul Normal 0.3-0.8 [facility] Comment on above: Performed By: #### C BC #### [facility] [address] [place] [address] Dr. Estella Elaine Monocytes/100 WBC (Bld) 4.0 % Normal 1.7-12.0 [facility] Comment on above: Performed By: #### C BC #### [facility] [address] [place] [address] Dr. Estella Elaine NEUT # 6.7 103/ul Critically high 1.4-6.5 [facility] Comment on above: Performed By: #### C BC #### [facility] [address] [place] [address] Dr. Estella Elaine Neutrophils/100 WBC (Bld) 75.5 % Critically high 43.0-75.0 [facility] Comment on above: Performed By: #### C BC #### [facility] [address] [place] [address] Dr. Estella Elaine Platelet mean volume (Bld) [Entitic vol] 9.5 fL Normal 9.5-13.5 [facility] Comment on above: Performed By: #### C BC #### [facility] [address] [place] [address] Dr. Estella Elaine PLT 384 103/ul Normal 150-450 [facility] Comment on above: Performed By: #### C BC #### [facility] [address] [place] [address] Dr. Estella Elaine RBC 4.53 106/ul Normal 4.20-5.40 [facility] Comment on above: Performed By: #### C BC #### [facility] [address] [place] [address] Dr. Estella Elaine WBC 8.9 103/ul Normal 4.0-11.0 [facility] Comment on above: Performed By: #### C BC #### [facility] [address] [place] [address] Dr. Estella Elaine FREE T4on 09-19-2022 Free T4 [Mass/Vol] 0.90 ng/dL Normal 0.76-1.46 [facility] Comment on above: Performed By: #### F T4 #### [facility] [address] [place] [address] Dr. Estella Elaine GLYCOHEMOGLOBIN A1Con 2022 ADA RECOMMENDATION SEE BELOW Normal [facility] Comment on above: Result Comment: ADA RECOMMENDED LIMIT 4.0 - 6.0 ADA THERAPEUTIC TARGET < 7.0 ACTION SUGGESTED > 7.0 Performed By: #### A 1C #### [facility] [address] [place] [address] Dr. Estella Elaine Glucose [Mass/Vol] 97 mg/dL Normal [facility] Comment on above: Performed By: #### A 1C #### [facility] [address] [place] [address] Dr. Estella Elaine HbA1c (Bld) [Mass fraction] 5.0 % Normal 4.5-6.2 [facility] Comment on above: Performed By: #### A 1C #### [facility] [address] [place] [address] Dr. Estella Elaine TSHon 09-19-2022 TSH 2.601 uIU/mL Normal 0.358-3.740 [facility] Comment on above: Performed By: #### T SH #### [facility] [address] [place] [address] Dr. Estella Elaine Ambulatory Visit Summaryon 0 06-11-2022 Ambulatory Visit Summary BRITT MAURER :1990 Visit Date:06/11/2022 Ambulatory Visit Instructions Your Diagnosis Viral illness Acute effusion of both middle ears Nausea BMI 45.0-49.9, adult Current every day vaping Your Care Team Attending Physician - Anabel Gonzalez Primary Care Physician - PRIYANKA ROSAS CNP This Is Your Medications List methylPREDNISolone [...] the Following Appointments Follow Up with PRIYANKA ROSAS CNP When: Where: [address] [place] [address]- Medications What How Much When Why Instructions New methylPREDNISolone (Medrol 4 mg Tab) 1 Packets By Mouth As Directed Acute effusion of both middle ears Duration: 6 Days as directed on package labeling Pickup at [facility]/pharmacy #[id number] New ondansetron (ondansetron 4 mg Dis Tab) 1 Tablets By Mouth Every 6 hours as needed for Nausea/Vomiting Nausea Duration: 3 Days Pickup at [facility]/pharmacy #[id number] Unchanged fluoxetine (FLUoxetine 40 mg Cap) [...] physician if questions or concerns Pharmacy Information [facility]/pharmacy #[id number]: [address], [place] [phone] Allergies No Known Medication Allergies Problems Ongoing [...] home: Managing pain and congestion ? Take ozcn-phs-ejtvquo and prescription medicines only as told by [...] and water are not available, use hand handle rounder operator. ? Avoid contact with people who are [...] used (more content not included)... Normal Mehta [facility] Family Medicine Office/Clini c Noteon 06-11-2022 [...] and expansion Lungs: clear to auscultation, no wheezing/rhonchi/ral es, good air movement Respiratory: respirations even and [...] day(s), # 21 tab(s), Refills(s) 0, Pharmacy: [facility]/pharmacy #[id number], 165, cm, 06/11/22 9:34:00 EST, Height/Length Dosing, 124, kg, 06/11/22 9:34:00 EST, Weight Dosing 3. Nausea (R11.0: Nausea) Will send in rx of Zofran to use as directed as needed. Follow above treatment plan recommendations. Ordered: ondansetron, 4 mg = 1 tab(s), Oral, q6hr, PRN Nausea/Vomiting, X 3 day(s), # 12 tab(s), Refills(s) 0, Pharmacy: [facility]/pharmacy #[id number], 165, cm, 06/11/22 9:34:00 EST, Height/Length [...] [id number] Follow-up With When Contact Information ALISON BELLPRIYANKA [address] [place] [address]- Additional Instructions: Patient Education Viral Respiratory Infection, Owvq-Hs-Ackj BMI for Adults Nausea and Vomiting, Adult, [place]-Jpxm Problem List/Past Medical History Ongoing Adult BMI 50.0-59.9 kg/sq m Anxiety Bipolar disorder, c (more content not included)... Normal [facility] Comment on above: Result Comment: Elec tronically Signed By: Anabel Gonzalez\.br\Date and Time Signed: 06/11/22 09:58 EST Patient Educationon 06-11-19 23 Patient Education Gastroenterology Nausea and Vomiting, Adult [...] ? Low-calorie sports drinks. ? Eat bland, dnwt-rt-hnqtoj foods in small amounts as you are able, such as: ? Bananas. ? Applesauce. ? Rice. ? Low-fat (lean) meats. ? [place]. ? Crackers. ? Avoid drinking fluids that have a lot of sugar or caffeine in them. This includes energy drinks, sports drinks, and soda. ? Avoid alcohol. ? Avoid spicy or fatty foods. General instructions ? Take xygt-blw-fgqevox and prescription medicines only as told by your doctor. ? Drink enough fluid to keep your pee (urine) pale yellow. ? Wash your hands often with soap and water. If you cannot use soap and water, use hand handle rounder operator. ? Make sure that all people in [...] much water in your body. ? Take tkjt-ydn-eiylhxy and prescription medicines only as told by [...] 10/15/2008 Document Revised: 08/21/2019 Document Reviewed: 10/07/2018 [employer] Patient Education ? 2019 [employer] Infectious Disease Viral Respiratory Infection A viral [...] ? A (more content not included)... Normal [facility] Provider Letteron 06-11-2022 Provider Letter June 11, 2022 BRITT WALTERS [address] [place] [id number] BRITT WALTERS 1990 To Whom It May Concern, Please excuse above patient from work. Date of Illness: From: 06/11/22 May Return to Work On: Next scheduled day. Sincerely, [facility] [address] [facility], [place] [address] [facility] Basic Metabolic Panel w/ Ref tony to MGon 04-14-2020 Anion gap [Moles/Vol] 12 mmol/L 9 - 17 mmol/L [place] Bun/Cre Ratio 13 [place] Calcium [Mass/Vol] 9.6 mg/dL 8.6 - 10. 4 mg/dL [place] Chloride [Moles/Vol] 107 mmol/L 98 - 10 7 mmol/L [place] CO2 [Moles/Vol] 20 mmol/L 20 - 31 mmol/L [place] Creatinine [Mass/Vol] 0.7 mg/dL 0.5 - 0.9 mg/dL [place] GFR >60 >60 mL/min [place] GFR Non- >60 >60 mL/min [place] GFR/1.73 sq M predicted among non-blacks MDRD (S/P/Bld) [Vol rate/Area] [place] Comment on above: Average GFR for 30-3 9 years old: 107 mL/min/1.73sq m Chronic Kidney Disease: <60 mL/min/1.73sq m Kidney failure: <15 mL/min/1.73sq m eGFR calculated using average adult body mass. Additional eGFR calculator available at: http://www.Gumi[employer].Purple/multiple_crcl_2012.htm GFR/1.73 sq M predicted among non-blacks MDRD (S/P/Bld) [Vol rate/Area] NOT REPORTED [place] Glucose [Mass/Vol] 114 mg/dL High 70 - 99 mg/dL [place] Interpretation and review of laboratory results Abnormal [place] Potassium [Moles/Vol] 3.8 mmol/L 3.7 - 5.3 mmol/L [place] Sodium [Moles/Vol] 139 mmol/L 135 - 144 mmol/L [place] Urea nitrogen [Mass/Vol] 9 mg/dL 6 - 20 mg/dL [place] CBC Auto Differentialon 12-0 3-2020 Basophils (Bld) [#/Vol] 0.00 10*3/uL [place] Basophils/100 WBC (Bld) 0 % 0 - 2 % M [place], [place] Differential Type YES [place] Eosinophils (Bld) [#/Vol] 0.00 10*3/uL [place] Eosinophils/100 WBC (Bld) 0 % 0 - 5 % [place] Erythrocyte distribution width (RBC) [Ratio] 14.0 % 12.1 - 15.2 % [place] Hematocrit (Bld) [Volume fraction] 40.5 % 36 - 46 % [place] Hemoglobin (Bld) [Mass/Vol] 13.9 g/dL 12 - 16 g/dL [place] Lymphocytes (Bld) [#/Vol] 1.50 10*3/uL [place] Lymphocytes/100 WBC (Bld) 27 % 15 - 40 % [place] MCH (RBC) [Entitic mass] 29.8 pg 26 - 34 pg [place] MCHC (RBC) [Mass/Vol] 34.2 g/dL 31 - 3 7 g/dL [place] MCV (RBC) [Entitic vol] 87.1 fL 80 - 100 fL [place] Monocytes (Bld) [#/Vol] 0.30 10*3/uL [place] Monocytes/100 WBC (Bld) 6 % 4 - 8 % [place] Platelet mean volume (Bld) [Entitic vol] NOT REPORTED 6 - 12 fL [place] Platelets (Bld) [#/Vol] NOT REPORTED [place] Platelets (Bld) [#/Vol] 230 10*3/uL [place] RBC (Bld) [#/Vol] 4.66 10*6/uL 4 - 5.2 m/uL [place] RBC morphology finding Nom (Bld) NOT REPORTED [place] Segmented neutrophils/100 WBC (Bld) 67 % 47 - 75 % [place] Segs Absolute 3.70 [place] WBC (Bld) [#/Vol] 5.4 10*3/uL [place] WBC (Bld) [#/Vol] NOT REPORTED per 100 WBC [place] WBC Morphology NOT REPORTED [place], [place] HCG Qualitative, Serumon hCG Qual Negative NEGATIVE [place] Comment on above: Specimens with hCG l evels near the threshold of the test (25 mIU/mL) may give a negative or indeterminate result. In such cases, another test should be performed with a new specimen in 48-72 hours. If early is suspected clinically in this setting, correlation with quantitative serum b-hCG level is suggested. [facility] [employer] has confirmed the use of plasma for this test. This has not been cleared or approved by the U.S. Food and Drug Administration. The FDA has determined that such clearance is not necessary. Otheron 04-14-2020 Immature granulocytes (Bld) [#/Vol] NOT REPORTED [place] XR CHEST PORTABLEon 04-14-20 EXAM: XR CHEST PORTABLE HISTORY: Reason for exam:->Covid positive, shortness of breath 30-year-old female COMPARISON: Chest x-ray 02/06/2019 TECHNIQUE: AP portable chest 0950 hours. FINDINGS: Shallow breath, but patchy opacity is present over the anterior right first rib suspicious for a early area of bronchopneumonia. Left lung clear. No effusion. Heart size normal. [place], [place] Miguel, Mhpn Incoming Radiant Results From [facility] - 04/14/2020 10:22 AM EST EXAM: XR [...] rib 4 cm diameter. Likely early pneumonia. [place] Patchy area of airspace opacity likely present overlying the anterior right first rib 4 cm diameter. Likely early pneumonia. [place] CORONAVIRUS 2019 BY PCRon CORONAVIRUS 2019,PCR NOT DETECTED Normal Not Detected [facility] Comment on above: Result Comment: . This [...] this test method. Fact sheet for providers: https://www.fda.gov/media/414721/download Fact sheet for patients: https://www.fda.gov/media/415618/download This test has received FDA Emergency Use Authorization [EUA] and has been verified by [facility] ([facility]). This test is only authorized for the duration of time that circumstances exist to justify the authorization of the emergency use of in vitro diagnostic tests for the detection of SARS-CoV-2 virus and/or diagnosis of COVID-19 infection under section 564(b)(1) of the Act, 21 U.S.C. 360bbb-3(b)(1), unless the authorization is terminated or revoked sooner. [facility] is certified under CLIA-88 as qualified to perform high complexity testing. Testing is performed in the [facility] laboratories located at [address] [place] [address]. Performed By: #### C OV19 #### [facility] [id number] [facility] [place] [address] CORONAVIRUS 2019 BY PCRon DATE OF SYMPTOM ONSET [YYYYMMDD]? [id number] Normal [facility] Comment on above: Performed By: #### C OV19 #### [facility] [id number] [place] [address]. [place] [address] EMPLOYED IN HEALTHCARE? No Normal [facility] Comment on above: Performed By: #### C OV19 #### [facility] [address] [place] [address] FIRST COVID NASAL SWAB TEST? No [facility] Comment on above: Performed By: #### C OV19 #### [facility] [address] [place] [address] HOSPITALIZED (OR PLANNED TO BE ADMITTED)? Yes [facility] Comment on above: Performed By: #### C OV19 #### [facility] [address] [place] [address] ICU? No [facility] Comment on above: Performed By: #### C OV19 #### [facility] [address] [place] [address] Lab Specimen Source Nasal, Nasopharyngeal [facility] Comment on above: Performed By: #### C OV19 #### [facility] [address] [place] [address] ? Unknown [facility] Comment on above: Performed By: #### C OV19 #### [facility] [address] [place] [address] RESIDENT IN CONGREGATE CARE SETTING? No [facility] Comment on above: Performed By: #### C OV19 #### [facility] [address] [place] [address] SYMPTOMATIC DEFINED BY CDC? Yes [facility] Comment on above: Performed By: #### C OV19 #### [facility] [address] [place] [address] Provider Note - ED v2on 11-0 Provider [...] medications, allergies, medical history, and surgical history ALLERGIES/INTOLERANC ES: No Known Allergies HEALTH HISTORY: No documented data. OUTPATIENT MEDICATIONS: Home Medications Review Status for Reconciliation: Complete Med Status: Patient Currently Takes Medications Drug Name: amoxicillin 500 mg oral tablet Instructions: 2 tab(s) orally every 8 hours SIGNIFICANT EVENTS: No documented data. 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 CLINICAL IMPRESSION Diagnosis/Annotation : ED Dx Name:Sinusitis, acute frontal Code:J01.10 Name:Exposure to COVID-19 virus Code:Z20.828 Dispostion: discharged Type: home ATTESTATION CRITICAL CARE TIME Is this a critically ill patient: no Electronic Signatures for Addendum Section: Kandy Leach (RESIDENTIAL SALES MANAGER-[facility]) (Signed Addendum 22-Mar-2020 13:50) Pt called and advised of negative results. Electronic Signatures: Kandy Leach (RESIDENTIAL SALES MANAGER-[facility]) (Signed 22-Mar-2020 13:50) Authored: HPI, PMH, ROS, PE, Results/Vital Signs, MDM/ED Course, Clinical Impression, Attestation, Chart Review, Scores Last Updated: 22-Mar-2020 13:50 by Kandy Leach (RESIDENTIAL SALES MANAGER-[facility]) [facility] [place] [facility] Telephone (AGGENS4) BRITT WALTERS ([id number]) 1990 F Date Time Provider Department 01/14/20 MARILY MELTON4 During your visit today, we recorded the following information about you: Rey Alanis 01/14/2020 3:20 PM Signed Insurance Verification Insurance Company: [facility] Provider Phone #: [phone] Agent:Ray Reference #: [id number] [facility] Center of Excellence:yes [phone] Months of Wt Loss: 0 COVERAGE: RNY/BAND/SLEEVE Single 80 % 1400 Deductible 3000 Out of Pocket NOTES: [place], due to bipolar. Assigned to Amee. [...] Encounter Status:Closed by REY CORTES on 01/14/20 [facility] Maryanne 01-12-2020 [facility] Telephone (AGGENS4) BRITT WALTERS ([id number]) 1990 F Date Time Provider Department 01/12/20 PEPE ARMENTA (RESIDENTIAL SALES MANAGER, PROFESSOR OF COUNSELING) AGGENS4 During your visit today, we recorded the following information about you: Rey Alanis 01/12/2020 1:26 PM Signed Incomplete IPW sent. Allergies As of Date: 01/12/2020 (Not on File) Date Reviewed: Never Reviewed Reason for Visit: Patient Update [1234] Problem List As Of Date: 01/12/2020 (None) Encounter Status:Closed by REY CORTES on 01/12/20 [facility] POCT urine pregnancyon 10-22 Beta HCG ( test) Ql (U) Negative NEGATIVE [place], [place] Comment on above: Specimens with hCG l evels near the threshold of the test (25 mIU/mL) may give a negative or indeterminate result. In such cases, another test should be performed with a new specimen in 48-72 hours. If early is suspected clinically in this setting, correlation with quantitative serum b-hCG level is suggested. TESTING PERFORMED AT [facility] [id number] [place] [address] CBC Auto Differentialon 07-11 Basophils (Bld) [#/Vol] 0.00 10*3/uL [place] Basophils/100 WBC (Bld) 0 % 0 - 2 % [employer] Differential Type YES [place] Eosinophils (Bld) [#/Vol] 0.00 10*3/uL [place] Eosinophils/100 WBC (Bld) 0 % 0 - 5 % [place] Erythrocyte distribution width (RBC) [Ratio] 13.9 % 12.1 - 15.2 % [place] Hematocrit (Bld) [Volume fraction] 36.2 % 36 - 46 % [place] Hemoglobin (Bld) [Mass/Vol] 12.4 g/dL 12 - 16 g/dL [place] Lymphocytes (Bld) [#/Vol] 1.80 10*3/uL [place] Lymphocytes/100 WBC (Bld) 23 % 15 - 40 % [place] MCH (RBC) [Entitic mass] 30.2 pg 26 - 34 pg [place] MCHC (RBC) [Mass/Vol] 34.3 g/dL 31 - 3 7 g/dL [place] MCV (RBC) [Entitic vol] 88.1 fL 80 - 100 fL [place] Monocytes (Bld) [#/Vol] 0.40 10*3/uL [place] Monocytes/100 WBC (Bld) 6 % 4 - 8 % [employer] Platelet mean volume (Bld) [Entitic vol] NOT REPORTED 6 - 12 fL [place] Platelets (Bld) [#/Vol] 384 10*3/uL [place] Platelets (Bld) [#/Vol] NOT REPORTED [place] RBC (Bld) [#/Vol] 4.11 10*6/uL 4 - 5.2 m/uL [place] RBC morphology finding Nom (Bld) NOT REPORTED [place] Segmented neutrophils/100 WBC (Bld) 71 % 47 - 75 % [place] Segs Absolute 5.50 [place] WBC (Bld) [#/Vol] 7.7 10*3/uL [place] WBC (Bld) [#/Vol] NOT REPORTED per 100 WBC [place] WBC Morphology NOT REPORTED [place] Comprehensive Metabolic Pane grecia 07-22-2019 Albumin [Mass/Vol] 4.3 g/dL 3.5 - 5.2 g/dL [place] Albumin/Globulin [Mass ratio] NOT REPORTED [place] ALP [Catalytic activity/Vol] 114 U/L High 35 - 104 U/L [place] ALT [Catalytic activity/Vol] 12 U/L 5 - 33 U/L [place] Anion gap [Moles/Vol] 11 mmol/L 9 - 17 mmol/L [place] AST [Catalytic activity/Vol] 16 U/L <32 [place] Bilirubin Ql (U) 0.42 mg/dL 0.3 - 1.2 mg/dL [place] Bun/Cre Ratio 15 [place] Calcium [Mass/Vol] 9.8 mg/dL 8.6 - 10. 4 mg/dL [place] Chloride [Moles/Vol] 103 mmol/L 98 - 10 7 mmol/L [place] CO2 [Moles/Vol] 24 mmol/L 20 - 31 mmol/L [place] Creatinine [Mass/Vol] 0.71 mg/dL 0.5 - 0.9 mg/dL [place] GFR >60 >60 mL/min [place] GFR Non- >60 >60 mL/min [place] GFR/1.73 sq M predicted among non-blacks MDRD (S/P/Bld) [Vol rate/Area] [place] Comment on above: Average GFR for 20-2 9 years old: 116 mL/min/1.73sq m Chronic Kidney Disease: <60 mL/min/1.73sq m Kidney failure: <15 mL/min/1.73sq m eGFR calculated using average adult body mass. Additional eGFR calculator available at: http://www.Clicknation/multiple_crcl_2012.htm GFR/1.73 sq M predicted among non-blacks MDRD (S/P/Bld) [Vol rate/Area] NOT REPORTED [place] Glucose [Mass/Vol] 102 mg/dL High 70 - 99 mg/dL [place] Potassium [Moles/Vol] 4.3 mmol/L 3.7 - 5.3 mmol/L [place] Protein [Mass/Vol] 7.5 g/dL 6.4 - 8.3 g/dL [place] Sodium [Moles/Vol] 138 mmol/L 135 - 144 mmol/L [place] Urea nitrogen [Mass/Vol] 11 mg/dL 6 - 20 mg/dL [place] Ferritinon 07-22-2019 Ferritin [Mass/Vol] 75 ug/L 13 - 150 ug/L [place] Hemoglobin A1Con 07-22-2019 Glucose [Mass/Vol] 97 mg/dL [place] Comment on above: The ADA and AACC rec ommend providing the estimated average glucose result to permit better patient understanding of their HBA1c result. HbA1c (Bld) [Mass fraction] 5.0 % 4.8 - 5.9 % [place] Iron and TIBCon 07-22-2019 Interpretation and review of laboratory results Abnormal [place] Iron [Mass/Vol] 59 ug/dL 37 - 145 ug/dL [place] Iron Saturation 27 % 20 - 55 % [place] TIBC 222 ug/dL Low 250 - 450 ug/dL [place] UIBC 163 ug/dL 112 - 347 ug/dL [place] Lipid Panelon 07-22-2019 Cholesterol [Mass/Vol] 205 mg/dL High <200 Me [place] Comment on above: Cholesterol Guidelines: <200 Desirable 200-240 Borderline >240 Undesirable Cholesterol in HDL [Mass/Vol] 52 mg/dL >40 [place] Comment on above: HDL Guidelines: <40 Undesirable 40-59 Borderline >59 Desirable Cholesterol in LDL [Mass/Vol] 133 mg/dL High 0 - 130 mg/dL [place] Comment on above: LDL Guidelines: <100 Desirable 100-129 Near to/above Desirable 130-159 Borderline >159 Undesirable Direct (measured) LDL and calculated LDL are not interchangeable tests. Cholesterol in VLDL [Mass/Vol] NOT REPORTED 1 - 30 mg/dL [place] Cholesterol.total/Choles terol in HDL [Mass ratio] 3.9 {ratio} <5 [place] Triglyceride [Mass/Vol] 99 mg/dL <150 M [place], [place] Comment on above: Triglyceride Guidelines: <150 Desirable 150-199 Borderline 200-499 High >499 Very high Based on AHA Guidelines for fasting triglyceride, February 2012. Magnesiumon 07-22-2019 Magnesium [Mass/Vol] 2.3 mg/dL 1.6 - 2 .6 mg/dL [place] Otheron 07-22-2019 Interpretation and review of laboratory results Abnormal [place] Immature granulocytes (Bld) [#/Vol] NOT REPORTED 0 % [place] PTH, Intacton 07-22-2019 Pth Intact 59.81 pg/mL 15 - 65 pg/mL [place] Comment on above: SAMPLES FROM PATIENT S ROUTINELY RECEIVING HIGH DOSE BIOTIN THERAPY MAY SHOW FALSELY DEPRESSED RESULTS. ADDITIONAL INFORMATION MAY BE REQUIRED FOR DIAGNOSIS. Patient Fasting?on 0 Patient Fasting? yes [place] T4, Freeon 07-22-2019 Thyroxine, Free 1.17 ng/dL 0.93 - 1.7 ng/dL [place] TSH without Reflexon 020 TSH Qn 4.66 m[IU]/L [place] Vitamin B12 & Folateon 07-21 Cobalamin (Vitamin B12) [Mass/Vol] 857 pg/mL 232 - 1245 pg/mL [place] Folate >20.0 >4.8 ng/mL [place] Vitamin D 25 Hydroxyon 07-21 Vit D, 25-Hydroxy 32.5 ng/mL 30 - 100 ng/mL [place] Comment on above: Reference Range: Vitamin D status Range Deficiency <20 ng/mL Mild Deficiency 20-30 ng/mL Sufficiency 30-100 ng/mL Toxicity >100 ng/mL Vital Signs Date Time Vital Sign Value Performing Clinician Facility 07-25-2024 10:38-0400 Body temperature 97.81 [degF] Gagandeep Morrell DO Work Phone: [facility] 07-25-2024 10:38-0400 Diastolic blood pressure 82 mm[Hg] Gagandeep Morrell DO Work Phone: [facility] 07-25-2024 10:38-0400 Heart rate 80 /min Gagandeep Morrell DO Work Phone: [facility] 07-25-2024 10:38-0400 Respiratory rate 18 /min Gagandeep Morrell DO Work Phone: [facility] 07-25-2024 10:38-0400 SaO2% (BldA) [Mass fraction] 100 % Gagandeep Morrell DO Work Phone: [facility] 07-25-2024 10:38-0400 Systolic blood pressure 141 mm[Hg] Gagandeep Morrell DO Work Phone: [facility] 07-23-2024 06:20-0400 Body height 165.8 cm Gagandeep Morrell DO Work Phone: [facility] 07-23-2024 06:20-0400 Body mass index (BMI) [Ratio] 50 kg/m2 Gagandeep Morrell DO Work Phone: [facility] 07-23-2024 06:20-0400 Body weight 137.44 kg Gagandeep Morrell DO Work Phone: [facility] 06-18-2024 08:37-0500 Body height 165.74 cm [facility] 06-18-2024 08:37-0500 Body mass index (BMI) [Ratio] 51 kg/m2 [facility] 06-18-2024 08:37-0500 Body weight 140.33 kg [facility] 06-18-2024 08:37-0500 Diastolic blood pressure 85 mm[Hg] [facility] 06-18-2024 08:37-0500 Heart rate 85 /min [facility] 06-18-2024 08:37-0500 Respiratory rate 16 /min [facility] 06-18-2024 08:37-0500 SaO2% (BldA) [Mass fraction] 97 % [facility] 06-18-2024 08:37-0500 Systolic blood pressure 132 mm[Hg] [facility] 02-12-2024 17:15-0400 Diastolic blood pressure 88 mm[Hg] Gagandeep Morrell DO Work Phone: [facility] 02-12-2024 17:15-0400 Heart rate 59 /min Gagandeep Morrell DO Work Phone: [facility] 02-12-2024 17:15-0400 Respiratory rate 13 /min Gagandeep Morrell DO Work Phone: [facility] 02-12-2024 17:15-0400 SaO2% (BldA) [Mass fraction] 100 % Gagandeep Morrell DO Work Phone: [facility] 02-12-2024 17:15-0400 Systolic blood pressure 131 mm[Hg] Gagandeep Morrell DO Work Phone: [facility] 02-12-2024 16:09-0400 Body temperature 96.8 [degF] Gagandeep Morrell DO Work Phone: [facility] 02-12-2024 13:02-0400 Body height 165.5 cm Gagandeep Morrell DO Work Phone: [facility] 02-12-2024 13:02-0400 Body mass index (BMI) [Ratio] 52 kg/m2 Gagandeep Morrell DO Work Phone: [facility] 02-12-2024 13:02-0400 Body weight 142.43 kg Gagandeep Morrell DO Work Phone: [facility] 10-14-2023 11:00-0400 Body height 165.74 cm [facility] 10-14-2023 11:00-0400 Body mass index (BMI) [Ratio] 49.1 kg/m2 [facility] 10-14-2023 11:00-0400 Body weight 134.97 kg [facility] 10-14-2023 11:00-0400 Diastolic blood pressure 82 mm[Hg] [facility] 10-14-2023 11:00-0400 Heart rate 71 /min [facility] 10-14-2023 11:00-0400 Respiratory rate 16 /min [facility] 10-14-2023 11:00-0400 SaO2% (BldA) [Mass fraction] 99 % [facility] 10-14-2023 11:00-0400 Systolic blood pressure 128 mm[Hg] [facility] 08-22-2023 10:21-0400 Body height 165.1 cm [facility] 08-22-2023 10:21-0400 Body mass index (BMI) [Ratio] 48.6 kg/m2 [facility] 08-22-2023 10:21-0400 Body temperature 97.3 [degF] [facility] 08-22-2023 10:21-0400 Body weight 132.61 kg [facility] 08-22-2023 10:21-0400 Diastolic blood pressure 89 mm[Hg] [facility] 08-22-2023 10:21-0400 Heart rate 92 /min [facility] 08-22-2023 10:21-0400 Respiratory rate 18 /min [facility] 08-22-2023 10:21-0400 SaO2% (BldA) [Mass fraction] 95 % [facility] 08-22-2023 10:21-0400 Systolic blood pressure 124 mm[Hg] [facility] 08-06-2023 10:47-0400 Body height 162.56 cm [facility] 08-06-2023 10:47-0400 Body mass index (BMI) [Ratio] 50.3 kg/m2 [facility] 08-06-2023 10:47-0400 Body weight 133.01 kg [facility] 08-06-2023 10:47-0400 Diastolic blood pressure 64 mm[Hg] [facility] 08-06-2023 10:47-0400 Heart rate 93 /min [facility] 08-06-2023 10:47-0400 Systolic blood pressure 125 mm[Hg] [facility] 12-31-2022 14:30-0400 Body height 162.56 cm Craig Harris Other [facility] [employer] Other 12-31-2022 14:30-0400 Body mass index (BMI) [Ratio] 46.86 kg/m2 Craig Harris Other [facility] [employer] Other 12-31-2022 14:30-0400 Body weight 123.83 kg Craig Harris Other [facility] [employer] Other 12-31-2022 14:30-0400 Diastolic blood pressure 77 mm[Hg] Craig Harris Other [employer] Other 12-31-2022 14:30-0400 Systolic blood pressure 123 mm[Hg] Craig Harris Other [employer] Other 08-07-2022 11:30-0400 Body height 162.56 cm Jimmy Jude Other [facility] [employer] Other 08-07-2022 11:30-0400 Body mass index (BMI) [Ratio] 45.24 kg/m2 Jimmy Ball Other [employer] Other 08-07-2022 11:30-0400 Body weight 119.57 kg Jimmy Ball Other [employer] Other 08-07-2022 11:30-0400 Diastolic blood pressure 84 mm[Hg] Jimmy Ball Other [employer] Other 08-07-2022 11:30-0400 Respiratory rate 12 /min Jimmy Ball Other [employer] Other 08-07-2022 11:30-0400 Systolic blood pressure 132 mm[Hg] Jimmy Ball Other [employer] Other 07-10-2022 09:00-0500 Body height 162.56 cm Craig Harris Other [employer] Other 07-10-2022 09:00-0500 Body mass index (BMI) [Ratio] 47.2 kg/m2 Craig Harris Other [employer] Other 07-10-2022 09:00-0500 Body weight 124.74 kg Craig Harris Other [employer] Other 07-10-2022 09:00-0500 Diastolic blood pressure 68 mm[Hg] Craig Harris Other [employer] Other 07-10-2022 09:00-0500 SaO2% (BldA) [Mass fraction] 97 % Craig Harris Other [employer] Other 07-10-2022 09:00-0500 Systolic blood pressure 118 mm[Hg] Craig Harris Other [employer] Other 04-14-2020 10:03-0500 BP Diastolic 88 mm[Hg] [facility] [place] 04-14-2020 10:03-0500 BP Systolic 146 mm[Hg] [facility] [place] [facility] [place] 04-14-2020 10:03-0500 Pulse (Heart Rate) 79 /min [facility] [place] 04-14-2020 10:03-0500 Pulse Oximetry 100 % [facility] [place] 04-14-2020 10:03-0500 Respiratory Rate 20 /min [facility] [place] 04-14-2020 08:50-0500 BMI (Body Mass Index) 52.25 kg/m2 [facility] [place] 04-14-2020 08:50-0500 Body Temperature 99.1 [degF] [facility] 04-14-2020 08:50-0500 Body weight 142.43 kg [facility] [place] 10-23-2019 10:42-0400 Pulse (Heart Rate) 61 /min [facility] [place] 10-23-2019 10:42-0400 Pulse Oximetry 100 % [facility] [place] 10-23-2019 10:30-0400 BP Diastolic 84 mm[Hg] [facility] [place] 10-23-2019 10:30-0400 BP Systolic 130 mm[Hg] [facility] [place] 10-23-2019 10:30-0400 Respiratory Rate 20 /min [facility] [place] 10-23-2019 10:24-0400 Body Temperature 97 [degF] [facility] [place] 10-23-2019 09:32-0400 BMI (Body Mass Index) 52.68 kg/m2 [facility] [place] 10-23-2019 09:32-0400 Body weight 143.61 kg [facility] [place] 10-23-2019 09:32-0400 Height 165.1 cm [facility] [place] Encounters Encounter Date Encounter Type Care Provider Facility Start: 07-23-2024 End: 07-25-2024 Evaluation and management of inpatient Gagandeep Morrell DO Work Phone: [address] Comment on above: Post-operative state (Primary Dx); Cyst of Bartholin's gland Start: 07-21-2024 End: 07-23-2024 ambulatory GAGANDEEP MORRELL [facility] Start: 07-21-2024 Encounter for other preprocedural examination [facility] Start: 07-21-2024 End: 07-21-2024 Patient encounter status Craig Harris MD Work Phone: [facility] Start: 07-21-2024 End: 07-23-2024 Subsequent hospital visit by physician Venkatesh Cat Scan Room [facility] Comment on above: Pre-op testing Bartholin's gland ab scess Start: 06-18-2024 End: 06-18-2024 ambulatory [facility] Work Phone: Start: 06-18-2024 End: 06-18-2024 Patient encounter procedure [facility] Work Phone: Start: 04-28-2024 [facility] / [facility] Work Phone: Start: 04-28-2024 End: 04-28-2024 Clinisync Result Encounter Arnaldo Eyad DO Work Phone: [facility] Unsolicited Start: 04-28-2024 End: 04-28-2024 Clinisync Result Encounter Arnaldo Eyad DO Work Phone: [facility] Unsolicited Start: 02-12-2024 End: 02-12-2024 ambulatory CRAIG HARRIS [facility] Start: 02-12-2024 End: 02-12-2024 Subsequent hospital visit by physician Gagandeep Morrell DO Work Phone: [facility] [place] Comment on above: Post-operative state (Primary Dx); Abscess of Bartholin's gland Start: 02-06-2024 End: 02-06-2024 amb[facility] Start: 02-06-2024 End: 02-06-2024 Subsequent hospital visit by physician Craig Harris MD Work Phone: [facility] Start: 10-14-2023 End: 10-14-2023 ambulatory [facility] Work Phone: Start: 10-14-2023 End: 10-14-2023 Patient encounter procedure [facility] Work Phone: Start: 08-22-2023 End: 08-22-2023 ambulatory [facility] Work Phone: Start: 08-22-2023 End: 08-22-2023 Patient encounter procedure [facility] Work Phone: Start: 08-06-2023 End: 08-06-2023 ambulatory [facility] Work Phone: Start: 08-06-2023 End: 08-06-2023 Patient encounter procedure [facility] Work Phone: Start: 07-29-2023 End: 07-31-2023 [facility]ulatory [facility] Start: 01-01-2023 End: 01-01-2023 ambulatory Craig Harris Other [employer] Other Start: 01-01-2023 Telephone encounter Craig Harris [facility] Start: 12-31-2022 End: 12-31-2022 ambulatory Cragi Harris Other [employer] Other Start: 12-31-2022 Office outpatient vi sit 15 minutes Craig Harris [facility] Start: 09-20-2022 End: 09-21-[address] ARNALDO CASTANO . Facility:[facility] Start: 09-19-2022 End: 09-20-[address] ARNALDO CASTANO . Facility: Start: 08-07-2022 End: 08-07-2022 ambulatory Jimmy Roque Other [employer] Other Start: 08-07-2022 Office outpatient vi sit 15 minutes Jimmy Roque [facility] Start: 08-07-2022 Telephone encounter Craig Steven [facility] Start: 07-10-2022 End: 07-10-2022 ambulatory Craig Harris Other [employer] Other Start: 07-10-2022 Office outpatient ne w 20 minutes Craig Steven [facility] Start: 06-11-2022 End: 06-12-2022 ambulatory Anabel Melgar Facility:[facility] Start: 04-14-2020 End: 04-14-2020 Emergency department patient visit Jayden Wilson Work Phone: [facility] ED Comment on above: Pneumonia due to COV ID-19 virus (Primary Dx) Start: 10-26-2019 End: 10-26-2019 Subsequent hospital visit by physician [facility] Schedule [facility] Comment on above: Arrived Start: 10-23-2019 End: 10-23-2019 Subsequent hospital visit by physician Roc Navarrete Work Phone: [facility] Start: 10-20-2019 End: 10-20-2019 Subsequent hospital visit by physician [facility] Covid19 Pat Screening Schedule [facility] PRE [facility]MIT Comment on above: Encounter for screen ing for other viral diseases Start: 07-22-2019 End: 07-22-2019 Subsequent hospital visit by physician Priyanka Rosas [facility] Comment on above: Snoring; Morbid obesity (HCC) Procedures Date Procedure Procedure Detail Performing Clinician Start: 07-25-2024 Basic metabolic pane l calcium total Aziza Graff DO Work Phone: Start: 07-24-2024 Blood count complete automated Aziza Graff DO Work Phone: Start: 07-23-2024 SURGICAL PATHOLOGY REPORT Gagandeep Morrell DO Work Phone: Start: 07-23-2024 Blood count hemoglobin Aziza Graff DO Work Phone: Start: 07-23-2024 End: 07-23-2024 Exc bartholins gland/cyst Gagandeep Rudd Cynthiaestrellita DO Work Phone: Start: 07-23-2024 Urine test visual color cmprsn meths Gagandeep Morrell DO Work Phone: Start: 07-21-2024 Ct pelvis w/contrast material Gagandeep Rudd Christiano DO Work Phone: Start: 07-21-2024 Basic metabolic pane l calcium total Gagandeep Rudd Croestrellita DO Work Phone: Start: 04-28-2024 [facility] PREG QUANT HCG Core y Eyad DO Work Phone: Start: 02-12-2024 Urine test visual color cmprsn meths Gagandeep Morrell DO Work Phone: Start: 02-06-2024 Blood count complete automated Gagandeep Morrell DO Work Phone: Start: 08-22-2023 Quick Strep (POC) Start: 04-14-2020 Radiologic exam ches t single view Jayden Wilson Work Phone: Start: 04-14-2020 BASIC METABOLIC PANE L W/ REFLEX TO MG FOR LOW K Jayden Wilson Work Phone: Start: 04-14-2020 Blood count complete auto&auto difrntl wbc Jyaden Wilson Work Phone: Start: 04-14-2020 Gonadotropin chorion ic qualitative Jayden Wilson Work Phone: Start: 10-23-2019 Urine test visual color cmprsn meths Roc Navarrete Work Phone: Start: 07-22-2019 25 hydroxy includes fractions if performed Roc Navarrete Work Phone: Start: 07-22-2019 Assay of ferritin Timoteo Navarrete Work Phone: Start: 07-22-2019 Assay of free thyroxine Roc Navarrete Work Phone: Start: 07-22-2019 Assay of magnesium Werner Navarrete Work Phone: Start: 07-22-2019 Assay of parathormone G jamel Navarrete Work Phone: Start: 07-22-2019 Assay of thyroid stimulating hormone tsh Roc Navarrete Work Phone: Start: 07-22-2019 Blood count complete auto&auto difrntl wbc Roc Navarrete Work Phone: Start: 07-22-2019 Comprehensive metabo lic panel Roc Navarrete Work Phone: Start: 07-22-2019 Hemoglobin glycosylated a1c Roc Navarrete Work Phone: Start: 07-22-2019 Iron binding capacity G jamel Navarrete Work Phone: Start: 07-22-2019 Lipid panel Roc Navarrete Work Phone: Start: 07-22-2019 PATIENT FASTING? Kevin jamar Navarrete Work Phone: Start: 07-22-2019 VITAMIN B12 & FOLATE Gr michelle Navarrete Work Phone: Plan of Treatment Date Care Activity Detail Author Start: 02-29-2040 Shingles Vaccine (1 of 2) Shingles Vaccine (1 of 2) [facility] [place] Start: 07-11-2030 DTaP/Tdap/Td vaccine (7 - Td or Tdap) DTaP/Tdap/Td vaccine (7 - Td or Tdap) [facility] Start: 07-23-2024 End: 07-23-2024 Admission to same day surgery center 07/23/2024 7:30 AM EDT - 07/23/2024 8:15 AM ED[place] [facility] [place] [address] [facility] [place], [place] [id number] Gagandeep Morrell, DO [address] [place] [address] BARTHOLIN CYST/GLAND EXCISION [facility] [place] Comment on above: BARTHOLIN CYST/GLAND EXCISION Start: 07-23-2024 End: 07-23-2024 Exc bartholins gland/cyst BARTHOLIN CYST MARSUPIALIZATION Cyst of Bartholin's gland 07/23/2024 7:30 AM EDT [facility] Start: 07-23-2024 Subsequent hospital visit by physician 07/23/2024 7:30 AM EDT Hospital Encounter [facility] [place] [address] [place] [address] Gagandeep Morrell DO [address] [address] [facility] [place] Start: 05-18-2024 End: 05-18-2024 Patient encounter procedure 05/18/2024 3:10 PM EST Office Visit [facility] [address] [place] [id number] Arnaldo Castano, [address] [place] [address] [facility] Start: 02-19-2024 End: 02-19-2024 Patient encounter procedure 02/19/2024 1:45 PM EDT Office Visit [facility] [address] [facility] [address] [place] [address] Tammy Dodge, RESIDENTIAL SALES MANAGER - PROFESSOR OF COUNSELING [address] [facility] [address] [place] [address] 1 WK PO [facility] Comment on above: 1 WK PO Start: 02-12-2024 End: 02-12-2024 Admission to same day surgery center 02/12/2024 2:15 PM EDT - 02/12/2024 3:00 PM EDT [place] [facility] [place] [address] [place] [address] Gagandeep Morrell, DO [address] [address] BARTHOLIN CYST MARSUPIALIZATION [facility] [place] Comment on above: BARTHOLIN CYST MARSUPIALIZATION Start: 02-12-2024 End: 02-12-2024 Exc bartholins gland/cyst [place] Start: 02-12-2024 Subsequent hospital visit by physician 02/12/2024 2:15 PM EDT Hospital Encounter [facility] [place] [address] [place] [address] Gagandeep Morrell, [address] [address] [facility] [place] Start: 01-12-2024 COVID-19 Vaccine ( season) COVID-19 Vaccine ( season) [facility] Start: 01-12-2024 COVID-19 Vaccine ( season) COVID-19 Vaccine ( season) [facility] Start: 12-12-2023 Influenza vaccination Flu vaccine (#1) [facility] Start: 08-06-2023 Patient referral [facility] Work Phone: Start: 07-21-2020 Creatinine measurement Creatinine monitoring [facility] [place] Start: 07-21-2020 Potassium monitoring Potassium monitoring [facility], [place] Start: 02-29-2020 Screening for malignant neoplasm of cervix [facility] Start: 01-12-2020 Influenza vaccination [facility] [place], [place] Start: 11-23-2019 End: 11-23-2019 Office Visit 11/23/2019 Office Visit Bariatrics Rocio Vale, RESIDENTIAL SALES MANAGER - PROFESSOR OF COUNSELING [address] [place] [address] [facility] Start: 10-26-2019 Hospital Encounter 10/26/2019 Hospital Encounter Sleep [facility] Start: 10-26-2019 End: 10-26-2019 Office Visit 10/26/2019 Office Visit BariatricRocio Liriano, RESIDENTIAL SALES MANAGER - PROFESSOR OF COUNSELING [address] [place] [address] [facility] Start: 08-19-2019 End: 08-19-2019 Office Visit 08/19/2019 Office Visit Bariatrics Roc Navarrete DO [address] [facility] [address] [place] [address] [facility] Start: 07-24-2019 End: 07-24-2019 Office Visit 07/24/2019 Office Visit BariatricRocio Liriano, RESIDENTIAL SALES MANAGER - PROFESSOR OF COUNSELING [address] [place] [address] [facility] [place] Start: 01-11-2019 Influenza vaccination Flu vaccine (#1) [place], [place] Start: 2011 Cervical cancer screen Cervical cancer screen [place], [place] Start: 2011 Screening for malignant neoplasm of cervix [facility] Start: 2009 DTaP/Tdap/Td vaccine (1 - Tdap) DTaP/Tdap/Td vaccine (1 - Tdap) [place] Start: 02-29-2008 Hepatitis C screening Hepatitis C screen [facility] Start: 2005 HIV screen HIV screen [place], [place] Start: 2005 HIV screening HIV screen [facility] Start: 2003 Varicella vaccine (1 of 2 - 13+ 2-dose series) Varicella vaccine (1 of 2 - 13+ 2-dose series) [facility] Start: 11-24-2002 Hepatitis B vaccine (3 of 3 - 3-dose series) Hepatitis B vaccine (3 of 3 - 3-dose series) [facility] [employer] Start: 2002 Depression Monitoring [facility] Start: 1991 Varicella vaccine (1 of 2 - 2-dose childhood series) Varicella vaccine (1 of 2 - 2-dose childhood series) [place] End: 07-22-2019 Baseline Diagnostic Sleep Study Baseline Diagnostic Sleep Study Sleep Center Routine Snoring Morbid obesity (HCC) 1 Occurrences starting 07/22/2019 until 07/22/2019 [place] Comment on above: 1 Occurrences starting 07/22/2019 until 07/22/2019 End: 10-26-2019 Baseline Diagnostic Sleep Study Baseline Diagnostic Sleep Study Sleep Center Routine One Time for 1 Occurrences starting 10/26/2019 until 10/26/2019 [place] Comment on above: One Time for 1 Occurrences starting 10/11 until 10/26/2019 End: 02-12-2024 Blood glucose - POCT Blood glucose - POCT Point of Care Testing Routine One Time for 1 Occurrences starting 02/12/2024 until 02/12/2024 [facility] Comment on above: One Time for 1 Occurrences starting 06/2023 until 02/12/2024 End: 10-20-2019 COVID-19 Ambulatory COVID-19 Ambulatory Lab Routine Encounter for screening for other viral diseases 1 Occurrences starting 10/20/2019 until 10/20/2019 [place] Comment on above: 1 Occurrences starting 10/20/2019 until 10/20/2019 COVID-19 Ambulatory COVID-19 Amb ulatory Lab Routine Encounter for screening for other viral diseases 10/20/2019 9:00 AM EDT [place] Initiate Oxygen Ther apy Protocol Initiate Oxygen Therapy Protocol Respiratory Care Routine Daily until discontinued starting 10/23/2019 [place] Comment on above: Daily until discontinued starting 2019 End: 02-12-2024 INITIATE PACU OXYGEN THERAPY PROTOCOL Initiate PACU Oxygen Therapy Protocol Respiratory Care Routine Continuous until discontinued starting 02/12/2024 [facility] [employer] Work Phone: Comment on above: Continuous until discontinued starting 1 End: 04-14-2020 MDI Treatment MDI Treatment Respiratory Care Routine Once for 1 Occurrences starting 04/14/2020 until 04/14/2020 Qio MD [facility] Comment on above: Once for 1 Occurrences starting 04/14/20 20 until 04/14/2020 Oxygen therapy [Mini mum Data Set] Initiate Oxygen Therapy Protocol Respiratory Care Routine As Needed until discontinued starting 02/12/2024 [facility] [employer] Work Phone: Comment on above: As Needed until discontinued starting Oxygen therapy [Mini mum Data Set] Initiate Oxygen Therapy Protocol Respiratory Care Routine Daily until discontinued starting 07/23/2024 [facility] Comment on above: Daily until discontinued starting 2024 Pathology study Surgical Patholo gy Lab Routine Cyst of Bartholin's gland Release Upon Ordering for 1 Occurrences starting 07/23/2024 [facility] [employer] Comment on above: Release Upon Ordering for 1 Occurrences starting 07/23/2024 Patient referral [facility] Work Phone: Phase I & II - meter ed glucose Phase I & II - metered glucose Point of Care Testing Routine As Needed until discontinued starting 10/23/2019 Qio MD [employer] Comment on above: As Needed until discontinued starting End: 02-12-2024 , urine POCT , urine POCT Point of Care Testing Routine One Time for 1 Occurrences starting 02/12/2024 until 02/12/2024 [facility] [employer] Comment on above: One Time for 1 Occurrences starting 06/2023 until 02/12/2024 Spirometry panel Incentive pamela metry Respiratory Care Routine Every 4hr until discontinued starting 07/23/2024 [facility] [employer] Comment on above: Every 4hr until discontinued starting Surgical Pathology Surgical Path ology Lab Routine Release Upon Ordering for 1 Occurrences starting 10/23/2019 Qio MD [employer] Comment on above: Release Upon Ordering for 1 Occurrences starting 10/23/2019 Surgical pathology study Surgica l Pathology Lab Routine Abscess of Bartholin's gland Release Upon Ordering for 1 Occurrences starting 02/12/2024 [facility] [employer] Work Phone: Comment on above: Release Upon Ordering for 1 Occurrences starting 02/12/2024 End: 07-22-2019 Vitamin A Vitamin A Lab Routine Snoring Morbid obesity (HCC) 1 Occurrences starting 07/22/2019 until 07/22/2019 [facility], [place] Comment on above: 1 Occurrences starting 07/22/2019 until 07/22/2019 Vitamin A Vitamin A Lab Ro utine Snoring Morbid obesity (HCC) 07/22/2019 10:46 AM EDT [facility], [place] End: 07-22-2019 Vitamin B1 Vitamin B1 Lab Routine Snoring Morbid obesity (HCC) 1 Occurrences starting 07/22/2019 until 07/22/2019 [facility], [place] Comment on above: 1 Occurrences starting 07/22/2019 until 07/22/2019 Vitamin B1 Vitamin B1 Lab R outine Snoring Morbid obesity (HCC) 07/22/2019 10:46 AM EDT [facility], [place] End: 07-22-2019 Zinc Zinc Lab Routine Snoring Morbid obesity (HCC) 1 Occurrences starting 07/22/2019 until 07/22/2019 [place] Comment on above: 1 Occurrences starting 07/22/2019 until 07/22/2019 Zinc Zinc Lab Routine Snoring Morbid obesity (HCC) 07/22/2019 10:46 AM EDT [place] Payers Date Payer Category Payer Private Health Insurance [facility] [id number] 2023 Medicaid [id number] 2023 Private Health Insurance [facility] MEDICAID [id number] 2020 Unknown [id number] 2019 Private Health Insurance [facility] xxxxxxxxx 2019-Present [phone] [address] [place] [address] xxxxxxxxx [id number] 2019 Private Health Insurance [facility] [id number] 2019-Present [phone] [address] [place] [address] [id number] 1990 Unknown [id number] 727 1990 Unknown [id number]. 593 1990 Unknown [id number]. 593 1990 Unknown [id number] 174 1990 Unknown [id number]. 174 1990 Unknown [id number] [id number]. 174 1990 Unknown [id number] [id number]. 174 1990 Unknown [id number]. 174 1990 Unknown [id number] [id number]. 174 1990 Unknown [id number] [id number]. 175 1990 Unknown [id number] 175 1959 Unknown [id number] Social History Date Type Detail Facility Start: 06-24-2019 End: 07-24-2023 Tobacco smoking status NHIS Former smoker [facility] End: 05-13-2019 [facility] of tobacco use [facility] [place] [place] Start: 06-24-2019 End: 01-23-2024 Alcohol intake Current drinker of alcohol (finding) [facility] [place] Start: 02-06-2019 Alcohol Comment occasionally [facility] [place], [place] Sex Assigned At Not on file [place], [place] Start: 1990 Sex Assigned At Female [facility] [place] Exposure to SARS-CoV-2 (event) Unable to assess [place] Start: 04-14-2020 End: 07-24-2023 Tobacco use and exposure [facility] [place] Exposure to SARS-CoV-2 (event) [facility] [place] Start: 02-07-2024 End: 07-23-2024 Sex Assigned At [facility] [employer] End: 05-13-2019 History of tobacco use Cigarette Smoker [facility] [employer] Start: 02-07-2024 End: 07-23-2024 History of Social function [facility] [employer] Physical abuse Denies [employer] Start: 08-18-2019 Gender identity Identifies as female gender (finding) [facility] Start: 12-18-2022 End: 06-18-2024 Tobacco smoking status NVIS Never smoked tobacco [facility] Start: 03-04-2023 Alcoholic beverage intake Lifetime non-drinker (finding) [facility] Start: 10-10-2022 Sexual orientation Heterosexual (fin ding) [facility] Start: 07-16-2018 End: 06-18-2024 Sex Female (finding) [facility] Start: 07-21-2024 End: 07-24-2024 Alcoholic beverage intake Ex-drinker (finding) [facility] [facility] Has the electric, gas, oil, or water company threatened to shut off services in your home in past 12Mo No [facility] (I/We) worried whether (my/our) food would run out before (I/we) got money to buy more. Never true Bon [facility] NEGATED: Highlighted row [facility] Clinical Notes 07-10-2022 to 07-25-2024 Gagandeep Morrell, - 07/25/2024 8:52 AM Gagandeep Read, - 07/24/2024 9:00 PM Ranger Savi - 07/24/2024 7:07 PM Eloy Samson RN - 07/24/2024 6:15 PM EDTDiskyler Instructions Note Date & Type Note Facility 07-25-2024 History of Present illness Narrative Gynecology Progress Note Date: 07/25/2024 Time: 8:53 AM Britt Maurer 34 y.o. female , POD # 2 s/p left bartholin gland/cyst excision and sinus extension into left bulbocavernosus cavity on 07/23/24 Patient seen and examined. She denies any complaints. Pain is controlled. Patient is tolerating oral intake. She is urinating well via miranda catheter. She denies any vaginal bleeding. She is ambulating without difficulty. She is passing flatus. She denies Fever/Chills, Chest Pain, SOB, N/V, Calf Pain. The patient recalls from preoperative counseling and accepts that up to 26% of women may persist in these symptoms or develop de gianna incontinence. If preoperative bladder testing was negative, there was no indication for an incontinence procedure. The patient understands if these symptoms persist, further treatment may be recommended. Vitals: Vitals: 07/24/24199907/25/24 0015 07/25/24 0400 07/25/24 0812 BP: 123/63 111/69 113/81 (!) 140/90 Pulse: 90 68 79 72 Resp: 19 17 18 19 Temp: 98.7 F (37.1 C) 98.2 F (36.8 C) 98.2 F (36.8 C) 98.4 F (36.9 C) TempSrc: Oral Oral Oral Oral SpO2: 97% 97% 94% 100% Weight: Height: Intake/Output: Last Shift: I/O last 3 completed shifts: In: 700 [P.O.:700] Out: 2109 [Urine:2109] Current Shift: No intake/output data recorded. 1150 mL out in last 7.5 hrs ~ 153 mL/hr Physical Exam: General: no apparent distress, alert and cooperative Neurologic: alert, oriented, normal speech, no focal findings or movement disorder noted Lungs: No increased work of breathing, good air exchange, no coughing or wheezing Heart: normal S1 and S2, regular rate and rhythm and no murmur, rubs, or gallops Abdomen: soft, non-distended, appropriate tenderness Extremities: no calf tenderness, non edematous Genitourinary: A direct genitourinary exam is unremarkable with normal abdominopelvic findings. External vulvovaginal exam reveals no bleeding, abnormal swelling or symmetry, infection, or discharge Lab: Recent Results (from the past 12 hours) CBC Collection Time: 07/25/24 6:03 AM Result Value Ref Range WBC 7.2 3.5 - 11.0 k/uL RBC 2.65 (L) 4.0 - 5.2 m/uL Hemoglobin 8.3 (L) 12.0 - 16.0 g/dL Hematocrit 24.7 (L) 36 - 46 % MCV 93.2 80 - 100 fL MCH 31.4 26 - 34 pg MCHC 33.7 31 - 37 g/dL RDW 13.2 12.5 - 15.4 % Platelets 292 140 - 450 k/uL MPV 8.5 6.0 - 12.0 fL Basic Metabolic Panel Collection Time: 07/25/24 6:03 AM Result Value Ref Range Sodium 140 135 - 144 mmol/L Potassium 3.9 3.7 - 5.3 mmol/L Chloride 108 (H) 98 - 107 mmol/L CO2 24 20 - 31 mmol/L Anion Gap 8 (L) 9 - 17 mmol/L Glucose 102 (H) 70 - 99 mg/dL BUN 8 6 - 20 mg/dL Creatinine 0.7 0.5 - 0.9 mg/dL Est, Glom Filt Rate >90 >60 mL/min/1.73m2 Calcium 8.3 (L) 8.6 - 10.4 mg/dL Assessment/Plan: Britt Maurer 34 y.o. female , POD #2 s/p left bartholin gland/cyst excision and sinus extension into left bulbocavernosus cavity on 07/23/24 - Doing well, vitals stable - Miranda catheter to remain in place; UOP adequate - Discontinue IVF - Encourage ambulation and use of incentive spirometer - Pain control: Motrin/Tylenol and Beverly for breakthrough pain - Labs: CBC, BMP in the AM reviewed - Cr normal 0.7 - Hgb 8.3 - DVT Proph: SCDs - Abx: Doxycycline - Diet: General diet - Continue post-op care, please page with any questions - Patient stable for discharge home today Aziza Graff DO Urogynecology Resident 07/25/2024, 8:53 AM Suspect some bleeding - anemia of dilution and blood loss. Stabilized . No need for CT scan or serial CBC's. Patient states she feels much better. UO improved. No mass effect on exam. No cellulitis. DC home with miranda clamping trial until Saturday. Instructions reviewed and understood. MDM/POC updated with team. [facility] Urogynecology Resident Interval Note Patient seen and examined. She is very well appearing and comfortable in bed. She reports pain is controlled with analgesics. She passed flatus once today, denies any bowel movement. She is amenable to perineal exam. Left labia appropriately swollen, incision well approximated and no bleeding noted. No concern for labial hematoma. Miranda catheter previously placed in appropriate location. Clear yellow urine in miranda tubing. Miranda catheter flushed without difficulty. Bedside US completed and bladder is minimally distended. Suspect low urine output related to dehydration and distension related to gas pains/no bowel movement today. No concern for obstruction. Will continue admission overnight with plans for likely discharge tomorrow. Vitals: 07/24/24 1659 07/24/24 1927 07/24/247 07/24/241999 BP: 134/88 123/63 Pulse: 81 90 Resp: 16 17 18 19 Temp: 98.8 F (37.1 C) 98.7 F (37.1 C) TempSrc: Oral Oral SpO2: 100% 97% Weight: Height: Dr. Morrell updated. Aziza Graff DO UNEMPLOYMENT EXAMINER Resident, PGY4 [place], [place] 07/24/2024, 9:18 PM Patient status updated by phone. Suspect dehydration and some anemia due to blood loss. Stable otherwise. Will keep tonight to trend UO. Catheter placement confirmed. MDM/POC updated. Inpatient status. [facility] Spiritual Health History and Assessment/Progress Note [facility] (P) Spiritual/Emotional Needs, , , Name: Britt Maurer Age: 34 y.o. Sex: female Language: Maltese Yarsanism: None Cyst of Bartholin's gland Date: 07/24/2024 Total Time Calculated: (P) 2 min Spiritual Assessment began in [address] Referral/Consult From: (P) Rounding Encounter Overview/Reason: (P) Spiritual/Emotional Needs Service Provided For: (P) Patient Entry Level Project Coordinator attempted visit. Pt. Was good no visit required. Katrin, Belief, Meaning: Patient unable to assess at this time Family/Friends No family/friends present Importance and Influence: Patient unable to assess at this time Family/Friends No family/friends present Community: Patient Other: pt refused care Family/Friends No family/friends present Assessment and Plan of Care: Patient Interventions include: Other: no interventions Family/Friends Interventions include: No family/friends present Patient Plan of Care: No future visits per patient/family request Family/Friends Plan of Care: No family/friends present 07/24/24 1906 Encounter Summary Encounter Overview/Reason Spiritual/Emotional Needs Service Provided For Patient Referral/Consult From Rounding Support System Spouse Last Encounter 07/24/24 Complexity of Encounter Low Begin Time 1705 End Time 1707 Total Time Calculated 2 min Spiritual/Emotional needs Type Spiritual Support Assessment/Intervention/Outcome Assessment Unable to assess Intervention Sustaining Presence/Ministry of presence Outcome Refused/Declined Bracer called Aziza Juddpb at 1816 for the updated response from Dr Morrell. Aziza ordered for miranda to be replaced with another 12 [place] despite it being the third attempt for the day, stop fluids, get a CBC, and ok to send patient home after miranda placement. Bracer passed on patients concerns with the catheter issues throughout the day and the fears of going home and the miranda again not draining properly as well as the increasing pressure and distention even with a miranda in place. Concerns acknowledged and orders placed. Bracer received call from Aziza Graff at 1702 as she had called unit asking why patient was not discharged yet. Bracer advised her after two attempts of miranda placement and multiple bladder scans, patient was not adequately draining through miranda after the patients intake was almost 2 liters for the day and only 250ml out through the miranda placed and patient was feeling more discomfort and very distended in her bladder region as well as the miranda stopped draining. Vitals stable. Aziza reported she was to talk to Dr Morrell and get back to typewriter tester. Bracer reach out to Dr. Alma Hickman regarding patients inability to void post miranda removal. Conversation with further orders below. Hi, its been four hours post catheter removed. The patient is really not able to void at all. Has had a couple drips but that is it. States she is having a lot of pressure and urge. Attempted several bladder scans but honesly unable to get a read. She has been drinking orally and has been getting fluids at 50ml/hr. Read 12:34 PM 07/24/24 12:38 PM Please replace catheter and dc home with instructions to cut catheter and remove on Saturday07/24/24 12:46 PM okay so still fine to go home today then? Read 12:51 PM 07/24/24 12:51 PM Yes Gynecology Progress Note Date: 07/24/2024 Time: 7:37 AM Britt Maurer 34 y.o. female , POD # 1 s/p left bartholin gland/cyst excision and sinus extension into left bulbocavernosus cavity on 07/23/24 Patient seen and examined. She denies any complaints. Pain is controlled. Patient is tolerating oral intake. She is urinating well via miranda catheter. Miranda was recently clamped. She denies any vaginal bleeding. She is ambulating without difficulty. She is passing flatus. She denies Fever/Chills, Chest Pain, SOB, N/V, Calf Pain. The patient recalls from preoperative counseling and accepts that up to 26% of women may persist in these symptoms or develop de gianna incontinence. If preoperative bladder testing was negative, there was no indication for an incontinence procedure. The patient understands if these symptoms persist, further treatment may be recommended. Vitals: Vitals: 07/24/24 0000 07/24/24 0116 07/24/24 0505 07/24/24 0725 BP: 113/73 113/73 128/74 115/69 Pulse: 72 72 70 73 Resp: 18 18 18 14 Temp: 98.2 F (36.8 C) 98.2 F (36.8 C) 97.9 F (36.6 C) 97.7 F (36.5 C) TempSrc: Oral Oral Oral SpO2: 98% 98% 100% 100% Weight: Height: Intake/Output: Last Shift: I/O last 3 completed shifts: In: 1530 [P.O.:530; I.V.:1000] Out: 900 [Urine:700; Blood:200] Current Shift: No intake/output data recorded. 700 mL out overnight Physical Exam: General: no apparent distress, alert and cooperative Neurologic: alert, oriented, normal speech, no focal findings or movement disorder noted Lungs: No increased work of breathing, good air exchange, no coughing or wheezing Heart: normal S1 and S2, regular rate and rhythm Abdomen: soft, non-distended, appropriate tenderness Extremities: no calf tenderness, non edematous Genitourinary: A direct genitourinary exam is unremarkable with normal abdominopelvic findings. External vulvovaginal exam reveals no bleeding, abnormal swelling or symmetry, infection, or discharge Lab: No results found for this or any previous visit (from the past 12 hours). Assessment/Plan: Britt Chilo Erasto 34 y.o. female , POD #1 s/p left bartholin gland/cyst excision and sinus extension into left bulbocavernosus cavity on 07/23/24 - Doing well, vitals stable - Discontinue IVF - Encourage ambulation and use of incentive spirometer - Pain control: Motrin/Tylenol/Gabapentin and Beverly for breakthrough pain - Abx: S/p Ancef 3g IV preop, Doxycycline 100 mg BID x7 days - Drain: anil drain to remain in place for 1-2 weeks - Diet: General diet - Continue post-op care, please page with any questions - Patient stable for discharge home following void trial Aziza Graff DO Urogynecology Resident 07/24/2024, 7:37 AM Patient examined and interviewed with team. No cellulitis or crepitus. No bleeding. Drain discharge appropriate. No ecchymosis and incision is intact. Patient much more comfortable. Vital stable. Will remove catheter and have patient do voiding trial. If she passes she may go home after breakfast. Instructions reviewed and understood by patient. Will pull drain if minimal drainage amount for 72 hours next week during office visit. Medical decision making and plan of care updated with team. [facility] Gynecology Progress Note Date: 07/23/2024 Time: 5:56 PM Britt Maurer 34 y.o. female , POD # 0 s/p left bartholin gland/cyst excision and sinus extension into left bulbocavernosus cavity on 07/23/24 Patient seen and examined. She complained of incision pain and urinary retention today requiring placement of miranda catheter. Pain is controlled with IV Toradol, Tylenol, Gabapentin, and Beverly. Patient is tolerating oral intake. UOP adequate. She reports mild vaginal bleeding. She is ambulating without difficulty. She is passing flatus. She denies Fever/Chills, Chest Pain, SOB, N/V, Calf Pain. The patient recalls from preoperative counseling and accepts that up to 26% of women may persist in these symptoms or develop de gianna incontinence. If preoperative bladder testing was negative, there was no indication for an incontinence procedure. The patient understands if these symptoms persist, further treatment may be recommended. Vitals: Vitals: 07/23/24 1148 07/23/24 1152 07/23/24 1203 07/23/24 1521 BP: (!) 145/74 (!) 140/93 Pulse: 59 68 62 65 Resp: 11 13 17 Temp: 97.7 F (36.5 C) 97.9 F (36.6 C) TempSrc: Axillary Oral SpO2: 99% 98% 100% 100% Weight: Height: Intake/Output: Last Shift: No intake/output data recorded. Current Shift: I/O this shift: In: 1000 [I.V.:1000] Out: 200 [Blood:200] Physical Exam: General: no apparent distress, alert and cooperative Neurologic: alert, oriented, normal speech, no focal findings or movement disorder noted Lungs: No increased work of breathing, good air exchange, clear to auscultation bilaterally, no crackles or wheezing Heart: normal S1 and S2, regular rate and rhythm and no murmur, rubs, or gallops Abdomen: soft, non-distended, appropriate tenderness, no CVA tenderness Incision: Left labial incision clean, dry, intact, anil drain in left labia majora present without purulent drainage or significant output, no surrounding induration Extremities: no calf tenderness, non edematous, SCDs in place and functioning Genitourinary: A direct genitourinary exam is unremarkable with normal abdominopelvic findings. External vulvovaginal exam reveals mild bleeding in quinton pad, with moderate amount of left labial swelling more prominent on the superior aspect of the left labia majora, no evidence of hematoma, or infection Lab: Recent Results (from the past 12 hours) POCT urine Collection Time: 07/23/24 6:25 AM Result Value Ref Range HCG, Urine (POC) NEGATIVE NEGATIVE Hemoglobin and Hematocrit Collection Time: 07/23/24 10:19 AM Result Value Ref Range Hemoglobin 10.6 (L) 12.0 - 16.0 g/dL Hematocrit 30.4 (L) 36 - 46 % Assessment/Plan: Britt Maurer 34 y.o. female , POD #0 s/p left bartholin gland/cyst excision and sinus extension into left bulbocavernosus cavity on 07/23/24 - Doing well, vitals stable - UOP adequate. Continue miranda catheter will complete voiding trial in the AM (see below) - Continue IVF @50ml/hr - Encourage ambulation and use of incentive spirometer - Pain control: Dilaudid/Morphine/Toradol PRN and transition to oral pain medications Motrin/Tylenol/Gabapentin and Beverly for breakthrough pain - DVT Proph: SCDs - Abx: Ancef 3g preoperatively, doxycycline 100 mg BID x7 days - Diet: General - Path: pending - Continue post-op care Urinary Retention - Patient states without the urge to void in postoperative state and inability to void with void attempts. - Bladder scan performed revealing 400cc of urine in bladder - Miranda catheter placed - Please clamp miranda at 0600. Clamp for 2 - 4 hours or to patient tolerance. If patient feels uncomfortable unclamp, bladder may be full, do NOT allow bladder to overfill. Unclamp for 1/2 hour and measure and document amount. Then remove at 0800. Allow patient to void as often as she feels the need or every hour for 4 hours. After patient is able to void, measure PVR. If less than 150ml patient may be discharged to void on their own. If between 150 to 250ml have patient double void and measure PVR. If after double void, PVR<150ml patient may be discharged home without miranda catheter. If between 150 and 250ml, give patient instructions to double void at home and patient may be discharged without a miranda. If >250ml, please notify the residents. Please contact UNEMPLOYMENT EXAMINER resident Aziza Graff or Alma Hickman via perfect serve with any questions or concerns. Dr. Morrell updated and in agreement with plan. Alma Hickman DO Urogynecology Resident 07/23/2024, 5:56 PM Patient status updated by phone. Pain improved. She would have been at high risk for ER rebound with urinary retention and discomfort. Will keep overnight and watch for any bleeding due to the bloody nature of the surgery. Medical decision making and plan of care updated with team. [facility] DAY OF SURGERY/PROCEDURE GUIDELINES As a patient at the [facility], you can expect quality medical and nursing care that is centered on your individual needs. It is our goal to make your surgical experience as comfortable and excellent as possible. ____ The following instructions are general guidelines, if any information on this sheet is different from what your doctor has instructed you to do, please follow your doctor's instructions. Please arrive on 07/23/2024 @ 0600 Enter through entrance C. Check in at [...] if directed) Do not apply any lotions. Donovan your teeth, but do not swallow any [...] Take a small sip of water with Lamictal If applicable bring your: Inhaler (s) Hearing aid(s) Eyeglasses and Case (If you wear contacts they have to be removed before surgery, bring case and solution) CPAP DO NOT take anticoagulants (blood thinners, aspirin or aspirin-containing products) as instructed by your physician. DO NOT take any diabetic pills or insulin morning of your surgery. Stop all GLP-1 medications (Ozempic, Wegovy, Rybelsus, mounjaro, etc.) one week prior to surgery. Follow a clear liquid diet the day prior to surgery. Leave all jewelry at home and [...] surgery and recovery. documented in this encounter [facility] 07-21-2024 Hospital Discharge instructions Alma Hickman DO - 07/21/2024 11:25 AM EDT Images from the original note were not included. [facility] POSTOPERATIVE PATIENT INSTRUCTIONS MAJOR & MINOR SURGICAL PROCEDURES Congratulations! You have taken the brave step of undergoing surgery in order to try to improve your health. Now it is time to focus on healing outside of the hospital / surgery center setting. To make your dismissal as successful as possible, it is recommended that you thoroughly review these postoperative instructions. These instructions pertain to, but are not limited to the following procedures: MAJOR Hysterectomy - Vaginal / Laparoscopic / Robotic With or Without tube-ovarian Removal (Salpingo-oophorectomy) Sacrocolpopexy / Sacroperineopexy / Sacrocervicopexy/ Hysteropexy (lifting apex to sacrum) Major Vaginal Prolapse repairs Cystocele repair (Anterior Colporrhaphy) [...] (*See Special Considerations) -Short local travel (restaurant, shinto) - Long distance travel > 1.5 hours [...] the office with any questions or concerns. [phone]. If during office hours, your issue may require an appointment. If after hours, the answering service will connect you with the physician Scratcher. If you are concerned that your issue may be emergent, PLEASE CALL FIRST. Many issues may be resolved over the phone and avoid an unnecessary and expensive ER visit. If you truly have an emergency related to the surgery and call first: *You will be directed to the hospital ER in which you had your surgery. [facility] primarily or [facility] rarely. [facility] patients may be asked to report to [facility] if Dr. Morrell's on-call partner is assuming responsibility. ER visits are ALWAYS covered by insurance (i.e. [facility] can go to a [facility] ER.) Calling 1st expedites your care & avoids an unnecessary and costly ambulance transfer to the Hospital. Dial 911 or go to your closest ER if your emergency is related to a potential heart attack or stroke. 3 DISCHARGE MEDICINES Roxicodone 5mg tablets or alternative narcotic. Take 1-2 tablets by mouth every 4-6 hours as needed for pain. Per [place] [employer] laws, only 1 week of narcotics may be prescribed at a time. Tylenol (Acetaminophen) 500mg orally every 4-6 hours if off of [place]. * Ibuprofen 400-800mg is safe to take. Take 1 tablet by mouth every 8 hours for inflammation. Senokot - S. Take two tablets by mouth every night to prevent constipation. Stop if loose stools occur. Doxycycline 100 mg take 1 tablet by mouth 2x / day for 7 days Other medicines may be prescribed based on your post-op course or situation. Zofran 4mg for nausea, Flomax 0.4mg for voiding *You may resume taking any medications you [...] in order to heal successfully in the technician terminal and repeater. Once you have fully recovered, you may focus on enjoying your life. Keep in mind, you will continue to heal for 6-12 months after surgery, so use common sense to protect your surgery (avoid repetitive heavy lifting, constipation, chronic pelvic strain.) In particular, if you had a hysterectomy, you may have both physical and emotional effects that may be brief or group home. After hysterectomy, periods will stop, and a [...] be discussed. SOME SURGERIES HAVE SPECIAL CONSIDERATIONS MINOR Minor surgeries may drive the next day any distance if off narcotic pain meds and are able to brake safely. For minor surgeries of the vagina, uterus, and bladder, hysteroscopy, D&C, and laparoscopy, maintain pelvic rest for 1-2 weeks depending on healing. Exercise and work may be resumed within the week. 4 CONSENT ITEMS REVISITED IN THE POST OPERATIVE PERIOD Physical and sexual activity will be restricted [...] blood clots in the legs or lungs, NC, or stroke. Elderly patients over the age [...] approved for most reconstructive or robotic procedures. In regard to labial or perineal reconstructive surgery: [...] rare but can happen. 5 SPECIAL INSTRUCTIONS TO PREVENT BLOOD CLOTS IN THE LEGS [...] call the office. DRAINS & WOUND CARE Basic daily maintenance of a drain is as follows: You may wash around the drain site with warm, soapy water and pat dry with a towel. If indicated, use a topical antibiotic around the drain site 2x / day. Please call the office immediately if the drain falls out. Please call if redness of the drain [...] told nothing per rectum (colorectal fistula repair) documented in this encounter [facility] 02-11-2024 Hospital Discharge instructions Karen Rice MD - 02/11/2024 12:53 PM EDT Images from the original note were not included. [facility] POSTOPERATIVE PATIENT [...] (Colpocleisis / Colpectomy) Major urinary incontinence surgery (Olera Urethropexy, MMK) Major fibroid removal (Myomectomy) Major [...] (*See Special Considerations) -Short local travel (restaurant, shinto) - Long distance travel > 1.5 hours [...] the office with any questions or concerns. [phone]. If during office hours, your issue may require an appointment. If after hours, the answering service will connect you with the physician Scratcher. If you are concerned that your issue may be emergent, PLEASE CALL FIRST. Many issues may be resolved over the phone and avoid an unnecessary and expensive ER visit. If you truly have an emergency related to the surgery and call first: *You will be directed to the hospital ER in which you had your surgery. [facility] primarily or [facility] rarely. [facility] patients may be asked to report to [facility] if Dr. Morrell's on-call partner is assuming responsibility. ER visits are ALWAYS covered by insurance (i.e. [facility] can go to a [facility] ER.) Calling 1st expedites your care [...] may be offered for allergies or sensitivities. [place] 325/5mg tablets or alternative narcotic. Take 1-2 tablets by mouth every 4-6 hours as needed for pain. Per [place] Board of Pharmacy laws, only 1 week of narcotics may be prescribed at a time. Do not take extra Tylenol (Acetaminophen) orally as [place] already contains the medicine. May take 500mg orally every 4-6 hours if off of [place]. * Ibuprofen 400-800mg is safe to take. [...] in order to heal successfully in the technician terminal and repeater. Once you have fully recovered, you may focus on enjoying your life. Keep in mind, you will continue to heal for 6-12 months after surgery, so use common sense to protect your surgery (avoid repetitive heavy lifting, constipation, chronic pelvic strain.) In particular, if you had a hysterectomy, you may have both physical and emotional effects that may be brief or technician terminal and repeater. After hysterectomy, periods will stop, and a [...] blood clots in the legs or lungs, NC, or stroke. Elderly patients over the age [...] Morrell's practice most often prefer a transurethral Miranda. Other choices are a suprapubic catheter or intermittent self-catheterization. The patient has been given instructions on how to manage the type of catheter chosen, which will be reiterated postoperatively. There is a 5% chance of recurrent retention after miranda removal requiring catheter replacement in the office or by ER. Despite evidence indicating no need for antibiotics with a catheter, real world experience shows a 20-40% rate of UTI with a Miranda catheter which depending on personal risk factors [...] used type of catheter, called an Intraurethral Miranda Catheter (IUC), is placed into the bladder [...] 1-7 days. If you have an Intraurethral Miranda Catheter, plugging / clamping of the catheter [...] leakage continues, reconnect your catheter to the Miranda bag until the next morning, then restart [...] find it easier to use the larger Miranda bag at night to collect your urine. The larger bag prevents you from having to get up at night to drain your bladder. If you use the Miranda bag, simply restart your most recent plugging [...] another, using a clean leg bag or Miranda bag and an alcohol prep. Wash your hands thoroughly with soap and water and swab the end of the drainage tubing that will be attached to the Miranda catheter. Disconnect the drainage bag from the Miranda catheter and put the bag aside. Attach [...] spout open. A commercially prepared urinary appliance guide rail cleaner may also be used as instructed. [...] progress. 8 HOW TO CARE FOR YOUR MIRANDA CATHETER - FEMALE About this Topic: Miranda catheter is a thin, flexible tube that [...] for the tube and bag of my Miranda catheter. I can tell you what I will do if my urine stops flowing or there is a burning or painful feeling in my bladder. 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 If you cannot void within 6 hrs., [...] type of catheter you may have. Transurethral Miranda catheter 1 Night bag and 1 Day bag with leg strap Lubricating jelly Alcohol wipes Measuring hat for toilet seat 5 50 mL syringes Self-Intermittent Catheterization Supplies: 100 #11-German female catheters (hydrophilic if possible) Lubricating jelly [...] be sent through Care Everywhere.Surgical Drain Care (Maltese)Bartholin Cyst: Surgery: Post-op (Maltese)documented in this encounter [facility] 02-07-2024 History of Present illness Narrative DAY OF SURGERY/PROCEDURE GUIDELINES As a patient at the [facility], you can expect quality medical and nursing [...] if directed) Do not apply any lotions. Donovan your teeth, but do not swallow any [...] surgery and recovery. documented in this encounter [facility] 12-31-2022 Evaluation note Encounter Date Diagnosis Assessment Notes Dec, Left flank pain (ICD-10 - R10.9) assess for kidney stone. Pt will go directly over for testing. Push fluids. Dec, UTI symptoms (ICD-10 - R39.9) Pt already on keflex. Continue med. Check culture to r/o UTI. [facility] Other 03-28-2023 Evaluation note* Encounter Date Diagnosis [...] d/c Adipex if develop CP or palpitations [facility] Other 2023 Evaluation note* Encounter Date Diagnosis Assessment Notes Treatment Notes Treatment Clinical Notes Jun, Class 3 obesity (ICD-10 - E66.01) Patient has clearly made a good katrin effort for several months on her own [...] to ER and Follow-up with me immediately. [facility] Other Chief complaint+Reason for visit Narrative* Chief Complaint Check Up Swollen gland, sore throat Referral Dr. Harris-No Current Bldwrk Reason for Visit BMI 50.0-59.9, adult Sore throat Strep pharyngitis Dietary surveillance and counseling Exercise counseling PCOS (polycystic ovarian syndrome) Severe obesity (BMI >= 40) [facility] Work Phone: [facility]No [facility] Other Evaluation note* Diagnosis Onset Date Resolution Status BMI 50.0-59.9, adult acute [facility] Work Phone: Evaluation note* Diagnosis Onset Date Resolution Status BMI 50.0-59.9, adult acute Sore throat acute [facility] Work Phone: Evaluation note* Diagnosis Onset Date Resolution Status BMI 50.0-59.9, adult acute Sore throat acute Strep pharyngitis noneactive Dietary surveillance and counseling acute Exercise counseling acute PCOS (polycystic ovarian syndrome) acute Severe obesity (BMI >= 40) [facility] Work Phone: Evaluation note* Diagnosis Post-operative state- Primary Other postprocedural status Abscess of Bartholin's gland documented in this encounter [facility] note* Diagnosis Onset Date Resolution Status Admit Date Abnormal weight gain acute Febr 2024 8:21am Bipolar disorder acute June 18, 2024 8:21am BMI 50.0-59.9, adult acute Febr 2024 8:21am Class 3 severe obesity with body mass index (BMI) of 50.0 to 59.9 in adult acute June 18, 8:21am Depression with anxiety acute F ebruary 2024 8:21am Dietary surveillance and counseling acute June 18 8:21am Exercise counseling acute u angella2024 8:21am Kidney stones acute June 8:21am PCOS (polycystic ovarian syndrome) acute June 18 8:21am [facility] Work Phone: Evaluation note* Diagnosis Cyst of Bartholin's gland- Primary Pre-op testing Preoperative examination, unspecified Cyst of Bartholin's gland documented in this encounter [facility]* Diagnosis Bartholin's gland abscess Abscess of Bartholin's gland documented in this encounter [facility]* Diagnosis Cyst of Bartholin's gland- Primary Cyst of Bartholin's gland Post-operative state Other postprocedural status Bartholin's gland abscess Abscess of Bartholin's gland Anemia, blood loss Iron deficiency anemia secondary to blood loss (chronic) documented in this encounter [facility] Narrative - Reported* Type Description Date Medical History Depression/anxiety Surgical History C-sect 2014 [facility] Other History general Narrative - Reported* Type Description Date Medical History Depression/anxiety Surgical History C-sect 2014 Hospitalization History SEE SURGICAL HX [facility] Other Hisjjwh general Narrative - Reported* Type Description Date Medical History Depression/anxiety Medical History PCOS Surgical History C-sect 2014 Hospitalization History SEE SURGICAL HX [facility] Other Hospital Discharge instructionsAmbulatory Orders* Referral to Weight Management Time Frame: 08/06/23, Location: None Selected [facility] Work Phone: Reason for visit Narrative* Imaging (Emergency) - Closed Specialty Diagnoses / Procedures Referred By Chavez chang Referred To Contact Radiology Diagnoses Bartholin's gland abscess Procedures CT PELVIS W CONTRAST Gagandeep Morrell, [address] [address] Phone: tel: fax: Referral ID Status Reason Start Date Expiration Date Visits Re quested Visits Authorized [id number] Closed 07/21/2024 01/17/2025 1 1 Disrupt CKReason for visit Narrative* Auth/Cert Specialty Diagnoses / Procedures Referred By Chavez chang Referred To Contact Diagnoses Cyst of Bartholin's gland Procedures RI EXC BARTHOLINS GLAND/CYST BARTHOLIN CYST/GLAND EXCISION Gagandeep Morrell, [address] [address] Phone: tel: fax: Disrupt CK [address] [place] [address] Referral ID Status Reason Start Date Expiration Date Visits Re quested Visits Authorized [id number] 1 1 Disrupt CK Reason for Referral Status Reason Specialty Diagnoses / Procedures Referred By Contact Referred To Contact [facility] Diagnoses Snoring Morbid obesity (HCC) Procedures Baseline Diagnostic Sleep Study Roc Navarrete, DO [address] [address] Assessments Diagnosis Snoring Other dyspnea and respiratory abnormality Morbid obesity (HCC) Morbid obesity Diagnosis Encounter for screening for other viral diseases Diagnosis Pneumonia due to COVID-19 virus Advance Directives No Advanced Directives Records FoundDocuments on File Type Date Recorded Patient Data Coordinator Expl anation Advance Directives and Living Will Power of Local Flatbed Driver Documents on File Type Date Recorded Patient Data Coordinator Expl anation Advance Directives and Living Will Power of Local Flatbed Driver Documents on File Type Date Recorded Patient Data Coordinator Expl anation ACP-Advance Directive ACP-Power of Local Flatbed Driver Advance Directive Response Recorded Date/ Time Advance Directives No August 04, 024 9:13am Advance Directive Response Recorded Date/ Time Advance Directives No August 04 024 8:13am Date Activated Date Inactivated Comments 07/23/2024 12:02 PM Discharge Instructions * Instructions* Renetta Pratt, - 10/23/2019 POST-ENDOSCOPY INSTRUCTIONS 1. ACTIVITY No [...] questions, PLEASE call your doctor or the [facility] center at documented in this encounter* Attachments The following attachments cannot be sent through Care Everywhere. * Coronavirus Disease (COVID-19): Isolation (Maltese) documented in this encounter Summary Purpose Family History No Family History Records Found Relationship Condition Age at Onset Recorded Date/T kamala father Malignant neoplasm Unknown Hypertension Unknown Not Specified Malignant neoplasm Unknown Relationship Condition Age at Onset Recorded Date/T kamala father Hypertension Unknown Overweight Unknown Not Specified Epilepsy Unknown Renal failure Unknown Relationship Condition Age at Onset Recorded Date/T kamala father Hypertension Unknown Overweight Unknown mother Epilepsy Unknown Renal failure Unknown Chief Complaint and Reason for Visit Chief Complaint Check Up Reason for Visit BMI 50.0-59.9, adult Chief Complaint Check Up Swollen gland, sore throat Reason for Visit BMI 50.0-59.9, adult Sore throat Chief Complaint Admit Date Self- Barry June 18, 2024 8 :21am Reason for Visit Admit Date Abnormal weight gain June 18, 2024 8:21am Bipolar disorder June 18, 2024 8 :21am BMI 50.0-59.9, adult June 18, 2024 8:21am Class 3 severe obesity with body mass index (BMI) of 50.0 to 59.9 in adult June 18, 2024 8:21am Depression with anxiety June 18 8:21am Dietary surveillance and counseling Febr uary 2024 8:21am Exercise counseling June 18, 2024 8 :21am Kidney stones June 18, 2024 8 :21am PCOS (polycystic ovarian syndrome) Febru angella2024 8:21am Additional Source Comments Reason for Visit (unrecogniz ed section and content) Status Reason Specialty Diagnoses / Procedures Re ferred By Contact Referred To Contact Diagnoses Morbid obesity (HCC) Snoring OBESITY Procedures RI ESOPHAGOGASTRODUODENOSCOPY TRANSORAL DIAGNOSTIC EGD ESOPHAGOGASTRODUODENOSCOPY Roc Navarrete, DO [address] [facility] [address] [place] [address] [facility] Reason Comments Shortness of Breath last Saturday tested p ositive for COVID- woke up feeling more SOB this AM Specialty Diagnoses / Procedures Referred By Chavez t Referred To Contact Diagnoses Abscess of Bartholin's gland Abscess of Bartholin's gland [N75.1] Procedures RI EXC BARTHOLINS GLAND/CYST BARTHOLIN CYST MARSUPIALIZATION Gagandeep Morrell DO [address] [address] [facility] [address] [place] [address] Referral ID Status Reason Start Date Expiration Date Visits Re quested Visits Authorized [id number] 1 1 INFORMATION SOURCE (unrecogn ized section and content) DATE CREATED AUTHOR 03/22/2020 [facility] DATE CREATED AUTHOR AUTHOR'S ORGANIZ ATION 03/26/2020 [facility] DATE CREATED AUTHOR AUTHOR'S ORGANIZ ATION 06/28/2022 [facility] DATE CREATED AUTHOR AUTHOR'S ORGANIZ ATION 09/25/2022 [facility] DATE CREATED AUTHOR AUTHOR'S ORGANIZ ATION 07/24/2024 [facility] DATE CREATED AUTHOR AUTHOR'S ORGANIZ ATION 08/05/2024 [facility] Teams (unrecognized sec tion and content) Team Status: Active Member Role Status Dates Craig Harris MD Primary Care Provider Active Team Status: Active Member Role Status Dates Craig Harris MD Primary Care Provider Active Start: April 28, 2024 Arnaldo Castano DO Attending Provider Active Start : April 28, 2024 Team Status: Inactive Member Role Status Dates Craig Harris MD Primary Care Provider Active Start: June 18, 2024 End: June 18, 2024 Alesha Acevedo DNP Attending Provider Active S tart: June 18, 2024 End: June 18, 2024 Team Status: Inactive Member Role Status Dates [...] October 14, 2023 End: October 14, 2023 Library Technician Relationship Specialty Start Date End Date Craig Harris MD [address] [place] [id number] PCP - General Family Medicine 07/24/23 Library Technician Relationship Specialty Start Date End Date Craig Harris MD [address] [place] [address] PCP - General Family Medicine 10/30/22 Library Technician Relationship Specialty Start Date End Date Craig Harris MD [address] [place] [phone] PCP - General Family Medicine 07/24/23 Library Technician Relationship Specialty Start Date End Date Craig Harris MD [address] [facility] [place] [id number] PCP - General Family Medicine 07/24/23 Library Technician Relationship Specialty Start Date End Date Craig Harris MD [address] [place] [phone] PCP - General Family Medicine 07/24/23 Library Technician Relationship Specialty Start Date End Date Craig Harris MD [address] [facility] [place] [facility] [place] [address] PCP - General Family Medicine 07/24/23 Goals [...] Amount: 4 tablets 12 tablet 02/12/2024 02/15/2024 Prescription Sig Dispense Quantity Refills Last Filled Start Date End Date oxyCODONE (ROXICODONE) 5 MG immediate release tabletIndications :Post-operative state Take 1 tablet by mouth every 6 hours as needed for Pain for up to 5 days. Intended supply: 5 days. Take lowest dose possible to manage pain Max Daily Amount: 20 mg 15 tablet 07/24/2024 03/19/202 5 gabapentin (NEURONTIN) 100 MG capsule Take 1 capsule by mouth 3 times daily for 30 days. Intended supply: 90 days 90 capsule 07/23/2024 5 doxycycline hyclate (VIBRA-TABS) 100 MG tablet Take 1 tablet by mouth 2 times daily for 7 days 14 tablet 07/23/2024 5 senna-docusate (SENOKOT S) 8.6-50 MG per tablet Take 2 tablets by mouth nightly as needed for Constipation 90 tablet 07/23/2024 ibuprofen (ADVIL;MOTRIN) 600 MG tablet Take 1 tablet by mouth every 6 hours as needed for Pain 60 tablet 07/23/2024 acetaminophen (TYLENOL) 500 MG tablet Take 2 tablets by mouth every 6 hours as needed for Pain 60 tablet 07/23/2024 5 fluconazole (DIFLUCAN) 150 MG tablet Take 1 tablet by mouth once for 1 dose 1 tablet 07/24/2024 5 fluconazole (DIFLUCAN) 150 MG tablet Take 1 tablet by mouth once for 1 dose 1 tablet 07/23/2024 5 oxyCODONE (ROXICODONE) 5 MG immediate release tabletIndications :Post-operative state Take 1 tablet by mouth every 6 hours as needed for Pain for up to 5 days. Intended supply: 5 days. Take lowest dose possible to manage pain Max Daily Amount: 20 mg 10 tablet 07/23/2024 5 Scheduled Active and Recently Administ ered Medications (unrecognized section and content) Medication Order 02/10/2024 02/11/2024 02/12/2024 ceFAZolin (ANCEF) 3000 mg in sodium chloride 0.9% 100 mL IVPB (COMPLETED) 3,000 mg, IntraVENous, ONCE, 1 dose, On Sat02/12/24 at 1300, Antimicrobial Indications: Surgical Prophylaxis 1511 (Given - Provid er: Mayuri Holt, RESIDENTIAL SALES MANAGER - MOBILE PARAMEDICAL EXAMINER) Glycopyrrolate injection 0.4 mg 0.4 mg, IntraVENous, [...] dose is administered., PACU only lidocaine-EPINEPHrine 1 %-1:124768 injection (CANCELED) PRN, Starting on Sat02/12/24 at [...] Medication Order 02/10/2024 02/11/2024 02/12/2024 lidocaine-EPINEPHrine 1 %-1:310747 injection 1 dose, Starting on Sat02/12/24 at [...] second antihypertensive dose is administered., PACU only Scheduled Medication Order 07/23/2024 07/24/2024 07/25/2024 acetaminophen (TYLENOL) tablet 1,000 mg 1,000 mg, Oral, EVERY 6 HOURS, First dose on Nimisha 07/23/24 at 1230, Until Discontinued, Maximum dose of acetaminophen is 4000mg from all sources in 24 hours. Alternate ibuprofen and acetaminophen every 3 hours., Post-op 1241 (Given - Provider: Lovely Carrington RN)1839 (Given - Provider: Lovely Carrington RN) 0116 (Given - Provider: Priyanka Loo LPN)0924 (Not Given - Provider: Lovely Carrington RN - Reason: Order parameters not met)1414 (Given - Provider: Lovely Carrington RN)2231 (Given - Provider: Priyanka Loo LPN) 0408 (Not Given - Provider: Priyanka Loo LPN - Reason: Patient/family refused)1032 (Given - Provider: Julienne Luong LPN)1630 (Due - Provider: Manuel Arredondo [facility])2230 (Due - Provider: Manuel Arredondo [facility]) ceFAZolin (ANCEF) 3000 mg in sterile water 30 mL IV syringe (COMPLETED) 3,000 mg, IntraVENous, at 180 mL/hr, Administer over 10 Minutes, Once, On Nimisha 07/23/24 at 0745, For 1 dose, Administer over 5 mins. 0753 (Given - Provider: Marilyn Lindquist APRN - MOBILE PARAMEDICAL EXAMINER) doxycycline hyclate (VIBRA-TABS) tablet 100 mg 100 mg, Oral, 2 times daily, First dose on Sat07/24/24 at 0900, Until Discontinued, Antimicrobial Indications: Surgical Prophylaxis, This medication can interact with tube feedings (TF)- obtain MD order to manage. Recommend holding TF for 1 h before and 2 h after dose. Take 1 h before or 2 h after dairy, calcium, iron, magnesium, aluminum or zinc. 0916 (Given - Provider: Lovely Carrington RN)2117 (Given - Provider: Priyanka Loo LPN) 0816 (Given - Provider: Julienne Luong LPN)2100 (Due) gabapentin (NEURONTIN) capsule 100 mg (CANCELED) 100 mg, Oral, 3 TIMES DAILY, First dose on Nimisha 07/23/24 at 0915, Until Discontinued 0945 (Given - Provider: Lesly Salcedo RN) gabapentin (NEURONTIN) capsule 100 mg (CANCELED) 100 mg, Oral, 3 TIMES DAILY, First dose on Nimisha 07/23/24 at 1400, Until Discontinued 1352 (Given - Provider: Lovely Carrington RN) gabapentin (NEURONTIN) capsule 200 mg 200 mg, Oral, 3 TIMES DAILY, First dose (after last modification) on Nimisha 07/23/24 at 2100, Until Discontinued 2040 (Given - Provider: Priyanka Loo LPN) 0916 (Given - Provider: Lovely Carrington RN)1414 (Given - Provider: Lovely Carrington RN)211 (Given - Provider: Priyanka Loo LPN) 0816 (Given - Provider: Julienne Luong LPN)1400 (Due)2100 (Due) ibuprofen (ADVIL;MOTRIN) tablet 600 mg(Linked Group 1) 600 mg, Oral, EVERY 6 HOURS, First dose on Sat07/24/24 at 1530, Until Discontinued, Notify pharmacy to coordinate scheduled Tylenol and ibuprofen alternating every 3 hours, Post-op 1635 (Given - Provider: Lovely Carrington RN)211 (Given - Provider: Priyanka Loo LPN) 0331 (Given - Provider: Priyanka Loo LPN)0813 (Not Given - Provider: Julienne Luong LPN - Reason: Patient/family refused)1530 (Due)2130 (Due) ketorolac (TORADOL) injection 30 mg (COMPLETED)(Linked Group 1) 30 mg, IntraVENous, EVERY 6 HOURS, 4 doses, First dose on Nimisha 07/23/24 at 1500, Last dose on Sat07/24/24 at 0900, Discontinue when able to take PO ibuprofen., Post-op 1352 (Given - Provider: Lovely Carrington RN)2049 (Given - Provider: Miky Treadwell RN) 0257 (Given - Provider: Miky Treadwell RN)0916 (Given - Provider: Lovely Carrington RN) lamoTRIgine (LAMICTAL) tablet 25 mg 25 mg, Oral, DAILY, First dose on Sat07/24/24 at 0900, Until Discontinued 0916 (Given - Provider: Lovely Carrington RN) 0817 (Given - Provider: Julienne Luong LPN) metFORMIN (GLUCOPHAGE) tablet 500 mg 500 mg, Oral, DAILY, First dose on Sat07/23/24 at 1215, Until Discontinued 1226 (Not Given - Provider: Lovely Carrington RN - Reason: Patient/family refused) 0901 (Not Given - Provider: Lovely Carrington RN - Reason: Patient/family refused) 0650 (Not Given - Provider: Priyanka Loo LPN - Reason: Patient/family refused) phenazopyridine (PYRIDIUM) tablet 200 mg 200 mg, Oral, 3 TIMES DAILY WITH MEALS, First dose on Sat07/24/24 at 2145, Until Discontinued, Take with food. May cause discoloration of urine. 2232 (Given - Provider: Priyanka Loo LPN) 0817 (Given - Provider: Julienne Luong LPN)1257 (Given - Provider: Julienne Luong LPN)1700 (Due) sodium chloride 0.9 % bolus 500 mL (COMPLETED) 500 mL (3.64 mL/kg), IntraVENous, at 491.8 mL/hr, Administer over 61 Minutes, ONCE, On Sat07/24/24 at 2200, For 1 dose 2237 (New Bag - Provider: Priyanka Loo LPN)2245 (Restarted - Provider: Priyanka Loo LPN) sodium chloride flush 0.9 % injection 5-40 mL 5-40 mL, IntraVENous, EVERY 12 HOURS SCHEDULED (2 times per day), First dose on Sat07/23/24 at 2100, Until Discontinued, For Line Patency: [...] Midline or Central Line = 20 mL/lumen, Post-op 2003 (Not Given - Provider: Priyanka Loo LPN - Reason: IV Fluid Infusing) 1038 (Given - Provider: Lovely Carrington RN)2118 (Given - Provider: Priyanka Loo LPN) 0818 (Given - Provider: Julienne Luong LPN)2100 (Due) tamsulosin (FLOMAX) capsule 0.4 mg 0.4 mg, Oral, DAILY, First dose on Sat07/24/24 at 1000, Until Discontinued, Do not crush or break. Give 30 minutes after a full meal to limit risk of orthostatic hypotension/falls. 1038 (Given - Provider: Lovely Carrington RN) 0816 (Given - Provider: Julienne Luong LPN) Continuous Medication Order 07/23/2024 07/24/2024 07/25/2024 lactated ringers infusion (CANCELED) IntraVENous, at 125 mL/hr, CONTINUOUS, Starting on Nimisha 07/23/24 at 0600, Pre-op (day of surgery) 0730 (New Bag - Provider: Marilyn Lindquist APRN - MOBILE PARAMEDICAL EXAMINER)0849 (New Bag - Provider: Marilyn Lindquist APRN - MARGARITA) lactated ringers infusion (CANCELED) IntraVENous, at 50 mL/hr, CONTINUOUS, Starting on Nimisha 07/23/24 at 1230, Post-op 1210 (Restarted - Provider: Eloy Hutchinson RN)2040 (New Bag - Provider: Priyanka Loo LPN) PRN Medication Order 07/23/2024 07/24/2024 07/25/2024 0.9 % sodium chloride infusion IntraVENous, at 5-250 mL/hr, PRN, if patient receiving piggyback infusions and maintenance fluids are not ordered, Starting on Nimisha 07/23/24 at 1202, For piggyback infusion, administer at same rate as piggyback for a total of 25 mL. Enter 25 mL into dose field and piggyback rate into rate field of order. If piggyback is infusing at a rate less than 100 mL/hr, enter 25 mL into dose field and 100 mL/hr into rate field of order., Post-op BUPivacaine-EPINEPHrine (MARCAINE-w/EPINEPHrine) 0.5% -1:482459 injection (CANCELED) PRN, Starting on Nimisha 07/23/24 at 0830, Until Nimisha 07/23/24 at 0857, Intra-op 0830 (Given - Provider: Gagandeep Morrell, DO - Comment: op site) HYDROmorphone (DILAUDID) injection 0.5 mg (CANCELED) 0.5 mg, IntraVENous, EVERY 5 MIN PRN, 4 doses, Starting on Nimisha 07/23/24 at 0849, Until Nimisha 07/23/24 at 1201, Pain Severe (7-10), Phase I - Initial therapy for severe pain., PACU only 0915 (Given - Provider: Lesly Salcedo RN) HYDROmorphone (DILAUDID) injection 0.5 mg(Linked Group 2) 0.5 mg, IntraVENous, EVERY 3 HOURS PRN, Starting on Nimisha 07/23/24 at 1538, Until Discontinued, Pain Moderate (4-6), If oral and IV narcotics ordered, use oral first and only use IV if oral is ineffective or cannot take oral. Do Not give oral and IV within 1 hour of each other unless specifically ordered. 192 (See Alternative - Provider: Lovely Carrington RN) HYDROmorphone (DILAUDID) injection 1 mg(Linked Group 2) 1 mg, IntraVENous, EVERY 3 HOURS PRN, Starting on Nimisha 07/23/24 at 1538, Until Discontinued, Pain Severe (7-10), If oral and IV narcotics ordered, use oral first and only use IV if oral is ineffective or cannot take oral. Do Not give oral and IV within 1 hour of each other unless specifically ordered. 192 (Given - Provider: Lovely Carrington RN) HYDROmorphone (DILAUDID) injection 2 mg(Linked Group 2) 2 mg, IntraVENous, EVERY 4 HOURS PRN, Starting on Nimisha 07/23/24 at 1538, Until Discontinued, Allowed for higher pain score per patient request, If oral and IV narcotics ordered, use oral first and only use IV if oral is ineffective or cannot take oral. Do Not give oral and IV within 1 hour of each other unless specifically ordered. 1926 (See Alternative - Provider: Lovely Carrington RN) magnesium hydroxide (MILK OF MAGNESIA) 400 MG/5ML suspension 30 mL 30 mL, Oral, DAILY PRN, Starting on Nimisha 07/23/24 at 1202, Until Discontinued, Constipation, First line therapy for constipation., Post-op melatonin tablet 3 mg 3 mg, Oral, NIGHTLY PRN, Starting on Sat07/24/24 at 2116, Until Discontinued, Sleep ondansetron (ZOFRAN) injection 4 mg(Linked Group 3) 4 mg, IntraVENous, EVERY 6 HOURS PRN, Starting on Sat07/23/24 at 1202, Until Discontinued, Nausea, Vomiting, Administer if oral route cannot be used., Post-op ondansetron (ZOFRAN-ODT) disintegrating tablet 4 mg(Linked Group 3) 4 mg, Oral, EVERY 8 HOURS PRN, Starting on Nimisha 07/23/24 at 1202, Until Discontinued, Nausea, Vomiting, Post-op oxyCODONE (ROXICODONE) immediate release tablet 10 mg(Linked Group 4) 10 mg, Oral, EVERY 4 HOURS PRN, Starting on Sat07/23/24 at 1202, Until Discontinued, Pain Severe (7-10), Allowed for higher pain score per patient request, Post-op oxyCODONE (ROXICODONE) immediate release tablet 5 mg(Linked Group 4) 5 mg, Oral, EVERY 4 HOURS PRN, Starting on Nimisha 07/23/24 at 1202, Until Discontinued, Pain Moderate (4-6), Allowed for higher pain score per patient request, Post-op oxyCODONE-acetaminophen (PERCOCET) 5-325 MG per tablet 1 tablet (COMPLETED) 1 tablet, Oral, ONCE PRN, 1 dose, Starting on Nimisha 07/23/24 at 0849, Until Nimisha 07/23/24 at 0946, Pain Moderate (4-6), Maximum dose of acetaminophen is 4000 mg from all sources in 24 hours., PACU only 0946 (Given - Provider: Lesly Salcedo RN) oxyCODONE-acetaminophen (PERCOCET) 5-325 MG per tablet 2 tablet (COMPLETED) 2 tablet, Oral, ONCE PRN, 1 dose, Starting on Nimisha 07/23/24 at 0849, Until Nimisha 07/23/24 at 1034, Pain Severe (7-10), Maximum dose of acetaminophen is 4000 mg from all sources in 24 hours., PACU only 1034 (Given - Provider: Lesly Salcedo RN - Comment: Second percocet given as ordered by Dr. Graff) prochlorperazine (COMPAZINE) injection 10 mg 10 mg, IntraVENous, EVERY 6 HOURS PRN, Starting on Nimisha 07/23/24 at 1202, Until Discontinued, Nausea, If administering IV push, administer at a maximum rate of 5 mg/minute. Patients should remain lying down following administration and be reassessed for relief of nausea and presence of hypotension. Patients should be assisted the first time they get up after administration., Post-op sennosides-docusate sodium (SENOKOT-S) 8.6-50 MG tablet 2 tablet 2 tablet, Oral, NIGHTLY PRN, Starting on Nimisha 07/23/24 at 1202, Until Discontinued, Constipation, Post-op simethicone (MYLICON) chewable tablet 80 mg 80 mg, Oral, EVERY 6 HOURS PRN, Starting on Sat07/24/24 at 2116, Until Discontinued, Cramping sodium chloride flush 0.9 % injection 5-40 mL 5-40 mL, IntraVENous, PRN, Starting on Nimisha 07/23/24 at 1202, Until Discontinued, Line Care, After every IV [...] Midline or Central Line = 20 mL/lumen, Post-op Linked Groups Order Group 1: ketorolac (TORADOL) injection 30 mg (COMPLETED)Jump to med 30 mg, IntraVENous, EVERY 6 HOURS, 4 doses, First dose on Nimisha 07/23/24 at 1500, Last dose on Sat07/24/24 at 0900, Discontinue when able to take PO ibuprofen., Post- op Followed by ibuprofen (ADVIL;MOTRIN) tablet 600 mgJump to med 600 mg, Oral, EVERY 6 HOURS, First dose on Sat07/24/24 at 1530, Until Discontinued, Notify pharmacy to coordinate scheduled Tylenol and ibuprofen alternating every 3 hours, Post-op Group 2: HYDROmorphone (DILAUDID) injection 0.5 mgJump to med 0.5 mg, IntraVENous, EVERY 3 HOURS PRN, Starting on Nimisha 07/23/24 at 1538, Until Discontinued, Pain Moderate (4-6), If oral and IV narcotics ordered, use oral first and only use IV if oral is ineffective or cannot take oral. Do Not give oral and IV within 1 hour of each other unless specifically ordered. Or HYDROmorphone (DILAUDID) injection 1 mgJump to med 1 mg, IntraVENous, EVERY 3 HOURS PRN, Starting on Nimisha 07/23/24 at 1538, Until Discontinued, Pain Severe (7-10), If oral and IV narcotics ordered, use oral first and only use IV if oral is ineffective or cannot take oral. Do Not give oral and IV within 1 hour of each other unless specifically ordered. Or HYDROmorphone (DILAUDID) injection 2 mgJump to med 2 mg, IntraVENous, EVERY 4 HOURS PRN, Starting on Nimisha 07/23/24 at 1538, Until Discontinued, Allowed for higher pain score per patient request, If oral and IV narcotics ordered, use oral first and only use IV if oral is ineffective or cannot take oral. Do Not give oral and IV within 1 hour of each other unless specifically ordered. Group 3: ondansetron (ZOFRAN-ODT) disintegrating tablet 4 mgJump to med 4 mg, Oral, EVERY 8 HOURS PRN, Starting on Nimisha 07/23/24 at 1202, Until Discontinued, Nausea, Vomiting, Post-op Or ondansetron (ZOFRAN) injection 4 mgJump to med 4 mg, IntraVENous, EVERY 6 HOURS PRN, Starting on Nimisha 07/23/24 at 1202, Until Discontinued, Nausea, Vomiting, Administer if oral route cannot be used., Post- op Group 4: oxyCODONE (ROXICODONE) immediate release tablet 5 mgJump to med 5 mg, Oral, EVERY 4 HOURS PRN, Starting on Nimisha 07/23/24 at 1202, Until Discontinued, Pain Moderate (4-6), Allowed for higher pain score per patient request, Post-op Or oxyCODONE (ROXICODONE) immediate release tablet 10 mgJump to med 10 mg, Oral, EVERY 4 HOURS PRN, Starting on Nimisha 07/23/24 at 1202, Until Discontinued, Pain Severe (7-10), Allowed for higher pain score per patient request, Post-op FOR RECORDS PERTAINING TO PATIENTS WHO ARE [...] BE BASED ON THE PRIMARY CLINICAL RECORDS. [facility]. provides no warranty or guarantee of the accuracy or completeness of information in this document.
[2024-12-31 12:30] LABS: Hematocrit 35.7 % (36.0-48.0); Hemoglobin 11.9 g/dL (12.0-16.0); Immature Granulocytes Abs Auto 0.13 10^3/uL (0.00-0.03); Immature Granulocytes Pct Auto 1.2 % (0.0-0.5); Lymphocytes Absolute Auto 0.8 10^3/uL (1.2-3.8); Mean Corpuscular HGB Conc 33.3 g/dL (29.9-35.2); Mean Corpuscular Hemoglobin 29.2 pg (26.7-34.0); Mean Corpuscular Volume 87.5 fL (81.0-99.0); Platelet Count 369 10^3/uL (150-450); Red Blood Count 4.08 10^6/uL (4.20-5.40); White Blood Count 11.0 10^3/uL (4.0-11.0)
[2024-12-31] MEDS: FAMOTIDINE/PF 20 MG/2 ML VIAL IV (12:43)
[2024-12-31] MEDS: 0.9 % SODIUM CHLORIDE 1,000 ML 1000 ML IV (12:43)
[2024-12-31 12:44] LABS: Alanine Aminotransferase 18 U/L (14-59); Albumin Globulin Ratio 1.0; Albumin Level 4.0 g/dL (3.4-5.0); Alkaline Phosphatase 122 U/L (46-116); Anion Gap 13.2; Aspartate Amino Transferase 9 U/L (15-37); Blood Urea Nitrogen 6.0 mg/dL (7.0-18.0); Calcium 9.2 mg/dL (8.5-10.1); Carbon Dioxide 24.4 mmol/L (21.0-32.0); Chloride 106 mmol/L (98-107); Estimated GFR (African America >60 (>=60 mL/min/1.73m^2); Estimated GFR (Non-African Ame >60 (>=60 mL/min/1.73m^2); Globulin 4.0 g/dL; Glucose 123 mg/dL (74-106); Potassium 3.6 mmol/L (3.5-5.1); Sodium 140 mmol/L (136-145); Total Protein 8.0 g/dL (6.4-8.2)
[2024-12-31 12:45] LABS: Lipase 22.0 U/L (16.0-77.0)
[2024-12-31 12:46] VITALS: O2SAT 97
--- NOTE | 2024-12-31 12:49 | XR_ITS ---
[facility] [place] [id number] Patient Name: SYEDA DOLAN MRN: [id number] date: 1990 Sex: F Assigned Patient Location: ER Current Patient Location: ER Accession/Order Number: [id number] Exam Date: 12/31/2024 13:24 Report Date: 12/31/2024 13:26 At the request of: BETTY ROWLAND MD Procedure: XR abdomen 1V XR abdomen 1V 12/31/2024 1:17 PM SIGNS AND SYMPTOMS: ^sbo ? PROTOCOL: Frontal radiographs of the abdomen and pelvis COMPARISON: None FINDINGS: There is a nonobstructive bowel gas pattern. No radiographic evidence of free air. The bony structures are within normal limits. There is a moderate amount stool within the colon. XR/XR abdomen 1V IMPRESSION: No radiographic evidence of bowel obstruction or free air. Impression dictated by: Jem Rodriguez M.D. 12/31/2024 1:26 PM Dictation Location: [place] [address] Electronically authenticated by: [id number] Y Date: 12/31/2024 13:26
--- NOTE | 2024-12-31 12:52 | ED.ABDPAIN1 ---
HPI - Abdominal Pain General Chief Complaint: Abdominal Pain Stated Complaint: ABDOMINAL PAIN VOMITING Time Seen by Provider: 12/31/24 12:15 Source: patient Mode of arrival: walk-in Limitations: no limitations History of Present Illness HPI narrative: The patient is a 34-year-old female is coming to the ER with a 24 hours history of decreased p.o. intake after that she started having some epigastric discomfort this pain was cramping-like, she mentioned that she was evaluated for something similar almost 2 months ago when she was told that she did not have any gallbladder issue and she just need to follow-up with outpatient The patient is complaining of some nausea but no vomiting she had chills but no fever The patient have no chest pain no abdominal pain otherwise and no diarrhea but she have constipation for the last 3 days The patient denies any [id number] medication used She also has been trying to get for the last week months No burning with urination no blood in urine or any blood in stool at any time Related Data Home Medications ?Medication ?Instructions ?Recorded ?Confirmed lamotrigine 100 mg tablet 100 mg PO DAILY 02/13/24 12/31/24 metformin 500 mg tablet,extended 500 mg PO .QHS 02/13/24 12/31/24 release 24 hr ondansetron HCl 4 mg tablet 4 mg PO Q6H PRN nausea and vomiting 02/13/24 12/31/24 bupropion HCl 150 mg 24 hr tablet, 150 mg PO DAILY 12/31/24 12/31/24 extended release Previous Rx's ?Medication ?Instructions ?Recorded ondansetron 4 mg disintegrating 4 mg PO Q6H PRN nausea and 11/03/24 tablet vomiting #20 tabs famotidine 20 mg tablet (Pepcid) 20 mg PO BID #10 tabs 12/31/24 pantoprazole 40 mg tablet,delayed 40 mg PO QAM #30 tabs 12/31/24 release (Protonix) sennosides 8.8 mg/5 mL oral syrup 10 ml PO DAILY PRN constipation 12/31/24 (senna) #237 mL Allergies Allergy/AdvReac Type Severity Reaction Status Date / Time No Known Drug Allergies Allergy Verified 11/03/24 11:19 Review of Systems ROS Status of ROS 10 or more systems reviewed and unremarkable except as noted in history and below PFSH PFSH Social History Little interest or pleasure in doing things: not at all Feeling down, depressed, or hopeless: not at all Exam Narrative Exam Narrative: Nurses notes and vital signs reviewed and patient is not hypoxic. General: Well-appearing and in no apparent distress. Skin: Warm, dry, no pallor noted. No rash. Head: Normocephalic, atraumatic. Neck: Supple, non-tender. Cardiovascular: Regular Rate and Rhythm without murmur, gallop or rub. Respiratory: No accessory muscle use or respiratory distress. Lungs are clear to auscultation, no wheezing, rales or rhonchi Chest Wall: no tenderness Back: No midline thoracic or lumbar vertebral tenderness. No CVA tenderness Musculoskeletal: normal ROM, no calf or popliteal tenderness, no lower extremity edema/swelling GI: Abdomen is soft, non-distended. Normal bowel sounds. No masses appreciated. There is no tenderness upon palpation of the right upper quadrant the patient only have epigastric discomfort with deep palpation, no rebound, guarding, or rigidity noted. Neurological: A&O x4. No cranial nerve dysfunction observed. No truncal ataxia. Moves all extremities. Sensation intact. Psychiatric: Cooperative and interactive. Normal mood and affect. Constitutional Vital Signs, click to edit/add: Last Vital Signs Temp 97.8 F 12/31/24 12:09 Pulse 61 12/31/24 12:09 Resp 18 12/31/24 12:09 BP 146/75 H 12/31/24 12:09 Pulse Ox 97 12/31/24 12:46 O2 Del Method Room Air 12/31/24 12:46 Course Vital Signs Vital signs: Vital Signs Temperature 97.8 F 12/31/24 12:09 Pulse Rate 61 12/31/24 12:09 Respiratory Rate 18 12/31/24 12:09 Blood Pressure 146/75 H 12/31/24 12:09 Pulse Oximetry 100 12/31/24 12:09 Oxygen Delivery Method Room Air 12/31/24 12:09 Temperature 97.8 F 12/31/24 12:09 Pulse Rate 61 12/31/24 12:09 Respiratory Rate 18 12/31/24 12:09 Blood Pressure 146/75 H 12/31/24 12:09 Pulse Oximetry 97 12/31/24 12:46 Oxygen Delivery Method Room Air 12/31/24 12:46 MDM - Abdominal Pain MDM Narrative Medical decision making narrative: The patient CBC showed no acute pathology and the patient chemistry is within normal with a negative test The patient did not have any elevated lipase or any white blood cell elevation The patient also x-ray of the abdomen shows moderate constipation but there is no obstruction----the patient was provided with senna for constipation The patient also was started on Pepcid initially and provided with a GI cocktail after which she was feeling better She was discharged home with Pepcid and Protonix with gastritis diet for the next few days and referred to GI as outpatient Patient referred to come back to the ER in case of worsening symptoms specially in case of any blood in stool or any increasing pain The patient is to follow up with primary care physician in next 2-3 days or to return to the emergency department should any of the signs or symptoms worsen or new symptoms develop. The patient agrees with the following Diagnosis and Treatment plan and the patient will be discharged home. Lab Data Labs: Lab Results 12/31/24 Range/Units 12:15 WBC 11.0 (4.0-11.0) 10^3/uL RBC 4.08 L (4.20-5.40) 10^6/uL Hgb 11.9 L (12.0-16.0) g/dL Hct 35.7 L (36.0-48.0) % MCV 87.5 (81.0-99.0) fL MCH 29.2 (26.7-34.0) pg MCHC 33.3 (29.9-35.2) g/dL RDW 14.4 (11.0-15.0) % Plt Count 369 (150-450) 10^3/uL MPV 10.5 (9.5-13.5) fL Neut % (Auto) 89.5 H (43.0-75.0) % Lymph % (Auto) 6.9 L (20.5-60.0) % Phelps % (Auto) 2.3 (1.7-12.0) % Eos % (Auto) 0.0 L (0.9-7.0) % Baso % (Auto) 0.1 L (0.2-2.0) % Neut # (Auto) 9.9 H (1.4-6.5) 10^3/uL Lymph # (Auto) 0.8 L (1.2-3.8) 10^3/uL Phelps # (Auto) 0.3 (0.3-0.8) 10^3/uL Eos # (Auto) 0.0 (0.0-0.7) 10^3/uL Baso # (Auto) 0.0 (0.0-0.1) 10^3/uL Abs Immat Gran (auto) 0.13 H (0.00-0.03) 10^3/uL Imm/Tot Granulo (auto) 1.2 H (0.0-0.5) % Sodium 140 (136-145) mmol/L Potassium 3.6 (3.5-5.1) mmol/L Chloride 106 (98-107) mmol/L Carbon Dioxide 24.4 (21.0-32.0) mmol/L Anion Gap 13.2 BUN 6.0 L (7.0-18.0) mg/dL Creatinine 0.83 (0.55-1.02) mg/dL Est GFR ( Amer) >60 (>=60 mL/min/1.73m^2) Est GFR (Non-Af Amer) >60 (>=60 mL/min/1.73m^2) BUN/Creatinine Ratio 7.2 Glucose 123 H (74-106) mg/dL Calcium 9.2 (8.5-10.1) mg/dL Total Bilirubin 0.5 (0.2-1.0) mg/dL AST 9 L (15-37) U/L ALT 18 (14-59) U/L Alkaline Phosphatase 122 H (46-116) U/L Total Protein 8.0 (6.4-8.2) g/dL Albumin 4.0 (3.4-5.0) g/dL Globulin 4.0 g/dL Albumin/Globulin Ratio 1.0 Lipase 22.0 (16.0-77.0) U/L Serum HCG, Qual Negative (NEGATIVE) Discharge Plan Discharge Chief Complaint: Abdominal Pain Clinical Impression: Gastritis, Constipation Patient Disposition: Home, Self-Care Time of Disposition Decision: 13:37 Condition: Good Prescriptions / Home Meds: New sennosides [senna] 8.8 mg/5 mL syrup 10 ml PO DAILY PRN (Reason: constipation) Qty: 237 0RF famotidine [Pepcid] 20 mg tablet 20 mg PO BID Qty: 10 0RF pantoprazole [Protonix] 40 mg tablet,delayed release (DR/EC) 40 mg PO QAM Qty: 30 0RF No Action ondansetron 4 mg tablet,disintegrating 4 mg PO Q6H PRN (Reason: nausea and vomiting) Qty: 20 0RF lamotrigine 100 mg tablet 100 mg PO DAILY metformin 500 mg tablet extended release 24 hr 500 mg PO .QHS ondansetron HCl 4 mg tablet 4 mg PO Q6H PRN (Reason: nausea and vomiting) bupropion HCl 150 mg tablet extended release 24 hr 150 mg PO DAILY Print Language: Divehi Instructions: Gastritis (ED), Constipation (ED), Diet for Stomach Ulcers and Gastritis (ED) Referrals: JAMESON WHITE [Physician, Gastroenterology] - 1 week Asiya Gonzales MD [Primary Care Provider, Family Practice] - 1 week
[2024-12-31] MEDS: lidocaine HCL 15 ML, MAG HYDROX/ALUMINUM HYD/SIMETH 30 ML, HYOSCYAMINE SULFATE 0.25 MG PO (13:13)
== END 2024-12-31 13:51 | disposition home or self-care (01) ==
PROVIDERS: Emergency Provider Emergency Medicine; PCP Family Medicine
DX: K59.00 Constipation, unspecified (principal); K29.70 Gastritis, unspecified, without bleeding
CPT/HCPCS: 36415; 74018; 80053; 83690; 84703; 85025; 96374; 99284; J3490